=== PATIENT | female | born 1960 | race Caucasian/White ===

== ENCOUNTER 2019-10-06 09:30 | Emergency (ER) | payer MEDICARE, SELFPAY ==
--- NOTE | ~2019-10-06 | CT_ITS ---
EXAMINATION: CT brain wo con DATE: 10/06/2019 10:48 INDICATION: Sudden headache. Dizziness. TECHNIQUE: Computed tomography (CT) of the head was performed without intravenous contrast. The mA wa s adjusted according to patient size. Iterative reconstruction technique was employed. Exam dose: 60 5.33 mGy-cm total exam DLP. COMPARISON: None FINDINGS: No intracranial mass lesion or hemorrhage or cerebrovascular accident is detected. No midl ine shift or mass effect. Normal ventricular size. No subdural or epidural hematoma. No skull fracture or bone destruction. The paranasal sinuses and mastoid air cells are normally developed and aerated. IMPRESSION: No acute intracranial abnormality or significant change since 09/27/2018 Reviewed, dictated and finalized at Location [facility]. Reviewed, dictated and finalized at location B.
--- NOTE | 2019-10-06 09:35 | ECG_ITS ---
Measurements Intervals [place] Rate: 98 P: 57 [place]: 158 QRS: 109 QRSD: 106 T: 31 QT: 362 QTc: 464 Interpretive Statements SINUS RHYTHM RIGHT AXIS DEVIATION BORDERLINE R WAVE PROGRESSION, ANTERIOR LEADS BASELINE ARTIFACT- II, III BORDERLINE ECG Electronically Signed On 10-06-2019 10:34:04 CDT by Mohan Mendez D.O.
--- NOTE | 2019-10-06 09:38 | PC.NURSE ---
Pt. very restless in bed. RN attempted to start IV to obtain access and blood and Pt. jumped out and shouted NO . Attempted to reason with Pt. and Pt. stated 'I don't need a freaking IV just give me a pill or a shot or something . Attempted to reason with Pt. again and Pt. continued to refuse.
[2019-10-06 09:39] VITALS: BP 125/67; PULSE 104; RESP 18; TEMP 36.9; O2SAT 99
--- NOTE | 2019-10-06 09:39 | ED.GENADULT ---
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 She denies any visual changes and states that with her eyes closed she feels better. She is also kicking her legs quite a bit and is concerned about that movement. Her states that she frequently kicks her legs at night. She denies any recent medication changes, no recent illness, no recent eyeglass prescription change. Onset (ago): minute(s) Location: head and lower extremity Associated symptoms: headaches Treatments prior to arrival: none Related Data Home Medications Medication Instructions Recorded Confirmed bupropion HCl mg PO 06/20/19 escitalopram oxalate mg 06/20/19 indapamide mg 06/20/19 insulin aspart U-100 [Novolog unit SUBCUT 06/20/19 Flexpen U-100 Insulin] insulin glargine [Lantus U-100 SUBCUT 06/20/19 Insulin] losartan 06/20/19 losartan 06/20/19 metoprolol succinate PO 06/20/19 flash glucose scanning reader #1 each 06/24/19 flash glucose sensor #1 each 06/24/19 Allergies Allergy/AdvReac Type Severity Reaction Status Date / Time codeine Allergy Unknown Unknown Verified 08/10/19 19:12 Chocolate Allergy Unknown RASH Uncoded 07/06/19 08:35 Review of Systems Review of Systems: All systems reviewed & are unremarkable except as noted in HPI and below [facility] Past Medical History Medical History Anxiety Arthritis Bilateral carpal tunnel syndrome Bronchitis Depression Ganglion cyst History of bipolar disorder HLD (hyperlipidemia) HTN (hypertension) Knee fracture, right Meningitis Viral Skin cancer Suicidal ideation Suicide attempt x4 Type II diabetes mellitus Surgical History Surgical History H/O inguinal hernia repair History of cholecystectomy History of tonsillectomy Family History Family History Father Family history of diabetes mellitus in first degree relative Diabetes mellitus Hypertension Family history of kidney disease Other Family history of cardiovascular disease Social History Social History Smoking status: Current every day smoker Smoking end date: 07/21/14 Alcohol intake: never Gender identity (if verbalized by the patient): Female Exam Const: General: alert Orientation/consciousness: patient oriented x3 Other: pt is lying on her abdomen with eyes closed. HENMT: Head: normal to inspection Ears: TM's normal bilaterally Mouth: Yes moist mucous membranes Eyes: Conjunctivae: conjunctivae normal Pupils: Equal, round and reactive pupils present EOM: EOMs intact bilaterally Resp: Effort & Inspection: normal respiratory effort Auscultation: clear to auscultation bilaterally Cardio: Rate: regular rate Rhythm: regular rhythm Skin: General skin exam: normal color Rashes: no rashes Neuro: General: patient oriented x3 Extrem: General: normal to inspection, no pedal edema and no calf tenderness Right lower extremity: full ROM and normal capillary refill Left lower extremity: full ROM and normal capillary refill Other: constant kicking of legs, right greater than left. Psych: Mental Status: mental status grossly normal Affect: normal affect Course Course Emergency Course: Further review with patient, she has a long history of dizziness. She has been prescribed meclizine but did not take it today because she did not have it with her. She is more concerned about her restless leg symptoms. Patient's glucose here was 241 I inquired about her baseline glucose
[2019-10-06] MEDS: KETOROLAC 30 MG/ML VIAL (*BKC) IV PUSH (11:08)
[2019-10-06] MEDS: MECLIZINE HCL 12.5 MG TABLET (11:13)
[2019-10-06 11:22] LABS: Basophils Percent Auto 0.7 % (0.2-1.2); Eosinophils Absolute Auto 0.2 K/mm3 (0-0.3); Eosinophils Percent Auto 3.6 % (0-4.4); Hematocrit 38.7 % (37.0-47.0); Hemoglobin 12.4 g/dL (12.0-15.0); Immature Granulocyte Absolute 0.04 K/mm3 (0.00-0.031); Immature Granulocyte Percent A 0.7 % (0-0.5); Lymphocytes Percent Auto 23.1 % (18.3-44.2); Mean Corpuscular Hemoglobin 28.6 pg (26-34); Mean Corpuscular Volume 89.4 fl (80-100); Mean Platelet Volume 10.2 fl (7.4-10.4); Monocytes Absolute Auto 0.4 K/mm3 (0.1-0.6); Monocytes Percent Auto 6.4 % (2.6-8.5); Neutrophils Percent Auto 65.5 % (45.5-73.1); Platelet Count Result 186 k/mm3 (150-375); Red Blood Count 4.33 M/mm3 (4.2-5.4); Red Cell Distribution Width 15.2 % (11.5-14.5); White Blood Count 6.1 K/mm3 (4.5-10.0)
[2019-10-06 11:33] LABS: Alanine Aminotransferase 21 U/L (4-35); Albumin Level 4.1 g/dL (3.5-5.1); Alkaline Phosphatase 65 U/L (38-126); Aspartate Amino Transferase 22 U/L (14-36); Bilirubin,Total 0.5 mg/dL (0.2-1.3); Blood Urea Nitrogen 23 mg/dL (7-17); Calcium 9.3 mg/dL (8.4-10.2); Carbon Dioxide 24 mmol/L (22-30); Chloride 102 mmol/L (98-107); Estimated Glomerular Filt Rate 39; Glucose 241 mg/dL (65-105); Sodium 137 mmol/L (137-145)
[2019-10-06] MEDS: SODIUM CHLORIDE 0.9% IV 1,000 ML 999 ML IV CONT (12:05)
[2019-10-06 13:16] LABS: Glucose Point of Care 137 (65-105)
[2019-10-06 13:46] VITALS: BP 140/75; PULSE 70; RESP 16; O2SAT 98
== END 2019-10-06 13:35 | disposition home or self-care (01) ==
PROVIDERS: Physician Assistant; Emergency Provider Emergency Medicine; PCP Family Medicine
DX: E11.65 Type 2 diabetes mellitus with hyperglycemia (principal); F41.9 Anxiety disorder, unspecified; M19.90 Unspecified osteoarthritis, unspecified site; F32.9 Major depressive disorder, single episode, unspecified; E78.5 Hyperlipidemia, unspecified; Z79.4 Long term (current) use of insulin
CPT/HCPCS: 36415; 70450; 80053; 82948; 85025; 93005; 96374; 99284; A9270; J1885; J7030

== ENCOUNTER 2019-12-14 16:14 | Outpatient (CLI) | payer MEDICARE, SELFPAY ==
--- NOTE | ~2019-12-14 | XR_ITS ---
EXAMINATION: XR knee LT 2V EXAM DATE: 12/14/2019 16:49 INDICATION: No known recent injury provided at this time. Pain of the left knee knee. TECHNIQUE: Frontal and lateral projections of the left knee knee. Comparison is made to prior examin ation from 03/26/2010. FINDINGS: Significant interval progression in the left knee primary osteoarthritis compared to 2010, with bulky bony productive changes, moderate loss of the medial tibiofemoral joint space and probabl y development of 1 cm joint body within the suprapatellar recess. There are no acute fractures or dis locations identified. There is no subcutaneous gas. The soft tissue is unremarkable. There are no radiopaque foreign bodies. IMPRESSION: Moderate to severe left knee osteoarthritis. Reviewed, dictated and finalized at location A.
--- NOTE | ~2019-12-14 | XR_ITS ---
EXAMINATION: XR knee RT 2V EXAM DATE: 12/14/2019 16:49 INDICATION: Bilateral knee pain. No known recent injury. TECHNIQUE: Frontal and lateral projections of the right knee. Comparison is made to prior examinatio n from 11/11/2008. FINDINGS: Moderate loss of the right knee medial tibiofemoral joint space compartment. There are lar ge bulky bony productive changes. There is severe patellofemoral compartment primary osteoarthritis. Possible 1 cm joint body. There are no acute fractures or dislocations identified. There is no subcu taneous gas. The soft tissue is unremarkable. There are no radiopaque foreign bodies. IMPRESSION: Severe right knee osteoarthritis. Reviewed, dictated and finalized at location A.
[2019-12-14 17:05] LABS: Blood Urea Nitrogen 21 mg/dL (7-17); Carbon Dioxide 29 mmol/L (22-30); Chloride 101 mmol/L (98-107); Estimated Glomerular Filt Rate 42; Glucose 115 mg/dL (65-105); Potassium 4.2 mmol/L (3.4-5.0); Sodium 140 mmol/L (137-145)
[2019-12-14 18:16] LABS: Hemoglobin A1C 8.3 % (<5.7)
== END 2019-12-14 16:15 | disposition home or self-care (01) ==
PROVIDERS: PCP Family Medicine; Visit Provider Physician Assistant Medical
DX: N28.9 Disorder of kidney and ureter, unspecified (principal); E11.9 Type 2 diabetes mellitus without complications; M17.0 Bilateral primary osteoarthritis of knee
CPT/HCPCS: 36415; 73560; 80048; 83036

== ENCOUNTER 2019-12-24 13:56 | Emergency (ER) | payer MEDICARE, SELFPAY ==
--- NOTE | ~2019-12-24 | XR_ITS ---
EXAMINATION: XR knee RT 3V DATE: 12/24/2019 14:36 INDICATION: Right knee pain. TECHNIQUE: 3 views of right knee were obtained. COMPARISON: Right knee radiographs 12/14/2019 FINDINGS: Bone alignment is normal. No fracture. There is severe osteoarthritis of patellofemoral com partment and moderate osteoarthritis of medial and lateral compartments. No knee joint effusion. IMPRESSION: 1. Severe right knee osteoarthritis. Reviewed, dictated and finalized at location A.
[2019-12-24 14:02] VITALS: BP 119/87; PULSE 78; RESP 16; TEMP 36.9; O2SAT 98
[2019-12-24] MEDS: ACETAMINOPHEN 500 MG TABLET 1000 MG PO (14:40)
--- NOTE | 2019-12-24 15:35 | ED.LOWEXIN ---
HPI - Extremity Injury (Lower) General Chief Complaint: Extremity Injury, Lower Stated Complaint: R knee pain Time Seen by Provider: 12/24/19 14:03 Source: patient Mode of arrival: ambulatory Limitations: no limitations History of Present Illness HPI Narrative: Patient is a 59-year-old female who presents with right knee pain that began just prior to arrival was ambulating when she felt a pop in the knee is since had moderate aching pain with pain throughout the joint patient has an orthopedist with plan follow-up in the near future patient took her tramadol and other medications with some improvement patient on arrival in no distress notes that the pain radiates up and down the leg patient has history of orthopedic issues in the past Related Data Home Medications Medication Instructions Recorded Confirmed bupropion HCl mg PO 06/20/19 10/29/19 indapamide mg 06/20/19 10/29/19 insulin aspart U-100 [Novolog unit SUBCUT 06/20/19 10/29/19 Flexpen U-100 Insulin] insulin glargine 100 unit/mL See Rx Instructions SUBCUT .COMPLEX 12/15/19 12/15/19 subcutaneous solution Allergies Allergy/AdvReac Type Severity Reaction Status Date / Time codeine Allergy Unknown Unknown Verified 12/24/19 14:08 Chocolate Allergy Unknown RASH Uncoded 12/15/19 13:38 Review of Systems Review of Systems: Narrative: CONSTITUTIONAL: Denies fever, chills, or sweats. SKIN: Positive for swelling denies bruising. Denies back pain MUSCULOSKELETAL: Positive for right joint pain located to the knee NEUROLOGIC: Denies numbness, tingling . PMFSH Past Medical History Medical History Anxiety Arthritis Bilateral carpal tunnel syndrome Bronchitis Depression Ganglion cyst History of bipolar disorder HLD (hyperlipidemia) HTN (hypertension) Knee fracture, right Meningitis Viral Skin cancer Suicidal ideation Suicide attempt x4 Type II diabetes mellitus Surgical History Surgical History H/O inguinal hernia repair History of cholecystectomy History of tonsillectomy Social History Social History Smoking status: Current every day smoker Smoking end date: 07/21/14 Alcohol intake: never Gender identity (if verbalized by the patient): Female Exam Narrative: Exam Narrative: GENERAL: Well-appearing, well-nourished, and in no acute distress. HEAD: Normocephalic, atraumatic. EYES: PERRLA and EOMI. ENT: Nares clear, no rhinorrhea or epistaxis. Mucous membranes moist. EXTREMITIES: Swelling and tenderness of the right knee no deformity noted SKIN: Warm, dry, no rash. NEURO: No focal deficits. Alert and oriented x3. Neurovascularly intact. Capillary refill less than 2 seconds PSYCH: Normal mood and affect. Course Course Emergency Course: Patient in the room aware of case findings treatment plan and diagnosis agreeing to follow-up as directed Vital Signs Vital signs: Vital Signs Temperature 98.4 F 12/24/19 14:02 Pulse Rate 78 12/24/19 14:02 Respiratory Rate 16 12/24/19 14:02 Blood Pressure 119/87 12/24/19 14:02 Pulse Oximetry 98 12/24/19 14:02 Temperature 98.4 F 12/24/19 14:02 Pulse Rate 78 12/24/19 14:02 Respiratory Rate 16 12/24/19 14:02 Blood Pressure 119/87 12/24/19 14:02 Pulse Oximetry 98 12/24/19 14:02 MDM - Extremity Injury (Lower) MDM Narrative Medical decision making narrative: Patients injury or pain is consistent with musculoskeletal etiology. No signs of neurological or vascular compromise on exam. Compartments and tisues are soft without signs of compartment syndrome. Pain is felt appropriate for further evaluation on an outpatient basis. Imaging Data Radiologist's impression: ITS Impressions Knee X-Ray 12/24/19 14:39 IMPRESSION: 1. Severe right knee osteoarthritis. Discharge Plan Discharge Cli
[2019-12-24 15:49] VITALS: BP 114/76; PULSE 74; RESP 16; TEMP 36.6; O2SAT 96
== END 2019-12-24 15:50 | disposition home or self-care (01) ==
PROVIDERS: Emergency Provider Emergency Medicine; PCP Family Medicine
DX: M25.561 Pain in right knee (principal); M17.11 Unilateral primary osteoarthritis, right knee; Z87.891 Personal history of nicotine dependence; Z79.4 Long term (current) use of insulin; F41.9 Anxiety disorder, unspecified; F31.9 Bipolar disorder, unspecified; Z85.828 Personal history of other malignant neoplasm of skin; I10 Essential (primary) hypertension; E78.5 Hyperlipidemia, unspecified; E11.9 Type 2 diabetes mellitus without complications
CPT/HCPCS: 73562; 99283; A9270

== ENCOUNTER 2020-04-10 07:34 | Outpatient (CLI) | payer MEDICARE, SELFPAY ==
--- NOTE | ~2020-04-10 | US_ITS ---
EXAMINATION: US renal BI EXAM DATE: 04/10/2020 08:23 INDICATION: Chronic kidney disease stage III TECHNIQUE: Multiple grayscale and Doppler images of the kidneys were obtained (by a technologist who performed the scan) and subsequently reviewed. There is no prior study for comparison. FINDINGS: There is mild renal cortical thinning bilaterally. Right kidney: There is normal contour and echogenicity. It measures 9.9 x 5.3 x 5.6 centimeters. Th ere are no focal renal lesions identified. There is no hydronephrosis. Left kidney: There is normal contour and echogenicity. It measures 11.3 x 5.2 x 5.9 centimeters. Th ere are no focal renal lesions identified. There is no hydronephrosis. Bladder unremarkable. IMPRESSION: 1. Mild bilateral renal cortical thinning. 2. No hydronephrosis. Reviewed, dictated and finalized at location B.
== END 2020-04-10 07:35 | disposition home or self-care (01) ==
LOC: ANHIMG 07:45
PROVIDERS: PCP Family Medicine; Visit Provider Internal Medicine Nephrology
DX: N18.3 Chronic kidney disease, stage 3 (moderate) (principal)
CPT/HCPCS: 76775

== ENCOUNTER 2020-05-04 15:40 | Emergency (ER) | payer MEDICARE, SELFPAY ==
--- NOTE | ~2020-05-04 | XR_ITS ---
EXAMINATION: XR chest 1V portable EXAM DATE: 05/04/2020 17:43 INDICATION: Initial encounter following injury, with pain of the weakness, hypertension. TECHNIQUE: Portable AP frontal chest x-ray was obtained. Comparison is made to prior examination from 11/17/2011. FINDINGS: The lungs are clear. There are no pleural effusions. Cardiac silhouette is prominent but magnified on this AP technique. There is no pneumothorax suspected. There are bony degenerative ch anges. IMPRESSION: No acute cardiopulmonary findings. Reviewed, dictated and finalized at location A.
[2020-05-04 15:43] VITALS: BP 143/72; PULSE 80; RESP 18; TEMP 36.2; O2SAT 99
--- NOTE | 2020-05-04 15:46 | ECG_ITS ---
Measurements Intervals [place] Rate: 75 P: 54 [place]: 185 QRS: 68 QRSD: 109 T: 61 QT: 394 QTc: 441 Interpretive Statements SINUS RHYTHM LOW QRS VOLTAGE- DIFFUSE LEADS BASELINE ARTIFACT- V6 BORDERLINE ECG Electronically Signed On 05-04-2020 19:29:34 CDT by Mohan Mendez D.O.
[2020-05-04 17:04] VITALS: BP 133/76; PULSE 73; RESP 20; O2SAT 100
[2020-05-04 17:52] VITALS: BP 109/72; PULSE 72; RESP 18; O2SAT 99
[2020-05-04] MEDS: MECLIZINE HCL 25 MG TABLET PO (17:52)
[2020-05-04] MEDS: diazePAM INJ (*CRX) 10 MG/2 ML SYRINGE 5 MG IV PUSH (17:52)
[2020-05-04] MEDS: ONDANSETRON INJ 4 MG/2 ML VIAL IV PUSH (17:52)
[2020-05-04 18:01] LABS: Basophils Percent Auto 0.6 % (0.2-1.2); Eosinophils Absolute Auto 0.3 K/mm3 (0-0.3); Eosinophils Percent Auto 4.3 % (0-4.4); Hematocrit 35.2 % (37.0-47.0); Hemoglobin 11.7 g/dL (12.0-15.0); Immature Granulocyte Absolute 0.03 K/mm3 (0.00-0.031); Immature Granulocyte Percent A 0.5 % (0-0.5); Lymphocytes Absolute Auto 1.77 K/mm3 (0.9-3.2); Lymphocytes Percent Auto 26.9 % (18.3-44.2); Mean Corpuscular HGB Conc 33.2 g/dl (32-36); Mean Corpuscular Hemoglobin 28.8 pg (26-34); Mean Corpuscular Volume 86.7 fl (80-100); Mean Platelet Volume 9.8 fl (7.4-10.4); Monocytes Absolute Auto 0.5 K/mm3 (0.1-0.6); Monocytes Percent Auto 7.1 % (2.6-8.5); Neutrophils Percent Auto 60.6 % (45.5-73.1); Platelet Count Result 239 k/mm3 (150-375); Red Blood Count 4.06 M/mm3 (4.2-5.4); White Blood Count 6.6 K/mm3 (4.5-10.0)
[2020-05-04 18:13] LABS: Alanine Aminotransferase 28 U/L (4-35); Albumin Level 3.9 g/dL (3.5-5.1); Alkaline Phosphatase 65 U/L (38-126); Anion Gap 11 mmol/L (8-16); Aspartate Amino Transferase 32 U/L (14-36); Bilirubin,Total 0.6 mg/dL (0.2-1.3); Blood Urea Nitrogen 17 mg/dL (7-17); Carbon Dioxide 28 mmol/L (22-30); Chloride 100 mmol/L (98-107); Estimated CRCL calculation 79 ml/min; Estimated Glomerular Filt Rate 51; Glucose 243 mg/dL (65-105); Potassium 3.6 mmol/L (3.4-5.0); Sodium 139 mmol/L (137-145)
[2020-05-04 18:25] LABS: Troponin I < 0.012 ng/mL (0.000-0.034)
--- NOTE | 2020-05-04 18:41 | ED.DIZZY ---
HPI - Dizziness General Chief Complaint: Dizziness Stated Complaint: vertigo x 2 days Time Seen by Provider: 05/04/20 17:10 Source: patient and family Mode of arrival: ambulatory Limitations: no limitations History of Present Illness HPI Narrative: Patient is 59 years old white female presents with dizziness. History of vertigo over 1 year ago. Patient been complaining of spells of dizziness, everything is pains associated with nausea over the last 3 days. Get better on meclizine then back again. Patient denies any fever, chills, nausea, vomiting, chest pain, shortness of breath, back pain or headache. Patient also denies any focal neuro deficits. Related Data Home Medications Medication Instructions Recorded Confirmed insulin aspart U-100 [Novolog unit SUBCUT 06/20/19 01/11/20 Flexpen U-100 Insulin] Allergies Allergy/AdvReac Type Severity Reaction Status Date / Time codeine Allergy Unknown Unknown Verified 04/24/20 16:36 Chocolate Allergy Unknown RASH Uncoded 04/24/20 16:36 Review of Systems Review of Systems: Narrative: CONSTITUTIONAL: Denies fever, chills, or sweats. EYES: Denies visual changes, redness, or discharge. ENT: Denies rhinorrhea, congestion, sore throat, or otalgia. CARDIOVASCULAR: Denies chest pain, palpitations, or edema. RESPIRATORY: Denies cough or dyspnea. GASTROINTESTINAL: Denies abdominal pain, nausea, vomiting, or diarrhea. GENITOURINARY: Denies dysuria or hematuria. SKIN: Denies rash or itching. MUSCULOSKELETAL: Denies back pain, joint pain, or myalgia. NEUROLOGIC: Denies headache, numbness, or weakness. PSYCHIATRIC: Denies anxiety or depression. [facility] Past Medical History Medical History (Updated 05/04/20 @ 18:51 by Jaziel Mohan MD) Anxiety Arthritis Bilateral carpal tunnel syndrome Bronchitis Depression Ganglion cyst History of bipolar disorder HLD (hyperlipidemia) HTN (hypertension) Knee fracture, right Meningitis Viral Skin cancer Suicidal ideation Suicide attempt x4 Type II diabetes mellitus Surgical History Surgical History H/O inguinal hernia repair History of cholecystectomy History of tonsillectomy Family History Family History Father Family history of diabetes mellitus in first degree relative Diabetes mellitus Hypertension Family history of kidney disease Other Family history of cardiovascular disease Social History Social History Smoking status: Current every day smoker Smoking end date: 07/21/14 Alcohol intake: never Gender identity (if verbalized by the patient): Female Exam Narrative: Exam Narrative: General appearance: Well-developed, well-nourished Skin: Normal color Head: Normocephalic, nontraumatic Eyes: Clear conjunctiva ENT: Oropharynx normal, ears normal, nose normal Neck: Supple, nontender Chest and respiratory: Airway patent, no respiratory distress, no accessory muscle use Heart: Regular rate/rhythm Abdomen: Soft, nontender, no organomegaly, quiet bowel sounds Vascular: Normal peripheral pulses, normal capillary refill. Musculoskeletal: Normal range of motion, nontender back Neurologic: Alert and oriented ?3, LEVERMAN is normal as tested, no gross motor deficit Course Course Emergency Course: Improving Vital Signs Vital signs: Vital Signs Temperature 36.2 C L 05/04/20 15:43 Pulse Rate 80 05/04/20 15:43 Respiratory Rate 18 05/04/20 15:43 Blood Pressure 143/72 H 05/04/20 15:43 Pulse Oximetry 99 05/04/20 15:43 Temperature 36.2 C L 05/04/20 15:43 Pulse Rate 72 04/20
[2020-05-04 19:30] VITALS: BP 124/86; PULSE 67; RESP 18; O2SAT 100
== END 2020-05-04 19:32 | disposition home or self-care (01) ==
PROVIDERS: Emergency Provider Emergency Medicine; PCP Family Medicine
DX: H81.10 Benign paroxysmal vertigo, unspecified ear (principal); E11.9 Type 2 diabetes mellitus without complications; Z85.828 Personal history of other malignant neoplasm of skin; I10 Essential (primary) hypertension; E78.5 Hyperlipidemia, unspecified; M19.90 Unspecified osteoarthritis, unspecified site; Z79.4 Long term (current) use of insulin; R94.31 Abnormal electrocardiogram [ECG] [EKG]
CPT/HCPCS: 36415; 71045; 80053; 84484; 85025; 93005; 96374; 96375; 99284; A9270; J2405; J3360

== ENCOUNTER 2020-06-16 10:30 | Emergency (ER) | payer MEDICARE, SELFPAY ==
--- NOTE | ~2020-06-16 | XR_ITS ---
EXAMINATION: XR ribs RT 2V DATE: 06/16/2020 12:04 INDICATION: Anterior right lower rib pain post fall TECHNIQUE: 3 views of the right ribs were obtained. COMPARISON: Chest radiograph dated 05/04/2020 FINDINGS: No rib fractures identified. No focal airspace opacities, pulmonary edema, pleural effusion or pneumo thorax in the right lung or visualized portions of the left lung. Visualized portions of the cardiac mediastinal silhouette appear normal. Cholecystectomy clips in right upper quadrant. Likely rotator c uff tear with severe narrowing of the subacromial space which appears near [id number] with subacrom ial spurs and remodeling of the undersurface of the acromion. There is some mild corresponding hypert rophic change along the superolateral margin of the articular surface of the humeral head. IMPRESSION: 1. No right rib fracture or acute cardiopulmonary disease. 2. Likely chronic right rotator cuff tear. Reviewed, dictated and finalized at location A. 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
[2020-06-16 10:46] VITALS: BP 108/67; PULSE 83; RESP 18; TEMP 35.9; O2SAT 99
--- NOTE | 2020-06-16 13:23 | ED.FALL ---
HPI - Fall General Chief Complaint: Fall Stated Complaint: Fall last night, ribs hurt bad Time Seen by Provider: 06/16/20 11:38 Source: patient Mode of arrival: ambulatory Limitations: no limitations History of Present Illness HPI Narrative: Patient is a 59-year-old female who presents to emergency department for evaluation of injuries related to a fall that occurred last night patient tripped over a dog and fell forward injuring the right anterior ribs where she has aching pain is taken her prescribed pain medication Related Data Home Medications Medication Instructions Recorded Confirmed insulin aspart U-100 [Novolog unit SUBCUT 06/20/19 06/12/20 Flexpen U-100 Insulin] Allergies Allergy/AdvReac Type Severity Reaction Status Date / Time codeine Allergy Unknown Unknown Verified 06/16/20 10:51 Chocolate Allergy Unknown RASH Uncoded 06/16/20 10:51 Review of Systems Review of Systems: All systems reviewed & are unremarkable except as noted in HPI and below PMFSH Past Medical History Medical History Anxiety Arthritis Bereavement Bilateral carpal tunnel syndrome BMI 45.0-49.9, adult Bronchitis Depression Ganglion cyst History of bipolar disorder HLD (hyperlipidemia) HTN (hypertension) Knee fracture, right Meningitis Viral Morbidly obese Skin cancer Suicidal ideation Suicide attempt x4 Tobacco abuse Type II diabetes mellitus Surgical History Surgical History H/O inguinal hernia repair History of cholecystectomy History of tonsillectomy Family History Family History Father Family history of diabetes mellitus in first degree relative Diabetes mellitus Hypertension Family history of kidney disease Other Family history of cardiovascular disease Social History Social History Smoking status: Never smoker Smoking end date: 07/21/14 Alcohol intake: never Gender identity (if verbalized by the patient): Female Exam Narrative: Exam Narrative: GENERAL: Well-appearing, well-nourished, and in no acute distress. HEAD: Normocephalic, atraumatic. EYES: PERRLA and EOMI. ENT: Nares clear, no rhinorrhea or epistaxis. Mucous membranes moist. NECK: Supple. No adenopathy or masses. CHEST: Clear to auscultation. No respiratory distress. No wheezes rales or rhonchi. Tenderness of the right anterior lateral ribs no deformity or bruising noted HEART: Regular rate and rhythm. No murmur heard. Normal peripheral pulses. ABDOMEN: Soft, nontender, nondistended EXTREMITIES: Normal range of motion. No edema. No midline cervical thoracic or lumbar tenderness SKIN: Warm, dry, no rash. NEURO: No focal deficits. Alert and oriented x3. Cranial nerves II through XII grossly intact PSYCH: Normal mood and affect. Course Course Emergency Course: Patient in the room no distress no high risk changes in the imaging. Patient was sent home with incentive spirometer will take her pain medicine will be given additional medications provided with reasons to return and will follow with primary care Vital Signs Vital signs: Vital Signs Temperature 96.6 F L 06/16/20 10:46 Pulse Rate 83 06/16/20 10:46 Respiratory Rate 18 06/16/20 10:46 Blood Pressure 108/67 06/16/20 10:46 Pulse Oximetry 99 06/16/20 10:46 Temperature 96.6 F L 06/16/20 10:46 Pulse Rate 83 06/16/20 10:46 Respiratory Rate 18 06/16/20 10:46 Blood Pressure 108/67 06/16/20 10:46 Pulse Oximetry 99 06/16/20 10:46 MDM - Fall MDM Narrative Medical decision making narrative: Patient in the room in no distress no pneumothorax no pneumonia no rib fracture seen will be treated symptomatically given reasons to return ABCs stable no hypoxemia sent home with incentive spirometer and reasons to return
== END 2020-06-16 14:15 | disposition home or self-care (01) ==
PROVIDERS: Emergency Provider Emergency Medicine; PCP Family Medicine
DX: S20.211A Contusion of right front wall of thorax, initial encounter (principal); E11.9 Type 2 diabetes mellitus without complications; M19.90 Unspecified osteoarthritis, unspecified site; E78.5 Hyperlipidemia, unspecified; I10 Essential (primary) hypertension; E66.01 Morbid (severe) obesity due to excess calories; Z68.42 Body mass index [BMI] 45.0-49.9, adult; Z85.828 Personal history of other malignant neoplasm of skin; Z79.4 Long term (current) use of insulin; Z87.891 Personal history of nicotine dependence; W01.0XXA Fall on same level from slipping, tripping and stumbling without subsequent striking against object, initial encounter
CPT/HCPCS: 71100; 99283

== ENCOUNTER 2020-09-20 17:36 | Outpatient (CLI) | payer MEDICARE, SELFPAY | END 2020-09-20 17:37 | disposition home or self-care (01) | PROVIDERS: PCP Family Medicine | DX: Z23 Encounter for immunization (principal) | CPT/HCPCS: 0001A; 91300 ==

== ENCOUNTER 2020-10-11 17:23 | Outpatient (CLI) | payer MEDICARE, SELFPAY | END 2020-10-11 17:24 | disposition home or self-care (01) | LOC: ANHCOVIDVC 17:23 | PROVIDERS: PCP Family Medicine | DX: Z23 Encounter for immunization (principal) | CPT/HCPCS: 0002A; 91300 ==

== ENCOUNTER 2020-10-25 08:44 | Emergency (ER) | payer MEDICARE, SELFPAY ==
--- NOTE | ~2020-10-25 | XR_ITS ---
EXAMINATION: XR tibia fibula LT 2V DATE: 10/25/2020 09:39 INDICATION: Left lower leg pain. TECHNIQUE: 2 views of left tibia and fibula on 4 radiographs were obtained. COMPARISON: Left knee radiographs 12/14/2019 FINDINGS: Bone alignment is normal. No fracture. There is severe osteoarthritis of patellofemoral com partment of the knee and moderate osteoarthritis of the medial and lateral compartments. There is mil d midfoot osteoarthritis. There is mild ankle joint osteoarthritis. There are enthesophytes at the po sterior and plantar aspects of calcaneal tuberosity. There is a small knee joint effusion with loose bodies. IMPRESSION: 1. Polyarticular osteoarthritis. 2. Small knee joint effusion with loose bodies. Reviewed, dictated and finalized at location A.
--- NOTE | ~2020-10-25 | US_ITS ---
EXAMINATION: US venous doppler [facility] DATE: 10/25/2020 10:55 INDICATION: Left lower limb pain. TECHNIQUE: Grayscale ultrasound images without and with compression and Doppler ultrasound images of the left lower extremity veins were obtained. COMPARISON: Ultrasound 02/08/2008 FINDINGS: The visualized portions of left common femoral vein, profunda (deep) femoral vein, femoral vein, popl iteal vein, posterior tibial veins, and greater saphenous vein outflow are patent. There is a moderat e-sized Ho's cyst. IMPRESSION: 1. No deep venous thrombosis. 2. Moderate-sized Ho's cyst. Reviewed, dictated and finalized at location A.
--- NOTE | ~2020-10-25 | XR_ITS ---
EXAMINATION: XR foot LT min 3V DATE: 10/25/2020 09:39 INDICATION: Left foot pain. TECHNIQUE: 4 views of left foot were obtained. COMPARISON: Left foot radiographs 05/29/2015 FINDINGS: Bone alignment is normal. No fracture. There is mild osteoarthritis of first-third metatars ophalangeal joints and some of the interphalangeal joints and midfoot joints. There is chronic deform ity of head of fifth proximal phalanx, which may be from prior surgery or trauma. There is chronic wi dening of the fifth proximal interphalangeal joint. There are enthesophytes at the posterior and plan tar aspects of calcaneal tuberosity. IMPRESSION: 1. Polyarticular osteoarthritis. Reviewed, dictated and finalized at location A.
[2020-10-25 08:50] VITALS: PULSE 100; RESP 20; TEMP 35.9; O2SAT 95
--- NOTE | 2020-10-25 08:58 | PC.NURSE ---
Pt refusing all forms of monitoring, pt refusing exam on extremity, pt refusing both side rails up stating I don't want to be trapped.
--- NOTE | 2020-10-25 09:06 | ED.GENADULT ---
HPI - General Adult General Chief complaint: Extremity Injury, Lower Stated complaint: left leg pain, yin feet swelling Time Seen by Provider: 10/25/20 09:03 History of Present Illness HPI narrative: Patient is a 60-year-old female who comes into the ED today complaining of pain and swelling in her left lower leg. Patient reports that she has chronic left knee pain. She says that yesterday she mowed the grass with a push mower and around that time she developed new pain in left calf and left foot that has become worse today. Denies any other possible injury. Admits to previous history of similar symptoms that were musculoskeletal in nature. No previous DVT. She is not on blood thinners. Denies any new numbness or tingling, says that she has some chronic peripheral neuropathy. Denies any back pain. Denies any fevers or any other systemic symptoms. Notes that her would have normally mowed the grass but unfortunately he about 5 months ago. Related Data Home Medications Medication Instructions Recorded Confirmed insulin aspart U-100 [Novolog unit SUBCUT 06/20/19 06/12/20 Flexpen U-100 Insulin] Allergies Allergy/AdvReac Type Severity Reaction Status Date / Time codeine Allergy Unknown Unknown Verified 10/25/20 08:55 Chocolate Allergy Unknown RASH Uncoded 10/25/20 08:55 Review of Systems Constitutional: Constitutional: Reports as per HPI, Denies fever(s), Denies night sweats and Denies weakness Cardiovascular: Cardiovascular: Denies chest pain, Denies edema, Denies leg edema, Denies dyspnea and Denies orthopnea Respiratory: Respiratory: Denies cough and Denies dyspnea Gastrointestinal: Gastrointestinal: Denies abdominal pain, Denies constipation, Denies diarrhea, Denies nausea and Denies vomiting Musculoskeletal: Musculoskeletal: Denies back pain Comments: See HPI Neurologic: Denies Abnormal speech present, Denies abnormal gait, Denies numbness, Denies tingling and Denies weakness Psychiatric: Psychiatric: Denies homicidal ideation and Denies suicidal ideation [facility] Past Medical History Medical History Anxiety Arthritis Bereavement Bilateral carpal tunnel syndrome BMI 45.0-49.9, adult Bronchitis Depression Ganglion cyst History of bipolar disorder HLD (hyperlipidemia) HTN (hypertension) Knee fracture, right Meningitis Viral Morbidly obese Skin cancer Suicidal ideation Suicide attempt x4 Tobacco abuse Type II diabetes mellitus Surgical History Surgical History H/O inguinal hernia repair History of cholecystectomy History of tonsillectomy Family History Family History Father Family history of diabetes mellitus in first degree relative Diabetes mellitus Hypertension Family history of kidney disease Other Family history of cardiovascular disease Social History Social History Smoking status: Never smoker Smoking end date: 07/21/14 Alcohol intake: never Gender identity (if verbalized by the patient): Female Exam Const: General: cooperative, no acute distress, well developed, alert, awake and Physically active Nutritional Appearance: overweight Orientation/consciousness: patient oriented x3 Other: Uncomfortable appearing HENMT: Head: normal to inspection, normocephalic and atraumatic Ears: external ears normal General nose exam: Normal external nose present Eyes: Pupils: Equal, round and reactive pupils present EOM: EOMs intact bilaterally Neck: Neck: normal visual inspection Chest: Chest palpation & inspection: normal inspection of the chest and no tenderness Resp: Effort & Inspection: normal respiratory effort and able to speak in complete sentences Auscultation: clear to auscultation bilaterally Cardio: Rate: regular rate Rhythm: regular rhythm G
[2020-10-25] MEDS: ACETAMINOPHEN 500 MG TABLET 1000 MG PO (09:54)
[2020-10-25] MEDS: KETOROLAC 30 MG/ML VIAL (*BKC) IV PUSH (10:04)
[2020-10-25 10:14] LABS: Basophils Percent Auto 0.7 % (0.2-1.2); Eosinophils Absolute Auto 0.3 K/mm3 (0-0.3); Eosinophils Percent Auto 4.1 % (0-4.4); Hematocrit 36.2 % (37.0-47.0); Hemoglobin 11.8 g/dL (12.0-15.0); Immature Granulocyte Absolute 0.03 K/mm3 (0.00-0.031); Immature Granulocyte Percent A 0.5 % (0-0.5); Lymphocytes Absolute Auto 1.63 K/mm3 (0.9-3.2); Lymphocytes Percent Auto 26.5 % (18.3-44.2); Mean Corpuscular HGB Conc 32.6 g/dl (32-36); Mean Corpuscular Volume 82.8 fl (80-100); Mean Platelet Volume 9.4 fl (7.4-10.4); Monocytes Absolute Auto 0.4 K/mm3 (0.1-0.6); Monocytes Percent Auto 6.7 % (2.6-8.5); Neutrophils Absolute Auto 3.8 K/mm3 (1.3-6.7); Neutrophils Percent Auto 61.5 % (45.5-73.1); Platelet Count Result 220 k/mm3 (150-375); Red Blood Count 4.37 M/mm3 (4.2-5.4); Red Cell Distribution Width 15.5 % (11.5-14.5); White Blood Count 6.1 K/mm3 (4.5-10.0)
[2020-10-25 10:25] LABS: D Dimer 0.69 ug/mL (<0.48)
[2020-10-25 10:26] LABS: Alanine Aminotransferase 29 U/L (4-35); Albumin Level 4.1 g/dL (3.5-5.1); Alkaline Phosphatase 76 U/L (38-126); Anion Gap 11 mmol/L (8-16); Aspartate Amino Transferase 34 U/L (14-36); Bilirubin,Total 0.5 mg/dL (0.2-1.3); Blood Urea Nitrogen 25 mg/dL (7-17); Calcium 8.9 mg/dL (8.4-10.2); Carbon Dioxide 26 mmol/L (22-30); Chloride 98 mmol/L (98-107); Estimated CRCL calculation 66 ml/min; Estimated Glomerular Filt Rate 42; Glucose 417 mg/dL (65-105); Potassium 4.4 mmol/L (3.4-5.0); Sodium 135 mmol/L (137-145)
[2020-10-25 11:16] LABS: Glucose Point of Care 362 (65-105)
[2020-10-25 12:08] VITALS: BP 138/78; PULSE 80; RESP 20; O2SAT 99
== END 2020-10-25 12:09 | disposition home or self-care (01) ==
PROVIDERS: Physician Assistant Medical; Emergency Provider Emergency Medicine; PCP Family Medicine
DX: S86.912A Strain of unspecified muscle(s) and tendon(s) at lower leg level, left leg, initial encounter (principal); M19.90 Unspecified osteoarthritis, unspecified site; E78.5 Hyperlipidemia, unspecified; I10 Essential (primary) hypertension; E66.01 Morbid (severe) obesity due to excess calories; Z68.43 Body mass index [BMI] 50.0-59.9, adult; E11.42 Type 2 diabetes mellitus with diabetic polyneuropathy; Z79.4 Long term (current) use of insulin; X50.9XXA Other and unspecified overexertion or strenuous movements or postures, initial encounter; Y93.H2 Activity, gardening and landscaping
CPT/HCPCS: 36415; 73590; 73630; 80053; 85025; 85380; 93971; 96374; 99284; A9270; J1885

== ENCOUNTER 2020-10-29 07:14 | Emergency (ER) | payer MEDICARE, SELFPAY ==
--- NOTE | ~2020-10-29 | US_ITS ---
EXAMINATION: US venous doppler [facility] EXAM DATE: 10/29/2020 10:10 INDICATION: Left leg pain and swelling. TECHNIQUE: Multiple grayscale, color flow and Doppler images of the left lower extremity deep venous system were obtained and reviewed. Comparison is made to prior examination from 10/25/2020. FINDINGS: Left peroneal vein was noncompressible, sign of intraluminal thrombus. The left common femo ral, femoral and profunda veins demonstrate normal color flow, respiratory variation, augmentation an d compressibility. Compressibility, color flow confirmed within the left popliteal, posterior tibial , and greater saphenous veins. There is a Ho's cyst measuring 4 cm. IMPRESSION: 1. Positive for left peroneal DVT. 2. Moderate-sized Ho's cyst. Reviewed, dictated and finalized at location A.
[2020-10-29 07:16] VITALS: BP 165/69; PULSE 79; RESP 20; TEMP 36.2; O2SAT 99
--- NOTE | 2020-10-29 08:00 | ED.LOWEXIN ---
HPI - Extremity Injury (Lower) General Chief Complaint: Extremity Injury, Lower Stated Complaint: L LEG PAIN Time Seen by Provider: 10/29/20 07:39 Source: patient Mode of arrival: ambulatory Limitations: no limitations History of Present Illness HPI Narrative: 60-year-old female History of hypertension, diabetes Complains of several days of worsening symptoms in her left leg, says her foot is numb, her ankle is swollen, her calf hurts, it feels like needles are in her knee, and her hip hurts She does not recall doing anything that to have caused the symptoms No history of a back injury and little or no back pain No bowel or bladder symptoms, no fever Related Data Home Medications Medication Instructions Recorded Confirmed insulin aspart U-100 [Novolog unit SUBCUT QID 06/20/19 06/12/20 Flexpen U-100 Insulin] insulin detemir U-100 [Levemir 75 unit SUBCUT DAILY 10/29/20 10/29/20 U-100 Insulin] rosuvastatin 20 mg PO DAILY 10/29/20 10/29/20 tramadol 100 mg PO Q8H PRN 10/29/20 10/29/20 Allergies Allergy/AdvReac Type Severity Reaction Status Date / Time codeine Allergy Unknown Unknown Verified 10/29/20 07:19 Chocolate Allergy Unknown RASH Uncoded 10/29/20 07:19 Review of Systems Review of Systems: All systems reviewed & are unremarkable except as noted in HPI and below Constitutional: Constitutional: Reports no additional constitutional complaints, Denies chills, Denies fever(s) and Denies headache(s) Eyes: Eyes: Reports no additional eye complaints and Denies change in vision ENT: Denies headache(s) Cardiovascular: Cardiovascular: Denies chest pain and Denies dyspnea Respiratory: Respiratory: Denies cough and Denies dyspnea Gastrointestinal: Gastrointestinal: Denies vomiting Genitourinary: Genitourinary: Denies urinary frequency Musculoskeletal: Musculoskeletal: Denies deformity, Reports arthralgias, Reports joint swelling, Reports muscle cramps and Denies numbness Integumentary/Breasts: Skin/Breast: Denies rash and Denies wounds Neurologic: Denies headache(s), Denies focal weakness and Reports numbness PMFSH Past Medical History Medical History Anxiety Arthritis Bereavement Bilateral carpal tunnel syndrome BMI 45.0-49.9, adult Bronchitis Depression Ganglion cyst History of bipolar disorder HLD (hyperlipidemia) HTN (hypertension) Knee fracture, right Meningitis Viral Morbidly obese Skin cancer Suicidal ideation Suicide attempt x4 Tobacco abuse Type II diabetes mellitus Surgical History Surgical History H/O inguinal hernia repair History of cholecystectomy History of tonsillectomy Family History Family History Father Family history of diabetes mellitus in first degree relative Diabetes mellitus Hypertension Family history of kidney disease Other Family history of cardiovascular disease Social History Social History Smoking status: Never smoker Smoking end date: 07/21/14 Alcohol intake: never Gender identity (if verbalized by the patient): Female Exam Const: General: cooperative, no acute distress and alert Nutritional Appearance: obese Orientation/consciousness: patient oriented x3 (alert) HENMT: Head: normal to inspection, normocephalic and atraumatic Ears: external ears normal General nose exam: no epistaxis Eyes: Conjunctivae: conjunctivae normal EOM: EOMs intact bilaterally Neck: Neck: normal visual inspection, supple and no JVD Resp: Effort & Inspection: normal respiratory effort and not labored Auscultation: other (BS =) Cardio: Rate: not tachycardic Back/Spine/Pelvis: Other: Mild poorly localized lumbar tenderness Skin: General skin exam: no rashes or lesions noted Neuro: General: patient oriented x3 (alert) and moves all extremiti
--- NOTE | 2020-10-29 08:07 | ECG_ITS ---
Measurements Intervals [place] Rate: 80 P: 52 PA: 187 QRS: 75 QRSD: 97 T: 51 QT: 369 QTc: 428 Interpretive Statements SINUS RHYTHM DELAYED PRECORDIAL R/S TRANSITION LOW QRS VOLTAGE IN LIMB LEADS BASELINE ARTIFACT- I, III, AVL, AVF BORDERLINE ECG Electronically Signed On 10-29-2020 14:24:28 CDT by Mohan Mendez D.O.
[2020-10-29 09:09] LABS: Basophils Percent Auto 0.2 % (0.2-1.2); Eosinophils Absolute Auto 0.2 K/mm3 (0-0.3); Eosinophils Percent Auto 2.3 % (0-4.4); Hematocrit 32.7 % (37.0-47.0); Hemoglobin 10.8 g/dL (12.0-15.0); Immature Granulocyte Absolute 0.05 K/mm3 (0.00-0.031); Immature Granulocyte Percent A 0.6 % (0-0.5); Lymphocytes Absolute Auto 1.22 K/mm3 (0.9-3.2); Lymphocytes Percent Auto 14.7 % (18.3-44.2); Mean Corpuscular Hemoglobin 27.1 pg (26-34); Mean Corpuscular Volume 82.2 fl (80-100); Mean Platelet Volume 9.7 fl (7.4-10.4); Monocytes Absolute Auto 0.5 K/mm3 (0.1-0.6); Monocytes Percent Auto 5.7 % (2.6-8.5); Neutrophils Absolute Auto 6.4 K/mm3 (1.3-6.7); Neutrophils Percent Auto 76.5 % (45.5-73.1); Platelet Count Result 187 k/mm3 (150-375); Red Blood Count 3.98 M/mm3 (4.2-5.4); Red Cell Distribution Width 15.5 % (11.5-14.5); White Blood Count 8.3 K/mm3 (4.5-10.0)
[2020-10-29 09:22] LABS: Anion Gap 7 mmol/L (8-16); Blood Urea Nitrogen 17 mg/dL (7-17); Calcium 8.7 mg/dL (8.4-10.2); Carbon Dioxide 30 mmol/L (22-30); Chloride 98 mmol/L (98-107); D Dimer 0.66 ug/mL (<0.48); Estimated CRCL calculation 78 ml/min; Estimated Glomerular Filt Rate 51; Glucose 364 mg/dL (65-105); Sodium 135 mmol/L (137-145)
--- NOTE | 2020-10-29 10:03 | PC.NURSE ---
To US via stretcher.
== END 2020-10-29 11:00 | disposition home or self-care (01) ==
PROVIDERS: Emergency Provider Emergency Medicine; PCP Family Medicine
DX: I82.452 Acute embolism and thrombosis of left peroneal vein (principal); M71.22 Synovial cyst of popliteal space [Baker], left knee; I10 Essential (primary) hypertension; E11.9 Type 2 diabetes mellitus without complications; M19.90 Unspecified osteoarthritis, unspecified site; E78.5 Hyperlipidemia, unspecified; Z85.828 Personal history of other malignant neoplasm of skin; E66.01 Morbid (severe) obesity due to excess calories; Z68.43 Body mass index [BMI] 50.0-59.9, adult; Z87.891 Personal history of nicotine dependence; Z79.4 Long term (current) use of insulin; R94.31 Abnormal electrocardiogram [ECG] [EKG]
CPT/HCPCS: 36415; 80048; 85025; 85380; 93005; 93971; 99284

== ENCOUNTER 2020-10-29 21:18 | Emergency (ER) | payer MEDICARE, SELFPAY ==
[2020-10-29 21:25] VITALS: BP 101/74; PULSE 94; RESP 20; TEMP 35.8; O2SAT 99
--- NOTE | 2020-10-29 21:37 | PC.NURSE ---
Patient was triaged, then when being asked triage questions, became aggressive stating this is stupid, this is fucking stupid. Just look at the chart. I was here earlier today and diagnosed with a dvt. I'm leaving, there is no need for me to be here, you guys don't know what your doing. This nurse informed patient that she was being seen again and it is protocol to ask the necessary questions. Patient was informed she was going to have more blood drawn for testing. Patient states well I'm leaving, I'm done. I'm suing this place, you guys don't know what your doing. Patient then puts her shoes on, rips off her face mask and then states its stupid, they just put me in a w/c and set me out there, they didn't put me in a room. Patient then informed that the waiting room is full and the ER is full and she was going to be triaged. Patient then yelling saying im leaving! Patient's IV was removed and patient ambulated out of the ED with a steady gait.
--- NOTE | 2020-10-29 21:41 | PC.NURSE ---
Patient left ED at 2141.
== END 2020-10-29 21:41 | disposition left against medical advice (07) ==
LOC: ANHED 22:09
PROVIDERS: PCP Family Medicine
DX: M79.605 Pain in left leg (principal); M79.604 Pain in right leg
CPT/HCPCS: 99199

== ENCOUNTER 2021-02-24 12:23 | Emergency (ER) | payer MEDICARE, SELFPAY ==
--- NOTE | ~2021-02-24 | XR_ITS ---
XR shoulder LT min 2V 02/24/2021 12:53 Indication: Left shoulder pain after fall Procedure: 5 views left shoulder Comparison: 03/01/2018 Findings: There is osteoarthritis of the glenohumeral joint. There are small loose bodies superior an d inferior to the joint space. There is a subacromial spur. No acute fracture. Impression: 1: No acute fracture. Reviewed, dictated and finalized at location A. Impression: 1: No acute fracture.
--- NOTE | ~2021-02-24 | XR_ITS ---
XR ankle LT min 3V 02/24/2021 12:53 Indication: Left ankle pain after fall Procedure: 4 views left ankle Comparison: 10/25/2020 Findings: There is advanced polyarticular osteoarthritis of the left ankle and midfoot with subchondr al cyst formation in the distal tibia and fibula. Prominent degenerative calcaneal spurs. No acute fr acture is identified. There is medial soft tissue swelling. Impression: 1: No acute fracture. 2: Advanced polyarticular osteoarthritis. Reviewed, dictated and finalized at location A. Impression: 1: No acute fracture. 2: Advanced polyarticular osteoarthritis.
--- NOTE | ~2021-02-24 | XR_ITS ---
XR hip LT 2V w AP pelvis 02/24/2021 12:53 INDICATION: Left hip pain after fall PROCEDURE: AP pelvis and 2 views left hip COMPARISON: 03/26/2010 FINDINGS: Fracture, dislocation or subluxation is not identified. Pelvic rings are intact. Sacral for amen are symmetric. The soft tissues appear within normal limits. No foreign bodies are identified. IMPRESSION: 1: NO ACUTE BONE OR JOINT ABNORMALITY IDENTIFIED. Reviewed, dictated and finalized at location A.
--- NOTE | ~2021-02-24 | XR_ITS ---
XR knee LT min 4V 02/24/2021 12:53 Indication: Left knee pain after fall Procedure: 4 views left knee Comparison: Comparison to multiple prior studies sequentially, with oldest reviewed study dated 11/11. Findings: There is severe osteoarthritis of the left knee with multiple loose bodies adjacent to the joint space. No acute fracture, subluxation or dislocation. Small joint effusion. No acute fracture. Impression: 1: No acute fracture. 2: Severe osteoarthritis of the left knee. Reviewed, dictated and finalized at location A. Impression: 1: No acute fracture. 2: Severe osteoarthritis of the left knee.
[2021-02-24 12:25] VITALS: BP 147/76; PULSE 86; RESP 20; TEMP 36.4; O2SAT 99
--- NOTE | 2021-02-24 13:43 | ED.GENADULT ---
HPI - General Adult General Chief complaint: Fall Stated complaint: FELL LAST NIGHT Time Seen by Provider: 02/24/21 12:55 History of Present Illness HPI narrative: Patient is a 60-year-old female who presents ER status post fall. Patient fell last night. She is able to ambulate. After waking up today she has had increased along her left side and has increased pain mostly in her left knee. No fevers or chills or sweats. She is on a blood thinner but did not strike her head or lose consciousness. Related Data Allergies Allergy/AdvReac Type Severity Reaction Status Date / Time codeine Allergy Unknown Unknown Verified 02/24/21 13:09 Chocolate Allergy Unknown RASH Uncoded 02/24/21 13:09 Review of Systems Review of Systems: All systems reviewed & are unremarkable except as noted in HPI and below Constitutional: Constitutional: Denies chills and Denies fever(s) Musculoskeletal: Musculoskeletal: Reports arthralgias, Reports joint swelling and Denies muscle cramps Integumentary/Breasts: Skin/Breast: Denies erythema and Denies skin ulcer Comments: Skin abrasions Neurologic: Denies syncope, Denies headache(s), Denies focal weakness and Denies numbness PMFSH Past Medical History Medical History Anxiety Arthritis Bereavement Bilateral carpal tunnel syndrome BMI 45.0-49.9, adult BMI 50.0-59.9, adult Bronchitis Depression Ganglion cyst History of bipolar disorder HLD (hyperlipidemia) HTN (hypertension) Knee fracture, right Meningitis Viral Morbidly obese Numbness of left foot Screen for colon cancer Skin cancer Suicidal ideation Suicide attempt x4 Tobacco abuse Type II diabetes mellitus Surgical History Surgical History H/O inguinal hernia repair History of cholecystectomy History of tonsillectomy Family History Family History Father Family history of diabetes mellitus in first degree relative Diabetes mellitus Hypertension Family history of kidney disease Other Family history of cardiovascular disease Social History Social History Smoking packs per day: 0.25 Smoking cigarettes per day: 5.0 Years smoked: 30 Smoking pack-years: 7.50 Tobacco type: cigarettes Second hand tobacco smoke exposure: No Alcohol intake: never Substance use: never Substance use type: does not use Gender identity (if verbalized by the patient): Female Exam Narrative: GENERAL: Well-appearing, well-nourished, and in no acute distress. HEAD: Normocephalic, atraumatic. EYES: PERRL and EOMI. ENT: Mucous membranes moist. CHEST: Clear to auscultation. No respiratory distress. HEART: Regular rate and rhythm. Normal peripheral pulses. EXTREMITIES: Normal range of motion. Tender palpation around the left knee without evidence of bruising. Limited range of motion of the knee due to pain. SKIN: Warm, dry, abrasions left forearm. NEURO: Alert and oriented x3. Course Course Emergency Course: Patient informed results. Discussed conservative therapy. Discharge home. Vital Signs Vital signs: Vital Signs Temperature 97.5 F L 02/24/21 12:25 Pulse Rate 86 02/24/21 12:25 Respiratory Rate 20 02/24/21 12:25 Blood Pressure 147/76 H 02/24/21 12:25 Pulse Oximetry 99 02/24/21 12:25 Temperature 97.5 F L 02/24/21 12:25 Pulse Rate 86 02/24/21 12:25 Respiratory Rate 20 02/24/21 12:25 Blood Pressure 147/76 H 02/24/21 12:25 Pulse Oximetry 99 02/24/21 12:25 Medical Decision Making Vital Signs Vital Signs: Vital Signs Temperature 97.5 F L 02/24/21 12:25 Pulse Rate 86 02/24/21 12:25 Respiratory Rate 20 02/24/21 12:25 Blood Pressure 147/76 H 02/24/21 12:25 Pulse Oximetry 99 02/24/21 12:25 Temperature 97.5 F L 02/24/21 12:25 Pulse Rate 86 02/24/21 12:
== END 2021-02-24 13:59 | disposition home or self-care (01) ==
PROVIDERS: Emergency Provider Emergency Medicine; PCP Family Medicine
DX: S83.92XA Sprain of unspecified site of left knee, initial encounter (principal); E11.9 Type 2 diabetes mellitus without complications; E78.5 Hyperlipidemia, unspecified; I10 Essential (primary) hypertension; E66.01 Morbid (severe) obesity due to excess calories; Z68.42 Body mass index [BMI] 45.0-49.9, adult; M17.12 Unilateral primary osteoarthritis, left knee; M19.072 Primary osteoarthritis, left ankle and foot; Z79.4 Long term (current) use of insulin; Z79.01 Long term (current) use of anticoagulants; F31.9 Bipolar disorder, unspecified; F41.9 Anxiety disorder, unspecified; F17.210 Nicotine dependence, cigarettes, uncomplicated; Z85.828 Personal history of other malignant neoplasm of skin; W19.XXXA Unspecified fall, initial encounter
CPT/HCPCS: 73030; 73502; 73564; 73610; 99284

== ENCOUNTER 2021-03-01 09:30 | Outpatient (CLI) | payer MEDICARE, SELFPAY ==
--- NOTE | 2021-03-01 11:00 | NEURO_ITS ---
Impression: # Insulin dependent diabetic complains of numbness of legs, left more than right. # Left posterior tibial nerve has no responses. # Right posterior tibial neuropathy. # No sural or superficial peroneal sensory nerve responses. # Needle/EMG exam abnormal. # Bilateral edema noted. Nerve Conduction Studies Anti Sensory Summary Table Stim Site NR Peak (ms) P-T Amp (?V) Site1 Site2 Delta-P (ms) Dist (cm) Jc (m/s) Left Sup Fibular Anti Sensory (Ant Lat Mall) NO RESPONSE 14 cm NR 14 cm Ant Lat Mall 16.0 Right Sup Fibular Anti Sensory (Ant Lat Mall) NO RESPONSE 14 cm NR 14 cm Ant Lat Mall 16.0 Left Sural Anti Sensory (Lat Mall) NO RESPONSE Calf NR Calf Lat Mall 16.0 Right Sural Anti Sensory (Lat Mall) NO RESPONSE Calf NR Calf Lat Mall 16.0 Motor Summary Table Stim Site NR Onset (ms) O-P Amp (mV) Site1 Site2 Delta-0 (ms) Dist (cm) Jc (m/s) Left Peroneal Motor (Vastus Med) Ankle 4.7 0.5 Popit Ankle 9.5 39.0 41 Popit 14.2 0.3 Right Peroneal Motor (Vastus Med) Ankle 4.6 1.3 Popit Ankle 9.2 38.0 41 Popit 13.8 1.3 Left Tibial Motor (Abd Dewitt Brev) NO RESPONSE Ankle NR Knee NR Right Tibial Motor (Abd Dewitt Brev) Ankle 4.3 0.7 Knee Ankle 11.3 41.0 36 Knee 15.6 0.2 F Wave Studies NR F-Lat (ms) L-R F-Lat (ms) Left Peroneal (Mrkrs) (EDB) 61.72 1.29 Right Peroneal (Mrkrs) (EDB) 60.43 1.29 Left Tibial (Mrkrs) (Abd Hallucis) 59.53 0.12 Right Tibial (Mrkrs) (Abd Hallucis) 59.42 0.12 EMG Side Muscle Nerve Root Ins Act Fibs Amp Dur Recrt Comment Right AntTibialis Dp Br Fibular L4-5 Nml Nml Nml Nml Nml Right Gastroc Tibial S1-2 Nml Nml Nml Nml Nml Right Fibularis Long Sup Br Fibular L5-S1 Nml Nml Nml Nml Reduced Right Flex Dig Long Tibial L5-S2 Nml Nml Nml >12ms Reduced Right Ext Dig Brev Dp Br Fibular L5, S1 Nml Nml Nml >12ms Reduced Left AntTibialis Dp Br Fibular L4-5 Nml Nml Nml Nml Nml Left Gastroc Tibial S1-2 Nml Nml Nml >12ms Reduced Left Fibularis Long Sup Br Fibular L5-S1 Nml Nml Nml >12ms Reduced Left Flex Dig Long Tibial L5-S2 Nml Nml Nml >12ms Reduced Left Ext Dig Brev Dp Br Fibular L5, S1 Nml Nml Nml >12ms Reduced MTDD
== END 2021-03-01 09:31 | disposition home or self-care (01) ==
LOC: ANHNEURO 09:32
PROVIDERS: PCP Family Medicine; Visit Provider Physician Assistant Medical
DX: G57.82 Other specified mononeuropathies of left lower limb (principal); R20.0 Anesthesia of skin
CPT/HCPCS: 95886; 95910

== ENCOUNTER 2021-03-21 18:33 | Emergency (ER) | payer MEDICARE, SELFPAY ==
--- NOTE | ~2021-03-21 | XR_ITS ---
EXAMINATION: XR knee LT 3V DATE: 03/21/2021 19:13 INDICATION: Medial left knee pain. Fall. TECHNIQUE: 3 views of left knee were obtained. COMPARISON: Left knee radiographs 02/24/2021 FINDINGS: Bone alignment is normal. No fracture. There is moderate osteoarthritis of medial and boyd lofemoral compartments and mild osteoarthritis of lateral compartment. There is a moderate-sized knee joint effusion with loose bodies. IMPRESSION: 1. Moderate left knee osteoarthritis. 2. Moderate-sized knee joint effusion with loose bodies. Reviewed, dictated and finalized at location A.
[2021-03-21 18:48] VITALS: BP 127/61; PULSE 80; RESP 16; TEMP 35.3; O2SAT 98
--- NOTE | 2021-03-21 18:57 | ED.LOWEXIN ---
HPI - Extremity Injury (Lower) General Chief Complaint: Extremity Injury, Lower Stated Complaint: left knee pain Time Seen by Provider: 03/21/21 18:45 Source: patient and RN notes reviewed Mode of arrival: ambulatory Limitations: no limitations History of Present Illness HPI Narrative: 60-year-old female presents to [facility] with complaints of left knee pain for 3 weeks. States that she was evaluated and released. And falling on the left knee again after evaluation. Has a history of a DVT in the same leg. Swelling is noted. Patient currently on Eliquis and states that she is compliant. Related Data Allergies Allergy/AdvReac Type Severity Reaction Status Date / Time codeine Allergy Unknown Unknown Verified 03/21/21 18:58 Chocolate Allergy Unknown RASH Uncoded 03/21/21 18:58 Review of Systems Review of Systems: All systems reviewed & are unremarkable except as noted in HPI and below Constitutional: Constitutional: Reports no additional constitutional complaints Eyes: Eyes: Reports no additional eye complaints ENT: Reports system reviewed and no additional complaints, except as documented Cardiovascular: Cardiovascular: Reports no additional cardiovascular complaints Respiratory: Respiratory: Reports no additional respiratory complaints Musculoskeletal: Musculoskeletal: Reports as per HPI Comments: left knee pain Integumentary/Breasts: Skin/Breast: Reports system reviewed and no additional complaints, except as docu Neurologic: Reports system reviewed and no additional complaints, except as documented Psychiatric: Psychiatric: Reports no additional psychiatric complaints Allergic/Immunologic: Allergic/Immunologic: Reports no additional allergic/immunologic complaints PMFSH Past Medical History Medical History Abnormal nerve conduction studies Anxiety Arthritis Bereavement Bilateral carpal tunnel syndrome BMI 45.0-49.9, adult BMI 50.0-59.9, adult Bronchitis Depression Ganglion cyst History of bipolar disorder HLD (hyperlipidemia) HTN (hypertension) Knee fracture, right Meningitis Viral Morbidly obese Numbness of left foot Screen for colon cancer Skin cancer Suicidal ideation Suicide attempt x4 Tobacco abuse Type II diabetes mellitus Surgical History Surgical History H/O inguinal hernia repair History of cholecystectomy History of tonsillectomy Family History Family History Father Family history of diabetes mellitus in first degree relative Diabetes mellitus Hypertension Family history of kidney disease Other Family history of cardiovascular disease Social History Social History Smoking packs per day: 0.25 Smoking cigarettes per day: 5.0 Years smoked: 30 Smoking pack-years: 7.50 Tobacco type: cigarettes Second hand tobacco smoke exposure: No Alcohol intake: never Substance use: never Substance use type: does not use Gender identity (if verbalized by the patient): Female Comments At the time of my signature, I reviewed and agree with the nursing past medical, surgical, social, and family history. There is no relevant family history pertinent to the patient complaint. Exam Const: General: healthy appearing, no acute distress and alert Nutritional Appearance: well nourished and obese Orientation/consciousness: patient oriented x3 Limitations: no limitations HENMT: Head: normal to inspection Eyes: Pupils: Equal, round and reactive pupils present Neck: Neck: normal visual inspection, no lymphadenopathy and no meningeal signs Chest: Chest palpation & inspection: normal inspection of the chest Resp: Effort & Inspection: normal respiratory effort Auscultation: clear to auscultation bilaterally Cardio: Rate: regular rate Rhythm: regular rhythm Skin: Genera
== END 2021-03-21 19:41 | disposition home or self-care (01) ==
PROVIDERS: Emergency Provider Nurse Practitioner; PCP Family Medicine
DX: M25.462 Effusion, left knee (principal); M17.12 Unilateral primary osteoarthritis, left knee; F17.210 Nicotine dependence, cigarettes, uncomplicated; M19.90 Unspecified osteoarthritis, unspecified site; E78.5 Hyperlipidemia, unspecified; I10 Essential (primary) hypertension; Z86.61 Personal history of infections of the central nervous system; Z85.828 Personal history of other malignant neoplasm of skin; E11.9 Type 2 diabetes mellitus without complications; E66.01 Morbid (severe) obesity due to excess calories; Z68.42 Body mass index [BMI] 45.0-49.9, adult; F41.9 Anxiety disorder, unspecified; F32.9 Major depressive disorder, single episode, unspecified
CPT/HCPCS: 73562; 99213; G0463

== ENCOUNTER 2021-05-24 20:37 | Emergency (ER) | payer MEDICARE, SELFPAY ==
[2021-05-24 20:47] VITALS: BP 115/55; PULSE 100; RESP 20; TEMP 36.9; O2SAT 100
--- NOTE | 2021-05-24 21:00 | ED.BACK ---
HPI - Back Pain/Injury General Chief Complaint: Back Pain/Injury Stated Complaint: back spasms Time Seen by Provider: 05/24/21 20:58 Source: patient Mode of arrival: ambulatory Limitations: no limitations History of Present Illness HPI Narrative: 60 year old female with history of lower back pain complaining of worsening of lower back pain over the past 2 weeks. Worse with bending and lifting, worse in the morning. Pain located R paralumbar radiating to R side. No injury, no fever, no history of malignancy, no bowel or urinary incontinence or retention, no saddle anesthesia,no focal weakness. Patient has been taking flexeril, tizanidine, ultram without relief. Last had tizanidine increased this week. No flank pain, no dysuria, no hematuria. No abdominal pain, no syncope. Related Data Allergies Allergy/AdvReac Type Severity Reaction Status Date / Time codeine Allergy Unknown Unknown Verified 05/22/21 14:24 Chocolate Allergy Unknown RASH Uncoded 05/22/21 14:24 Review of Systems Review of Systems: CONSTITUTIONAL: no fever, no weight loss, no confusion EYES: no vision changes, no eye pain ENT: no rhinorrhea, no sore throat, no difficulty swallowing CARDIOVASCULAR: no chest pain, no leg edema, no palpitations RESPIRATORY: no cough, no shortness of breath, no hemoptysis GASTROINTESTINAL: no abdominal pain, no nausea, no vomiting, no diarrhea GENITOURINARY: no flank pain, no dysuria, no hematuria SKIN: no rash, no jaundice MUSCULOSKELETAL: positive for lower back pain, spasm, no trauma. NEUROLOGIC: No headache, no dizziness, no focal weakness PSYCHIATRIC: No hallucinations, no suicidal ideation PMFSH Past Medical History Medical History Abnormal nerve conduction studies Anxiety Arthritis Bereavement Bilateral carpal tunnel syndrome BMI 45.0-49.9, adult BMI 50.0-59.9, adult BMI greater than 40 Bronchitis Depression Ganglion cyst History of bipolar disorder HLD (hyperlipidemia) HTN (hypertension) Knee fracture, right Meningitis Viral Morbidly obese Numbness of left foot Screen for colon cancer Skin cancer Suicidal ideation Suicide attempt x4 Tobacco abuse Type II diabetes mellitus Ulcer of left foot due to type 2 diabetes mellitus Surgical History Surgical History H/O inguinal hernia repair History of cholecystectomy History of tonsillectomy Family History Family History Father Family history of diabetes mellitus in first degree relative Diabetes mellitus Hypertension Family history of kidney disease Other Family history of cardiovascular disease Social History Social History (Updated 05/22/21 @ 15:07 by Nidia Méndez) Smoking packs per day: 0.25 Smoking cigarettes per day: 5.0 Years smoked: 30 Smoking pack-years: 7.50 Tobacco type: cigarettes Second hand tobacco smoke exposure: No Alcohol intake: never Substance use: never Substance use type: does not use Gender identity (if verbalized by the patient): Female Exam Narrative: General: alert, afebrile, answering all questions appropriately Head: normocephalic, atraumatic Eyes: EOMI bilaterally, anicteric, no injection ENT: moist mucous membranes, oropharynx patent, no rhinorrhea : no CVA tenderness B, bladder non-distended Back: no lumbar bony tenderness. paraspinal muscles on right with spasm EXT: no deformity noted, moving all extremities equally, -SLR bilaterally +5/5 flex/ext Skin: warm, dry, no pallor Neuro: alert, oriented x 3; CN 2-12 grossly intact, no dysarthria Psych: affect appropriate, thought content normal Course Reevaluation(s) Reevaluation #1: Ambulatory with steady gait, no focal weakness on exam. Date: 05/24/21 Time: 21:33 Vital Signs Vital signs: Vital Signs Temperature 36.9 C 05/24/21 20:47 Pulse Rate 100 05/24/21 20:47 Res
== END 2021-05-24 21:44 | disposition home or self-care (01) ==
PROVIDERS: Emergency Provider Emergency Medicine; PCP Family Medicine
DX: S39.012A Strain of muscle, fascia and tendon of lower back, initial encounter (principal); E11.9 Type 2 diabetes mellitus without complications; E78.5 Hyperlipidemia, unspecified; I10 Essential (primary) hypertension; E66.01 Morbid (severe) obesity due to excess calories; Z68.42 Body mass index [BMI] 45.0-49.9, adult; Z85.828 Personal history of other malignant neoplasm of skin; M19.90 Unspecified osteoarthritis, unspecified site; F41.9 Anxiety disorder, unspecified; F31.9 Bipolar disorder, unspecified; F17.210 Nicotine dependence, cigarettes, uncomplicated; Z79.84 Long term (current) use of oral hypoglycemic drugs; Z79.4 Long term (current) use of insulin; X58.XXXA Exposure to other specified factors, initial encounter
CPT/HCPCS: 99283

== ENCOUNTER 2021-08-02 12:12 | Outpatient (CLI) | payer MEDICARE, SELFPAY ==
--- NOTE | ~2021-08-02 | US_ITS ---
EXAMINATION: US venous doppler [facility] DATE: 08/02/2021 12:44 INDICATION: Acute embolism and thrombosis of the left peroneal veins TECHNIQUE: Grayscale ultrasound images without and with compression and Doppler ultrasound images of the bilateral lower extremity veins were obtained. COMPARISON: 10/29/2020 FINDINGS: The visualized portions of right common femoral vein, profunda (deep) femoral vein, femoral vein, pop liteal vein, posterior tibial veins, peroneal veins, gastrocnemius vein and greater saphenous vein ou tflow are patent. The visualized portions of left common femoral vein, profunda femoral vein, femoral vein, popliteal v ein, posterior tibial veins, peroneal veins, gastrocnemius vein and greater saphenous vein outflow ar e patent. Small Ho's cyst at the left popliteal fossa. IMPRESSION: 1. No deep venous thrombosis in either lower limb. 2. Small left Ho's cyst. Reviewed, dictated and finalized at location A. 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
== END 2021-08-02 12:13 | disposition home or self-care (01) ==
LOC: ANHIMG 12:16
PROVIDERS: PCP Family Medicine; Visit Provider Nurse Practitioner Family
DX: M71.22 Synovial cyst of popliteal space [Baker], left knee (principal); I82.452 Acute embolism and thrombosis of left peroneal vein
CPT/HCPCS: 93970

== ENCOUNTER 2021-08-13 13:49 | Outpatient (CLI) | payer MEDICARE, SELFPAY ==
--- NOTE | ~2021-08-13 | XR_ITS ---
EXAMINATION: XR shoulder LT min 2V DATE: 08/13/2021 14:12 INDICATION: Left shoulder pain. TECHNIQUE: 4 views of left shoulder were obtained. COMPARISON: Left shoulder radiograph 02/24/21 FINDINGS: Bone alignment is normal. No fracture. There is moderate osteoarthritis of glenohumeral michael nt and acromioclavicular joint. IMPRESSION: 1. Polyarticular osteoarthritis. Reviewed, dictated and finalized at location A. 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
== END 2021-08-13 13:50 | disposition home or self-care (01) ==
PROVIDERS: PCP Family Medicine; Visit Provider Physician Assistant Medical
DX: G89.29 Other chronic pain (principal); M25.512 Pain in left shoulder; M19.012 Primary osteoarthritis, left shoulder
CPT/HCPCS: 73030

== ENCOUNTER 2021-11-19 12:40 | Outpatient (CLI) | payer MEDICARE, SELFPAY ==
--- NOTE | 2021-11-19 13:39 | ECG_ITS ---
Measurements Intervals [place] Rate: 71 P: 57 [place]: 192 QRS: 71 QRSD: 104 T: 53 QT: 395 QTc: 432 Interpretive Statements SINUS RHYTHM DELAYED PRECORDIAL R/S TRANSITION BASELINE WANDER- I, II, AVR, AVL, AVF, V4-V6 BORDERLINE ECG Electronically Signed On 11-19-2021 14:24:54 CDT by Mohan Mendez D.O.
[2021-11-19 14:19] LABS: Anion Gap 10 mmol/L (8-16); Blood Urea Nitrogen 18 mg/dL (7-17); Calcium 9.1 mg/dL (8.4-10.2); Carbon Dioxide 29 mmol/L (22-30); Chloride 97 mmol/L (98-107); Estimated Glomerular Filt Rate 46; Glucose 373 mg/dL (65-110); Potassium 4.1 mmol/L (3.4-5.0); Sodium 136 mmol/L (137-145)
== END 2021-11-19 12:41 | disposition home or self-care (01) ==
PROVIDERS: PCP Family Medicine; Visit Provider Plastic Surgery
DX: Z01.818 Encounter for other preprocedural examination (principal); I10 Essential (primary) hypertension; E11.9 Type 2 diabetes mellitus without complications
CPT/HCPCS: 36415; 80048; 93005

== ENCOUNTER 2022-01-02 04:42 | Emergency (ER) | payer MEDICARE, SELFPAY ==
--- NOTE | ~2022-01-02 | XR_ITS ---
XR wrist RT min 3V DATE: 01/02/2022 05:33 INDICATION: Right wrist pain TECHNIQUE: Portable 4 view examination COMPARISON: None FINDINGS: Likely degenerative cyst of the lunate and navicular bone. Mild osteoarthritis at first carpometacarpal joint. No fracture, dislocation, periosteal reaction or bone destruction. No erosive change or chondrocalcin osis. IMPRESSION: Benign cyst of lunate and navicular bone Mild osteoarthritis at first carpometacarpal joint Reviewed, dictated and finalized at location A.
[2022-01-02 04:43] VITALS: BP 146/66; PULSE 77; RESP 18; TEMP 36.4; O2SAT 100
[2022-01-02 04:53] VITALS: BP 148/78; PULSE 79; RESP 22; O2SAT 100
[2022-01-02] MEDS: IBUPROFEN 600 MG TABLET PO (05:18)
--- NOTE | 2022-01-02 05:52 | ED.GENADULT ---
HPI - General Adult General Chief complaint: Extremity Injury, Upper Stated complaint: right wrist pain Time Seen by Provider: 01/02/22 04:53 History of Present Illness HPI narrative: Patient is a 61-year-old female who presents ER with right wrist pain. Located at the anatomical snuffbox. No new swelling. Ongoing for couple of days but increased tonight. No numbness or tingling. No known trauma. Reports she has not been having any increased repetitive movements of the hand. Has not tried any pain medication but occasionally takes tramadol for discomfort. No fevers or chills or sweats. No redness of the skin. Related Data Allergies Allergy/AdvReac Type Severity Reaction Status Date / Time codeine Allergy Unknown Unknown Verified 12/25/21 09:14 Chocolate Allergy Unknown RASH Uncoded 12/25/21 09:14 Review of Systems Review of Systems: All systems reviewed & are unremarkable except as noted in HPI and below Constitutional: Constitutional: Denies chills and Denies fever(s) Musculoskeletal: Musculoskeletal: Reports arthralgias and Denies joint swelling Integumentary/Breasts: Skin/Breast: Denies erythema and Denies rash Neurologic: Denies focal weakness and Denies numbness PMFSH Past Medical History Medical History Abnormal nerve conduction studies Acute pain of left lower extremity Anxiety Arthritis Bereavement Bilateral carpal tunnel syndrome BMI 45.0-49.9, adult BMI 50.0-59.9, adult BMI greater than 40 Bronchitis Depression Ganglion cyst Ganglion cyst of dorsum of left wrist History of bipolar disorder HLD (hyperlipidemia) HTN (hypertension) Knee fracture, right Meningitis Viral Morbidly obese Numbness of left foot Personal history of other venous thrombosis and embolism Screen for colon cancer Skin cancer Suicidal ideation Suicide attempt x4 Tobacco abuse Type II diabetes mellitus Ulcer of left foot due to type 2 diabetes mellitus Surgical History Surgical History H/O inguinal hernia repair History of cholecystectomy History of tonsillectomy Family History Family History Father Family history of diabetes mellitus in first degree relative Diabetes mellitus Hypertension Family history of kidney disease Mother Acute myocardial infarction Sibling No problems noted. Other Family history of cardiovascular disease Social History Social History Smoking packs per day: 0.25 Smoking cigarettes per day: 5.0 Years smoked: 30 Smoking pack-years: 7.50 Smoking status: Never smoker Tobacco type: cigarettes Second hand tobacco smoke exposure: No Alcohol intake: never Substance use: never Substance use type: does not use Additional occupation/education comments: disabled. Gender identity (if verbalized by the patient): Female Exam Narrative: GENERAL: Well-appearing, obese, and in no acute distress. HEAD: Normocephalic, atraumatic. HEART: Regular rate and rhythm. Normal peripheral pulses. EXTREMITIES: Tender palpation over the anatomic snuffbox of the right wrist. Examination right wrist reveals no swelling or redness. Range of motion intact. Sensation intact in the hand. Normal flexion extension of the fingers. Radial pulses intact. Brisk capillary refill. SKIN: Warm, dry, no rash. NEURO: No focal deficits. Alert and oriented x3. PSYCH: Normal mood and affect. Course Vital Signs Vital signs: Vital Signs Temperature 97.5 F L 01/02/22 04:43 Pulse Rate 77 01/02/22 04:43 Respiratory Rate 18 01/02/22 04:43 Blood Pressure 146/66 H 01/02/22 04:43 Pulse Oximetry 100 01/02/22 04:43 Oxygen Delivery Room Air 01/02/22 04:43 Temperature 97.5 F L 01/02/22 04:43 Pulse Rate 79 01/02/22 04:53 Respiratory
[2022-01-02 06:30] VITALS: BP 132/87; PULSE 80; RESP 19; O2SAT 97
== END 2022-01-02 06:30 | disposition home or self-care (01) ==
PROVIDERS: Emergency Provider Emergency Medicine; PCP Family Medicine
DX: M25.531 Pain in right wrist (principal); F41.9 Anxiety disorder, unspecified; M19.90 Unspecified osteoarthritis, unspecified site; F32.9 Major depressive disorder, single episode, unspecified; I10 Essential (primary) hypertension; E78.5 Hyperlipidemia, unspecified; E11.9 Type 2 diabetes mellitus without complications
CPT/HCPCS: 73110; 99283; A9270

== ENCOUNTER 2022-01-05 12:00 | Outpatient (CLI) | payer MEDICARE, SELFPAY ==
[2022-01-05 12:46] LABS: Basophils Percent Auto 0.5 % (0.2-1.2); Eosinophils Absolute Auto 0.4 K/mm3 (0-0.3); Eosinophils Percent Auto 6.1 % (0-4.4); Hematocrit 35.2 % (37.0-47.0); Immature Granulocyte Absolute 0.04 K/mm3 (0.00-0.031); Immature Granulocyte Percent A 0.7 % (0-0.5); Lymphocytes Absolute Auto 1.68 K/mm3 (0.9-3.2); Lymphocytes Percent Auto 27.6 % (18.3-44.2); Mean Corpuscular HGB Conc 31.3 g/dl (32-36); Mean Corpuscular Hemoglobin 26.1 pg (26-34); Mean Corpuscular Volume 83.4 fl (80-100); Mean Platelet Volume 9.5 fl (7.4-10.4); Monocytes Absolute Auto 0.5 K/mm3 (0.1-0.6); Monocytes Percent Auto 7.6 % (2.6-8.5); Neutrophils Absolute Auto 3.5 K/mm3 (1.3-6.7); Neutrophils Percent Auto 57.5 % (45.5-73.1); Platelet Count Result 233 k/mm3 (150-375); Red Blood Count 4.22 M/mm3 (4.2-5.4); Red Cell Distribution Width 16.8 % (11.5-14.5); White Blood Count 6.1 K/mm3 (4.5-10.0)
[2022-01-05 13:04] LABS: Alanine Aminotransferase 16 U/L (6-35); Albumin Level 4.2 g/dL (3.5-5.1); Alkaline Phosphatase 65 U/L (38-126); Anion Gap 7 mmol/L (8-16); Aspartate Amino Transferase 20 U/L (14-36); Bilirubin,Total 0.6 mg/dL (0.2-1.3); Blood Urea Nitrogen 19 mg/dL (7-17); Calcium 8.7 mg/dL (8.4-10.2); Carbon Dioxide 28 mmol/L (22-30); Chloride 105 mmol/L (98-107); Cholesterol 96 mg/dL (0-200); Estimated Glomerular Filt Rate 42; Glucose 160 mg/dL (65-110); HDL Direct 27 mg/dL; Potassium 4.5 mmol/L (3.4-5.0); Sodium 140 mmol/L (137-145); Triglycerides 168 mg/dL (<150)
[2022-01-05 13:15] LABS: LDL Cholesterol Direct 30 mg/dL
[2022-01-05 13:49] LABS: Creatinine Urine 96.5 mg/dL
[2022-01-05 13:54] LABS: MALB Creatinine Ratio 53.4 mg/g (0-30); Microalbumin Urine Random 51.5 mg/L (0-16.7)
== END 2022-01-05 12:01 | disposition home or self-care (01) ==
LOC: ANHLAB 12:02
PROVIDERS: PCP Family Medicine; Visit Provider Physician Assistant Medical
DX: N18.30 Chronic kidney disease, stage 3 unspecified (principal); E11.65 Type 2 diabetes mellitus with hyperglycemia; E78.5 Hyperlipidemia, unspecified
CPT/HCPCS: 36415; 80053; 80061; 82043; 85025

== ENCOUNTER 2022-01-22 18:43 | Emergency (ER) | payer MEDICARE, SELFPAY ==
--- NOTE | ~2022-01-22 | XR_ITS ---
EXAM: XR humerus LT DATE: 01/22/2022 19:17 HISTORY: left humerus bruising and swelling, no known injury . COMPARISON: X-ray shoulder 08/13/2021. FINDINGS: Decreased mineralization. No fracture or dislocation. No lytic or blastic lesion. Degenera tive changes at the shoulder. No erosion or periosteal change. Subcutaneous contusion/edema in the up per arm. IMPRESSION: No acute osseous finding in the left humerus. Reviewed, dictated and finalized at location K.
[2022-01-22 18:52] VITALS: BP 124/71; PULSE 93; RESP 18; TEMP 37.1; O2SAT 98
--- NOTE | 2022-01-22 19:14 | ED.GENADULT ---
HPI - General Adult General Chief complaint: Extremity Injury, Upper Stated complaint: Lt Arm Bruising Source: patient Mode of arrival: ambulatory Limitations: no limitations History of Present Illness HPI narrative: Patient presents for evaluation of pain, swelling, bruising to the left upper arm. She indicates 6 days ago she felt a sharp shooting pain in the left upper extremity without identified precipitating cause or injury. The following day she woke from sleep and noted bruising to the left upper extremity which has continued to progress since that time. She states pain is 9/10 in severity and worse with movement. She is right hand dominant. She is diabetic but states she only injects her insulin into her abdominal subcutaneous tissue. She tried taking tramadol for pain that is prescribed for degenerative disc disease. She states that the medication did help. She denies any recent aspirin or NSAID use. She has a history of a DVT in the left lower extremity. She states she was anticoagulated for approximately 1 year but this was discontinued. She does not believe she had a workup for coagulopathies and is unsure of any provoking event to LLE DVT. It sounds like several other family members on her father's side have had clots including her father. In terms of other risk factors, she had a ganglion cyst removed from her left wrist a few months ago and is also a daily smoker. Denies any shortness of breath. Related Data Home Medications Medication Instructions Recorded Confirmed cariprazine 1.5 mg capsule 1 cap DAILY 01/22/22 01/22/22 (Vraylar) cyclobenzaprine 10 mg tablet 1 tablet HS 01/22/22 01/22/22 escitalopram oxalate 20 mg tablet 10 mg PO DAILY 01/22/22 meclizine 25 mg tablet 25 mg PO TID 01/22/22 01/22/22 rosuvastatin 20 mg tablet 20 mg DAILY 01/22/22 01/22/22 tizanidine 2 mg tablet 2 mg PO TID 01/22/22 01/22/22 tramadol 50 mg tablet 100 mg PO Q8H 01/22/22 01/22/22 Allergies Allergy/AdvReac Type Severity Reaction Status Date / Time codeine Allergy Unknown Hallucinati Verified 01/22/22 19:01 ng Chocolate Allergy Unknown RASH Uncoded 01/08/22 08:19 jardiance AdvReac Mild Back Pain Uncoded 01/08/22 14:20 Review of Systems Review of Systems: CONSTITUTIONAL: Denies fever, chills, or sweats. EYES: Denies visual changes, redness, or discharge. ENT: Denies rhinorrhea, congestion, sore throat, or otalgia. CARDIOVASCULAR: Denies chest pain, palpitations, or edema. RESPIRATORY: Denies cough or dyspnea. GASTROINTESTINAL: Denies abdominal pain, nausea, vomiting, or diarrhea. GENITOURINARY: Denies dysuria or hematuria. SKIN: Reports bruising to the left upper arm. Denies rash or itching. MUSCULOSKELETAL: Reports pain and swelling to the left upper arm. Denies back pain NEUROLOGIC: Denies headache, numbness, dizziness, or weakness. PSYCHIATRIC: Denies anxiety or depression. [facility] Past Medical History Medical History (Updated 01/22/22 @ 19:52 by Fred Coronado, JOSE CARLOS, BC) Abnormal nerve conduction studies Acute pain of left lower extremity Anxiety Arthritis Bereavement Bilateral carpal tunnel syndrome BMI 45.0-49.9, adult BMI 50.0-59.9, adult BMI greater than 40 Bronchitis Depression DVT (deep venous thrombosis) Ganglion cyst Ganglion cyst of dorsum of left wrist History of bipolar disorder HLD (hyperlipidemia) HTN (hypertension) Knee fracture, right Meningitis Viral Morbidly obese Numbness of left foot Personal history of other venous thrombosis and embolism Screen for colon cancer Skin cancer Suicidal ideation Suicide attempt x4 Tobacco abuse Type II diabetes mellitus Ulcer of left foot due to type 2 diabetes mellitus Surgical History Surgical History H/O inguinal hernia repair History of cholecystectomy History of surgical removal of ganglion cyst History of tonsillectomy Family History Family History (Reviewed 01/22/22 @ 1
== END 2022-01-22 19:56 | disposition home or self-care (01) ==
PROVIDERS: Emergency Provider Nurse Practitioner; PCP Family Medicine
DX: R58 Hemorrhage, not elsewhere classified (principal); R22.32 Localized swelling, mass and lump, left upper limb; F17.210 Nicotine dependence, cigarettes, uncomplicated; M19.90 Unspecified osteoarthritis, unspecified site; Z86.718 Personal history of other venous thrombosis and embolism; E78.5 Hyperlipidemia, unspecified; I10 Essential (primary) hypertension; E11.9 Type 2 diabetes mellitus without complications; E66.01 Morbid (severe) obesity due to excess calories; Z68.42 Body mass index [BMI] 45.0-49.9, adult; Z85.828 Personal history of other malignant neoplasm of skin; F41.9 Anxiety disorder, unspecified; F32.A Depression, unspecified; Z79.4 Long term (current) use of insulin
CPT/HCPCS: 73060; 99213; G0463

== ENCOUNTER 2022-01-23 16:32 | Outpatient (CLI) | payer MEDICARE, SELFPAY ==
--- NOTE | ~2022-01-23 | US_ITS ---
EXAMINATION: US venous doppler [facility] DATE: 01/23/2022 17:28 INDICATION: Upper extremity bruising TECHNIQUE: Grayscale ultrasound images without and with compression and Doppler ultrasound images of the bilateral upper extremity veins were obtained. COMPARISON: None. FINDINGS: The right internal jugular vein, subclavian vein, axillary vein, brachial veins, basilic vein, cephal ic vein, radial vein, and ulnar vein are patent. The left internal jugular vein, subclavian vein, axillary vein, brachial veins, basilic vein, cephali c vein, radial vein, and ulnar vein are patent. IMPRESSION: 1. No evidence of deep venous thrombosis. Reviewed, dictated and finalized at location B.
== END 2022-01-23 16:33 | disposition home or self-care (01) ==
PROVIDERS: PCP Family Medicine; Visit Provider Physician Assistant Medical
DX: Z86.718 Personal history of other venous thrombosis and embolism (principal)
CPT/HCPCS: 93970

== ENCOUNTER 2022-02-27 09:15 | Emergency (ER) | payer MEDICARE, SELFPAY ==
--- NOTE | ~2022-02-27 | CT_ITS ---
EXAMINATION: CTA chest PE protocol DATE: 02/27/2022 11:43 INDICATION: Shortness of breath. Elevated d-dimer. TECHNIQUE: Computed tomography angiography (CTA) of the chest was performed with 200 mL Omnipaque-350 intravenous contrast timed to evaluate the pulmonary arteries. (The second injection and repeat imag es were performed for better contrast enhancement of the pulmonary arteries.) Coronal maximum intensi ty projection 3D-reconstructions were created by the technologist. Automated exposure control and ite rative reconstruction technique were employed. Exam dose: 2069.45 mGy-cm total exam DLP. COMPARISON: 02/27/2022 PA and lateral chest FINDINGS: There is diagnostic contrast enhancement of the pulmonary arteries and no evidence of pulmo nary embolism. No thoracic aortic aneurysm or dissection. Heart size is within normal range. There is trace pericardial fluid. No hilar or mediastinal mass lesion or lymphadenopathy. Patchy groundglass density throughout the lungs, which may be due to small airways disease or atelect asis. Small sliding hiatal hernia. Status post cholecystectomy. Normal morphology of the adrenal glands. Probable renal cysts. Diffuse idiopathic skeletal hyperostosis of the thoracic spine. No suspicious osteolytic or osteoscle rotic lesions. IMPRESSION: No evidence of pulmonary embolism Patchy groundglass density scattered throughout the lungs which may be due to small airways disease o r atelectasis Small sliding hiatal hernia Status post cholecystectomy Reviewed, dictated and finalized at Location A. Reviewed, dictated and finalized at location B. IMPRESSION: No evidence of pulmonary embolism Patchy groundglass density scattered throughout the lungs which may be due to s mall airways disease or atelectasis Small sliding hiatal hernia Status post cholecystectomy
--- NOTE | ~2022-02-27 | XR_ITS ---
EXAMINATION: XR chest 2V 02/27/2022 09:49 INDICATION: Shortness of breath PROCEDURE: 2 view chest COMPARISON: 05/04/2020 FINDINGS: The lungs are clear. The cardiomediastinal silhouette is within normal limits. There are no pleural effusions. There is no pneumothorax suspected. IMPRESSION: 1: NO ACUTE CARDIOPULMONARY DISEASE. Reviewed, dictated and finalized at location A.
[2022-02-27 09:22] VITALS: BP 141/74; PULSE 94; RESP 25; TEMP 37; O2SAT 99
--- NOTE | 2022-02-27 09:26 | ECG_ITS ---
Measurements Intervals [place] Rate: 92 P: 47 [place]: 182 QRS: 70 QRSD: 101 T: 32 QT: 365 QTc: 453 Interpretive Statements SINUS RHYTHM LOW QRS VOLTAGE IN EXTREMITY LEADS [QRS DEFLECTION < 0.5 mV IN LIMB LEADS] COMPARED TO ECG 11/19/2021 13:59:36 NO SIGNIFICANT CHANGES Electronically Signed On 02-27-2022 18:18:23 CDT by Deb Garcia M.D.
[2022-02-27 09:28] LABS: Glucose Point of Care > 500 mg/dl (65-105)
--- NOTE | 2022-02-27 09:28 | ED.RECABL ---
HPI - Recheck/Abnormal Lab/Rx General Chief Complaint: Recheck/Abnormal Lab/Rx Stated Complaint: dyspnea, elevated BS Time Seen by Provider: 02/27/22 09:20 History of Present Illness HPI narrative: 61-year-old female presents to the emergency room for multiple complaints. Patient states she has noticed her blood sugars have been elevated, over 500 on multiple readings this morning. States that she received 2 cortisone injections in both knees yesterday, and has since seen blood sugars over 500. Patient states that she has taken her 75 units of regular insulin this morning, and 3 doses of 20 units of her sliding scale lispro. Blood sugar on arrival was 562. Patient has also been complaining of increased shortness of breath and difficulty breathing that began this morning. Denies any chest pain, fever or near syncopal episode. Related Data Home Medications Medication Instructions Recorded Confirmed cariprazine 1.5 mg capsule 1 cap DAILY 01/22/22 01/25/22 (Vraylar) cyclobenzaprine 10 mg tablet 1 tablet HS 01/22/22 01/25/22 escitalopram oxalate 20 mg tablet 10 mg PO DAILY 01/22/22 01/25/22 meclizine 25 mg tablet 25 mg PO TID 01/22/22 01/25/22 rosuvastatin 20 mg tablet 20 mg DAILY 01/22/22 01/25/22 tramadol 50 mg tablet 100 mg PO Q8H 01/22/22 01/25/22 quetiapine 100 mg tablet 100 mg PO DAILY 01/25/22 01/25/22 Allergies Allergy/AdvReac Type Severity Reaction Status Date / Time chocolate flavor Allergy Unknown Unknown Verified 02/27/22 09:39 codeine Allergy Unknown Hallucinati Verified 02/27/22 09:39 ng empagliflozin Allergy Unknown Unknown Verified 02/27/22 09:39 [From Jardiance] Review of Systems Review of Systems: CONSTITUTIONAL: Denies fever, chills, or sweats. EYES: Denies visual changes, redness, or discharge. ENT: Denies rhinorrhea, congestion, sore throat, or otalgia. CARDIOVASCULAR: Denies chest pain, palpitations, or edema. RESPIRATORY: Reports shortness of breath GASTROINTESTINAL: Denies abdominal pain, nausea, vomiting, or diarrhea. GENITOURINARY: Denies dysuria or hematuria. SKIN: Denies rash or itching. MUSCULOSKELETAL: Denies back pain, joint pain, or myalgia. NEUROLOGIC: Denies headache, numbness, dizziness, or weakness. PSYCHIATRIC: Denies anxiety or depression. [facility] Past Medical History Medical History Abnormal nerve conduction studies Acute pain of left lower extremity Anxiety Arthritis Bereavement Bilateral carpal tunnel syndrome BMI 45.0-49.9, adult BMI 50.0-59.9, adult BMI greater than 40 Bronchitis Depression DVT (deep venous thrombosis) Ganglion cyst Ganglion cyst of dorsum of left wrist History of bipolar disorder HLD (hyperlipidemia) HTN (hypertension) Knee fracture, right Meningitis Viral Morbidly obese Numbness of left foot Personal history of other venous thrombosis and embolism Screen for colon cancer Skin cancer Suicidal ideation Suicide attempt x4 Tobacco abuse Type II diabetes mellitus Ulcer of left foot due to type 2 diabetes mellitus Surgical History Surgical History H/O inguinal hernia repair History of cholecystectomy History of surgical removal of ganglion cyst History of tonsillectomy Family History Family History Father Family history of diabetes mellitus in first degree relative Diabetes mellitus Hypertension Family history of kidney disease Mother Acute myocardial infarction Sibling No problems noted. Other Family history of cardiovascular disease Social History Social History Smoking packs per day: 0.25 Smoking cigarettes per day: 5.0 Years smoked: 40 Smoking pack-years: 10.00 Smoking status: Current every day smoker Tobacco type: cigarettes Second hand tobacco smoke exposur
[2022-02-27 09:34] VITALS: PULSE 91; RESP 18; O2SAT 99
[2022-02-27] MEDS: SODIUM CHLORIDE 0.9% IV 1,000 ML 999 ML IV CONT (09:39)
[2022-02-27 09:40] LABS: Basophils Percent Auto 0.2 % (0.2-1.2); Hematocrit 38.9 % (37.0-47.0); Hemoglobin 12.1 g/dL (12.0-15.0); Immature Granulocyte Absolute 0.16 K/mm3 (0.00-0.031); Immature Granulocyte Percent A 1.9 % (0-0.5); Lymphocytes Percent Auto 7.1 % (18.3-44.2); Mean Corpuscular HGB Conc 31.1 g/dl (32-36); Mean Corpuscular Hemoglobin 26.5 pg (26-34); Mean Corpuscular Volume 85.3 fl (80-100); Mean Platelet Volume 9.7 fl (7.4-10.4); Monocytes Absolute Auto 0.2 K/mm3 (0.1-0.6); Monocytes Percent Auto 2.9 % (2.6-8.5); Neutrophils Absolute Auto 7.4 K/mm3 (1.3-6.7); Neutrophils Percent Auto 87.9 % (45.5-73.1); Platelet Count Result 245 k/mm3 (150-375); Red Blood Count 4.56 M/mm3 (4.2-5.4); Red Cell Distribution Width 16.9 % (11.5-14.5); White Blood Count 8.4 K/mm3 (4.5-10.0)
[2022-02-27 09:52] VITALS: PULSE 91; RESP 22; O2SAT 99
[2022-02-27 09:55] LABS: Albumin Level 4.3 g/dL (3.5-5.1); Alkaline Phosphatase 85 U/L (38-126); Anion Gap 21 mmol/L (8-16); Aspartate Amino Transferase 37 U/L (14-36); Bilirubin,Total 0.5 mg/dL (0.2-1.3); Blood Urea Nitrogen 27 mg/dL (7-17); Calcium 9.2 mg/dL (8.4-10.2); Carbon Dioxide 16 mmol/L (22-30); Chloride 97 mmol/L (98-107); Estimated CRCL calculation 64 ml/min; Estimated Glomerular Filt Rate 42; Glucose 562 mg/dL (65-110); Lipase 54 U/L (23-300); Potassium 4.1 mmol/L (3.4-5.0); Sodium 134 mmol/L (137-145)
[2022-02-27 09:55] LABS: Lactic Acid Reflex 6.9 mmol/L (0.7-2.0)
[2022-02-27 10:00] VITALS: PULSE 94; RESP 24; O2SAT 97
[2022-02-27 10:02] LABS: Alanine Aminotransferase 39 U/L (6-35); Troponin I < 0.012 ng/mL (0.000-0.034)
[2022-02-27 10:13] LABS: D Dimer 0.79 ug/mL (<0.48)
--- NOTE | 2022-02-27 10:37 | PC.NURSE ---
Pt refused abg blood stick.
--- NOTE | 2022-02-27 10:38 | PC.NURSE ---
Pt gave this rn her sister Ely's name and # [phone] and gave permission for us to speak to her about her being here in the ed, and pt is requesting that she comes up here. Sister Ely is about 10 minutes away and will head this direction.
[2022-02-27 11:15] VITALS: BP 132/78; PULSE 92; RESP 20; O2SAT 98
[2022-02-27 11:25] LABS: SARS-CoV-2 RNA PCR Negative
[2022-02-27 11:41] LABS: Fractional Inspired Oxygen 21 %; HCO3 VBG 19.2 mEq/l (24.0-30.0); PCO2 VBG 37.9 mmHg (42.0-48.0); PO2 VBG 88.3 mmHg (35.0-45.0); pH VBG 7.323 (7.300-7.400)
[2022-02-27 11:43] LABS: Device ROOM AIR
[2022-02-27 12:12] VITALS: BP 130/63; PULSE 89; TEMP 36.3; O2SAT 97
[2022-02-27 12:37] LABS: Reflex Lactic Acid Yes or No Add Lactic
--- NOTE | 2022-02-27 12:44 | PC.NURSE ---
BLOOD GLUCOSE WAS 399 AT [phone]
[2022-02-27 12:45] LABS: Glucose Point of Care 399 mg/dl (65-105)
== END 2022-02-27 13:00 | disposition left against medical advice (07) ==
PROVIDERS: Emergency Provider Nurse Practitioner Family; PCP Family Medicine
DX: E11.65 Type 2 diabetes mellitus with hyperglycemia (principal); Z20.822 Contact with and (suspected) exposure to COVID-19; E78.5 Hyperlipidemia, unspecified; I10 Essential (primary) hypertension; F41.9 Anxiety disorder, unspecified; F32.A Depression, unspecified; E66.01 Morbid (severe) obesity due to excess calories; Z68.42 Body mass index [BMI] 45.0-49.9, adult; Z86.718 Personal history of other venous thrombosis and embolism; Z85.038 Personal history of other malignant neoplasm of large intestine; F17.210 Nicotine dependence, cigarettes, uncomplicated; Z79.4 Long term (current) use of insulin; Z79.84 Long term (current) use of oral hypoglycemic drugs
CPT/HCPCS: 36415; 71046; 71275; 80053; 82803; 82948; 83605; 83690; 84484; 85025; 85380; 93005; 96360; 99284; C9803; J7030; Q9967; U0003; U0005

== ENCOUNTER 2022-03-29 15:25 | Emergency (ER) | payer MEDICARE, SELFPAY ==
[2022-03-29 15:34] VITALS: BP 154/98; PULSE 93; RESP 18; TEMP 38.4; O2SAT 98
--- NOTE | 2022-03-29 15:51 | ED.FEMALEGU ---
HPI - Female Genitourinary General Chief complaint: Urogenital-Female Stated complaint: UTI Time Seen by Provider: 03/29/22 15:45 History of Present Illness HPI Narrative: Claire Lagos is a 61 yo female with PMH of HTN, anxiety, DM, GERD, high cholesterol, who comes to [facility] with complaints of malodorous frequency and urgency that started on Friday. She had seen her primary care doctor on Friday but the symptoms started after that visit she is currently bent over the exam table and looks like she is very uncomfortable Related Data Home Medications Medication Instructions Recorded Confirmed cyclobenzaprine 10 mg tablet 1 tablet HS 01/22/22 03/29/22 escitalopram oxalate 20 mg tablet 10 mg PO DAILY 01/22/22 03/29/22 meclizine 25 mg tablet 25 mg PO TID 01/22/22 03/29/22 rosuvastatin 20 mg tablet 20 mg DAILY 01/22/22 03/29/22 quetiapine 100 mg tablet 100 mg PO DAILY 01/25/22 03/29/22 semaglutide 1 mg/dose (4 mg/3 mL) 1 mg subcut WEEKLY 03/29/22 03/29/22 subcutaneous pen injector (Ozempic) Allergies Allergy/AdvReac Type Severity Reaction Status Date / Time chocolate flavor Allergy Unknown Unknown Verified 03/26/22 09:42 codeine Allergy Unknown Hallucinati Verified 03/26/22 09:42 ng empagliflozin Allergy Unknown Unknown Verified 03/26/22 09:42 [From Jardiance] Review of Systems Review of Systems: CONSTITUTIONAL: Denies fever, chills, sweats. EYES: Denies visual changes, redness, discharge. ENT: Denies rhinorrhea, congestion, sore throat, otalgia. CARDIOVASCULAR: Denies chest pain, palpitations, edema. RESPIRATORY: Denies dyspnea, wheezing, cough GASTROINTESTINAL: Denies abdominal pain, nausea, vomiting, diarrhea. GENITOURINARY: Has dysuria, hematuria, abnormal discharge; abdominal pain SKIN: Denies rash or itching. NEUROLOGIC: Denies numbness, or focal weakness. PSYCHIATRIC: Denies anxiety or depression. [facility] Past Medical History Medical History Abnormal nerve conduction studies Acute pain of left lower extremity Anxiety Arthritis Bereavement Bilateral carpal tunnel syndrome BMI 45.0-49.9, adult BMI 50.0-59.9, adult BMI greater than 40 Bronchitis Depression DVT (deep venous thrombosis) Ganglion cyst Ganglion cyst of dorsum of left wrist History of bipolar disorder HLD (hyperlipidemia) HTN (hypertension) Knee fracture, right Meningitis Viral Morbidly obese Numbness of left foot Personal history of other venous thrombosis and embolism Screen for colon cancer Skin cancer Suicidal ideation Suicide attempt x4 Tobacco abuse Type II diabetes mellitus Ulcer of left foot due to type 2 diabetes mellitus Surgical History Surgical History H/O inguinal hernia repair History of cholecystectomy History of surgical removal of ganglion cyst History of tonsillectomy Family History Family History Father Family history of diabetes mellitus in first degree relative Diabetes mellitus Hypertension Family history of kidney disease Mother Acute myocardial infarction Sibling No problems noted. Other Family history of cardiovascular disease Social History Social History Smoking packs per day: 0.25 Smoking cigarettes per day: 5.0 Years smoked: 40 Smoking pack-years: 10.00 Smoking status: Current every day smoker Tobacco type: cigarettes Second hand tobacco smoke exposure: No Alcohol intake: never Substance use: never Substance use type: does not use Additional occupation/education comments: disabled. Gender identity (if verbalized by the patient): Female Comments At time of signature, I agree with nursing past medical, surgical, social and family history. There is no relevant family history pertinent to the presenti
== END 2022-03-29 16:04 | disposition short-term general hospital (02) ==
PROVIDERS: Emergency Provider Nurse Practitioner; PCP Family Medicine
DX: N39.0 Urinary tract infection, site not specified (principal); F17.210 Nicotine dependence, cigarettes, uncomplicated; F41.9 Anxiety disorder, unspecified; M19.90 Unspecified osteoarthritis, unspecified site; F32.A Depression, unspecified; Z86.718 Personal history of other venous thrombosis and embolism; E78.5 Hyperlipidemia, unspecified; I10 Essential (primary) hypertension; E66.01 Morbid (severe) obesity due to excess calories; Z68.42 Body mass index [BMI] 45.0-49.9, adult; Z85.828 Personal history of other malignant neoplasm of skin; E11.9 Type 2 diabetes mellitus without complications
CPT/HCPCS: 81003; 87077; 87086; 87186; 99213; G0463

== ENCOUNTER 2022-03-29 16:21 | Emergency (ER) | payer MEDICARE, SELFPAY ==
[2022-03-29] VITALS (7 sets, daily range): BP systolic 142–184; BP diastolic 67–88; PULSE 84–100; RESP 16–36; TEMP 37.1–38.6; O2SAT 96–99
--- NOTE | ~2022-03-29 | CT_ITS ---
EXAMINATION: CT abdomen pelvis wo con DATE: 03/29/2022 18:09 INDICATION: Left-sided flank pain and fever. Nausea and vomiting. TECHNIQUE: Computed tomography (CT) of the abdomen and pelvis was performed without intravenous contr ast. Automated exposure control and iterative reconstruction technique were employed. The dose-length product was 1516.44 mGy-cm. COMPARISON: None FINDINGS: Lung bases are clear. Heart size is normal. Small pericardial effusion. Small sliding-type hiatal her raimundo. Cholecystectomy clips at the gallbladder fossa. Liver, pancreas and left adrenal gland are jd l. 1 cm low-attenuation right adrenal adenoma. Mild splenomegaly measuring 15.8 cm craniocaudally. 2. 3 cm right renal cyst. There is mild left perinephric and periureteral stranding without evident urol ithiasis or hydronephrosis which raises the possibility of ascending urinary tract infection. Subtle stranding to the fat surrounding the bladder also raising concern for cystitis. There is mild scatter ed colonic diverticulosis without adjacent inflammatory change to suggest diverticulitis. Small bowel and appendix are normal. Uterus and bilateral adnexa are unremarkable. No free intraperitoneal gas o r fluid. No pathologically enlarged abdominal or pelvic lymphadenopathy. Severe lumbar spondylosis. IMPRESSION: 1. No urolithiasis or hydronephrosis but mild stranding about the bladder, left ureter and left kidne y which raises concern for cystitis and ascending urinary tract infection and potentially pyelonephri tis. Correlate with urinalysis. 2. Small pericardial effusion. 3. Small sliding-type hiatal hernia. Reviewed, dictated and finalized at location A. IMPRESSION: 1. No urolithiasis or hydronephrosis but mild stranding about the bladder, left ureter and left kidney which raises concern for cystitis and ascending urinary tract infection and potentially pyelonephritis. Correlate with urinalysis. 2. Small pericardial effusion. 3. Small sliding-type hiatal hernia.
[2022-03-29 16:51] LABS: Basophils Percent Auto 0.4 % (0.2-1.2); Eosinophils Absolute Auto 0.1 K/mm3 (0-0.3); Eosinophils Percent Auto 0.8 % (0-4.4); Hematocrit 35.7 % (37.0-47.0); Hemoglobin 11.7 g/dL (12.0-15.0); Immature Granulocyte Absolute 0.06 K/mm3 (0.00-0.031); Immature Granulocyte Percent A 0.7 % (0-0.5); Lymphocytes Absolute Auto 0.43 K/mm3 (0.9-3.2); Lymphocytes Percent Auto 5.1 % (18.3-44.2); Mean Corpuscular HGB Conc 32.8 g/dl (32-36); Mean Corpuscular Hemoglobin 27.1 pg (26-34); Mean Corpuscular Volume 82.8 fl (80-100); Mean Platelet Volume 9.4 fl (7.4-10.4); Monocytes Absolute Auto 0.5 K/mm3 (0.1-0.6); Neutrophils Absolute Auto 7.3 K/mm3 (1.3-6.7); Platelet Count Result 183 k/mm3 (150-375); Red Blood Count 4.31 M/mm3 (4.2-5.4); Red Cell Distribution Width 16.3 % (11.5-14.5); White Blood Count 8.4 K/mm3 (4.5-10.0)
[2022-03-29 16:54] LABS: Alanine Aminotransferase 16 U/L (6-35); Alkaline Phosphatase 88 U/L (38-126); Anion Gap 12 mmol/L (8-16); Aspartate Amino Transferase 18 U/L (14-36); Bilirubin,Total 1.1 mg/dL (0.2-1.3); Blood Urea Nitrogen 21 mg/dL (7-17); Calcium 8.5 mg/dL (8.4-10.2); Carbon Dioxide 27 mmol/L (22-30); Chloride 93 mmol/L (98-107); Estimated CRCL calculation 57 ml/min; Estimated Glomerular Filt Rate 36; Glucose 371 mg/dL (65-110); Sodium 132 mmol/L (137-145)
--- NOTE | 2022-03-29 17:12 | PC.NURSE ---
Patient presents to the desk stating she felt like she was going to pass out . this RN took patient vital signs and all were WNL. patient states I need to lay down and I need fluids . I apologized and told patient that we would get her into a room as quickly as possible, but unfortunately we do not have any open rooms. patient taken back out to waiting room and can be seen and observed on monitor.
[2022-03-29 17:41] LABS: Appearance Urine Cloudy (Clear); Bilirubin Urine Negative (Negative); Blood Urine 2+ (Negative); Color Urine Yellow (Yellow); Glucose Urine UA Trace mg/dL (Negative); Ketones Urine Negative (Negative); Leukocyte Esterase Ur 2+ LEU/UL (Negative); Nitrate Urine Positive (Negative); Protein Urine 3+ mg/dL (Negative); Urobilinogen Urine 0.2 mg/dL (<2.0); pH Urine 5.5 (5.0-9.0)
[2022-03-29 17:46] LABS: Bacteria Urine Trace /hpf; Mucus Urine Rare /lpf; RBC Urine 21-50 /hpf (0-2); Squamous Epithelial Cell Urine Occasional /hpf (Few); WBC Clumps Urine Present /HPF; WBC Urine >75 /hpf
[2022-03-29 17:55] LABS: Add Urine Microscopic? YES
--- NOTE | 2022-03-29 18:57 | ED.FEMALEGU ---
HPI - Female Genitourinary General Chief complaint: Urogenital-Female Stated complaint: painful urination, back pain Time Seen by Provider: 03/29/22 18:43 Source: patient and old records reviewed Mode of arrival: ambulatory Limitations: no limitations History of Present Illness HPI Narrative: Patient is a 61 y/o female who presents to the ED with c/o urinary symptoms. Patient reports having dysuria, urinary frequency and urgency since Friday. She developed pain in her left-sided flank on Friday. She has not tried any Tylenol or ibuprofen at home for her pain. She reports intermittent subjective fevers at home and nausea, but denies any significant abdominal pain, vomiting, diarrhea, constipation, hematuria. Patient was sent from urgent care for further evaluation. She does have history of diabetes mellitus. Related Data Home Medications Medication Instructions Recorded Confirmed cyclobenzaprine 10 mg tablet 1 tablet HS 01/22/22 03/29/22 escitalopram oxalate 20 mg tablet 10 mg PO DAILY 01/22/22 03/29/22 meclizine 25 mg tablet 25 mg PO TID 01/22/22 03/29/22 rosuvastatin 20 mg tablet 20 mg DAILY 01/22/22 03/29/22 quetiapine 100 mg tablet 100 mg PO DAILY 01/25/22 03/29/22 cariprazine 1.5 mg capsule 1.5 mg PO DAILY 03/29/22 (Vraylar) dulaglutide 1.5 mg/0.5 mL mg subcut 03/29/22 subcutaneous pen injector (Trulicity) insulin glargine 100 unit/mL unit subcut 03/29/22 subcutaneous solution (Lantus U-100 Insulin) insulin lispro 100 unit/mL 1 sliding scale dose subcut 03/29/22 subcutaneous pen (Humalog KwikPen USEASDIRECTD (U-100) Insulin) Allergies Allergy/AdvReac Type Severity Reaction Status Date / Time chocolate flavor Allergy Unknown Unknown Verified 03/26/22 09:42 codeine Allergy Unknown Hallucinati Verified 03/26/22 09:42 ng empagliflozin Allergy Unknown Unknown Verified 03/26/22 09:42 [From Jardiance] Review of Systems Review of Systems: CONSTITUTIONAL: Reports subjective fevers. CARDIOVASCULAR: Denies chest pain. RESPIRATORY: Denies dyspnea. GASTROINTESTINAL: Reports nausea. Denies abdominal pain, vomiting, constipation, or diarrhea. GENITOURINARY: Reports urinary urgency, urinary frequency, dysuria. Denies hematuria. MUSCULOSKELETAL: Reports left flank pain. All systems reviewed & are unremarkable except as noted in HPI and below [facility] Past Medical History Medical History Abnormal nerve conduction studies Acute pain of left lower extremity Anxiety Arthritis Bereavement Bilateral carpal tunnel syndrome BMI 45.0-49.9, adult BMI 50.0-59.9, adult BMI greater than 40 Bronchitis Depression DVT (deep venous thrombosis) Ganglion cyst Ganglion cyst of dorsum of left wrist History of bipolar disorder HLD (hyperlipidemia) HTN (hypertension) Knee fracture, right Meningitis Viral Morbidly obese Numbness of left foot Personal history of other venous thrombosis and embolism Screen for colon cancer Skin cancer Suicidal ideation Suicide attempt x4 Tobacco abuse Type II diabetes mellitus Ulcer of left foot due to type 2 diabetes mellitus Surgical History Surgical History H/O inguinal hernia repair History of cholecystectomy History of surgical removal of ganglion cyst History of tonsillectomy Family History Family History Father Family history of diabetes mellitus in first degree relative Diabetes mellitus Hypertension Family history of kidney disease Mother Acute myocardial infarction Sibling No problems noted. Other Family history of cardiovascular disease Social History Social History Smoking packs per day: 0.25 Smoking cigarettes per day: 5.0 Years smoked: 40 Smoking pack-years: 10.00 Smo
[2022-03-29 19:37] LABS: Lactic Acid Reflex 1.2 mmol/L (0.7-2.0)
[2022-03-29] MEDS: SODIUM CHLORIDE 0.9% IV 1,000 ML 999 ML IV CONT (19:40)
[2022-03-29] MEDS: ONDANSETRON INJ 4 MG/2 ML VIAL IV PUSH (19:40)
== END 2022-03-29 21:10 | disposition home or self-care (01) ==
PROVIDERS: Emergency Medicine; Physician Assistant; Emergency Provider Emergency Medicine; PCP Family Medicine
DX: N12 Tubulo-interstitial nephritis, not specified as acute or chronic (principal); I10 Essential (primary) hypertension; E78.5 Hyperlipidemia, unspecified; E11.9 Type 2 diabetes mellitus without complications; F41.9 Anxiety disorder, unspecified; F32.A Depression, unspecified; E66.01 Morbid (severe) obesity due to excess calories; Z68.43 Body mass index [BMI] 50.0-59.9, adult; Z91.51 Personal history of suicidal behavior; F17.210 Nicotine dependence, cigarettes, uncomplicated; Z79.899 Other long term (current) drug therapy; Z79.4 Long term (current) use of insulin; Z86.718 Personal history of other venous thrombosis and embolism; Z79.84 Long term (current) use of oral hypoglycemic drugs
CPT/HCPCS: 36415; 74176; 80053; 81001; 81003; 81025; 83605; 85025; 87040; 87077; 87086; 87186; 96365; 96367; 96375; 99284; J0131; J0696; J2405; J7030

== ENCOUNTER 2022-05-03 00:11 | Emergency (ER) | payer MEDICARE, SELFPAY ==
--- NOTE | ~2022-05-03 | XR_ITS ---
EXAMINATION: XR wrist LT min 3V DATE: 05/03/2022 05:58 INDICATION: Left wrist injury and pain. TECHNIQUE: 4 views of left wrist were obtained. COMPARISON: None. FINDINGS: Bone alignment is normal. No fracture. There is mild osteoarthritis of radiocarpal joint, t riscaphe joint, and first carpometacarpal joint. IMPRESSION: 1. Mild polyarticular osteoarthritis. Reviewed, dictated and finalized at location A.
[2022-05-03 00:18] VITALS: BP 182/86; PULSE 70; RESP 18; TEMP 36.7; O2SAT 96
--- NOTE | 2022-05-03 01:25 | ED.GENADULT ---
HPI - General Adult General Chief complaint: Extremity Injury, Upper Stated complaint: fall, L wrist pain Time Seen by Provider: 05/03/22 00:35 History of Present Illness HPI narrative: Patient is a 61-year-old female who presents ER with left wrist pain. Patient had a fall at 2 PM yesterday when she is walking on floor that been mopped. She fell on an outstretched hand. She had some pain that slowly increased. Certain movements with her have sudden increase in her discomfort. No numbness or tingling. She did not strike her head or lose consciousness. Related Data Home Medications Medication Instructions Recorded Confirmed cyclobenzaprine 10 mg tablet 1 tablet HS 01/22/22 04/04/22 meclizine 25 mg tablet 25 mg PO TID 01/22/22 04/04/22 rosuvastatin 20 mg tablet 20 mg DAILY 01/22/22 04/04/22 quetiapine 100 mg tablet 100 mg PO DAILY 01/25/22 04/04/22 cariprazine 1.5 mg capsule 1.5 mg PO DAILY 03/29/22 04/04/22 (Vraylar) dulaglutide 1.5 mg/0.5 mL mg subcut 03/29/22 04/04/22 subcutaneous pen injector (Trulicity) insulin glargine 100 unit/mL unit subcut 03/29/22 04/04/22 subcutaneous solution (Lantus U-100 Insulin) insulin lispro 100 unit/mL 1 sliding scale dose subcut 03/29/22 04/04/22 subcutaneous pen (Humalog KwikPen USEASDIRECTD (U-100) Insulin) Allergies Allergy/AdvReac Type Severity Reaction Status Date / Time chocolate flavor Allergy Unknown Unknown Verified 05/03/22 01:02 codeine Allergy Unknown Hallucinati Verified 05/03/22 01:02 ng empagliflozin Allergy Unknown Unknown Verified 05/03/22 01:02 [From Jardiance] Review of Systems Musculoskeletal: Musculoskeletal: Reports arthralgias, Denies joint swelling and Denies muscle cramps Integumentary/Breasts: Skin/Breast: Denies erythema and Denies rash Neurologic: Denies focal weakness and Denies numbness PMFSH Past Medical History Medical History Abnormal nerve conduction studies Acute pain of left lower extremity Anxiety Arthritis Bereavement Bilateral carpal tunnel syndrome BMI 45.0-49.9, adult BMI 50.0-59.9, adult BMI greater than 40 Bronchitis Depression DVT (deep venous thrombosis) Ganglion cyst Ganglion cyst of dorsum of left wrist History of bipolar disorder HLD (hyperlipidemia) HTN (hypertension) Knee fracture, right Meningitis Viral Morbidly obese Numbness of left foot Personal history of other venous thrombosis and embolism Screen for colon cancer Skin cancer Suicidal ideation Suicide attempt x4 Tobacco abuse Type II diabetes mellitus Ulcer of left foot due to type 2 diabetes mellitus Surgical History Surgical History H/O inguinal hernia repair History of cholecystectomy History of surgical removal of ganglion cyst History of tonsillectomy Family History Family History Father Family history of diabetes mellitus in first degree relative Diabetes mellitus Hypertension Family history of kidney disease Mother Acute myocardial infarction Sibling No problems noted. Other Family history of cardiovascular disease Social History Social History (Updated 04/04/22 @ 14:08 by Karyn Carvalho CMA) Smoking packs per day: 0.25 Smoking cigarettes per day: 5.0 Years smoked: 40 Smoking pack-years: 10.00 Smoking status: Current every day smoker Tobacco type: cigarettes Second hand tobacco smoke exposure: No Alcohol intake: never Substance use: never Substance use type: does not use Additional occupation/education comments: [employer] Gender identity (if verbalized by the patient): Female Exam Narrative: GENERAL: Well-appearing, well-nourished, and in no acute distress. HEAD: Normocephalic, atraumatic. CHEST: Clear to auscultation. No respiratory distress. EXTREMITIES: Normal
[2022-05-03 02:23] VITALS: BP 127/79; PULSE 66; RESP 18; O2SAT 99
== END 2022-05-03 02:28 | disposition home or self-care (01) ==
PROVIDERS: Emergency Provider Emergency Medicine; PCP Family Medicine
DX: S63.502A Unspecified sprain of left wrist, initial encounter (principal); W01.0XXA Fall on same level from slipping, tripping and stumbling without subsequent striking against object, initial encounter; I10 Essential (primary) hypertension; E78.5 Hyperlipidemia, unspecified; E11.9 Type 2 diabetes mellitus without complications; E66.01 Morbid (severe) obesity due to excess calories; Z68.42 Body mass index [BMI] 45.0-49.9, adult; Z79.4 Long term (current) use of insulin; Z79.899 Other long term (current) drug therapy; F17.210 Nicotine dependence, cigarettes, uncomplicated
CPT/HCPCS: 73110; 99283

== ENCOUNTER 2022-05-10 14:22 | Emergency (ER) | payer MEDICARE, SELFPAY ==
--- NOTE | ~2022-05-10 | XR_ITS ---
EXAMINATION: XR wrist LT min 3V DATE: 05/10/2022 14:44 INDICATION: Left wrist pain TECHNIQUE: Posteroanterior, ulnar deviation, oblique, and lateral views of the left wrist were obtain ed. COMPARISON: 05/03/2022 FINDINGS: There is no fracture, dislocation, or subluxation. No productive changes of bony healing ar e identified. There is mild osteoarthritis of the wrist. Wrist soft tissue swelling is present. IMPRESSION: 1. Soft tissue swelling without acute osseous abnormality. Reviewed, dictated and finalized at location B.
[2022-05-10 14:25] VITALS: BP 153/79; PULSE 83; RESP 20; TEMP 36.4; O2SAT 99
--- NOTE | 2022-05-10 15:36 | ED.UPPEXIN ---
HPI - Extremity Injury (Upper) General Chief Complaint: Extremity Injury, Upper Stated Complaint: left wrist injury, after fall Time Seen by Provider: 05/10/22 14:29 History of Present Illness HPI narrative: 61-year-old female presents to the emergency room for continued pain in her left wrist. Patient states that she fell last week onto an outstretched hand and was evaluated here. Patient was told at that time that there was no fracture and that she had a wrist sprain. Patient was sent home and told to take anti-inflammatories. Patient presents today with continued pain stating that the pain is worse. Patient has not been taking any medications or immobilizing her wrist Related Data Home Medications Medication Instructions Recorded Confirmed cyclobenzaprine 10 mg tablet 1 tablet HS 01/22/22 04/04/22 meclizine 25 mg tablet 25 mg PO TID 01/22/22 04/04/22 rosuvastatin 20 mg tablet 20 mg DAILY 01/22/22 04/04/22 quetiapine 100 mg tablet 100 mg PO DAILY 01/25/22 04/04/22 cariprazine 1.5 mg capsule 1.5 mg PO DAILY 03/29/22 04/04/22 (Vraylar) dulaglutide 1.5 mg/0.5 mL mg subcut 03/29/22 04/04/22 subcutaneous pen injector (Trulicity) insulin glargine 100 unit/mL unit subcut 03/29/22 04/04/22 subcutaneous solution (Lantus U-100 Insulin) insulin lispro 100 unit/mL 1 sliding scale dose subcut 03/29/22 04/04/22 subcutaneous pen (Humalog KwikPen USEASDIRECTD (U-100) Insulin) Allergies Allergy/AdvReac Type Severity Reaction Status Date / Time chocolate flavor Allergy Unknown Unknown Verified 05/03/22 01:02 codeine Allergy Unknown Hallucinati Verified 05/03/22 01:02 ng empagliflozin Allergy Unknown Unknown Verified 05/03/22 01:02 [From Jardiance] Review of Systems Review of Systems: CONSTITUTIONAL: Denies fever, chills, or sweats. EYES: Denies visual changes, redness, or discharge. ENT: Denies rhinorrhea, congestion, sore throat, or otalgia. CARDIOVASCULAR: Denies chest pain, palpitations, or edema. RESPIRATORY: Denies cough or dyspnea. GASTROINTESTINAL: Denies abdominal pain, nausea, vomiting, or diarrhea. GENITOURINARY: Denies dysuria or hematuria. SKIN: Denies rash or itching. MUSCULOSKELETAL: Reports left wrist pain NEUROLOGIC: Denies headache, numbness, dizziness, or weakness. PSYCHIATRIC: Denies anxiety or depression. [facility] Past Medical History Medical History Abnormal nerve conduction studies Acute pain of left lower extremity Anxiety Arthritis Bereavement Bilateral carpal tunnel syndrome BMI 45.0-49.9, adult BMI 50.0-59.9, adult BMI greater than 40 Bronchitis Depression DVT (deep venous thrombosis) Ganglion cyst Ganglion cyst of dorsum of left wrist History of bipolar disorder HLD (hyperlipidemia) HTN (hypertension) Knee fracture, right Meningitis Viral Morbidly obese Numbness of left foot Personal history of other venous thrombosis and embolism Screen for colon cancer Skin cancer Suicidal ideation Suicide attempt x4 Tobacco abuse Type II diabetes mellitus Ulcer of left foot due to type 2 diabetes mellitus Surgical History Surgical History H/O inguinal hernia repair History of cholecystectomy History of surgical removal of ganglion cyst History of tonsillectomy Family History Family History Father Family history of diabetes mellitus in first degree relative Diabetes mellitus Hypertension Family history of kidney disease Mother Acute myocardial infarction Sibling No problems noted. Other Family history of cardiovascular disease Social History Social History Smoking packs per day: 0.25 Smoking cigarettes per day: 5.0 Years smoked: 40 Smoking pack-years: 10.00 Smoking status: Current every day smoker To
[2022-05-10 16:12] VITALS: BP 122/76; PULSE 70; RESP 16; O2SAT 97
== END 2022-05-10 16:15 | disposition home or self-care (01) ==
LOC: ANHED 15:48
PROVIDERS: Emergency Provider Nurse Practitioner Family; PCP Family Medicine
DX: S69.92XA Unspecified injury of left wrist, hand and finger(s), initial encounter (principal); W19.XXXA Unspecified fall, initial encounter; Z86.718 Personal history of other venous thrombosis and embolism; E78.5 Hyperlipidemia, unspecified; I10 Essential (primary) hypertension; E66.01 Morbid (severe) obesity due to excess calories; Z68.42 Body mass index [BMI] 45.0-49.9, adult; E11.9 Type 2 diabetes mellitus without complications; F17.210 Nicotine dependence, cigarettes, uncomplicated
CPT/HCPCS: 73110; 99283

== ENCOUNTER 2022-05-15 16:28 | Outpatient (CLI) | payer MEDICARE, SELFPAY ==
[2022-05-15 17:28] LABS: Hemoglobin 12.3 g/dL (12.0-15.0); Mean Corpuscular HGB Conc 31.5 g/dl (32-36); Mean Corpuscular Hemoglobin 26.8 pg (26-34); Mean Platelet Volume 9.7 fl (7.4-10.4); Platelet Count Result 259 k/mm3 (150-375); Red Blood Count 4.59 M/mm3 (4.2-5.4); Red Cell Distribution Width 15.9 % (11.5-14.5); White Blood Count 6.9 K/mm3 (4.5-10.0)
[2022-05-15 17:35] LABS: Albumin Level 4.4 g/dL (3.5-5.1); Anion Gap 17 mmol/L (8-16); Blood Urea Nitrogen 20 mg/dL (7-17); Carbon Dioxide 26 mmol/L (22-30); Chloride 98 mmol/L (98-107); Estimated Glomerular Filt Rate 36; Glucose 153 mg/dL (65-110); Phosphorus 4.7 mg/dL (2.5-4.5); Potassium 4.1 mmol/L (3.4-5.0); Sodium 141 mmol/L (137-145)
[2022-05-15 17:47] LABS: Creatinine Urine 144.5 mg/dL
[2022-05-15 20:11] LABS: Total Protein Urine Random < 5 mg/dL; Ur Ttl Prot Creatinine Ratio 0.03 mg/mg (0-0.20)
== END 2022-05-15 16:29 | disposition home or self-care (01) ==
LOC: ANHLAB 16:30
PROVIDERS: PCP Family Medicine; Visit Provider Internal Medicine Nephrology
DX: N18.32 Chronic kidney disease, stage 3b (principal)
CPT/HCPCS: 36415; 80069; 82570; 83970; 84156; 85027

== ENCOUNTER 2022-05-17 09:51 | Outpatient (CLI) | payer MEDICARE, SELFPAY ==
[2022-05-17 11:28] LABS: Total Volume 24 Hour Urine 1900 ml
[2022-05-17 11:35] LABS: Urea Nitrogen 24 Hour Urine 12.1 G/DAY (12-20)
[2022-05-24 14:04] LABS: Albumin 38 %; Measured Kappa Chains <1.00 mg/dL (<2.00); Measured Lambda Chains <1.00 mg/dL (<2.00); Pro/Creat Ratio 53 mg/g creat (<150)
[2022-05-24 14:46] LABS: Protein,total, 24 Hr Ur 95 mg/24h
== END 2022-05-17 09:52 | disposition home or self-care (01) ==
PROVIDERS: PCP Family Medicine; Visit Provider Internal Medicine Nephrology
DX: N18.32 Chronic kidney disease, stage 3b (principal)
CPT/HCPCS: 81050; 84540; 86335

== ENCOUNTER 2022-06-27 15:06 | Outpatient (CLI) | payer MEDICARE, SELFPAY ==
--- NOTE | ~2022-06-27 | XR_ITS ---
EXAMINATION: XR shoulder RT min 2V INDICATION: Right shoulder pain TECHNIQUE: Four views of the right shoulder are submitted. COMPARISON: 06/20/2019 FINDINGS: Normal alignment. No fracture. There is unchanged moderate acromioclavicular joint osteoart hritis. Also noted is chronic narrowing of the subacromial space with close apposition of the undersu rface of the acromion and greater tuberosity of the humerus. Soft tissues are unremarkable. IMPRESSION: 1. Osteoarthritis without significant change. Reviewed, dictated and finalized at location A. R
== END 2022-06-27 15:07 | disposition home or self-care (01) ==
PROVIDERS: PCP Family Medicine; Visit Provider Nurse Practitioner Family
DX: S49.90XA Unspecified injury of shoulder and upper arm, unspecified arm, initial encounter (principal); X58.XXXA Exposure to other specified factors, initial encounter; M19.011 Primary osteoarthritis, right shoulder
CPT/HCPCS: 73030

== ENCOUNTER 2022-06-29 13:29 | Outpatient (CLI) | payer MEDICARE, SELFPAY ==
--- NOTE | ~2022-06-29 | MR_ITS ---
MRI of the left wrist Technique: Coronal T1 weighted and proton density fat sat images, and axial and sagittal proton-densi ty and proton-density fat-sat images were acquired. Clinical History: Injury Findings: No fracture or dislocation seen. There are multiple scattered small subchondral cysts in th e carpal bones and distal radius. Cortical bone appears to be intact throughout. No significant joint effusion. Scapholunate ligament is intact. Lunotriquetral joint is intact. TFCC is intact. Extensor flexor tendons are unremarkable. Minimal tenosynovitis of the second extensor tendon compart ment. No soft tissue mass or fluid collection seen otherwise. IMPRESSION: No acute posttraumatic abnormality seen. Multiple scattered subcentimeter subchondral cysts in the carpal bones and distal radius. This could reflect sequelae of mild degenerative joint disease, however early erosive arthropathy/inflammatory a rthropathy is a consideration. Correlate clinically, and consider additional workup for inflammatory arthropathy as indicated. Old minimal tenosynovitis of the second extensor tendon compartment. Reviewed, dictated and finalized at location . ATOR PILOT IMPRESSION: No acute posttraumatic abnormality seen. Multiple scattered subcentimeter subchondral cysts in the carpal bones and dist al radius. This could reflect sequelae of mild degenerative joint disease, hu jennifer early erosive arthropathy/inflammatory arthropathy is a consideration. Claudia elate clinically, and consider additional workup for inflammatory arthropathy a s indicated. Old minimal tenosynovitis of the second extensor tendon compartment.
== END 2022-06-29 13:30 | disposition home or self-care (01) ==
PROVIDERS: PCP Family Medicine; Visit Provider Nurse Practitioner Family
DX: S69.92XA Unspecified injury of left wrist, hand and finger(s), initial encounter (principal); M89.9 Disorder of bone, unspecified; M65.88 Other synovitis and tenosynovitis, other site
CPT/HCPCS: 73221

== ENCOUNTER 2022-07-30 08:30 | Outpatient (RCR) | payer MEDICARE, SELFPAY | END 2022-10-14 08:43 | disposition home or self-care (01) | LOC: ANHPT 08:30 | PROVIDERS: PCP Family Medicine; Visit Provider Family Medicine | DX: T14.90XA Injury, unspecified, initial encounter (principal); W19.XXXA Unspecified fall, initial encounter | CPT/HCPCS: 99199 ==

== ENCOUNTER 2023-08-29 14:15 | Outpatient (RCR) | payer MEDICARE, SELFPAY ==
--- NOTE | 2023-08-08 09:07 | OPREHPOC ---
Outpatient Therapy Plan of Care This is a Multidisciplinary Plan of Care that may contain components documented by all disciplines (PT, OT, and ST.) PT Problem 1 PT Problem #1 Knowledge Deficit PT Goal 1 Goal 1* indep with HEP PT Problem 2 PT Problem #2 Pain PT Goal 1 Goal 1* pt report pain rating at worst of 1/10 with increase activity level 2* pt report standing/walking activity tolerance with home activity 45 minutes PT Problem 3 PT Problem #3 Impaired Flexibility PT Goal 1 Goal increase R knee flexion, to improve sit/stand transfer and stair ability 1* sitting active R knee flexion 110' PT Problem 4 PT Problem #4 Impaired Strength PT Goal 1 Goal increase strength of R LE, to improve mobility, transfer and gait skills: 1* prone hip extension x 20 reps 2* single leg standing x 10 seconds with good stability 3* sit/stand with use of 1 UE 4* bridge x 20 reps with clearing hips off mat PT Problem 5 PT Problem #5 Impaired Functional Mobil PT Goal 1 Goal 1* 5 reps sit/stand time of 20 seconds 2* 2 minute walking test distance with cane, 300' 3* up/down 4 steps with cane and NO hand railing 4* pt report walking out in community short distances
--- NOTE | 2023-08-08 09:07 | PTOPEVAL1 ---
Assessment and note entered by Mayelin Mitchell PT Evaluation Information Assessment Status Evaluation Diagnosis s/p R TKR Onset 07-08-23 Subjective Information no restrictions from , per pt; use cane PRN, in home do not use- furniture walk; had [facility] PT services, completed 2 weeks ago; at home, have 6 steps to enter home with 2 rails, far apart and can only reach 1 at time. reports she feels comfortable with her mobility; limited outings since surgery and not working; Exercises from 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 Reported Pain Level Pain Score Self Report Additional Pain Score Comments pain range in the past week 0-2/10; pain medial knee; increase pain with standing/walking too much ~ 20 min decrease pain: sit/rest, ice; taking narco, 1 pill, 2x/day slight swelling in knee and stays warm; not using ice much; reinforced use PRN for pain/ soreness with more activity; sleeping is OK Assessment PT Clinical Summary Claire is 4 weeks s/p R TKR. 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 She has completed [facility] and doing the exercises at home, up to 20 reps. She has pain in her L knee and is going to have L TKR, not yet scheduled. She is not working at this time, but plans to return to work. With the evaluation: she is using a cane for ambulation, with limp on her L LE; 5 reps sit/ stand time of 29 sec with use of both UE's; 2 minute walking test distance of 190' with cane; active ROM of knee in sitt
--- NOTE | 2023-08-22 11:30 | PCPTNOTE ---
Pt called and cancelled appt. today stating she could not make.
--- NOTE | 2023-08-25 13:45 | PCPTNOTE ---
Pt cancelled due to illness.
--- NOTE | 2023-08-29 14:57 | PTOPDC ---
Assessment and note entered by Mayelin Mitchell, PT Discharge Information Assessment Status Discharge Diagnosis s/p R TKR Onset 07-08-23 Subjective Information R knee is much better, not hurting; the L knee is giving me pain and trouble; see the next week and going to set a date for L knee surgery; have been doing the exercises at home. have been going out and going places; Ready to be finished with therapy. Reported Pain Level Pain Score 0: Self Report no pain R knee Additional Pain Score Comments L knee pain 6/10; home standing, walking, activity level 10-15 min due to L knee hurting/ R knee does not stop her from walking; Assessment PT Clinical Summary Claire has received 5 PT sessions. Compared to the initial evaluation: pain has decreased to no pain in R knee; walking and standing activities are limited due to L knee pain / R knee does not hurt with standing and walking; increased knee flexion to 105'; 5 reps sit/stand time improved by 3 seconds; 2 minute walking test distance improved 10'; stairs still require cane and one hand railing; increased strength of R hip and knee, but single leg standing few seconds only uses the cane for ambulation for short community distances. Education complete for HEP. The goals were partially met. Discharge PT. She is to continue with her HEP. Plan of Care PT Services Indicated No
== END 2023-10-27 10:37 | disposition home or self-care (01) ==
LOC: ANHPT 14:15
PROVIDERS: PCP Family Medicine; Visit Provider Orthopaedic Surgery
DX: Z47.1 Aftercare following joint replacement surgery (principal); Z96.651 Presence of right artificial knee joint
CPT/HCPCS: 97110; 97161; 97530

== ENCOUNTER 2023-11-13 14:30 | Outpatient (RCR) | payer MEDICARE, SELFPAY ==
--- NOTE | 2023-11-05 15:03 | OPREHPOC ---
Outpatient Therapy Plan of Care This is a Multidisciplinary Plan of Care that may contain components documented by all disciplines (PT, OT, and ST.) PT Problem 1 PT Problem #1 Knowledge Deficit PT Goal 1 Goal 1. Patient will perform independent HEP Target Visit 4 PT Problem 2 PT Problem #2 Pain PT Goal 1 Goal 1. Pain with all ADL's and work activities no higher than 2/10 Target Visit 10 PT Problem 3 PT Problem #3 Impaired Strength PT Goal 1 Goal 1. Improve knee extension to 5/5 on left for ADL's Target Visit 10 PT Problem 4 PT Problem #4 Impaired Range of Motion PT Goal 1 Goal 1. Improve knee extension to 0 for gait 2. Improve knee flexion to 110 for stairs and getting out of her bathtub independently Target Visit 10 PT Problem 5 PT Problem #5 Impaired Functional ADLs PT Goal 1 Goal 1. 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
--- NOTE | 2023-11-05 15:03 | PTOPEVAL1 ---
Assessment and note entered by Tanisha Carey DPT Evaluation Information Assessment Status Evaluation Subjective Information Pt is s/p L TKA on 10/14/23. Pt stayed at the hospital for 4 days due low INR and an infection, then home with home health therapy. She was discharged this past Friday. Highest pain 7/10 and lowest 0/10 recently. Is sometimes using a walker or cane, sometimes is able to go without it. Five stairs to get into her house but no basement. Placing two feet on each step. 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 Pt is dressing independently but having difficulty getting out of the tub so has assistance with that. Pt is doing light cooking and cleaning, not doing all activities and not doing yard work. Previously was working and independent with activities at home. Patient goal: get rid of cane Returns to MD in 3 weeks. Reported Pain Level Pain Score 6: Self Report Assessment PT Clinical Summary The patient is presenting to skilled therapy s/p L TKA on 10/14/23. She presents with decreased range of motion, decreased strength, gait and stair impairments which are contributing to her pain and current walker or cane use and difficulty with normal cooking, cleaning, and working activities. She will highly benefit from therapy to address these impairments in order to reduce pain and return to full function. Plan of Care Interventions Electrical Stimulation,Gait Training,Hot Pack/Cold Pack,Manual Therapy,Neuro Re-education,Patient/ Caregiver Education,Therapeutic Activities, Therapeutic Exercise PT Services Indicated Yes Treatment Frequency and 2 times a week for 10 visits Duration These treatments will address the objective and functional deficits as defined above. The patient will be advanced safely and appropriately in order for the patient to progress towards his/her prior level of function. Additional exercises will be introduced and as well as a comprehensive home exercise program upon discharge, if needed, ?to ensure carryover of functional gains achieved in the clinic. This treatment plan has been reviewed and agreement upon by the patient.
--- NOTE | 2023-11-17 10:46 | PCPTNOTE ---
Patient called & cancelled scheduled appointment this date due to not having transportation. Will continue per POC.
--- NOTE | 2023-11-20 13:42 | PCPTNOTE ---
Pt cancelled all of her appts.
--- NOTE | 2023-12-09 11:08 | PTOPDC ---
Assessment and note entered by Tanisha Carey DPT Evaluation Information Assessment Status Discharge - Pt Not Present Subjective Information - Assessment PT Clinical Summary Patient has self discharged from therapy after 3 visits. She did not return therapist's phone call to follow up and reschedule. Plan of Care PT Services Indicated No
== END 2023-12-09 13:08 | disposition home or self-care (01) ==
LOC: ANHPT 14:30
PROVIDERS: PCP Family Medicine; Visit Provider Orthopaedic Surgery
DX: Z47.1 Aftercare following joint replacement surgery (principal); Z96.652 Presence of left artificial knee joint
CPT/HCPCS: 97016; 97110; 97140; 97161; 97530

== ENCOUNTER 2023-12-05 09:50 | Outpatient (CLI) | payer MEDICARE, SELFPAY ==
[2023-12-05 10:48] LABS: Basophils Absolute Auto 0.1 K/mm3 (0.0-0.1); Basophils Percent Auto 0.8 % (0.2-1.2); Eosinophils Absolute Auto 0.3 K/mm3 (0-0.3); Eosinophils Percent Auto 4.2 % (0-4.4); Hematocrit 36.9 % (37.0-47.0); Hemoglobin 10.7 g/dL (12.0-15.0); Immature Granulocyte Absolute 0.07 K/mm3 (0.00-0.031); Immature Granulocyte Percent A 1.1 % (0-0.5); Immature Platelet Fraction Pct 5.6 % (0.9-11.2); Lymphocytes Absolute Auto 1.21 K/mm3 (0.9-3.2); Lymphocytes Percent Auto 18.7 % (18.3-44.2); Mean Corpuscular Hemoglobin 23.4 pg (26-34); Mean Corpuscular Volume 80.6 fl (80-100); Mean Platelet Volume 10.6 fl (7.4-10.4); Monocytes Absolute Auto 0.4 K/mm3 (0.1-0.6); Monocytes Percent Auto 6.8 % (2.6-8.5); Neutrophils Absolute Auto 4.4 K/mm3 (1.3-6.7); Neutrophils Percent Auto 68.4 % (45.5-73.1); Platelet Count Result 285 k/mm3 (150-375); Red Blood Count 4.58 M/mm3 (4.2-5.4); Red Cell Distribution Width 19.5 % (11.5-14.5); White Blood Count 6.5 K/mm3 (4.5-10.0)
[2023-12-05 10:59] LABS: Alanine Aminotransferase 13 U/L (6-35); Albumin Level 4.1 g/dL (3.5-5.1); Alkaline Phosphatase 104 U/L (38-126); Anion Gap 10 mmol/L (4-12); Anion Gap 8 mmol/L (4-12); Aspartate Amino Transferase 17 U/L (14-36); Bilirubin,Total 0.8 mg/dL (0.2-1.3); Blood Urea Nitrogen 22 mg/dL (7-17); Blood Urea Nitrogen 23 mg/dL (7-17); Calcium 8.7 mg/dL (8.4-10.2); Calcium 8.8 mg/dL (8.4-10.2); Carbon Dioxide 27 mmol/L (22-30); Carbon Dioxide 29 mmol/L (22-30); Chloride 96 mmol/L (98-107); Estimated Glomerular Filt Rate > 60; Glucose 479 mg/dL (65-110); Glucose 487 mg/dL (65-110); Phosphorus 5.7 mg/dL (2.5-4.5); Potassium 4.5 mmol/L (3.4-5.0); Sodium 133 mmol/L (137-145)
[2023-12-05 11:00] LABS: Creatinine Urine 137.1 mg/dL; Total Protein Urine Random 23 mg/dL; Ur Ttl Prot Creatinine Ratio 0.17 mg/mg (0-0.20)
[2023-12-05 11:38] LABS: Anisocytosis 1+; Hypochromasia 1+; Platelet Estimate Adequate (Adequate); Schistocytes None Seen
== END 2023-12-05 09:51 | disposition home or self-care (01) ==
LOC: ANHLAB 09:53
PROVIDERS: PCP Family Medicine; Referring Provider Physician Assistant; Visit Provider Internal Medicine Nephrology
DX: E78.5 Hyperlipidemia, unspecified (principal); E11.69 Type 2 diabetes mellitus with other specified complication; N18.32 Chronic kidney disease, stage 3b
CPT/HCPCS: 36415; 80053; 80069; 82570; 84156; 85025; 85055

== ENCOUNTER 2023-12-18 11:37 | Outpatient (CLI) | payer MEDICARE, SELFPAY ==
[2023-12-18 12:22] LABS: Iron 40 ug/dL (37-170)
[2023-12-18 12:32] LABS: Percent Iron Saturation 11 % (20-50)
== END 2023-12-18 11:38 | disposition home or self-care (01) ==
PROVIDERS: PCP Family Medicine; Visit Provider Physician Assistant
DX: E11.65 Type 2 diabetes mellitus with hyperglycemia (principal); D64.9 Anemia, unspecified; Z79.4 Long term (current) use of insulin
CPT/HCPCS: 36415; 82607; 82728; 83540; 83550

== ENCOUNTER 2024-01-13 00:47 | Day surgery (SDC) | payer MEDICARE, SELFPAY ==
[2023-12-25 14:18] VITALS: BMI 45.6
[2024-01-13 09:14] VITALS: BP 141/77; PULSE 82; RESP 20; TEMP 36; O2SAT 98
[2024-01-13] MEDS: LACTATED RINGERS 1,000 ML 150 ML IV CONT (09:26)
[2024-01-13] MEDS: AMPICILLIN 2 GM/NS 100 ML 2 GM/100 ML BAG IVPB (09:33)
--- NOTE | 2024-01-13 09:39 | SUR.PREOP ---
DR MCKEON NOTIFIED OF BLOOD SUGAR 350, PT HAS NOT HAD ANY OF HER DIABETIC MEDS, PT ASSYMPTOMATIC, NO NEW ORDERS.
[2024-01-13 09:40] LABS: Glucose Point of Care 350 mg/dl (65-105)
--- NOTE | 2024-01-13 09:40 | WPDANESEPPF ---
Anes - Initial Pre Proc Eval Procedure: Operation Date: 01/13/24 10:30 Proposed Procedures p Screening Colonoscopy - Darrian Fuentes DO Date/Time: 01/13/24 09:40 Surgeon: Darrian Fuentes DO Pre Op Diagnosis: Screening for malignant neoplasm of colon Patient Data Age: 63 Gender: F Height: 1.73 m Weight: 131.1 kg Last Vital Signs Temp 36.0 C L 01/13/24 09:14 Pulse 82 01/13/24 09:14 Resp 20 01/13/24 09:14 BP 141/77 H 01/13/24 09:14 Pulse Ox 98 01/13/24 09:14 O2 Del Method Room Air 01/13/24 09:14 Allergies Allergy/AdvReac Type Severity Reaction Status Date / Time codeine Allergy Unknown Hallucinati Verified 01/13/24 09:10 ng chocolate flavor AdvReac Intermediate Rash Verified 01/13/24 09:10 empagliflozin AdvReac Intermediate kidney Verified 01/13/24 09:10 [facility] infection Home Medications Medication Instructions Recorded Confirmed Type cyclobenzaprine 10 mg tablet 1 tablet PO HS 01/22/22 12/25/23 History quetiapine 100 mg tablet 100 mg PO DAILY 01/25/22 12/25/23 History cariprazine 1.5 mg capsule 1.5 mg PO DAILY 03/29/22 12/25/23 History (Vraylar) ondansetron 4 mg disintegrating 4 mg PO Q8H PRN nausea and 03/29/22 12/25/23 Rx tablet vomiting #12 tabs insulin lispro 100 unit/mL See Rx Instructions .Route 05/26/22 12/25/23 Rx subcutaneous pen .COMPLEX #15 mL metformin 500 mg tablet 1,000 mg PO BID #360 tabs 12/04/22 12/25/23 Rx gabapentin 300 mg capsule 300 mg PO TID #270 caps 03/25/23 12/25/23 Rx escitalopram oxalate 20 mg tablet 10 mg PO DAILY #45 tabs 04/14/23 12/25/23 Rx amlodipine 5 mg tablet 5 mg PO DAILY #90 tabs 06/22/23 12/25/23 Rx semaglutide 1 mg/dose (4 mg/3 mL) 1 mg (0.75 mL) subcut WEEKLY #3 mL 08/15/23 12/25/23 Rx subcutaneous pen injector (Ozempic) tizanidine 2 mg tablet 2 mg PO TID PRN muscle spasticity 09/03/23 12/25/23 Rx #90 tabs losartan 100 mg tablet 100 mg PO DAILY #90 tabs 09/25/23 12/25/23 Rx insulin glargine 100 unit/mL 75 unit (0.75 mL) subcut DAILY #70 09/30/23 12/25/23 Rx subcutaneous solution (Lantus mL U-100 Insulin) bupropion HCl 300 mg 24 hr tablet, 300 mg PO QAM #90 tabs 10/08/23 12/25/23 Rx extended release ascorbic acid (vitamin C) 1,000 mg 1 g PO DAILY 10/22/23 12/25/23 History capsule aspirin 325 mg tablet 325 mg PO BID 10/22/23 12/25/23 History cholecalciferol (vitamin D3) 50 50 mcg PO DAILY 10/22/23 12/25/23 History mcg (2,000 unit) capsule ferrous sulfate 325 mg (65 mg 325 mg PO DAILY 10/22/23 12/25/23 History iron) tablet (FeroSul) naloxone 4 mg/actuation nasal 4 mg intranasal Q2M PRN OVERDOSE 10/22/23 12/25/23 History spray (Narcan) omeprazole 20 mg capsule,delayed 40 mg PO DAILY 10/22/23 12/25/23 History release polyethylene glycol 3350 17 17 g PO DAILY 10/22/23 12/25/23 History gram/dose oral powder hydrocodone 10 mg-acetaminophen 1 tablet PO Q6H PRN pain #120 tabs 10/30/23 12/25/23 Rx 325 mg tablet meclizine 25 mg tablet 25 mg PO TID PRN Dizziness 12/25/23 12/25/23 History rosuvastatin 20 mg tablet 20 mg PO .Qevening #90 tabs 01/06/24 01/13/24 Rx Laboratory Tests 01/13/24 09:37 POC Capillary Glucose 350 H mg/dl (65-105) Patient hx anesthesia problems: none Family hx anesthesia problems: none Results Review: All pre-operative results and documents have been reviewed as part of the pre-operative evaluation. [facility] Past Medical History Medical History Abnormal nerve conduction studies Acute pain of left lower extremity Anxiety Arthritis Bereavement Bilateral carpal tunnel syndrome BMI 40.0-44.9, adult BMI greater than 40 Bronchitis Depression DVT (deep venous thrombosis) Ganglion cyst Ganglion cyst of dorsum of left wrist History of bipolar disorder HLD (hyperlipidemia) HTN (hypertension) Knee fracture, right Meningitis Viral Numbness of left foot Osteoarthritis of right knee Pe
--- NOTE | 2024-01-13 10:06 | PM.IMHP ---
H&P: HPI History of Present Illness Date/Time: 01/13/24 10:06 Chief Complaint: screening for colorectal cancer Narrative: this is a 63-year-old woman who presents for colonoscopy. She has never had a colonoscopy before. She denies any hematochezia or melena, but she does state that she has had anemia and low iron levels. She denies any family history of colon cancer. Review of Systems Review of Systems: All systems reviewed & are unremarkable except as noted in HPI and below Constitutional: Constitutional: Denies chills, Denies fever(s), Denies headache(s) and Denies weight loss Eyes: Eyes: Denies change in vision ENT: Denies dizziness, Denies headache(s), Denies neck mass and Denies throat swelling Cardiovascular: Cardiovascular: Denies chest pain, Denies lightheadedness and Denies dyspnea Respiratory: Respiratory: Denies cough, Denies dyspnea and Denies wheezing Gastrointestinal: Gastrointestinal: Denies abdominal pain, Denies change in bowel habits, Denies nausea and Denies vomiting Genitourinary: Genitourinary: Denies hematuria and Denies dysuria Musculoskeletal: Musculoskeletal: Reports as per HPI Integumentary/Breasts: Skin/Breast: Reports as per HPI Neurologic: Denies dizziness and Denies headache(s) Allergic/Immunologic: Allergic/Immunologic: Denies throat swelling and Denies wheezing [facility] Past Medical History Medical History Abnormal nerve conduction studies Acute pain of left lower extremity Anxiety Arthritis Bereavement Bilateral carpal tunnel syndrome BMI 40.0-44.9, adult BMI greater than 40 Bronchitis Depression DVT (deep venous thrombosis) Ganglion cyst Ganglion cyst of dorsum of left wrist History of bipolar disorder HLD (hyperlipidemia) HTN (hypertension) Knee fracture, right Meningitis Viral Numbness of left foot Osteoarthritis of right knee Personal history of other venous thrombosis and embolism Screen for colon cancer Skin cancer Suicidal ideation Suicide attempt x4 Tobacco abuse Type II diabetes mellitus Ulcer of left foot due to type 2 diabetes mellitus Surgical History Surgical History H/O inguinal hernia repair History of cholecystectomy History of surgical removal of ganglion cyst History of tonsillectomy Hx of knee surgery Family History Family History Father Family history of diabetes mellitus in first degree relative Diabetes mellitus Hypertension Family history of kidney disease Mother Acute myocardial infarction Sibling No problems noted. Other Family history of cardiovascular disease Social History Social History Smoking packs per day: 1 Smoking cigarettes per day: 20.0 Years smoked: 15 Smoking pack-years: 15.00 Smoking status: Former smoker Tobacco type: cigarettes Second hand tobacco smoke exposure: Yes Smoking end date: 03/19/23 Alcohol intake: never Substance use: never Substance use type: does not use Do You Feel Safe in your Home?: Yes Lack of Transportation: No Lack of Food: Never True Current Housing: I Have Housing Concerned About Future Housing: No Difficulty Paying Gas/Electric Bills: No Difficulty Paying for Meds: No Currently Unemployed: No Education: Trade/Vocational Certificate Difficulty w/ Childcare or Family Care: YES Living arrangements: with family Additional living arrangements comments: lives with niece to help after surgery. 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 Gender identity (if verbalized by the patient): Female Spiritual care concerns: No Meds Home Medications and Allergies Home Medications Medication Instructions Recorded Confirmed Type
[2024-01-13 10:41] VITALS: BP 121/89; PULSE 71; RESP 17; O2SAT 98
[2024-01-13 10:50] LABS: Glucose Point of Care 327 mg/dl (65-105)
[2024-01-13 10:51] VITALS: BP 134/67; PULSE 73; RESP 21; O2SAT 100
[2024-01-13 11:01] VITALS: BP 145/82; PULSE 72; RESP 18; O2SAT 97
== END 2024-01-13 11:13 | disposition home or self-care (01) ==
PROVIDERS: PCP Family Medicine; Visit Provider Surgery
PROC: 0DJD8ZZ Inspection of Lower Intestinal Tract, Via Natural or Artificial Opening Endoscopic (ICD-10-PCS; CPT 45378; principal; 2024-01-13 10:30)
DX: Z12.11 Encounter for screening for malignant neoplasm of colon (principal); D12.3 Benign neoplasm of transverse colon; K57.30 Diverticulosis of large intestine without perforation or abscess without bleeding; Z86.718 Personal history of other venous thrombosis and embolism; E78.5 Hyperlipidemia, unspecified; I10 Essential (primary) hypertension; E11.9 Type 2 diabetes mellitus without complications; Z87.891 Personal history of nicotine dependence
CPT/HCPCS: 45385; 82948; 88305; J0290; J2001; J2704; J7120

== ENCOUNTER 2024-03-01 13:46 | Outpatient (CLI) | payer MEDICARE, SELFPAY ==
[2024-03-01 14:23] LABS: Basophils Absolute Auto 0.1 K/mm3 (0.0-0.1); Basophils Percent Auto 0.8 % (0.2-1.2); Eosinophils Absolute Auto 0.2 K/mm3 (0-0.3); Eosinophils Percent Auto 2.8 % (0-4.4); Hematocrit 39.3 % (37.0-47.0); Hemoglobin 12.3 g/dL (12.0-15.0); Immature Granulocyte Absolute 0.08 K/mm3 (0.00-0.031); Immature Granulocyte Percent A 1.1 % (0-0.5); Lymphocytes Absolute Auto 1.37 K/mm3 (0.9-3.2); Lymphocytes Percent Auto 19.3 % (18.3-44.2); Mean Corpuscular HGB Conc 31.3 g/dl (32-36); Mean Corpuscular Hemoglobin 25.4 pg (26-34); Mean Corpuscular Volume 81.2 fl (80-100); Mean Platelet Volume 9.9 fl (7.4-10.4); Monocytes Absolute Auto 0.5 K/mm3 (0.1-0.6); Monocytes Percent Auto 6.3 % (2.6-8.5); Neutrophils Absolute Auto 4.9 K/mm3 (1.3-6.7); Neutrophils Percent Auto 69.7 % (45.5-73.1); Platelet Count Result 258 k/mm3 (150-375); Red Blood Count 4.84 M/mm3 (4.2-5.4); Red Cell Distribution Width 17.6 % (11.5-14.5); White Blood Count 7.1 K/mm3 (4.5-10.0)
[2024-03-01 14:55] LABS: Hemoglobin A1C 13.6 % (<5.7)
[2024-03-01 19:45] LABS: Iron 52 ug/dL (37-170)
[2024-03-01 19:56] LABS: Percent Iron Saturation 14 % (20-50)
== END 2024-03-01 13:47 | disposition home or self-care (01) ==
PROVIDERS: PCP Family Medicine; Visit Provider Physician Assistant Medical
DX: D64.9 Anemia, unspecified (principal); E11.40 Type 2 diabetes mellitus with diabetic neuropathy, unspecified
CPT/HCPCS: 36415; 83036; 83540; 83550; 85025

== ENCOUNTER 2024-03-10 00:39 | Day surgery (SDC) | payer MEDICARE, SELFPAY ==
[2024-03-05 14:29] VITALS: BMI 43.5
[2024-03-10 11:44] VITALS: BP 125/72; PULSE 87; RESP 18; TEMP 36.4; O2SAT 99
[2024-03-10 12:06] LABS: Glucose Point of Care 237 mg/dl (65-105)
[2024-03-10] MEDS: LACTATED RINGERS 1,000 ML 150 ML IV CONT (12:06)
--- NOTE | 2024-03-10 12:09 | WPDANESEPPF ---
Anes - Initial Pre Proc Eval Procedure: Operation Date: 03/10/24 13:00 Proposed Procedures p Esophagogastroduodenoscopy - Kannan Garcia MD Date/Time: 03/10/24 12:09 Surgeon: Kannan Garcia MD Pre Op Diagnosis: anemia, dysphagia, GERD Patient Data Age: 63 Gender: F Height: 1.73 m Weight: 137.1 kg Last Vital Signs Temp 97.5 F L 03/10/24 11:44 Pulse 87 03/10/24 11:44 Resp 18 03/10/24 11:44 BP 125/72 03/10/24 11:44 Pulse Ox 99 03/10/24 11:44 O2 Del Method Room Air 03/10/24 11:44 Allergies Allergy/AdvReac Type Severity Reaction Status Date / Time codeine Allergy Unknown Hallucinati Verified 03/10/24 11:38 ng chocolate flavor AdvReac Intermediate Rash Verified 03/10/24 11:38 empagliflozin AdvReac Intermediate kidney Verified 03/10/24 11:38 [From [facility]] infection Home Medications Medication Instructions Recorded Confirmed Type quetiapine 100 mg tablet 100 mg PO DAILY 01/25/22 03/10/24 History cariprazine 1.5 mg capsule 1.5 mg PO DAILY 03/29/22 03/10/24 History (Gee) ondansetron 4 mg disintegrating 4 mg PO Q8H PRN nausea and 03/29/22 03/10/24 Rx tablet vomiting #12 tabs metformin 500 mg tablet 1,000 mg PO BID #360 tabs 12/04/22 03/10/24 Rx escitalopram oxalate 20 mg tablet 10 mg PO DAILY #45 tabs 04/14/23 03/10/24 Rx amlodipine 5 mg tablet 5 mg PO DAILY #90 tabs 06/22/23 03/10/24 Rx semaglutide 1 mg/dose (4 mg/3 mL) 1 mg (0.75 mL) subcut WEEKLY #3 mL 08/15/23 03/10/24 Rx subcutaneous pen injector (Ozempic) losartan 100 mg tablet 100 mg PO DAILY #90 tabs 09/25/23 03/10/24 Rx insulin glargine 100 unit/mL 75 unit (0.75 mL) subcut DAILY #70 09/30/23 03/10/24 Rx subcutaneous solution (Lantus mL U-100 Insulin) bupropion HCl 300 mg 24 hr tablet, 300 mg PO QAM #90 tabs 10/08/23 03/10/24 Rx extended release ascorbic acid (vitamin C) 1,000 mg 1 g PO DAILY 10/22/23 03/10/24 History capsule aspirin 325 mg tablet 325 mg PO BID 10/22/23 03/10/24 History cholecalciferol (vitamin D3) 50 50 mcg PO DAILY 10/22/23 03/10/24 History mcg (2,000 unit) capsule ferrous sulfate 325 mg (65 mg 325 mg PO DAILY 10/22/23 03/10/24 History iron) tablet (FeroSul) naloxone 4 mg/actuation nasal 4 mg intranasal Q2M PRN OVERDOSE 10/22/23 03/10/24 History spray (Narcan) meclizine 25 mg tablet 25 mg PO TID PRN Dizziness 12/25/23 03/10/24 History rosuvastatin 20 mg tablet 20 mg PO .Qevening #90 tabs 01/06/24 03/10/24 Rx insulin lispro 100 unit/mL See Rx Instructions .Route 01/15/24 03/10/24 Rx subcutaneous pen .COMPLEX #15 mL hydrocodone 10 mg-acetaminophen 1 tablet PO Q6H PRN pain #120 tabs 01/20/24 03/10/24 Rx 325 mg tablet tizanidine 2 mg tablet 2 mg PO TID PRN muscle spasticity 02/07/24 03/10/24 Rx #90 tabs gabapentin 300 mg capsule 600 mg PO BID #360 caps 02/16/24 03/10/24 Rx omeprazole 40 mg capsule,delayed 40 mg PO DAILY #90 caps 03/01/24 03/10/24 Rx release Laboratory Tests 03/10/24 11:48 POC Capillary Glucose 237 H mg/dl (65-105) Patient hx anesthesia problems: none Family hx anesthesia problems: none Results Review: All pre-operative results and documents have been reviewed as part of the pre-operative evaluation. [facility] Past Medical History Medical History (Updated 03/01/24 @ 21:41 by Jose Jordan MD) Abnormal nerve conduction studies Acute pain of left lower extremity Anxiety Arthritis Bereavement Bilateral carpal tunnel syndrome Bronchitis Depression Diabetes type 2, uncontrolled DVT (deep venous thrombosis) Ganglion cyst Ganglion cyst of dorsum of left wrist History of bipolar disorder HLD (hyperlipidemia) HTN (hypertension) Knee fracture, right Meningitis Viral Numbness of left foot Osteoarthritis of right knee Personal history of other venous thrombosis and embolism Screen for colon cancer Skin cancer Suicidal ideation Suicide attempt x4 Tobacco abuse Type II diabetes mellit
--- NOTE | 2024-03-10 13:31 | SUR.PREOP ---
0170 Patient states she wants to leave. Information given about estimated procedure start time, but patient insistent and requesting to go home now. Dr De informed and orders to discharge patient.
--- NOTE | 2024-03-10 13:33 | SUR.PHASEII ---
1320 Pt's family member came out of pt's room asking how much longer it would be until patient was seen. I explained to the family member that there was an emergency case that Dr. Gaviria was currently a part of and that the patient would be seen as soon as the procedure was done. The patient's family member voiced understanding and stated the patient was hungry. I apologized for the delay and assured both the patient and family we would see the patient as soon as we could.
== END 2024-03-10 13:35 | disposition home or self-care (01) ==
PROVIDERS: PCP Family Medicine; Referring Provider Physician Assistant Medical; Visit Provider Internal Medicine Gastroenterology
PROC: 0DJ08ZZ Inspection of Upper Intestinal Tract, Via Natural or Artificial Opening Endoscopic (ICD-10-PCS; CPT 43235; principal; 2024-03-10 13:00)
DX: R13.10 Dysphagia, unspecified (principal); D64.9 Anemia, unspecified; K21.9 Gastro-esophageal reflux disease without esophagitis; Z53.8 Procedure and treatment not carried out for other reasons; I10 Essential (primary) hypertension; E78.5 Hyperlipidemia, unspecified; E11.9 Type 2 diabetes mellitus without complications; Z79.85 Long-term (current) use of injectable non-insulin antidiabetic drugs; F41.9 Anxiety disorder, unspecified; G56.03 Carpal tunnel syndrome, bilateral upper limbs; F32.A Depression, unspecified; M17.11 Unilateral primary osteoarthritis, right knee; E66.01 Morbid (severe) obesity due to excess calories; Z68.42 Body mass index [BMI] 45.0-49.9, adult; Z79.84 Long term (current) use of oral hypoglycemic drugs; Z79.4 Long term (current) use of insulin; Z79.891 Long term (current) use of opiate analgesic; Z98.890 Other specified postprocedural states; Z90.49 Acquired absence of other specified parts of digestive tract; Z87.891 Personal history of nicotine dependence; Z86.718 Personal history of other venous thrombosis and embolism; Z85.828 Personal history of other malignant neoplasm of skin; Z82.49 Family history of ischemic heart disease and other diseases of the circulatory system
CPT/HCPCS: 82948; 99211; G0463; J7120

== ENCOUNTER 2024-07-06 12:55 | Inpatient (IN) | payer MEDICARE, SELFPAY ==
--- NOTE | ~2024-07-06 | XR_ITS ---
EXAMINATION: XR foot RT min 3V DATE: 07/06/2024 14:19 INDICATION: Right foot infection. Swelling and wound at the plantar right great toe TECHNIQUE: Dorsoplantar, two oblique and lateral views of the right foot were obtained. COMPARISON: 02/25/2017 FINDINGS: Ostial lysis at the tuft of the right first distal phalanx which is best appreciated on the pronated oblique view consistent with osteomyelitis. Unchanged widening of the fifth proximal interphalangeal joint with chronic osteotomy at the head of the fifth proximal phalanx. Alignment is normal. No fract ure. Mild polyarticular osteoarthritis abdomen involving multiple joints throughout the right foot an d ankle. Moderate-sized Achilles and plantar calcaneal spurs with additional heterotopic ossicles fina ng the proximal plantar aponeurosis. There is soft tissue swelling about the great toe and over the d orsum of the foot. IMPRESSION: 1. Osteomyelitis at the tuft of the right first distal phalanx. Reviewed, dictated and finalized at location [facility]. [facility]
--- NOTE | ~2024-07-06 | US_ITS ---
BILATERAL LOWER EXTREMITY VENOUS ULTRASOUND Ordering provider: JOSE CARLOS García History: . calf pain and tenderness . Comparison: None. FINDINGS: RIGHT LOWER EXTREMITY VEINS: --COMMON FEMORAL: Patent and free of thrombus. Normal compressibility, phasic flow and augmentation. --PROXIMAL SUPERFICIAL FEMORAL: Patent and free of thrombus. Normal compressibility, phasic flow and augmentation. --DISTAL SUPERFICIAL FEMORAL: Patent and free of thrombus. Normal compressibility, phasic flow and au gmentation. --POPLITEAL: Patent and free of thrombus. Normal compressibility, phasic flow and augmentation. --POSTERIOR TIBIAL: Patent and free of thrombus. Normal compressibility, phasic flow and augmentation . LEFT LOWER EXTREMITY VEINS: --COMMON FEMORAL: Patent and free of thrombus. Normal compressibility, phasic flow and augmentation. --PROXIMAL SUPERFICIAL FEMORAL: Patent and free of thrombus. Normal compressibility, phasic flow and augmentation. --DISTAL SUPERFICIAL FEMORAL: Patent and free of thrombus. Normal compressibility, phasic flow and au gmentation. --POPLITEAL: Patent and free of thrombus. Normal compressibility, phasic flow and augmentation. --POSTERIOR TIBIAL: Patent and free of thrombus. Normal compressibility, phasic flow and augmentation . IMPRESSION: Negative bilateral lower extremity venous US. No deep vein thrombosis. Reviewed, dictated and finalized at location A. [facility] ASSISTANT
[2024-07-06 13:13] VITALS: BP 159/74; PULSE 81; RESP 18; TEMP 37.1; O2SAT 99
--- NOTE | 2024-07-06 14:04 | ED.EXTPRO ---
HPI - Extremity Problem General Chief complaint: Extremity Problem,Nontraumatic <Roxanna Matthews APRN - Last Filed: 07/06/24 14:07> Stated complaint: R big toe infection <Roxanna Matthews APRN - Last Filed: 07/06/24 14:07> Time Seen by Provider: 07/06/24 14:00 <Roxanna Matthews APRN - Last Filed: 07/06/24 14:07> Focused HPI: Patient is a 63-year-old female who presents ER with R great toe pain and wound. she reports she 1st noticed the wound 2 weeks ago. Approximately 1 week ago she noticed it was getting infected. Today patient went to her primary care provider who sent her here due to her toe infection. Patient denies any recent fevers. She reports she does not check her blood sugars at home. Patient denies any shortness of breath, chest pain, abdominal pain, urinary symptoms. GENERAL: Well-appearing, well-nourished, and in no acute distress. HEAD: Normocephalic, atraumatic. CHEST: Clear to auscultation. ?No respiratory distress. HEART: Regular rate and rhythm.? NEURO: ?Alert and oriented x3. Patient screened in triage and initial orders placed.? ?Additional care and disposition to be based upon?diagnostic testing and treatment. <Roxanna Matthews APRN - Last Filed: 07/06/24 14:07> History of Present Illness HPI Narrative: I agree with the above HPI Patient states that she has had the foot wound for a few weeks but noticed over the weekend that it acutely swelled up and started having discharge. Patient did have follow-up with primary care physician and referred to the emergency department for further evaluation and IV antibiotics. Patient is a poorly-controlled diabetic but has no prior history of amputations. <Tavo Dalton MD - Last Filed: 07/06/24 17:53> Related Data Home medications: Home Medications ?Medication ?Instructions ?Recorded ?Confirmed ?Last Taken ?Type quetiapine 100 mg tablet 100 mg PO DAILY 01/25/22 07/06/24 03/09/24 History cariprazine 1.5 mg capsule 1.5 mg PO DAILY 03/29/22 07/06/24 03/09/24 History (Vraylar) ascorbic acid (vitamin C) 1,000 mg 1 g PO DAILY 10/22/23 07/06/24 03/09/24 History capsule cholecalciferol (vitamin D3) 50 50 mcg PO DAILY 10/22/23 07/06/24 03/09/24 History mcg (2,000 unit) capsule ferrous sulfate 325 mg (65 mg 325 mg PO DAILY 10/22/23 07/06/24 03/09/24 History iron) tablet (FeroSul) naloxone 4 mg/actuation nasal 4 mg intranasal Q2M PRN OVERDOSE 10/22/23 07/06/24 03/09/24 History spray (Narcan) meclizine 25 mg tablet 25 mg PO TID PRN Dizziness 12/25/23 07/06/24 03/09/24 History trazodone 50 mg tablet 50 mg PO HS PRN sleep 07/06/24 07/06/24 Unknown History <Roxanna Matthews, DUE DILIGENCE COORDINATOR - Last Filed: 07/06/24 14:07> Allergies/Adverse reactions: Allergies Allergy/AdvReac Type Severity Reaction Status Date / Time codeine Allergy Unknown Hallucinati Verified 07/06/24 12:42 ng chocolate flavor AdvReac Intermediate Rash Verified 07/06/24 12:42 empagliflozin (From AdvReac Intermediate kidney Verified 07/06/24 12:42 Jardiance) infection <Roxanna Matthews, DUE DILIGENCE COORDINATOR - Last Filed: 07/06/24 14:07> Review of Systems Review of Systems: All systems reviewed & are unremarkable except as noted in HPI and below <Tavo Dalton MD - Last Filed: 07/06/24 17:53> [facility] Past Medical History Medical History: Medical History (Updated 07/06/24 @ 14:30 by Tavo Dalton MD) Diabetic foot ulcer associated with type 2 diabetes mellitus Diabetes type 2, uncontrolled Osteoarthritis of right knee DVT (deep venous thrombosis) Ganglion cyst of dorsum of left wrist Personal history of other venous thrombosis and embolism Acute pain of left lower extremity Ulcer of left foot due to type 2 diabetes mellitus Abnormal nerve conduction studies Screen for colon cancer Numbness of left foot Bereavement Tobacco abuse Skin cancer Suicide attempt x4 History of bipolar disorder Suicidal ideation Depression Anxiety Type II diabetes mellitus Knee fracture, right Bilateral carpal tunnel syndrome Arthritis Ganglion cyst Bronchitis HTN (hypertension) HLD (hyperlipidemia) Meningitis Viral <Roxanna Matthews APRN - Last Filed: 07/06/24 14:07> Surgical History Surgical History: Surgical History Hx of knee surgery History of surgical removal of ganglion cyst H/O inguinal hernia repair History of cholecystectomy History of tonsillectomy <Roxanna Matthews APRN - Last Filed: 07/06/24 14:07> Family History Family History: Family History Father Family history of diabetes mellitus in first degree relative Diabetes mellitus Hypertension Family history of kidney disease Mother Acute myocardial infarction Sibling No problems noted. Other Family history of cardiovascular disease <Rxoanna Matthews APRN - Last Filed: 07/06/24 14:07> Social History Social History: Social History Smoking packs per day: 1 Smoking cigarettes per day: 20.0 Years smoked: 15 Smoking pack-years: 15.00 Smoking status: Former smoker Second hand tobacco smoke exposure: Yes Alcohol intake: never Substance use: never Substance use type: does not use Do You Feel Safe in your Home?: Yes Lack of Transportation: No Lack of Food: Never True Current Housing: I Have Housing Concerned About Future Housing: No Difficulty Paying Gas/Electric Bills: No Difficulty Paying for Meds: No Currently Unemployed: No Education: Trade/Vocational Certificate Difficulty w/ Childcare or Family Care: YES Living arrangements: with family Additional living arrangements comments: lives with niece to help after surgery. 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 Gender identity (if verbalized by the patient): Female Spiritual care concerns: No <Roxanna Matthews APRN - Last Filed: 07/06/24 14:07> Exam Narrative: APPEARANCE: Well appearing, no pain, no distress, well-nourished. HEAD: normocephalic, atraumatic. EYES: PERRLA/EOMI, conjunctivae clear. NOSE: Normal no drainage EARS:TMS clear with good light reflex. THROAT: Pharynx clear, no exudate. NECK: Supple. No adenopathy, no masses. RESPIRATORY: Airway patent, respirations nonlabored. Clear to auscultation bilaterally, no rales, rhonchi, wheezing. CARDIOVASCULAR: Regular rate and rhythm without murmurs rubs or gallops. ABDOMINAL: Soft, nontender, nondistended, normal bowel sounds MUSCULOSKELETAL: Swelling of right toe NEURO: Alert. Cranial nerves II through XII intact. Good gait. Good coordination SKIN: Warm, dry. Normal Color PSYCHIATRIC: Normal affect/mood. <Tavo Dalton MD - Last Filed: 07/06/24 17:53> Course Vital Signs Vital signs: Vital Signs Temperature 98.8 F 07/06/24 13:13 Pulse Rate 81 07/06/24 13:13 Respiratory Rate 18 07/06/24 13:13 Blood Pressure 159/74 H 07/06/24 13:13 Pulse Oximetry 99 07/06/24 13:13 Oxygen Delivery Room Air 07/06/24 13:13 Temperature 97.7 F 07/06/24 16:27 Pulse Rate 72 07/06/24 16:27 Respiratory Rate 16 07/06/24 16:27 Blood Pressure 134/75 07/06/24 16:27 Pulse Oximetry 99 07/06/24 16:27 Oxygen Delivery Room Air 07/06/24 13:13 <Roxanna Matthews APRN - Last Filed: 07/06/24 14:07> Vital Signs Temperature 98.8 F 07/06/24 13:13 Pulse Rate 81 07/06/24 13:13 Respiratory Rate 18 07/06/24 13:13 Blood Pressure 159/74 H 07/06/24 13:13 Pulse Oximetry 99 07/06/24 13:13 Oxygen Delivery Room Air 07/06/24 13:13 Temperature 97.7 F 07/06/24 16:27 Pulse Rate 72 07/06/24 16:27 Respiratory Rate 16 07/06/24 16:27 Blood Pressure 134/75 07/06/24 16:27 Pulse Oximetry 99 07/06/24 16:27 Oxygen Delivery Room Air 07/06/24 13:13 <Tavo Dalton MD - Last Filed: 07/06/24 17:53> MDM - Extremity (Nontraumatic) MDM Narrative Medical decision making narrative: 63-year-old female presents emergency department for evaluation for worsening toe infection. Patient was started on IV antibiotics emergency department, blood cultures were ordered. Case was discussed with hospitalist patient was accepted for admission. Surgery was also consulted they will evaluate her. Patient was updated the results of her workup and plan for surgical evaluation. <Tavo Dalton MD - Last Filed: 07/06/24 17:53> Differential Diagnosis Differential diagnosis: Likely other (Cellulitis, diabetic ulcer, osteomyelitis) <Tavo Dalton MD - Last Filed: 07/06/24 17:53> Lab Data Result diagrams: 07/06/24 14:41 07/06/24 14:41 <Roxanna Matthews APRN - Last Filed: 07/06/24 14:07> Labs: Lab Results 07/06/24 Range/Units 14:41 WBC 7.9 (4.5-10.0) K/mm3 RBC 4.34 (4.2-5.4) M/mm3 Hgb 11.9 L (12.0-15.0) g/dL Hct 36.7 L (37.0-47.0) % MCV 84.6 (80-100) fl MCH 27.4 (26-34) pg MCHC 32.4 (32-36) g/dl RDW 15.4 H (11.5-14.5) % Plt Count 299 (150-375) k/mm3 MPV 9.2 (7.4-10.4) fl Immature Gran % (Auto) 1.1 H (0-0.5) % Neut % (Auto) 72.9 (45.5-73.1) % Lymph % (Auto) 15.4 L (18.3-44.2) % Forrest % (Auto) 6.8 (2.6-8.5) % Eos % (Auto) 3.4 (0-4.4) % Baso % (Auto) 0.4 (0.2-1.2) % Lymph # (Auto) 1.22 (0.9-3.2) K/mm3 Forrest # (Auto) 0.5 (0.1-0.6) K/mm3 Eos # (Auto) 0.3 (0-0.3) K/mm3 Baso # (Auto) 0.0 (0.0-0.1) K/mm3 Abs Immat Gran (auto) 0.09 H (0.00-0.031) K/mm3 Absolute Neuts (auto) 5.8 (1.3-6.7) K/mm3 Absolute Nucleated RBC 0.000 (0.0-0.012) K/mm3 Nucleated RBC % 0.0 (0.0-0.2) % ESR 55 H (0-20) mm/hr PT 14.5 (11.1-14.7) Seconds INR 1.1 APTT 26.9 (22.3-36.8) Seconds Sodium 133 L (137-145) mmol/L Potassium 4.3 (3.4-5.0) mmol/L Chloride 96 L (98-107) mmol/L Carbon Dioxide 31 H (22-30) mmol/L Anion Gap 6 (4-12) mmol/L BUN 19 H (7-17) mg/dL Creatinine 1.10 H (0.7-1.0) mg/dL Estim Creat Clear Calc 73 ml/min Estimated GFR 50 L (59 - ) Glucose 410 H (65-110) mg/dL Lactic Acid 1.9 (0.7-2.0) mmol/L Calcium 9.2 (8.4-10.2) mg/dL Total Bilirubin 0.5 (0.2-1.3) mg/dL AST 15 (14-36) U/L ALT 13 (6-35) U/L Alkaline Phosphatase 95 (38-126) U/L C-Reactive Protein 6.6 H (<1.0) mg/dL Total Protein 8.0 (6.3-8.2) g/dL Albumin 4.0 (3.5-5.1) g/dL <Roxanna Matthews, DUE DILIGENCE COORDINATOR - Last Filed: 07/06/24 14:07> Lab Results 07/06/24 Range/Units 14:41 WBC 7.9 (4.5-10.0) K/mm3 RBC 4.34 (4.2-5.4) M/mm3 Hgb 11.9 L (12.0-15.0) g/dL Hct 36.7 L (37.0-47.0) % MCV 84.6 (80-100) fl MCH 27.4 (26-34) pg MCHC 32.4 (32-36) g/dl RDW 15.4 H (11.5-14.5) % Plt Count 299 (150-375) k/mm3 MPV 9.2 (7.4-10.4) fl Immature Gran % (Auto) 1.1 H (0-0.5) % Neut % (Auto) 72.9 (45.5-73.1) % Lymph % (Auto) 15.4 L (18.3-44.2) % Forrest % (Auto) 6.8 (2.6-8.5) % Eos % (Auto) 3.4 (0-4.4) % Baso % (Auto) 0.4 (0.2-1.2) % Lymph # (Auto) 1.22 (0.9-3.2) K/mm3 Forrest # (Auto) 0.5 (0.1-0.6) K/mm3 Eos # (Auto) 0.3 (0-0.3) K/mm3 Baso # (Auto) 0.0 (0.0-0.1) K/mm3 Abs Immat Gran (auto) 0.09 H (0.00-0.031) K/mm3 Absolute Neuts (auto) 5.8 (1.3-6.7) K/mm3 Absolute Nucleated RBC 0.000 (0.0-0.012) K/mm3 Nucleated RBC % 0.0 (0.0-0.2) % ESR 55 H (0-20) mm/hr PT 14.5 (11.1-14.7) Seconds INR 1.1 APTT 26.9 (22.3-36.8) Seconds Sodium 133 L (137-145) mmol/L Potassium 4.3 (3.4-5.0) mmol/L Chloride 96 L (98-107) mmol/L Carbon Dioxide 31 H (22-30) mmol/L Anion Gap 6 (4-12) mmol/L BUN 19 H (7-17) mg/dL Creatinine 1.10 H (0.7-1.0) mg/dL Estim Creat Clear Calc 73 ml/min Estimated GFR 50 L (59 - ) Glucose 410 H (65-110) mg/dL Lactic Acid 1.9 (0.7-2.0) mmol/L Calcium 9.2 (8.4-10.2) mg/dL Total Bilirubin 0.5 (0.2-1.3) mg/dL AST 15 (14-36) U/L ALT 13 (6-35) U/L Alkaline Phosphatase 95 (38-126) U/L C-Reactive Protein 6.6 H (<1.0) mg/dL Total Protein 8.0 (6.3-8.2) g/dL Albumin 4.0 (3.5-5.1) g/dL <Tavo Dalton MD - Last Filed: 07/06/24 17:53> Imaging Data Radiologist's impression: Impressions Foot X-Ray 07/06/24 14:20 IMPRESSION: 1. Osteomyelitis at the tuft of the right first distal phalanx. <Tavo Dalton MD - Last Filed: 07/06/24 17:53> Discharge Plan Discharge Clinical Impression: Osteomyelitis, Diabetic toe ulcer <Roxanna Matthews APRN - Last Filed: 07/06/24 14:07> Patient Disposition: Still a Patient <Roxanna Matthews APRN - Last Filed: 07/06/24 14:07> Condition: Serious <Roxanna Matthews APRN - Last Filed: 07/06/24 14:07>
[2024-07-06 14:53] LABS: Basophils Percent Auto 0.4 % (0.2-1.2); Eosinophils Absolute Auto 0.3 K/mm3 (0-0.3); Eosinophils Percent Auto 3.4 % (0-4.4); Hematocrit 36.7 % (37.0-47.0); Hemoglobin 11.9 g/dL (12.0-15.0); Immature Granulocyte Absolute 0.09 K/mm3 (0.00-0.031); Immature Granulocyte Percent A 1.1 % (0-0.5); Lymphocytes Absolute Auto 1.22 K/mm3 (0.9-3.2); Lymphocytes Percent Auto 15.4 % (18.3-44.2); Mean Corpuscular HGB Conc 32.4 g/dl (32-36); Mean Corpuscular Hemoglobin 27.4 pg (26-34); Mean Corpuscular Volume 84.6 fl (80-100); Mean Platelet Volume 9.2 fl (7.4-10.4); Monocytes Absolute Auto 0.5 K/mm3 (0.1-0.6); Monocytes Percent Auto 6.8 % (2.6-8.5); Neutrophils Absolute Auto 5.8 K/mm3 (1.3-6.7); Neutrophils Percent Auto 72.9 % (45.5-73.1); Platelet Count Result 299 k/mm3 (150-375); Red Blood Count 4.34 M/mm3 (4.2-5.4); Red Cell Distribution Width 15.4 % (11.5-14.5); White Blood Count 7.9 K/mm3 (4.5-10.0)
[2024-07-06 14:59] LABS: Lactic Acid Reflex 1.9 mmol/L (0.7-2.0)
[2024-07-06 15:00] LABS: INR 1.1; Partial Thromboplastin Time 26.9 Seconds (22.3-36.8); Prothrombin Time 14.5 Seconds (11.1-14.7)
[2024-07-06 15:02] LABS: Alanine Aminotransferase 13 U/L (6-35); Alkaline Phosphatase 95 U/L (38-126); Anion Gap 6 mmol/L (4-12); Aspartate Amino Transferase 15 U/L (14-36); Bilirubin,Total 0.5 mg/dL (0.2-1.3); Blood Urea Nitrogen 19 mg/dL (7-17); CRP 6.6 mg/dL (<1.0); Calcium 9.2 mg/dL (8.4-10.2); Carbon Dioxide 31 mmol/L (22-30); Chloride 96 mmol/L (98-107); Estimated CRCL calculation 73 ml/min; Estimated Glomerular Filt Rate 50; Glucose 410 mg/dL (65-110); Potassium 4.3 mmol/L (3.4-5.0); Sodium 133 mmol/L (137-145)
[2024-07-06] MEDS: CEFEPIME 2 GM/NS 50 ML 2 GM/50 ML BAG IVPB (15:12)
--- NOTE | 2024-07-06 15:20 | P.HP_ITS ---
H&P: HPI History of Present Illness Date/Time: 07/06/24 16:00 Chief Complaint: Toe wound. Narrative: This is a pleasant 63-year-old female with poorly controlled type 2 diabetes mellitus, hypertension, chronic kidney disease, obstructive sleep apnea, and other comorbidities who presented to the emergency department via private vehicle for evaluation of a toe wound. The patient provides the following history. She noticed a wound on the right 1st toe about 2 weeks ago and over the course of the past week it has become red and swollen with minor drainage. She went to her doctor today who referred her to the emergency department. She admits that she does not check her glucose at home. She denies fever, chills, sweats, nausea, and vomiting. No known history of multidrug resistant organisms. In the ED: She was afebrile on arrival with stable vital signs. Labs were significant for WBC count of 7.9, hemoglobin 11.9, sodium 133, chloride 96, BUN 19, creatinine 1.10, glucose 410. Radiograph showed osteomyelitis at the tuft of the right 1st distal phalanx. She has been started on antibiotics and is being admitted in this setting for further treatment. Review of Systems Review of Systems: 12 systems were reviewed and are negativ e except for as per HPI. [facility] Past Medical History Medical History Chronic kidney disease Obstructive sleep apnea on CPAP Cerebrovascular accident Hypertension Viral meningitis Bipolar disorder Osteoarthritis Restless legs Type 2 diabetes mellitus Tobacco abuse Skin cancer Suicide attempt x4 Depression Anxiety Bilateral carpal tunnel syndrome Arthritis Surgical History Surgical History History of bilateral carpal tunnel release History of bilateral knee arthroplasty History of hernia repair History of surgical removal of ganglion cyst History of cholecystectomy History of tonsillectomy Family History Family History Father Family history of diabetes mellitus in first degree relative Diabetes mellitus Hypertension Family history of kidney disease Mother Acute myocardial infarction Sibling No problems noted. Other Family history of cardiovascular disease Social History Social History (Updated 07/06/24 @ 22:09 by Dimple Dillon PA-C) Social History: Surrogate medical decision maker: Ely Sosa, sibling. Code status: Full code. Smoking packs per day: 1 Smoking cigarettes per day: 20.0 Years smoked: 15 Smoking pack-years: 15.00 Smoking status: Former smoker Second hand tobacco smoke exposure: Yes Alcohol intake: never Substance use: never Substance use type: does not use Do You Feel Safe in your Home?: Yes Lack of Transportation: No Lack of Food: Never True Current Housing: I Have Housing Concerned About Future Housing: No Difficulty Paying Gas/Electric Bills: No Difficulty Paying for Meds: No Currently Unemployed: No Education: Trade/Vocational Certificate Difficulty w/ Childcare or Family Care: YES Living arrangements: with family Additional living arrangements comments: Lives with niece to help after surgery. 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 Spiritual care concerns: No Meds Home Medications and Allergies Home Medications ?Medication ?Instructions ?Recorded ?Confirmed ?Type quetiapine 100 mg tablet 100 mg PO DAILY 01/25/22 07/06/24 History cariprazine 1.5 mg capsule 1.5 mg PO DAILY 03/29/22 07/06/24 History (Gee) ondansetron 4 mg disintegrating 4 mg PO Q8H PRN nausea and 03/29/22 07/06/24 Rx tablet vomiting #12 tabs escitalopram oxalate 20 mg tablet 10 mg (1/2 x 20 mg) PO DAILY #45 04/14/23 07/06/24 Rx tabs insulin glargine 100 unit/mL 75 unit (0.75 mL) subcut DAILY #70 09/30/23 07/06/24 Rx subcutaneous solution (Lantus mL U-100 Insulin) ascorbic acid (vitamin C) 1,000 mg 1 g PO DAILY 10/22/23 07/06/24 History capsule cholecalciferol (vitamin D3) 50 50 mcg PO DAILY 10/22/23 07/06/24 History mcg (2,000 unit) capsule ferrous sulfate 325 mg (65 mg 325 mg PO DAILY 10/22/23 07/06/24 History iron) tablet (FeroSul) naloxone 4 mg/actuation nasal 4 mg intranasal Q2M PRN OVERDOSE 10/22/23 07/06/24 History spray (Narcan) meclizine 25 mg tablet 25 mg PO TID PRN Dizziness 12/25/23 07/06/24 History rosuvastatin 20 mg tablet 20 mg PO .Qevening #90 tabs 01/06/24 07/06/24 Rx insulin lispro 100 unit/mL See Rx Instructions .Route 01/15/24 07/06/24 Rx subcutaneous pen .COMPLEX #15 mL tizanidine 2 mg tablet 2 mg PO TID PRN muscle spasticity 02/07/24 07/06/24 Rx #90 tabs gabapentin 300 mg capsule 600 mg (2 x 300 mg) PO BID #360 02/16/24 07/06/24 Rx caps omeprazole 40 mg capsule,delayed 40 mg PO DAILY #90 caps 03/01/24 07/06/24 Rx release losartan 100 mg tablet 100 mg PO DAILY #90 tabs 04/10/24 07/06/24 Rx metformin 500 mg tablet 1,000 mg (2 x 500 mg) PO BID #360 04/10/24 07/06/24 Rx tabs semaglutide 1 mg/dose (4 mg/3 mL) 1 mg (0.75 mL) subcut WEEKLY #3 mL 05/04/24 07/06/24 Rx subcutaneous pen injector (Ozempic) hydrocodone 10 mg-acetaminophen 1 tablet PO Q6H PRN pain #120 tabs 05/17/24 07/06/24 Rx 325 mg tablet bupropion HCl 300 mg 24 hr tablet, 300 mg PO QAM #90 tabs 05/31/24 07/06/24 Rx extended release amlodipine 5 mg tablet 5 mg PO DAILY #90 tabs 06/06/24 07/06/24 Rx famotidine 40 mg tablet 40 mg PO QHS #90 tabs 07/06/24 07/06/24 Rx trazodone 50 mg tablet 50 mg PO HS PRN sleep 07/06/24 07/06/24 History Allergies Allergy/AdvReac Type Severity Reaction Status Date / Time codeine Allergy Unknown Hallucinati Verified 07/06/24 12:42 ng chocolate flavor AdvReac Intermediate Rash Verified 07/06/24 12:42 empagliflozin (From AdvReac Intermediate kidney Verified 07/06/24 12:42 Jardiance) infection Vital Signs Vital Signs - 24 hr 07/06/24 13:13 Temperature 98.8 F Pulse Rate 81 Respiratory Rate 18 Blood Pressure 159/74 H Pulse Oximetry 99 Oxygen Delivery Room Air Exam Narrative: General: Nontoxic-appearing female in the semi-Hicks position in bed. Weight: 146.6 kg. BMI: 49.1. HEENT: Wearing corrective lenses. Pupils reactive. Sclera anicteric. Tacky mucous membranes. Crowded oropharynx. Neck: Supple. Exam limited due to neck circumference. Respiratory: Lungs are clear to auscultation bilaterally. Cardiovascular: Regular rate and rhythm with S1-S2. Gastrointestinal: Abdomen is soft, obese, nontender, and nondistended with positive bowel sounds. Skin: Warm and dry. There is a wound on the pad of the right 1st toe with a small open area tracking down to the bone. There is a scant amount of malodorous drainage. Surrounding tissue is erythematous, edematous, and warm. Extremities: No cyanosis, clubbing, or edema. Radial and pedal pulses intact. Neurological: Alert. Cranial nerves 2-12 are grossly intact. Decreased sensation in the feet. No gross focal deficits. Psychiatric: Pleasant and cooperative with appropriate mood and affect. H&P: Results Labs Labs: Short CBC 07/06/24 Range/Units 14:41 WBC 7.9 (4.5-10.0) K/mm3 Hgb 11.9 L (12.0-15.0) g/dL Hct 36.7 L (37.0-47.0) % Plt Count 299 (150-375) k/mm3 BMP 07/06/24 14:41 Sodium 133 L Potassium 4.3 Chloride 96 L Carbon Dioxide 31 H BUN 19 H Creatinine 1.10 H Glucose 410 H Calcium 9.2 Liver Function 07/06/24 Range/Units 14:41 Total Bilirubin 0.5 (0.2-1.3) mg/dL AST 15 (14-36) U/L ALT 13 (6-35) U/L Alkaline Phosphatase 95 (38-126) U/L Albumin 4.0 (3.5-5.1) g/dL Impressions Foot X-Ray 07/06/24 14:20 IMPRESSION: 1. Osteomyelitis at the tuft of the right first distal phalanx. Assessment and Plan Assessment and plan (1) Osteomyelitis of great toe of right foot: Code(s): M86.9 - Osteomyelitis, unspecified Status: Acute (2) Diabetic toe ulcer: Code(s): E11.621 - Type 2 diabetes mellitus with foot ulcer; L97.509 - Non-pressure chronic ulcer of other part of unspecified foot with unspecified severity Status: Acute (3) Type 2 diabetes mellitus with hyperglycemia: Code(s): E11.65 - Type 2 diabetes mellitus with hyperglycemia Status: Acute (4) Chronic kidney disease: Code(s): N18.9 - Chronic kidney disease, unspecified Status: Acute (5) Hypertension: Code(s): I10 - Essential (primary) hypertension Status: Acute (6) Obstructive sleep apnea on CPAP: Code(s): G47.33 - Obstructive sleep apnea (adult) (pediatric) Status: Acute Plan The patient presented to the emergency department for evaluation of a right 1st toe wound as detailed in HPI. Labs, imaging, EKG, and all reports were personpamela roblero reviewed. There are cellulitic changes over the foot in evidence of osteomyelitis on imaging. She has been started on cefepime, metronidazole, and vancomycin per antibiotic stewardship recommendations. Surgery has been consulted as she may need amputation but at the very least she will need long- term antibiotics. Her diabetes remains poorly controlled and we discussed the importance of achieving the euglycemia for wound healing and to prevent further complications which can be expected should her diabetes continue to go on controlled. Continue basal insulin. Initiate sliding scale insulin, Accu-Cheks, and hypoglycemic protocol. Hemoglobin A1c is pending. Renal function is stable on review of previous labs. Blood pressures have been reasonable and will be monitored. CPAP will be provided for the patient to use while hospitalized. Her home medications will be reviewed and resumed as appropriate. Findings and treatment plan were discussed with the patient. Questions were solicited and answered to satisfaction. The patient's medical management will be taken over by the hospitalist team in a.m. Quality VTE Prophylaxis VTE prophylaxis: mechanical ordered If No VTE Prophylaxis Answer both mechanical and pharmacologic: Reason no pharmacologic proph: medical contraindication (may need amputation/debridement) The patient has been admitted under observation status. Hospitalist [facility] Advance Care Plan I have confirmed that the patient's Advanced Care Plan is present, code status is documented, or surrogate decision maker is listed in patient medical record.: Yes Medication Reconciliation I have utilized all available resources to obtain, update and review the patients current medications (includes all prescriptions, OTC, herbals, cannabis, and nutritional supplements).: Yes
[2024-07-06 16:08] LABS: Erythrocyte Sedimentation Rate 55 mm/hr (0-20)
[2024-07-06 16:27] VITALS: BP 134/75; PULSE 72; RESP 16; TEMP 36.5; O2SAT 99; BMI 49.1
[2024-07-06 17:03] LABS: Glucose Point of Care 379 mg/dl (65-105)
[2024-07-06] MEDS: metroNIDAZOLE 500 MG/ISO 100ML 500 MG/100 ML BAG 100 MG IVPB ×2 (17:08→23:59)
[2024-07-06] MEDS: INSULIN ASPART (*BKC) 100 UNITS/ML SUB-Q ×2 (17:45→20:21)
[2024-07-06] MEDS: VANCOMYCIN 1,250 MG/NS 250 ML 1,250 MG/250 ML BAG 166.67 MG IVPB (18:11)
[2024-07-06] MEDS: SODIUM CHLORIDE 0.9% IV 1,000 ML 999 ML IV CONT (18:12)
[2024-07-06 20:00] VITALS: PULSE 72; RESP 16; O2SAT 99
[2024-07-06] MEDS: VANCOMYCIN 1,250 MG/NS 250 ML 1,250 MG/250 ML BAG 250 MG IVPB (20:25)
[2024-07-06] MEDS: FAMOTIDINE 20 MG TABLET 40 MG PO (20:26)
[2024-07-06] MEDS: GABAPENTIN 300 MG CAPSULE 600 MG PO (20:26)
[2024-07-06] MEDS: ROSUVASTATIN 20 MG TABLET PO (20:26)
[2024-07-06 20:32] LABS: Glucose Point of Care 309 mg/dl (65-105)
[2024-07-06] MEDS: TIZANIDINE HCL 2 MG TABLET PO (20:35)
[2024-07-06] MEDS: traZODone HCL 50 MG TABLET PO (20:38)
[2024-07-06 20:54] LABS: Hemoglobin A1C 10.1 % (<5.7)
[2024-07-06 21:30] VITALS: BP 139/87; PULSE 89; RESP 16; TEMP 36.5; O2SAT 99
[2024-07-07] MEDS: CEFEPIME 2 GM/NS 50 ML 2 GM/50 ML BAG IVPB ×2 (03:55→15:02)
[2024-07-07 05:11] VITALS: BP 132/73; PULSE 73; RESP 16; TEMP 36.4; O2SAT 95
[2024-07-07 05:46] LABS: Hematocrit 33.7 % (37.0-47.0); Hemoglobin 10.7 g/dL (12.0-15.0); Mean Corpuscular HGB Conc 31.8 g/dl (32-36); Mean Corpuscular Volume 84.9 fl (80-100); Mean Platelet Volume 9.2 fl (7.4-10.4); Platelet Count Result 250 k/mm3 (150-375); Red Blood Count 3.97 M/mm3 (4.2-5.4); Red Cell Distribution Width 15.5 % (11.5-14.5); White Blood Count 7.1 K/mm3 (4.5-10.0)
[2024-07-07 05:58] LABS: Anion Gap 4 mmol/L (4-12); Blood Urea Nitrogen 19 mg/dL (7-17); Calcium 8.8 mg/dL (8.4-10.2); Carbon Dioxide 29 mmol/L (22-30); Chloride 104 mmol/L (98-107); Estimated CRCL calculation 67 ml/min; Estimated Glomerular Filt Rate 46; Glucose 252 mg/dL (65-110); Magnesium 1.5 mg/dL (1.6-2.3); Potassium 4.2 mmol/L (3.4-5.0); Sodium 137 mmol/L (137-145)
[2024-07-07 08:03] LABS: Glucose Point of Care 304 mg/dl (65-105)
--- NOTE | 2024-07-07 09:00 | P.CONGS_ITS ---
Assessment and Plan Assessment and plan (1) Osteomyelitis of great toe of right foot: Code(s): M86.9 - Osteomyelitis, unspecified Status: Acute Assessment and Plan: * Patient has a diabetic foot infection of the right great toe with an ulcer to the distal plantar aspect of the great toe. X-rays showed osteomyelitis of the tuft of the right 1st distal phalanx. We discussed at length, treatment options including nonoperative and surgical treatment options. We discussed risks versus benefits of long-term IV antibiotics/wound care vs surgical management. She wishes to proceed with surgery. Continue the broad-spectrum IV antibiotics. Will start local wound care with gauze dressing changes. I have discussed the case with Dr. Fuentes and we will try adding her onto the surgery schedule for partial toe amputation in the next few days. I will make her NPO after midnight in case it can be added on tomorrow. I have also ordered LE venous dopplers due to her calf pain/tenderness and swelling, which could be related to her foot infection but will r/o DVT. (2) Diabetic foot ulcer associated with type 2 diabetes mellitus: Code(s): E11.621 - Type 2 diabetes mellitus with foot ulcer; L97.509 - Non-pressure chronic ulcer of other part of unspecified foot with unspecified severity Status: Acute Assessment and Plan: * Continue IV antibiotics. (3) Diabetic neuropathy: Qualifiers: Diabetes mellitus type: type 2 Diabetes mellitus complication detail: d iabetic polyneuropathy Qualified Code(s): E11.42 - Type 2 diabetes mellitus with diabetic polyneuropathy Code(s): E11.40 - Type 2 diabetes mellitus with diabetic neuropathy, unspecified Status: Acute (4) Type 2 diabetes mellitus with hyperglycemia: Code(s): E11.65 - Type 2 diabetes mellitus with hyperglycemia Status: Acute Assessment and Plan: * Hgb A1C 10 on admission. Discussed the importance of being compliant with her home medication and monitoring her glucose at home in regards to healing from her surgery and a diabetic foot infection. * Management per Hospitalist. (5) Morbid (severe) obesity due to excess calories: Code(s): E66.01 - Morbid (severe) obesity due to excess calories Status: Acute (6) Hypertension: Code(s): I10 - Essential (primary) hypertension Status: Acute (7) History of bipolar disorder: Code(s): Z86.59 - Personal history of other mental and behavioral disorders Status: Chronic (8) Obstructive sleep apnea on CPAP: Code(s): G47.33 - Obstructive sleep apnea (adult) (pediatric) Status: Acute Plan I have discussed the patient's case and plan of care with Dr. Fuentes. Thank you for allowing us to see the patient in consultation and we will continue to follow along with you. History of Present Illness Consult details Consult date: 07/07/24 Reason for consult: other (Diabetic toe ulcer with osteomyelitis) Requesting physician: Tavo Dalton MD Narrative: This is a 63-year-old with poorly controlled type 2 diabetes mellitus, hypertension, chronic kidney disease, obstructive sleep apnea, and other comorbidities who presented to the ED yesterday by direction of her PCP. She reports about 2 weeks ago noticing some dry callused skin on her right great toe that she pulled off. She reports knowing she should have clipped it, but when she pulled off the dry skin, she reports a layer of the skin beneath came off as well and created an open wound. She was cleaning the wound daily and did not notice any other skin changes up until this past weekend. Her toe became swollen and red. She did notice scant drainage at home. She went to her PCP yesterday, who referred her to the ED. she denies any additional associated symptoms. In the ED, she was afebrile with stable vital signs. Labs showed a normal white blood cell count, glucose 410. Her hemoglobin A1c has been checked since admission and was 10.1. X-rays of the right foot showed osteomyelitis at the tuft of the right first distal phalanx. She was admitted to the hospitalist service and we were consulted for surgical evaluation. She denies ever having surgery on her right foot or having previous diabetic foot infections. She admits to not checking her glucose regularly at home. She reports seeing Dr. Rutherford for Podiatry in the past, but does not follow him routinely. She has a history of DVT in 2019 and is not on any current anticoagulation. Review of Systems 2 Review of Systems: All systems reviewed & are unremarkable except as noted in HPI and below PMFSH Past Medical History Medical History Hx of deep venous thrombosis 2019 Chronic kidney disease Obstructive sleep apnea on CPAP Cerebrovascular accident Hypertension Viral meningitis Bipolar disorder Osteoarthritis Restless legs Type 2 diabetes mellitus Tobacco abuse Skin cancer Suicide attempt x4 Depression Anxiety Bilateral carpal tunnel syndrome Arthritis Surgical History Surgical History History of bilateral carpal tunnel release History of bilateral knee arthroplasty History of hernia repair umbilical hernia repair History of surgical removal of ganglion cyst History of cholecystectomy History of tonsillectomy Family History Family History Father Family history of diabetes mellitus in first degree relative Diabetes mellitus Hypertension Family history of kidney disease Mother Acute myocardial infarction Sibling No problems noted. Other Family history of cardiovascular disease Social History Social History Social History: Surrogate medical decision maker: Ely Sosa, sibling. Code status: Full code. Smoking packs per day: 1 Smoking cigarettes per day: 20.0 Years smoked: 15 Smoking pack-years: 15.00 Smoking status: Former smoker Second hand tobacco smoke exposure: Yes Alcohol intake: never Substance use: never Substance use type: does not use Do You Feel Safe in your Home?: Yes Lack of Transportation: No Lack of Food: Never True Current Housing: I Have Housing Concerned About Future Housing: No Difficulty Paying Gas/Electric Bills: No Difficulty Paying for Meds: No Currently Unemployed: No Education: Trade/Vocational Certificate Difficulty w/ Childcare or Family Care: YES Living arrangements: with family Additional living arrangements comments: Lives with niece to help after surgery. 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 Spiritual care concerns: No Meds Home Medications and Allergies Home Medications ?Medication ?Instructions ?Recorded ?Confirmed ?Type quetiapine 100 mg tablet 100 mg PO DAILY 01/25/22 07/06/24 History cariprazine 1.5 mg capsule 1.5 mg PO DAILY 03/29/22 07/06/24 History (Andrewaylar) ondansetron 4 mg disintegrating 4 mg PO Q8H PRN nausea and 03/29/22 07/06/24 Rx tablet vomiting #12 tabs escitalopram oxalate 20 mg tablet 10 mg (1/2 x 20 mg) PO DAILY #45 04/14/23 07/06/24 Rx tabs insulin glargine 100 unit/mL 75 unit (0.75 mL) subcut DAILY #70 09/30/23 07/06/24 Rx subcutaneous solution (Lantus mL U-100 Insulin) ascorbic acid (vitamin C) 1,000 mg 1 g PO DAILY 10/22/23 07/06/24 History capsule cholecalciferol (vitamin D3) 50 50 mcg PO DAILY 10/22/23 07/06/24 History mcg (2,000 unit) capsule ferrous sulfate 325 mg (65 mg 325 mg PO DAILY 10/22/23 07/06/24 History iron) tablet (FeroSul) naloxone 4 mg/actuation nasal 4 mg intranasal Q2M PRN OVERDOSE 10/22/23 07/06/24 History spray (Narcan) meclizine 25 mg tablet 25 mg PO TID PRN Dizziness 12/25/23 07/06/24 History rosuvastatin 20 mg tablet 20 mg PO .Qevening #90 tabs 01/06/24 07/06/24 Rx insulin lispro 100 unit/mL See Rx Instructions .Route 01/15/24 07/06/24 Rx subcutaneous pen .COMPLEX #15 mL tizanidine 2 mg tablet 2 mg PO TID PRN muscle spasticity 02/07/24 07/06/24 Rx #90 tabs gabapentin 300 mg capsule 600 mg (2 x 300 mg) PO BID #360 02/16/24 07/06/24 Rx caps omeprazole 40 mg capsule,delayed 40 mg PO DAILY #90 caps 03/01/24 07/06/24 Rx release losartan 100 mg tablet 100 mg PO DAILY #90 tabs 04/10/24 07/06/24 Rx metformin 500 mg tablet 1,000 mg (2 x 500 mg) PO BID #360 04/10/24 07/06/24 Rx tabs semaglutide 1 mg/dose (4 mg/3 mL) 1 mg (0.75 mL) subcut WEEKLY #3 mL 05/04/24 07/06/24 Rx subcutaneous pen injector (Ozempic) hydrocodone 10 mg-acetaminophen 1 tablet PO Q6H PRN pain #120 tabs 05/17/24 07/06/24 Rx 325 mg tablet bupropion HCl 300 mg 24 hr tablet, 300 mg PO QAM #90 tabs 05/31/24 07/06/24 Rx extended release amlodipine 5 mg tablet 5 mg PO DAILY #90 tabs 06/06/24 07/06/24 Rx famotidine 40 mg tablet 40 mg PO QHS #90 tabs 07/06/24 07/06/24 Rx trazodone 50 mg tablet 50 mg PO HS PRN sleep 07/06/24 07/06/24 History Allergies Allergy/AdvReac Type Severity Reaction Status Date / Time codeine Allergy Unknown Hallucinati Verified 07/06/24 12:42 ng chocolate flavor AdvReac Intermediate Rash Verified 07/06/24 12:42 empagliflozin (From AdvReac Intermediate kidney Verified 07/06/24 12:42 Jardiance) infection Vital Signs Vital Signs - 24 hr 07/06/24 13:13 07/06/24 16:27 07/06/24 16:27 Temperature 98.8 F 97.7 F Pulse Rate 81 72 Respiratory Rate 18 16 Blood Pressure 159/74 H 134/75 Pulse Oximetry 99 99 Oxygen Delivery Room Air Room Air 07/06/24 20:00 07/06/24 21:30 07/07/24 05:11 Temperature 97.7 F 97.6 F Pulse Rate 72 89 73 Respiratory Rate 16 16 16 Blood Pressure 139/87 132/73 Pulse Oximetry 99 99 95 Oxygen Delivery Room Air Exam 2 Const: General: comfortable and no acute distress Nutritional Appearance: o bese Orientation/consciousness: patient oriented x3 HENMT: Head: normocephalic and atraumatic Ears: hearing grossly normal bilaterally Mouth: Yes moist mucous membranes Eyes: General: appearance normal, both eyes and all related structures P upils: Equal, round and reactive pupils present Neck: Neck: normal visual inspection and full ROM Resp: Effort & Inspection: no respiratory distress Auscultation: clear to auscultation bilaterally Cardio: Rate: regular rate Rhythm: regular rhythm Heart sounds: S1 normal heart sound present and S2 normal heart sound present Peripheral pulses: Peripheral pulses 2+ throughout GI: Inspection: non-distended, Pannus present and obesity GI Palp: Yes Soft to palpation, No Tenderness to palpation present (GI), No Guarding due to palpation present (GI) and No Rebound tenderness present Auscultation: normal bowel sounds Skin: General skin exam: normal color Neuro: General: moves all extremities and no focal motor deficits Speech: n ormal speech Motor exam (neuro): 5/5 motor strength present throughout Extrem: General: full ROM and capillary refill normal Right lower extremity: normal to inspection Left lower extremity: full ROM, normal capillary refill and foot Details: vascular exam Details: dorsalis pedis pulse present, posterior tibial pulse present and normal capillary refill Other: Right great toe with edema and erythema, and a 1 x 1 cm open wound on the plantar aspect of the distal toe with loose necrotic tissue in the base of the wound and purulent drainage, this wound probes to bone in the area of the distal phalanx. The skin around the open wound appears ischemic, which is an area of 1.5 x 1.5 cm. The erythema is localized to the great toe, but there is diffuse mild edema extending proximally involving the foot and slightly up the lower leg. She has a positive Homans sign on the right and tenderness of the right calf. She has decreased sensation diffusely of her feet c/w peripheral neuropathy. Pedal and PT pulses are strong and palpable. Psych: Mental Status: mental status grossly normal Attitude: cooperative Insight: Good insight present (Psych) Judgement: Good judgement present (Psych) Results Labs 07/07/24 05:18 07/07/24 05:18 Labs: Abnormal lab results 07/06/24 07/06/24 07/06/24 Range/Units 14:41 16:35 20:19 RBC (4.2-5.4) M/mm3 Hgb 11.9 L (12.0-15.0) g/dL Hct 36.7 L (37.0-47.0) % MCHC (32-36) g/dl RDW 15.4 H (11.5-14.5) % Immature Gran % (Auto) 1.1 H (0-0.5) % Lymph % (Auto) 15.4 L (18.3-44.2) % Abs Immat Gran (auto) 0.09 H (0.00-0.031) K/mm3 ESR 55 H (0-20) mm/hr Sodium 133 L (137-145) mmol/L Chloride 96 L (98-107) mmol/L Carbon Dioxide 31 H (22-30) mmol/L BUN 19 H (7-17) mg/dL Creatinine 1.10 H (0.7-1.0) mg/dL Estimated GFR 50 L (59 - ) Glucose 410 H (65-110) mg/dL POC Capillary Glucose 379 H 309 H (65-105) mg/dl Hemoglobin A1c 10.1 H (<5.7) % Magnesium (1.6-2.3) mg/dL C-Reactive Protein 6.6 H (<1.0) mg/dL 07/07/24 07/07/24 Range/Units 05:18 08:00 RBC 3.97 L (4.2-5.4) M/mm3 Hgb 10.7 L (12.0-15.0) g/dL Hct 33.7 L (37.0-47.0) % MCHC 31.8 L (32-36) g/dl RDW 15.5 H (11.5-14.5) % Immature Gran % (Auto) (0-0.5) % Lymph % (Auto) (18.3-44.2) % Abs Immat Gran (auto) (0.00-0.031) K/mm3 ESR (0-20) mm/hr Sodium (137-145) mmol/L Chloride (98-107) mmol/L Carbon Dioxide (22-30) mmol/L BUN 19 H (7-17) mg/dL Creatinine 1.20 H (0.7-1.0) mg/dL Estimated GFR 46 L (59 - ) Glucose 252 H (65-110) mg/dL POC Capillary Glucose 304 H (65-105) mg/dl Hemoglobin A1c (<5.7) % Magnesium 1.5 L (1.6-2.3) mg/dL C-Reactive Protein (<1.0) mg/dL Diabetes panel 07/06/24 07/07/24 Range/Units 14:41 05:18 Sodium 133 L 137 (137-145) mmol/L Potassium 4.3 4.2 (3.4-5.0) mmol/L Chloride 96 L 104 (98-107) mmol/L Carbon Dioxide 31 H 29 (22-30) mmol/L BUN 19 H 19 H (7-17) mg/dL Creatinine 1.10 H 1.20 H (0.7-1.0) mg/dL Glucose 410 H 252 H (65-110) mg/dL Hemoglobin A1c 10.1 H (<5.7) % Calcium 9.2 8.8 (8.4-10.2) mg/dL AST 15 (14-36) U/L ALT 13 (6-35) U/L Alkaline Phosphatase 95 (38-126) U/L Total Protein 8.0 (6.3-8.2) g/dL Albumin 4.0 (3.5-5.1) g/dL Calcium panel 07/06/24 07/07/24 Range/Units 14:41 05:18 Calcium 9.2 8.8 (8.4-10.2) mg/dL Albumin 4.0 (3.5-5.1) g/dL Pituitary panel 07/06/24 07/07/24 Range/Units 14:41 05:18 Sodium 133 L 137 (137-145) mmol/L Potassium 4.3 4.2 (3.4-5.0) mmol/L Chloride 96 L 104 (98-107) mmol/L Carbon Dioxide 31 H 29 (22-30) mmol/L BUN 19 H 19 H (7-17) mg/dL Creatinine 1.10 H 1.20 H (0.7-1.0) mg/dL Glucose 410 H 252 H (65-110) mg/dL Calcium 9.2 8.8 (8.4-10.2) mg/dL Adrenal panel 07/06/24 07/07/24 Range/Units 14:41 05:18 Sodium 133 L 137 (137-145) mmol/L Potassium 4.3 4.2 (3.4-5.0) mmol/L Chloride 96 L 104 (98-107) mmol/L Carbon Dioxide 31 H 29 (22-30) mmol/L BUN 19 H 19 H (7-17) mg/dL Creatinine 1.10 H 1.20 H (0.7-1.0) mg/dL Glucose 410 H 252 H (65-110) mg/dL Calcium 9.2 8.8 (8.4-10.2) mg/dL Total Bilirubin 0.5 (0.2-1.3) mg/dL AST 15 (14-36) U/L ALT 13 (6-35) U/L Alkaline Phosphatase 95 (38-126) U/L Total Protein 8.0 (6.3-8.2) g/dL Albumin 4.0 (3.5-5.1) g/dL All other labs normal. Imaging Additional studies: ITS Impressions Foot X-Ray 07/06/24 14:20 IMPRESSION: 1. Osteomyelitis at the tuft of the right first distal phalanx.
[2024-07-07] MEDS: metroNIDAZOLE 500 MG/ISO 100ML 500 MG/100 ML BAG 100 MG IVPB ×2 (09:11→15:35)
[2024-07-07] MEDS: GABAPENTIN 300 MG CAPSULE 600 MG PO ×2 (09:11→17:23)
[2024-07-07] MEDS: amLODIPine BESYLATE 5 MG TABLET PO (09:12)
[2024-07-07] MEDS: FERROUS SULFATE 325 MG TABLET DR PO (09:12)
[2024-07-07] MEDS: CHOLECALCIFEROL 1,000 UNITS TABLET 2000 UNITS PO (09:12)
[2024-07-07] MEDS: ASCORBIC ACID 500 MG TABLET 1000 MG PO (09:13)
[2024-07-07] MEDS: PANTOPRAZOLE 40 MG TABLET PO ×2 (09:13→17:23)
[2024-07-07] MEDS: buPROPion HCL XL (24 HR) 150 MG TABCR 300 MG PO (09:15)
[2024-07-07] MEDS: ESCITALOPRAM OXALATE 10 MG TABLET PO (09:15)
[2024-07-07] MEDS: LOSARTAN POTASSIUM 100 MG TABLET PO (09:15)
[2024-07-07] MEDS: QUEtiapine FUMARATE 100 MG TABLET PO (09:15)
[2024-07-07] MEDS: metFORMIN HCL 500 MG TABLET 1000 MG PO ×2 (09:15→17:23)
--- NOTE | 2024-07-07 11:22 | P.PNIM_ITS ---
Progress Note: A&P Assessment and Plan (1) Osteomyelitis of great toe of right foot: Code(s): M86.9 - Osteomyelitis, unspecified Status: Acute (2) Diabetic toe ulcer: Code(s): E11.621 - Type 2 diabetes mellitus with foot ulcer; L97.509 - Non-pressure chronic ulcer of other part of unspecified foot with unspecified severity Status: Acute (3) Type 2 diabetes mellitus with hyperglycemia: Code(s): E11.65 - Type 2 diabetes mellitus with hyperglycemia Status: Acute Assessment and Plan: Her diabetes remains poorly controlled Continue basal insulin. Initiate sliding scale insulin, Accu-Cheks, and hypoglycemic protocol. Hemoglobin A1c is pending. Renal function is stable on review of previous labs. she will need more education but she is not interested in discussion now (4) Chronic kidney disease: Code(s): N18.9 - Chronic kidney disease, unspecified Status: Acute (5) Hypertension: Code(s): I10 - Essential (primary) hypertension Status: Acute (6) Obstructive sleep apnea on CPAP: Code(s): G47.33 - Obstructive sleep apnea (adult) (pediatric) Status: Acute Plan Pt is non engaging- flat affect, provides very little history. NOt interested in conversation or any discussion. The patient presented to the emergency department for evaluation of a right 1st toe wound as detailed in HPI. Labs, imaging, EKG, and all reports were per sonally reviewed. There are cellulitic changes over the foot in evidence of osteomyelitis on imaging. She has been started on cefepime, metronidazole, and vancomycin per antibiotic stewardship recommendations. Surgery has been consulted as she may need amputation but at the very least she will need long-term antibiotics. Blood pressures have been reasonable and will be monitored. CPAP will be provided for the patient to use while hospitalized. Subjective Date/time seen: 07/07/24 11:22 Interval history: Toe wound. Narrative retrieved from H/O: This is a pleasant 63-year-old female with poorly controlled type 2 diabetes mellitus, hypertension, chronic kidney disease, obstructive sleep apnea, and other comorbidities who presented to the emergency department via private vehicle for evaluation of a toe wound. The patient provides the following history. She noticed a wound on the right 1st toe about 2 weeks ago and over the course of the past week it has become red and swollen with minor drainage. She went to her doctor today who referred her to the emergency department. She admits that she does not check her glucose at home. She denies fever, chills, sweats, nausea, and vomiting. No known history of multidrug resistant organisms. In the ED: She was afebrile on arrival with stable vital signs. Labs were significant for WBC count of 7.9, hemoglobin 11.9, sodium 133, chloride 96, BUN 19, creatinine 1.10, glucose 410. Radiograph showed osteomyelitis at the tuft of the right 1st distal phalanx. She has been started on antibiotics and is being admitted in this setting for further treatment. 07/07- assuming care. General surgery consulted. Proceeding with amputation. Ok to eat today and plan for right 1st toe partial amputation tomorrow. Review of Systems Review of Systems: 12 systems were reviewed and are negativ e except for as per HPI. Exam Narrative: General: Nontoxic-appearing female in the semi-Hicks position in bed. Weight: 146.6 kg. BMI: 49.1. HEENT: Wearing corrective lenses. Pupils reactive. Sclera anicteric. Tacky mucous membranes. Crowded oropharynx. Neck: Supple. Exam limited due to neck circumference. Respiratory: Lungs are clear to auscultation bilaterally. Cardiovascular: Regular rate and rhythm with S1-S2. Gastrointestinal: Abdomen is soft, obese, nontender, and nondistended with p ositive bowel sounds. Skin: Warm and dry. There is a wound on the pad of the right 1st toe with a small open area tracking down to the bone. There is a scant amount of malodorous drainage. Surrounding tissue is erythematous, edematous, and warm. Extremities: No cyanosis, clubbing, or edema. Radial and pedal pulses intact. Neurological: Alert. Cranial nerves 2-12 are grossly intact. Decreased sensation in the feet. No gross focal deficits. Psychiatric: Pleasant and cooperative with appropriate mood and affect. Objective Data Vital Signs Vital Signs: Vital Signs - 24 hr 07/06/24 13:13 07/06/24 16:27 07/06/24 16:27 Temperature 98.8 F 97.7 F Pulse Rate 81 72 Respiratory Rate 18 16 Blood Pressure 159/74 H 134/75 Pulse Oximetry 99 99 Oxygen Delivery Room Air Room Air 07/06/24 20:00 07/06/24 21:30 07/07/24 05:11 Temperature 97.7 F 97.6 F Pulse Rate 72 89 73 Respiratory Rate 16 16 16 Blood Pressure 139/87 132/73 Pulse Oximetry 99 99 95 Oxygen Delivery Room Air 07/07/24 09:22 Temperature Pulse Rate Respiratory Rate Blood Pressure Pulse Oximetry Oxygen Delivery Room Air Intake/Output Intake/Output: Intake & Output 07/04/24 07/05/24 07/06/24 07/07/24 23:59 23:59 23:59 23:59 Intake Total 910 750 Balance 910 750 Meds/Results Medications: Active Medications Generic Name Dose Route Start Last Admin Trade Name Freq PRN Reason Stop Dose Admin Acetaminophen 650 mg 07/06/24 19:11 Acetaminophen 325 Mg Tablet PO Q6H PRN Mild Pain (1-3) or Fever Hydrocodone Bitart/Acetaminophen 1 tab 07/06/24 19:12 Hydrocodone/Acetaminophen (*Crx) 10-325 Mg Tablet PO Q6H PRN pain 4-10 Amlodipine Besylate 5 mg 07/07/24 09:00 07/07/24 09:12 Amlodipine Besylate 5 Mg Tablet PO 5 mg DAILY PRINCESS Administration Ascorbic Acid 1,000 mg 07/07/24 09:00 07/07/24 09:13 Ascorbic Acid 500 Mg Tablet PO 1,000 mg DAILY PRINCESS Administration Bupropion HCl 300 mg 07/07/24 09:00 07/07/24 09:15 Bupropion Hcl Xl (24 Hr) 150 Mg Tabcr PO 300 mg QAM PRINCESS Administration Dextrose 12.5 gm 07/06/24 17:22 Dextrose 50% 25 Gm/50 Ml Syringe IV PUSH PRN PRN Hypoglycemia Protocol Escitalopram Oxalate 10 mg 07/07/24 09:00 07/07/24 09:15 Escitalopram Oxalate 10 Mg Tablet PO 10 mg DAILY PRINCESS Administration Famotidine 40 mg 07/06/24 21:00 07/06/24 20:26 Famotidine 20 Mg Tablet PO 40 mg QHS PRINCESS Administration Ferrous Sulfate 325 mg 07/07/24 09:00 07/07/24 09:12 Ferrous Sulfate [address] PO 325 mg DAILY PRINCESS Administration Gabapentin 600 mg 07/06/24 19:40 07/07/24 09:11 Gabapentin 300 Mg Capsule PO 600 mg BID PRINCESS Administration Glucagon 1 mg 07/06/24 17:22 Glucagon For Inj 1 Mg Vial IM PRN PRN Hypoglycemia Protocol Glucose 15 gm 07/06/24 17:22 Glucose Oral Gel 15 Gm Of Glucse In 37.5 Gm Tube PO PRN PRN Hypoglycemia Protocol Cefepime HCl 2 gm in 50 mls @ 100 mls/hr 07/07/24 03:00 07/07/24 04:25 Maxipime 2 Gm/Ns 50 Ml IVPB Infused Q12H [facility] Infusion Metronidazole 500 mg in 100 mls @ 100 mls/hr 07/07/24 00:00 07/07/24 10:20 Flagyl 500 Mg/Iso Soln 100 Ml IVPB Infused Q8H [facility] Infusion Dextrose 1,000 mls @ 100 mls/hr 07/06/24 17:22 Dextrose 5% 1,000 Ml IVPB PRN PRN Hypoglycemia Protocol Vancomycin HCl 1,500 mg in 500 mls @ 250 mls/hr 07/07/24 12:00 Vancomycin 1,500 Mg/Ns 500 Ml IVPB Q18H [facility] Insulin Aspart 2 - 4 units 07/06/24 21:00 07/06/24 20:21 Insulin Aspart (*Bkc) 100 Units/Ml SUB-Q 3 units HS PRINCESS Administration Protocol Insulin Aspart 4 - 8 units 07/06/24 17:00 07/07/24 09:09 Insulin Aspart (*Bkc) 100 Units/Ml SUB-Q Not Given TIDWM [facility] Protocol Insulin Glargine 75 units 07/07/24 09:00 07/07/24 09:09 Insulin Glargine (*Bkc) 100 Units/Ml SUB-Q Not Given DAILY PRINCESS Losartan Potassium 100 mg 07/07/24 09:00 07/07/24 09:15 Losartan Potassium 100 Mg Tablet PO 100 mg DAILY PRINCESS Administration Metformin HCl 1,000 mg 07/07/24 09:00 07/07/24 09:15 Metformin Hcl 500 Mg Tablet PO 1,000 mg BID PRINCESS Administration Miscellaneous Information 1 each 07/07/24 00:01 Vraylar Is Nonform; Can Pt Use From Home? XX 08/06/24 00:00 CLARIFY PRINCESS Non-Formulary Medication 1.5 mg 07/07/24 09:00 Cariprazine [Vraylar] PO 08/06/24 08:59 DAILY [facility]INCESS Pantoprazole Sodium 40 mg 07/07/24 09:00 07/07/24 09:13 Pantoprazole 40 Mg Tablet PO 40 mg BID PRINCESS Administration Quetiapine Fumarate 100 mg 07/07/24 09:00 07/07/24 09:15 Quetiapine Fumarate 100 Mg Tablet PO 100 mg DAILY PRINCESS Administration Rosuvastatin Calcium 20 mg 07/06/24 19:15 07/06/24 20:26 Rosuvastatin 20 Mg Tablet PO 20 mg QPM [facility]INCESS Administration Tizanidine HCl 2 mg 07/06/24 19:12 07/06/24 20:35 Tizanidine Hcl 2 Mg Tablet PO 2 mg TID PRN Administration muscle spasticity Trazodone HCl 50 mg 07/06/24 19:12 07/06/24 20:38 Trazodone Hcl 50 Mg Tablet PO 50 mg HS PRN Administration sleep Vitamin D 2,000 units 07/07/24 09:00 07/07/24 09:12 Cholecalciferol 1,000 Units Tablet PO 2,000 units DAILY PRINCESS Administration Radiology Results: ITS Impressions Foot X-Ray 07/06/24 14:20 IMPRESSION: 1. Osteomyelitis at the tuft of the right first distal phalanx. Labs Labs: Laboratory Results - last 24 hr 07/06/24 07/06/24 07/06/24 14:41 16:35 20:19 WBC 7.9 RBC 4.34 Hgb 11.9 L Hct 36.7 L MCV 84.6 MCH 27.4 MCHC 32.4 RDW 15.4 H Plt Count 299 MPV 9.2 Immature Gran % (Auto) 1.1 H Neut % (Auto) 72.9 Lymph % (Auto) 15.4 L [place] % (Auto) 6.8 Eos % (Auto) 3.4 Baso % (Auto) 0.4 Lymph # (Auto) 1.22 [place] # (Auto) 0.5 Eos # (Auto) 0.3 Baso # (Auto) 0.0 Abs Immat Gran (auto) 0.09 H Absolute Neuts (auto) 5.8 Absolute Nucleated RBC 0.000 Nucleated RBC % 0.0 ESR 55 H PT 14.5 INR 1.1 APTT 26.9 Sodium 133 L Potassium 4.3 Chloride 96 L Carbon Dioxide 31 H Anion Gap 6 BUN 19 H Creatinine 1.10 H Estim Creat Clear Calc 73 Estimated GFR 50 L Glucose 410 H POC Capillary Glucose 379 H 309 H Hemoglobin A1c 10.1 H Lactic Acid 1.9 Calcium 9.2 Magnesium Total Bilirubin 0.5 AST 15 ALT 13 Alkaline Phosphatase 95 C-Reactive Protein 6.6 H Total Protein 8.0 Albumin 4.0 07/07/24 07/07/24 05:18 08:00 WBC 7.1 RBC 3.97 L Hgb 10.7 L Hct 33.7 L MCV 84.9 MCH 27.0 MCHC 31.8 L RDW 15.5 H Plt Count 250 MPV 9.2 Immature Gran % (Auto) Neut % (Auto) Lymph % (Auto) [place] % (Auto) Eos % (Auto) Baso % (Auto) Lymph # (Auto) [place] # (Auto) Eos # (Auto) Baso # (Auto) Abs Immat Gran (auto) Absolute Neuts (auto) Absolute Nucleated RBC Nucleated RBC % ESR PT INR APTT Sodium 137 Potassium 4.2 Chloride 104 Carbon Dioxide 29 Anion Gap 4 BUN 19 H Creatinine 1.20 H Estim Creat Clear Calc 67 Estimated GFR 46 L Glucose 252 H POC Capillary Glucose 304 H Hemoglobin A1c Lactic Acid Calcium 8.8 Magnesium 1.5 L Total Bilirubin AST ALT Alkaline Phosphatase C-Reactive Protein Total Protein Albumin Quality VTE Prophylaxis VTE prophylaxis: mechanical ordered
[2024-07-07] MEDS: HYDROcodone/acetaminophen (*CRX) 10-325 MG TABLET 1 TAB PO ×2 (11:28→19:28)
[2024-07-07] MEDS: VANCOMYCIN 1,500 MG/NS 500 ML 1,500 MG/500 ML BAG 250 MG IVPB (12:16)
[2024-07-07 12:32] LABS: Glucose Point of Care 331 mg/dl (65-105)
[2024-07-07 13:51] VITALS: BP 138/74; PULSE 73; RESP 18; TEMP 36.6; O2SAT 98
[2024-07-07 16:36] LABS: Glucose Point of Care 199 mg/dl (65-105)
[2024-07-07] MEDS: ROSUVASTATIN 20 MG TABLET PO (17:23)
[2024-07-07 19:59] VITALS: BP 132/65; PULSE 81; RESP 18; TEMP 36.7; O2SAT 96
[2024-07-07 20:30] LABS: Glucose Point of Care 265 mg/dl (65-105)
[2024-07-07] MEDS: FAMOTIDINE 20 MG TABLET 40 MG PO (20:59)
[2024-07-07] MEDS: INSULIN ASPART (*BKC) 100 UNITS/ML SUB-Q (21:01)
[2024-07-07 22:00] VITALS: BP 139/68; PULSE 74; RESP 18; TEMP 37; O2SAT 97
[2024-07-07] MEDS: traZODone HCL 50 MG TABLET PO (22:01)
[2024-07-08] VITALS (16 sets, daily range): BP systolic 90–154; BP diastolic 60–82; PULSE 64–75; RESP 12–20; TEMP 36.2–36.9; O2SAT 93–99
[2024-07-08] MEDS: metroNIDAZOLE 500 MG/ISO 100ML 500 MG/100 ML BAG 100 MG IVPB ×4 (00:06→23:53)
[2024-07-08] MEDS: CEFEPIME 2 GM/NS 50 ML 2 GM/50 ML BAG IVPB ×2 (03:01→15:24)
[2024-07-08 06:16] LABS: Estimated CRCL calculation 67 ml/min; Estimated Glomerular Filt Rate 46
[2024-07-08] MEDS: VANCOMYCIN 1,500 MG/NS 500 ML 1,500 MG/500 ML BAG 250 MG IVPB ×2 (07:15→18:07)
[2024-07-08 07:52] LABS: Glucose Point of Care 275 mg/dl (65-105)
--- NOTE | 2024-07-08 08:29 | PM.IMPN ---
Progress Note: A&P Assessment and Plan (1) Osteomyelitis of great toe of right foot: Code(s): M86.9 - Osteomyelitis, unspecified Status: Acute Assessment and Plan: see below (2) Diabetic toe ulcer: Code(s): E11.621 - Type 2 diabetes mellitus with foot ulcer; L97.509 - Non-pressure chronic ulcer of other part of unspecified foot with unspecified severity Status: Acute Assessment and Plan: cellulitic changes over the foot in evidence of osteomyelitis on imaging. started on cefepime, metronidazole, and vancomycin per antibiotic stewardship recommendations. (3) Type 2 diabetes mellitus with hyperglycemia: Code(s): E11.65 - Type 2 diabetes mellitus with hyperglycemia Status: Acute Assessment and Plan: Her diabetes remains poorly controlled Continue basal insulin. Initiate sliding scale insulin, Accu-Cheks, and hypoglycemic protocol. Hemoglobin A1c is pending. Renal function is stable on review of previous labs. she will need more education but she is not interested in discussion now -fasting bs 252 today (4) Chronic kidney disease: Code(s): N18.9 - Chronic kidney disease, unspecified Status: Acute Assessment and Plan: monitor labs avoid nephrotoxic drugs (5) Hypertension: Code(s): I10 - Essential (primary) hypertension Status: Acute (6) Obstructive sleep apnea on CPAP: Code(s): G47.33 - Obstructive sleep apnea (adult) (pediatric) Status: Acute Assessment and Plan: continue home cpap Plan Pt is non engaging- flat affect, provides very little history. NOt interested in conversation or any discussion. The patient presented to the emergency department for evaluation of a right 1st toe wound as detailed in HPI. Labs, imaging, Blood pressures have been reasonable and will be monitored. CPAP will be provided for the patient to use while hospitalized. Time Spent With Patient Time with patient: Greater than 35 minutes Subjective Date/time seen: 07/08/24 08:29 Interval history: Toe wound. Narrative retrieved from H/O: This is a pleasant 63-year-old female with poorly controlled type 2 diabetes mellitus, hypertension, chronic kidney disease, obstructive sleep apnea, and other comorbidities who presented to the emergency department via private vehicle for evaluation of a toe wound. The patient provides the following history. She noticed a wound on the right 1st toe about 2 weeks ago and over the course of the past week it has become red and swollen with minor drainage. She went to her doctor today who referred her to the emergency department. She admits that she does not check her glucose at home. She denies fever, chills, sweats, nausea, and vomiting. No known history of multidrug resistant organisms. In the ED: She was afebrile on arrival with stable vital signs. Labs were significant for WBC count of 7.9, hemoglobin 11.9, sodium 133, chloride 96, BUN 19, creatinine 1.10, glucose 410. Radiograph showed osteomyelitis at the tuft of the right 1st distal phalanx. She has been started on antibiotics and is being admitted in this setting for further treatment. 07/07- assuming care. General surgery consulted. Proceeding with amputation. Ok to eat today and plan for right 1st toe partial amputation tomorrow. 07/08- rt toe amputation today with surgery around 3 pm. supportive care unil then, Review of Systems Review of Systems: 12 systems were reviewed and are negative except for as per HPI. Exam Narrative: General: Nontoxic-appearing female in the semi-Hicks position in bed. Weight: 146.6 kg. BMI: 49.1. HEENT: Wearing corrective lenses. Pupils reactive. Sclera anicteric. Tacky mucous membranes. Crowded oropharynx. Neck: Supple. Exam limited due to neck circumference. Respiratory: Lungs are clear to auscultation bilaterally. Cardiovascular: Regular rate and rhythm with S1-S2. Gastrointestinal: Abdomen is soft, obese, nontender, and nondistended with positive bowel sounds. Skin: Warm and dry. There is a wound on the pad of the right 1st toe with a small open area tracking down to the bone. There is a scant amount of malodorous drainage. Surrounding tissue is erythematous, edematous, and warm. Extremities: No cyanosis, clubbing, or edema. Radial and pedal pulses intact. Neurological: Alert. Cranial nerves 2-12 are grossly intact. Decreased sensation in the feet. No gross focal deficits. Psychiatric: Pleasant and cooperative with appropriate mood and affect. Objective Data Vital Signs Vital Signs: Vital Signs - 24 hr 07/07/24 09:22 07/07/24 13:51 07/07/24 19:59 Temperature 97.8 F 98.1 F Pulse Rate 73 81 Respiratory Rate 18 18 Blood Pressure 138/74 132/65 Pulse Oximetry 98 96 Oxygen Delivery Room Air 07/07/24 22:00 07/08/24 01:40 07/08/24 06:00 Temperature 98.6 F 98.0 F Pulse Rate 74 73 65 Respiratory Rate 18 20 18 Blood Pressure 139/68 136/82 Pulse Oximetry 97 95 98 Oxygen Delivery BiPAP Intake/Output Intake/Output: Intake & Output 07/05/24 07/06/24 07/07/24 07/08/24 23:59 23:59 23:59 23:59 Intake Total 910 2430 150 Balance 910 2430 150 Meds/Results Medications: Active Medications Generic Name Dose Route Start Last Admin Trade Name Freq PRN Reason Stop Dose Admin Acetaminophen 650 mg 07/06/24 19:11 Acetaminophen 325 Mg Tablet PO Q6H PRN Mild Pain (1-3) or Fever Hydrocodone Bitart/Acetaminophen 1 tab 07/06/24 19:12 07/07/24 19:28 Hydrocodone/Acetaminophen (*Crx) 10-325 Mg Tablet PO 1 tab Q6H PRN Administration pain 4-10 Amlodipine Besylate 5 mg 07/07/24 09:00 07/07/24 09:12 Amlodipine Besylate 5 Mg Tablet PO 5 mg DAILY PRINCESS Administration Ascorbic Acid 1,000 mg 07/07/24 09:00 07/07/24 09:13 Ascorbic Acid 500 Mg Tablet PO 1,000 mg DAILY PRINCESS Administration Bupropion HCl 300 mg 07/07/24 09:00 07/07/24 09:15 Bupropion Hcl Xl (24 Hr) 150 Mg Tabcr PO 300 mg QAM PRINCESS Administration Dextrose 12.5 gm 07/06/24 17:22 Dextrose 50% 25 Gm/50 Ml Syringe IV PUSH PRN PRN Hypoglycemia Protocol Escitalopram Oxalate 10 mg 07/07/24 09:00 07/07/24 09:15 Escitalopram Oxalate 10 Mg Tablet PO 10 mg DAILY PRINCESS Administration Famotidine 40 mg 07/06/24 21:00 07/07/24 20:59 Famotidine 20 Mg Tablet PO 40 mg QHS PRINCESS Administration Ferrous Sulfate 325 mg 07/07/24 09:00 07/07/24 09:12 Ferrous Sulfate [address] PO 325 mg DAILY PRINCESS Administration Gabapentin 600 mg 07/06/24 19:40 07/07/24 17:23 Gabapentin 300 Mg Capsule PO 600 mg BID PRINCESS Administration Glucagon 1 mg 07/06/24 17:22 Glucagon For Inj 1 Mg Vial IM PRN PRN Hypoglycemia Protocol Glucose 15 gm 07/06/24 17:22 Glucose Oral Gel 15 Gm Of Glucse In 37.5 Gm Tube PO PRN PRN Hypoglycemia Protocol Cefepime HCl 2 gm in 50 mls @ 100 mls/hr 07/07/24 03:00 07/08/24 03:30 Maxipime 2 Gm/Ns 50 Ml IVPB Infused Q12H [facility]ESS Infusion Metronidazole 500 mg in 100 mls @ 100 mls/hr 07/07/24 00:00 07/08/24 01:05 Flagyl 500 Mg/Iso Soln 100 Ml IVPB Infused Q8H PR[facility]ESS Infusion Dextrose 1,000 mls @ 100 mls/hr 07/06/24 17:22 Dextrose 5% 1,000 Ml IVPB PRN PRN Hypoglycemia Protocol Vancomycin HCl 1,500 mg in 500 mls @ 250 mls/hr 07/08/24 07:00 07/08/24 07:15 Vancomycin 1,500 Mg/Ns 500 Ml IVPB 250 mls/hr Q12H PRINCESS Administration Insulin Aspart 2 - 4 units 07/06/24 21:00 07/07/24 21:01 Insulin Aspart (*Bkc) 100 Units/Ml SUB-Q 2 units HS PRINCESS Administration Protocol Insulin Aspart 4 - 8 units 07/06/24 17:00 07/07/24 17:22 Insulin Aspart (*Bkc) 100 Units/Ml SUB-Q Not Given TIDWM [facility] Protocol Insulin Glargine 75 units 07/07/24 09:00 07/07/24 09:09 Insulin Glargine (*Bkc) 100 Units/Ml SUB-Q Not Given DAILY PRINCESS Losartan Potassium 100 mg 07/07/24 09:00 07/07/24 09:15 Losartan Potassium 100 Mg Tablet PO 100 mg DAILY PRINCESS Administration Metformin HCl 1,000 mg 07/07/24 09:00 07/07/24 17:23 Metformin Hcl 500 Mg Tablet PO 1,000 mg BID PRINCESS Administration Miscellaneous Information 1 each 07/07/24 00:01 Vraylar Is Nonform; Can Pt Use From Home? XX 08/06/24 00:00 CLARIFY PRINCESS Non-Formulary Medication 1.5 mg 07/07/24 09:00 Cariprazine [Vraylar] PO 08/06/24 08:59 DAILY PRINCESS Pantoprazole Sodium 40 mg 07/07/24 09:00 07/07/24 17:23 Pantoprazole 40 Mg Tablet PO 40 mg BID PRINCESS Administration Quetiapine Fumarate 100 mg 07/07/24 09:00 07/07/24 09:15 Quetiapine Fumarate 100 Mg Tablet PO 100 mg DAILY PRINCESS Administration Rosuvastatin Calcium 20 mg 07/06/24 19:15 07/07/24 17:23 Rosuvastatin 20 Mg Tablet PO 20 mg QPM PRINCESS Administration Tizanidine HCl 2 mg 07/06/24 19:12 07/06/24 20:35 Tizanidine Hcl 2 Mg Tablet PO 2 mg TID PRN Administration muscle spasticity Trazodone HCl 50 mg 07/06/24 19:12 07/07/24 22:01 Trazodone Hcl 50 Mg Tablet PO 50 mg HS PRN Administration sleep Vitamin D 2,000 units 07/07/24 09:00 07/07/24 09:12 Cholecalciferol 1,000 Units Tablet PO 2,000 units DAILY PRINCESS Administration Radiology Results: ITS Impressions Foot X-Ray 07/06/24 14:20 IMPRESSION: 1. Osteomyelitis at the tuft of the right first distal phalanx. Venous Doppler Study 07/07/24 14:24 IMPRESSION: Negative bilateral lower extremity venous US. No deep vein thrombosis. Labs Labs: Laboratory Results - last 24 hr 07/07/24 07/07/24 07/07/24 11:29 16:32 20:03 Creatinine Estim Creat Clear Calc Estimated GFR POC Capillary Glucose 331 H 199 H 265 H Vancomycin Trough 07/08/24 07/08/24 05:43 07:41 Creatinine 1.20 H Estim Creat Clear Calc 67 Estimated GFR 46 L POC Capillary Glucose 275 H Vancomycin Trough 12.0 Quality VTE Prophylaxis VTE prophylaxis: mechanical ordered
[2024-07-08] MEDS: buPROPion HCL XL (24 HR) 150 MG TABCR 300 MG PO (09:34)
[2024-07-08] MEDS: ASCORBIC ACID 500 MG TABLET 1000 MG PO (09:34)
[2024-07-08] MEDS: amLODIPine BESYLATE 5 MG TABLET PO (09:34)
[2024-07-08] MEDS: FERROUS SULFATE 325 MG TABLET DR PO (09:35)
[2024-07-08] MEDS: CHOLECALCIFEROL 1,000 UNITS TABLET 2000 UNITS PO (09:35)
[2024-07-08] MEDS: ESCITALOPRAM OXALATE 10 MG TABLET PO (09:35)
[2024-07-08] MEDS: metFORMIN HCL 500 MG TABLET 1000 MG PO ×2 (09:36→18:03)
[2024-07-08] MEDS: GABAPENTIN 300 MG CAPSULE 600 MG PO ×2 (09:36→18:04)
[2024-07-08] MEDS: QUEtiapine FUMARATE 100 MG TABLET PO (09:36)
[2024-07-08] MEDS: PANTOPRAZOLE 40 MG TABLET PO ×2 (09:36→18:04)
[2024-07-08] MEDS: LOSARTAN POTASSIUM 100 MG TABLET PO (09:36)
[2024-07-08 09:39] LABS: Hematocrit 40.5 % (37.0-47.0); Hemoglobin 12.5 g/dL (12.0-15.0); Mean Corpuscular HGB Conc 30.9 g/dl (32-36); Mean Corpuscular Hemoglobin 27.1 pg (26-34); Mean Corpuscular Volume 87.9 fl (80-100); Mean Platelet Volume 9.4 fl (7.4-10.4); Platelet Count Result 376 k/mm3 (150-375); Red Blood Count 4.61 M/mm3 (4.2-5.4); White Blood Count 7.7 K/mm3 (4.5-10.0)
[2024-07-08 10:19] LABS: Anion Gap 9 mmol/L (4-12); Blood Urea Nitrogen 23 mg/dL (7-17); Calcium 9.2 mg/dL (8.4-10.2); Carbon Dioxide 27 mmol/L (22-30); Chloride 100 mmol/L (98-107); Estimated CRCL calculation 66 ml/min; Estimated Glomerular Filt Rate 46; Glucose 244 mg/dL (65-110); Potassium 4.5 mmol/L (3.4-5.0); Sodium 136 mmol/L (137-145)
[2024-07-08 11:27] LABS: Glucose Point of Care 266 mg/dl (65-105)
[2024-07-08] MEDS: HYDROcodone/acetaminophen (*CRX) 10-325 MG TABLET 1 TAB PO (13:53)
[2024-07-08 14:51] LABS: Glucose Point of Care 232 mg/dl (65-105)
--- NOTE | 2024-07-08 15:26 | WPDHPUPDATE1 ---
History and Physical Update Update Date/Time: 07/08/24 15:26 History and Physical has been reviewed, including an updated exam of the patient. There are NO changes in the patient's condition. Risks, benefits, and alternatives have been discussed and questions answered. Patient agrees to proceed with procedure.
--- NOTE | 2024-07-08 16:04 | WPDANESEPPF ---
Anes - Initial Pre Proc Eval Procedure: Operation Date: 07/08/24 15:30 Proposed Procedures p Right First Toe Partial Amputation - Darrian Fuentes DO Date/Time: 07/08/24 16:04 Surgeon: Fidencio Barlow MD Pre Op Diagnosis: Osteomyelitis Great Toe Patient Data Age: 63 Gender: F Height: 1.73 m Weight: 142.6 kg Last Vital Signs Temp 36.9 C 07/08/24 14:00 Pulse 74 07/08/24 15:18 Resp 16 07/08/24 15:18 BP 154/79 H 07/08/24 15:18 Pulse Ox 98 07/08/24 15:18 O2 Del Method Room Air 07/08/24 09:35 Allergies Allergy/AdvReac Type Severity Reaction Status Date / Time codeine Allergy Unknown Hallucinati Verified 07/06/24 12:42 ng chocolate flavor AdvReac Intermediate Rash Verified 07/06/24 12:42 empagliflozin (From AdvReac Intermediate kidney Verified 07/06/24 12:42 Jardiance) infection Home Medications ?Medication ?Instructions ?Recorded ?Confirmed ?Type quetiapine 100 mg tablet 100 mg PO DAILY 01/25/22 07/06/24 History cariprazine 1.5 mg capsule 1.5 mg PO DAILY 03/29/22 07/06/24 History (Darylr) ondansetron 4 mg disintegrating 4 mg PO Q8H PRN nausea and 03/29/22 07/06/24 Rx tablet vomiting #12 tabs escitalopram oxalate 20 mg tablet 10 mg (1/2 x 20 mg) PO DAILY #45 04/14/23 07/06/24 Rx tabs insulin glargine 100 unit/mL 75 unit (0.75 mL) subcut DAILY #70 09/30/23 07/06/24 Rx subcutaneous solution (Lantus mL U-100 Insulin) ascorbic acid (vitamin C) 1,000 mg 1 g PO DAILY 10/22/23 07/06/24 History capsule cholecalciferol (vitamin D3) 50 50 mcg PO DAILY 10/22/23 07/06/24 History mcg (2,000 unit) capsule ferrous sulfate 325 mg (65 mg 325 mg PO DAILY 10/22/23 07/06/24 History iron) tablet (FeroSul) naloxone 4 mg/actuation nasal 4 mg intranasal Q2M PRN OVERDOSE 10/22/23 07/06/24 History spray (Narcan) meclizine 25 mg tablet 25 mg PO TID PRN Dizziness 12/25/23 07/06/24 History rosuvastatin 20 mg tablet 20 mg PO .Qevening #90 tabs 01/06/24 07/06/24 Rx insulin lispro 100 unit/mL See Rx Instructions .Route 01/15/24 07/06/24 Rx subcutaneous pen .COMPLEX #15 mL tizanidine 2 mg tablet 2 mg PO TID PRN muscle spasticity 02/07/24 07/06/24 Rx #90 tabs gabapentin 300 mg capsule 600 mg (2 x 300 mg) PO BID #360 02/16/24 07/06/24 Rx caps omeprazole 40 mg capsule,delayed 40 mg PO DAILY #90 caps 03/01/24 07/06/24 Rx release losartan 100 mg tablet 100 mg PO DAILY #90 tabs 04/10/24 07/06/24 Rx metformin 500 mg tablet 1,000 mg (2 x 500 mg) PO BID #360 04/10/24 07/06/24 Rx tabs semaglutide 1 mg/dose (4 mg/3 mL) 1 mg (0.75 mL) subcut WEEKLY #3 mL 05/04/24 07/06/24 Rx subcutaneous pen injector (Ozempic) hydrocodone 10 mg-acetaminophen 1 tablet PO Q6H PRN pain #120 tabs 05/17/24 07/06/24 Rx 325 mg tablet bupropion HCl 300 mg 24 hr tablet, 300 mg PO QAM #90 tabs 05/31/24 07/06/24 Rx extended release amlodipine 5 mg tablet 5 mg PO DAILY #90 tabs 06/06/24 07/06/24 Rx famotidine 40 mg tablet 40 mg PO QHS #90 tabs 07/06/24 07/06/24 Rx trazodone 50 mg tablet 50 mg PO HS PRN sleep 07/06/24 07/06/24 History Laboratory Tests 07/07/24 07/07/24 07/08/24 16:32 20:03 05:39 WBC RBC Hgb Hct MCV MCH MCHC RDW Plt Count MPV Sodium 136 L mmol/L (137-145) Potassium 4.5 mmol/L (3.4-5.0) Chloride 100 mmol/L (98-107) Carbon Dioxide 27 mmol/L (22-30) Anion Gap 9 mmol/L (4-12) BUN 23 H mg/dL (7-17) Creatinine 1.20 H mg/dL (0.7-1.0) Estim Creat Clear Calc 66 ml/min Estimated GFR 46 L (59 - ) Glucose 244 H mg/dL (65-110) POC Capillary Glucose 199 H mg/dl 265 H mg/dl (65-105) (65-105) Calcium 9.2 mg/dL (8.4-10.2) Vancomycin Trough 07/08/24 07/08/24 07/08/24 05:43 07:41 11:24 WBC 7.7 K/mm3 (4.5-10.0) RBC 4.61 M/mm3 (4.2-5.4) Hgb 12.5 g/dL (12.0-15.0) Hct 40.5 % (37.0-47.0) MCV 87.9 fl (80-100) MCH 27.1 pg (26-34) MCHC 30.9 L g/dl (32-36) RDW 16.0 H % (11.5-14.5) Plt Count 376 H D k/mm3 (150-375) MPV 9.4 fl (7.4-10.4) Sodium Potassium Chloride Carbon Dioxide Anion Gap BUN Creatinine 1.20 H mg/dL (0.7-1.0) Estim Creat Clear Calc 67 ml/min Estimated GFR 46 L (59 - ) Glucose POC Capillary Glucose 275 H mg/dl 266 H mg/dl (65-105) (65-105) Calcium Vancomycin Trough 12.0 ug/mL (10.0-20.0) 07/08/24 14:49 WBC RBC Hgb Hct MCV MCH MCHC RDW Plt Count MPV Sodium Potassium Chloride Carbon Dioxide Anion Gap BUN Creatinine Estim Creat Clear Calc Estimated GFR Glucose POC Capillary Glucose 232 H mg/dl (65-105) Calcium Vancomycin Trough Patient hx anesthesia problems: none Family hx anesthesia problems: none Results Review: All pre-operative results and documents have been reviewed as part of the pre-operative evaluation. [facility] Past Medical History Medical History Hx of deep venous thrombosis 2020 Chronic kidney disease Obstructive sleep apnea on CPAP Cerebrovascular accident Hypertension Viral meningitis Bipolar disorder Osteoarthritis Restless legs Type 2 diabetes mellitus Tobacco abuse Skin cancer Suicide attempt x4 Depression Anxiety Bilateral carpal tunnel syndrome Arthritis Surgical History Surgical History History of bilateral carpal tunnel release History of bilateral knee arthroplasty History of hernia repair umbilical hernia repair History of surgical removal of ganglion cyst History of cholecystectomy History of tonsillectomy Family History Family History Father Family history of diabetes mellitus in first degree relative Diabetes mellitus Hypertension Family history of kidney disease Mother Acute myocardial infarction Sibling No problems noted. Other Family history of cardiovascular disease Social History Social History Social History: Surrogate medical decision maker: Ely Sheila, sibling. Code status: Full code. Smoking packs per day: 1 Smoking cigarettes per day: 20.0 Years smoked: 15 Smoking pack-years: 15.00 Smoking status: Former smoker Second hand tobacco smoke exposure: Yes Alcohol intake: never Substance use: never Substance use type: does not use Do You Feel Safe in your Home?: Yes Lack of Transportation: No Lack of Food: Never True Current Housing: I Have Housing Concerned About Future Housing: No Difficulty Paying Gas/Electric Bills: No Difficulty Paying for Meds: No Currently Unemployed: No Education: Trade/Vocational Certificate Difficulty w/ Childcare or Family Care: YES Living arrangements: with family Additional living arrangements comments: Lives with niece to help after surgery. 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 Spiritual care concerns: No Anes - Eval Final PreProcedure Day of Procedure 07/08/24 16:04 Patient weight: morbidly obese Heart: regular rate and rhythm Lungs: clear to auscultation Airway: Mallampati scale class II Neurological: alert and oriented Last oral intake: >/= 8 hours ASA classification: IV Emergent: no Anesthetic plan: proceed Anesthesia type and monitoring: general LMA and standard monitoring Results Review: All pre-operative results and documents have been reviewed as part of the pre-operative evaluation. Informed Consent: The patient's anesthetic plan and its attendant risks and benefits were discussed with the patient/family/POA. Questions were solicited and answers provided to the satisfaction of the patient/family/POA.
[2024-07-08] MEDS: LACTATED RINGERS 1,000 ML 30 ML IV CONT (16:05)
[2024-07-08] MEDS: LIDO 1%/EPINEPHRINE 1:100,000 20 ML VIAL 5 ML INFILTRATE (16:42)
--- NOTE | 2024-07-08 16:52 | W.PM.PROC2 ---
Procedure Note - Detailed Date of Procedure 07/08/24 Pre-op Diagnosis Osteomyelitis right 1st toe Post-op Diagnosis Same Procedure Performed Right 1st toe amputation Surgeon Darrian Fuentes, DO Anesthesia General (LMA) and Local (0.5% bupivacaine) Indications This is a 63-year-old woman who presented to the emergency department with an infected wound the plantar surface of her right 1st toe. She had noticed this about 2 weeks ago and the wound continued to worsen. An x-ray was obtained in the emergency department which showed evidence of osteomyelitis of distal phalanx of the 1st toe. Discussions were made with the patient about incision and drainage, debridement, and long-term antibiotics verses proceeding with amputation. Discussed that even with long-term antibiotics and local wound care the wound still may persist. After discussions with the patient, decision was made to proceed with right 1st toe amputation. Findings Right 1st toe amputation was performed. The distal phalanx was removed along with a portion of the head of proximal phalanx. This allowed for adequate healthy appearing bone and enough soft tissue to cover for closure. The right 1st toe was sent to the lab for pathology. Description of Procedure Procedure as well as risks, benefits, and alternatives were discussed with the patient. Written consent was obtained and placed in chart prior to procedure. Patient was brought back to surgical suite. She was placed supine on operating table. Time-out was done to confirm patient and procedure. She was then intubated by the anesthesia department. Her right foot was then prepped and draped in sterile fashion using Betadine prep. 0.5% bupivacaine was infiltrated locally around the base of the right 1st toe. An elliptical incision was then made at about the level of the joint between the proximal and distal phalanx on the 1st toe. Electrocautery was used for hemostasis and dissection through the subcutaneous tissue and the pulp of the toe the plantar surface. The ligamentous attachments were then incised using electrocautery. I then entered into the joint space between the proximal and distal phalanx. Electrocautery was used to transect through the joint space and completely excised the distal phalanx and toe. I then used a bone cutter to cut down the head of the proximal phalanx to a slightly more curved contour. The wound bed was then irrigated with sterile saline. Hemostasis appeared adequate no other abnormalities were noted. The skin appeared to cover over the bone with adequate soft tissue. The skin edges were then reapproximated over the bone using 3-0 nylon vertical mattress interrupted sutures. Xeroform gauze was then applied followed by fluff gauze and Kerlix wrap. The patient was then awakened from anesthesia, extubated, and transferred to recovery. Estimated Blood Loss 10 Pathology Yes (Right 1st toe) Complications No immediate complications Condition Stable Disposition Floor [facility] Billing Surgery - Charge Forward: Surgery Billing
[2024-07-08 17:11] LABS: Glucose Point of Care 199 mg/dl (65-105)
[2024-07-08] MEDS: ROSUVASTATIN 20 MG TABLET PO (18:04)
[2024-07-08 18:15] LABS: Glucose Point of Care 184 mg/dl (65-105)
[2024-07-08] MEDS: FAMOTIDINE 20 MG TABLET 40 MG PO (20:24)
[2024-07-08] MEDS: INSULIN ASPART (*BKC) 100 UNITS/ML SUB-Q (20:25)
[2024-07-08 20:50] LABS: Glucose Point of Care 321 mg/dl (65-105)
[2024-07-09] MEDS: CEFEPIME 2 GM/NS 50 ML 2 GM/50 ML BAG IVPB ×2 (03:14→14:45)
[2024-07-09 03:23] VITALS: BP 147/74; PULSE 69; RESP 12; TEMP 36.2; O2SAT 95
[2024-07-09 05:11] VITALS: BP 135/70; PULSE 67; RESP 16; TEMP 36.9; O2SAT 96
[2024-07-09] MEDS: VANCOMYCIN 1,500 MG/NS 500 ML 1,500 MG/500 ML BAG 250 MG IVPB (06:03)
[2024-07-09] MEDS: HYDROcodone/acetaminophen (*CRX) 10-325 MG TABLET 1 TAB PO ×2 (06:04→12:55)
[2024-07-09 06:05] LABS: Hemoglobin 10.7 g/dL (12.0-15.0); Mean Corpuscular HGB Conc 31.5 g/dl (32-36); Mean Corpuscular Hemoglobin 27.2 pg (26-34); Mean Corpuscular Volume 86.3 fl (80-100); Mean Platelet Volume 9.2 fl (7.4-10.4); Platelet Count Result 247 k/mm3 (150-375); Red Blood Count 3.94 M/mm3 (4.2-5.4); Red Cell Distribution Width 15.6 % (11.5-14.5); White Blood Count 5.9 K/mm3 (4.5-10.0)
[2024-07-09 06:18] LABS: Estimated CRCL calculation 67 ml/min; Estimated Glomerular Filt Rate 46
[2024-07-09 06:22] LABS: Anion Gap 4 mmol/L (4-12); Blood Urea Nitrogen 18 mg/dL (7-17); Calcium 8.6 mg/dL (8.4-10.2); Carbon Dioxide 28 mmol/L (22-30); Chloride 104 mmol/L (98-107); Estimated CRCL calculation 67 ml/min; Estimated Glomerular Filt Rate 46; Glucose 252 mg/dL (65-110); Potassium 4.4 mmol/L (3.4-5.0); Sodium 136 mmol/L (137-145)
[2024-07-09 07:53] LABS: Glucose Point of Care 232 mg/dl (65-105)
[2024-07-09 08:15] VITALS: BP 142/73; PULSE 73; RESP 20; TEMP 36.2; O2SAT 98
[2024-07-09 08:34] VITALS: O2SAT 98
[2024-07-09] MEDS: metroNIDAZOLE 500 MG/ISO 100ML 500 MG/100 ML BAG 100 MG IVPB (08:42)
[2024-07-09] MEDS: QUEtiapine FUMARATE 100 MG TABLET PO (08:43)
[2024-07-09] MEDS: LOSARTAN POTASSIUM 100 MG TABLET PO (08:43)
[2024-07-09] MEDS: amLODIPine BESYLATE 5 MG TABLET PO (08:43)
[2024-07-09] MEDS: ESCITALOPRAM OXALATE 10 MG TABLET PO (08:43)
[2024-07-09] MEDS: FERROUS SULFATE 325 MG TABLET DR PO (08:43)
[2024-07-09] MEDS: CHOLECALCIFEROL 1,000 UNITS TABLET 2000 UNITS PO (08:43)
[2024-07-09] MEDS: metFORMIN HCL 500 MG TABLET 1000 MG PO (08:44)
[2024-07-09] MEDS: GABAPENTIN 300 MG CAPSULE 600 MG PO (08:44)
[2024-07-09] MEDS: PANTOPRAZOLE 40 MG TABLET PO (08:44)
[2024-07-09] MEDS: buPROPion HCL XL (24 HR) 150 MG TABCR 300 MG PO (08:44)
[2024-07-09] MEDS: ASCORBIC ACID 500 MG TABLET 1000 MG PO (08:44)
[2024-07-09] MEDS: INSULIN ASPART (*BKC) 100 UNITS/ML SUB-Q ×2 (08:46→12:13)
[2024-07-09] MEDS: INSULIN GLARGINE (*BKC) 100 UNITS/ML 75 UNITS SUB-Q (08:47)
[2024-07-09] MEDS: ENOXAPARIN 40 MG/0.4 ML SYRINGE SUB-Q (08:52)
--- NOTE | 2024-07-09 09:51 | P.PNIM_ITS ---
Progress Note: A&P Assessment and Plan (1) Osteomyelitis of great toe of right foot: Code(s): M86.9 - Osteomyelitis, unspecified Status: Acute Assessment and Plan: see below (2) Diabetic toe ulcer: Code(s): E11.621 - Type 2 diabetes mellitus with foot ulcer; L97.509 - Non-pressure chronic ulcer of other part of unspecified foot with unspecified severity Status: Acute Assessment and Plan: cellulitic changes over the foot in evidence of osteomyelitis on imaging. started on cefepime, metronidazole, and vancomycin per antibiotic stewardship recommendations. (3) Type 2 diabetes mellitus with hyperglycemia: Code(s): E11.65 - Type 2 diabetes mellitus with hyperglycemia Status: Acute Assessment and Plan: Her diabetes remains poorly controlled Continue basal insulin. Initiate sliding scale insulin, Accu-Cheks, and hypoglycemic protocol. Hemoglobin A1c is pending. Renal function is stable on review of previous labs. she will need more education but she is not interested in discussion now -fasting bs 252 today (4) Chronic kidney disease: Code(s): N18.9 - Chronic kidney disease, unspecified Status: Acute Assessment and Plan: monitor labs avoid nephrotoxic drugs (5) Hypertension: Code(s): I10 - Essential (primary) hypertension Status: Acute (6) Obstructive sleep apnea on CPAP: Code(s): G47.33 - Obstructive sleep apnea (adult) (pediatric) Status: Acute Assessment and Plan: continue home cpap Plan Pt is non engaging- flat affect, provides very little history. NOt interested in conversation or any discussion. The patient presented to the emergency department for evaluation of a right 1st toe wound as detailed in HPI. Labs, imaging, Blood pressures have been reasonable and will be monitored. CPAP will be provided for the patient to use while hospitalized. Subjective Date/time seen: 07/09/24 09:51 Interval history: Toe wound. Narrative retrieved from H/O: This is a pleasant 63-year-old female with poorly controlled type 2 diabetes mellitus, hypertension, chronic kidney disease, obstructive sleep apnea, and other comorbidities who presented to the emergency department via private vehicle for evaluation of a toe wound. The patient provides the following history. She noticed a wound on the right 1st toe about 2 weeks ago and over the course of the past week it has become red and swollen with minor drainage. She went to her doctor today who referred her to the emergency department. She admits that she does not check her glucose at home. She denies fever, chills, sweats, nausea, and vomiting. No known history of multidrug resistant organisms. In the ED: She was afebrile on arrival with stable vital signs. Labs were significant for WBC count of 7.9, hemoglobin 11.9, sodium 133, chloride 96, BUN 19, creatinine 1.10, glucose 410. Radiograph showed osteomyelitis at the tuft of the right 1st distal phalanx. She has been started on antibiotics and is being admitted in this setting for further treatment. 07/07- assuming care. General surgery consulted. Proceeding with amputation. Ok to eat today and plan for right 1st toe partial amputation tomorrow. 07/08- rt toe amputation today with surgery around 3 pm. supportive care unil then 07/09 pt is seen and examined Review of Systems Review of Systems: 12 systems were reviewed and are negativ e except for as per HPI. Exam Narrative: General: Nontoxic-appearing female in the semi-Hicks position in bed. Weight: 146.6 kg. BMI: 49.1. HEENT: Wearing corrective lenses. Pupils reactive. Sclera anicteric. Tacky mucous membranes. Crowded oropharynx. Neck: Supple. Exam limited due to neck circumference. Respiratory: Lungs are clear to auscultation bilaterally. Cardiovascular: Regular rate and rhythm with S1-S2. Gastrointestinal: Abdomen is soft, obese, nontender, and nondistended with positive bowel sounds. Skin: Warm and dry. There is a wound on the pad of the right 1st toe with a small open area tracking down to the bone. There is a scant amount of malodorous drainage. Surrounding tissue is erythematous, edematous, and warm. Extremities: No cyanosis, clubbing, or edema. Radial and pedal pulses intact. Neurological: Alert. Cranial nerves 2-12 are grossly intact. Decreased sensation in the feet. No gross focal deficits. Psychiatric: Pleasant and cooperative with appropriate mood and affect. Objective Data Vital Signs Vital Signs: Vital Signs - 24 hr 07/08/24 14:00 07/08/24 15:18 07/08/24 16:50 Temperature 98.5 F 97.8 F Pulse Rate 75 74 68 Respiratory Rate 16 16 13 Blood Pressure 154/79 H 154/79 H 98/61 L Pulse Oximetry 98 98 97 Oxygen Delivery Simple Face Mask Oxygen Flow Rate 8 Fraction of Inspired Oxygen 07/08/24 17:00 07/08/24 17:05 07/08/24 17:20 Temperature Pulse Rate 64 72 73 Respiratory Rate 16 14 14 Blood Pressure 90/60 L 119/65 121/70 Pulse Oximetry 98 97 93 Oxygen Delivery Simple Face Mask Room Air Room Air Oxygen Flow Rate 8 Fraction of Inspired Oxygen 07/08/24 17:35 07/08/24 17:44 07/08/24 17:45 Temperature 97.2 F L 97.4 F L Pulse Rate 70 66 65 Respiratory Rate 18 14 18 Blood Pressure 126/73 114/67 128/69 Pulse Oximetry 93 94 95 Oxygen Delivery Room Air Nasal Cannula Oxygen Flow Rate 2 Fraction of Inspired Oxygen 07/08/24 19:30 07/08/24 22:00 07/08/24 23:07 Temperature 98.1 F 98.4 F 98.4 F Pulse Rate 69 68 70 Respiratory Rate 12 16 16 Blood Pressure 129/61 131/68 132/68 Pulse Oximetry 99 97 98 Oxygen Delivery Oxygen Flow Rate Fraction of Inspired Oxygen 07/09/24 03:23 07/09/24 05:11 07/09/24 08:15 Temperature 97.2 F L 98.5 F 97.1 F L Pulse Rate 69 67 73 Respiratory Rate 12 16 20 Blood Pressure 147/74 H 135/70 142/73 H Pulse Oximetry 95 96 98 Oxygen Delivery Oxygen Flow Rate Fraction of Inspired Oxygen 07/09/24 08:34 07/09/24 09:05 Temperature Pulse Rate Respiratory Rate Blood Pressure Pulse Oximetry 98 Oxygen Delivery Room Air Room Air Oxygen Flow Rate Fraction of Inspired Oxygen 21 Intake/Output Intake/Output: Intake & Output 07/06/24 07/07/24 07/08/24 07/09/24 23:59 23:59 23:59 23:59 Intake Total 910 2430 2300 1180 Output Total 1750 Balance 910 2430 2300 -570 Meds/Results Medications: Active Medications Generic Name Dose Route Start Last Admin Trade Name Freq PRN Reason Stop Dose Admin Acetaminophen 650 mg 07/06/24 19:11 Acetaminophen 325 Mg Tablet PO Q6H PRN Mild Pain (1-3) or Fever Hydrocodone Bitart/Acetaminophen 1 tab 07/06/24 19:12 07/09/24 06:04 Hydrocodone/Acetaminophen (*Crx) 10-325 Mg Tablet PO 1 tab Q6H PRN Administration pain 4-10 Amlodipine Besylate 5 mg 07/07/24 09:00 07/09/24 08:43 Amlodipine Besylate 5 Mg Tablet PO 5 mg DAILY PRINCESS Administration Ascorbic Acid 1,000 mg 07/07/24 09:00 07/09/24 08:44 Ascorbic Acid 500 Mg Tablet PO 1,000 mg DAILY PRINCESS Administration Bupropion HCl 300 mg 07/07/24 09:00 07/09/24 08:44 Bupropion Hcl Xl (24 Hr) 150 Mg Tabcr PO 300 mg QAM PRINCESS Administration Dextrose 12.5 gm 07/06/24 17:22 Dextrose 50% 25 Gm/50 Ml Syringe IV PUSH PRN PRN Hypoglycemia Protocol Enoxaparin Sodium 40 mg 07/09/24 09:00 07/09/24 08:52 Enoxaparin 40 Mg/0.4 Ml Syringe SUB-Q 40 mg DAILY PRINCESS Administration Escitalopram Oxalate 10 mg 07/07/24 09:00 07/09/24 08:43 Escitalopram Oxalate 10 Mg Tablet PO 10 mg DAILY PRINCESS Administration Famotidine 40 mg 07/06/24 21:00 07/08/24 20:24 Famotidine 20 Mg Tablet PO 40 mg QHS PRINCESS Administration Ferrous Sulfate 325 mg 07/07/24 09:00 07/09/24 08:43 Ferrous Sulfate [address] PO 325 mg DAILY PRINCESS Administration Gabapentin 600 mg 07/06/24 19:40 07/09/24 08:44 Gabapentin 300 Mg Capsule PO 600 mg BID PRINCESS Administration Glucagon 1 mg 07/06/24 17:22 Glucagon For Inj 1 Mg Vial IM PRN PRN Hypoglycemia Protocol Glucose 15 gm 07/06/24 17:22 Glucose Oral Gel 15 Gm Of Glucse In 37.5 Gm Tube PO PRN PRN Hypoglycemia Protocol Hydromorphone HCl 1 mg 07/08/24 17:45 Hydromorphone Hcl Inj (*Crx) 1 Mg/Ml Syr IV PUSH Q2H PRN Breakthrough Pain Rated 7-10 or NPO Hydromorphone HCl 0.5 mg 07/08/24 17:45 Hydromorphone Hcl Inj (*Crx) 1 Mg/Ml Syr IV PUSH Q2H PRN Breakthrough Pain Rated 4-6 or NPO Cefepime HCl 2 gm in 50 mls @ 100 mls/hr 07/07/24 03:00 07/09/24 03:14 Maxipime 2 Gm/Ns 50 Ml IVPB 100 mls/hr Q12H PRINCESS Administration Metronidazole 500 mg in 100 mls @ 100 mls/hr 07/07/24 00:00 07/09/24 08:42 Flagyl 500 Mg/Iso Soln 100 Ml IVPB 100 mls/hr Q8H PRINCESS Administration Dextrose 1,000 mls @ 100 mls/hr 07/06/24 17:22 Dextrose 5% 1,000 Ml IVPB PRN PRN Hypoglycemia Protocol Vancomycin HCl 1,500 mg in 500 mls @ 250 mls/hr 07/08/24 07:00 07/09/24 06:03 Vancomycin 1,500 Mg/Ns 500 Ml IVPB 250 mls/hr Q12H PRINCESS Administration Insulin Aspart 2 - 4 units 07/06/24 21:00 07/08/24 20:25 Insulin Aspart (*Bkc) 100 Units/Ml SUB-Q 3 units HS PRINCESS Administration Protocol Insulin Aspart 4 - 8 units 07/06/24 17:00 07/09/24 08:46 Insulin Aspart (*Bkc) 100 Units/Ml SUB-Q 4 units TIDWM PRINCESS Administration Protocol Insulin Glargine 75 units 07/07/24 09:00 07/09/24 08:47 Insulin Glargine (*Bkc) 100 Units/Ml SUB-Q 75 units DAILY PRINCESS Administration Losartan Potassium 100 mg 07/07/24 09:00 07/09/24 08:43 Losartan Potassium 100 Mg Tablet PO 100 mg DAILY PRINCESS Administration Metformin HCl 1,000 mg 07/07/24 09:00 07/09/24 08:44 Metformin Hcl 500 Mg Tablet PO 1,000 mg BID PRINCESS Administration Miscellaneous Information 1 each 07/07/24 00:01 Vraylar Is Nonform; Can Pt Use From Home? XX 08/06/24 00:00 CLARIFY PRINCESS Naloxone HCl 0.1 mg 07/08/24 17:45 Naloxone Hcl 0.4 Mg/Ml Vial IV PUSH Q2M PRN Opiate Reversal Non-Formulary Medication 1.5 mg 07/07/24 09:00 Cariprazine [Vraylar] PO 08/06/24 08:59 DAILY PRINCESS Pantoprazole Sodium 40 mg 07/07/24 09:00 07/09/24 08:44 Pantoprazole 40 Mg Tablet PO 40 mg BID PRINCESS Administration Quetiapine Fumarate 100 mg 07/07/24 09:00 07/09/24 08:43 Quetiapine Fumarate 100 Mg Tablet PO 100 mg DAILY PRINCESS Administration Rosuvastatin Calcium 20 mg 07/06/24 19:15 07/08/24 18:04 Rosuvastatin 20 Mg Tablet PO 20 mg QPM PRINCESS Administration Tizanidine HCl 2 mg 07/06/24 19:12 07/06/24 20:35 Tizanidine Hcl 2 Mg Tablet PO 2 mg TID PRN Administration muscle spasticity Trazodone HCl 50 mg 07/06/24 19:12 07/07/24 22:01 Trazodone Hcl 50 Mg Tablet PO 50 mg HS PRN Administration sleep Vitamin D 2,000 units 07/07/24 09:00 07/09/24 08:43 Cholecalciferol 1,000 Units Tablet PO 2,000 units DAILY PRINCESS Administration Radiology Results: ITS Impressions Foot X-Ray 07/06/24 14:20 IMPRESSION: 1. Osteomyelitis at the tuft of the right first distal phalanx. Venous Doppler Study 07/07/24 14:24 IMPRESSION: Negative bilateral lower extremity venous US. No deep vein thrombosis. Labs Labs: Laboratory Results - last 24 hr 07/08/24 07/08/24 07/08/24 05:39 11:24 14:49 WBC RBC Hgb Hct MCV MCH MCHC RDW Plt Count MPV Sodium 136 L Potassium 4.5 Chloride 100 Carbon Dioxide 27 Anion Gap 9 BUN 23 H Creatinine 1.20 H Estim Creat Clear Calc 66 Estimated GFR 46 L Glucose 244 H POC Capillary Glucose 266 H 232 H Calcium 9.2 07/08/24 07/08/24 07/08/24 17:09 18:07 19:54 WBC RBC Hgb Hct MCV MCH MCHC RDW Plt Count MPV Sodium Potassium Chloride Carbon Dioxide Anion Gap BUN Creatinine Estim Creat Clear Calc Estimated GFR Glucose POC Capillary Glucose 199 H 184 H 321 H Calcium 07/09/24 07/09/24 07/09/24 05:39 05:39 05:39 WBC 5.9 RBC 3.94 L Hgb 10.7 L Hct 34.0 L MCV 86.3 MCH 27.2 MCHC 31.5 L RDW 15.6 H Plt Count 247 MPV 9.2 Sodium 136 L Potassium 4.4 Chloride 104 Carbon Dioxide 28 Anion Gap 4 BUN 18 H Creatinine 1.20 H 1.20 H Estim Creat Clear Calc 67 67 Estimated GFR 46 L Glucose POC Capillary Glucose Calcium 07/09/24 07/09/24 05:39 07:49 WBC RBC Hgb Hct MCV MCH MCHC RDW Plt Count MPV Sodium Potassium Chloride Carbon Dioxide Anion Gap BUN Creatinine Estim Creat Clear Calc Estimated GFR 46 L Glucose 252 H POC Capillary Glucose 232 H Calcium 8.6 Quality VTE Prophylaxis VTE prophylaxis: mechanical ordered
--- NOTE | 2024-07-09 10:13 | PM.PNGS ---
Progress Note: A&P Assessment and Plan (1) Osteomyelitis of great toe of right foot: Code(s): M86.9 - Osteomyelitis, unspecified Status: Acute Assessment and Plan: Surgically stable. Osteomyelitis treated with amputation, therefore will not need surgical training specialist IV antibiotics. Would recommend 7-10 days more of oral antibiotics to treat cellulitis of toe/foot. Surgically stable for discharge. Will have patient follow up in office in 2 weeks for suture removal. (2) Diabetic toe ulcer: Code(s): E11.621 - Type 2 diabetes mellitus with foot ulcer; L97.509 - Non-pressure chronic ulcer of other part of unspecified foot with unspecified severity Status: Acute (3) Type 2 diabetes mellitus with hyperglycemia: Code(s): E11.65 - Type 2 diabetes mellitus with hyperglycemia Status: Acute (4) Chronic kidney disease: Code(s): N18.9 - Chronic kidney disease, unspecified Status: Acute (5) Hypertension: Code(s): I10 - Essential (primary) hypertension Status: Acute (6) Obstructive sleep apnea on CPAP: Code(s): G47.33 - Obstructive sleep apnea (adult) (pediatric) Status: Acute Subjective Subjective Date/Time Seen: 07/09/24 10:13 Interval history: Doing well. Occasional throbbing pain in right great toe. Otherwise doing well. Exam Extrem: Other: Incision intact with sutures. Minimal erythema to proximal toe and metatarsal area. Objective Data Vital Signs Vital Signs: Vital Signs - 24 hr 07/08/24 14:00 07/08/24 15:18 07/08/24 16:50 Temperature 98.5 F 97.8 F Pulse Rate 75 74 68 Respiratory Rate 16 16 13 Blood Pressure 154/79 H 154/79 H 98/61 L Pulse Oximetry 98 98 97 Oxygen Delivery Simple Face Mask Oxygen Flow Rate 8 Fraction of Inspired Oxygen 07/08/24 17:00 07/08/24 17:05 07/08/24 17:20 Temperature Pulse Rate 64 72 73 Respiratory Rate 16 14 14 Blood Pressure 90/60 L 119/65 121/70 Pulse Oximetry 98 97 93 Oxygen Delivery Simple Face Mask Room Air Room Air Oxygen Flow Rate 8 Fraction of Inspired Oxygen 07/08/24 17:35 07/08/24 17:44 07/08/24 17:45 Temperature 97.2 F L 97.4 F L Pulse Rate 70 66 65 Respiratory Rate 18 14 18 Blood Pressure 126/73 114/67 128/69 Pulse Oximetry 93 94 95 Oxygen Delivery Room Air Nasal Cannula Oxygen Flow Rate 2 Fraction of Inspired Oxygen 07/08/24 19:30 07/08/24 22:00 07/08/24 23:07 Temperature 98.1 F 98.4 F 98.4 F Pulse Rate 69 68 70 Respiratory Rate 12 16 16 Blood Pressure 129/61 131/68 132/68 Pulse Oximetry 99 97 98 Oxygen Delivery Oxygen Flow Rate Fraction of Inspired Oxygen 07/09/24 03:23 07/09/24 05:11 07/09/24 08:15 Temperature 97.2 F L 98.5 F 97.1 F L Pulse Rate 69 67 73 Respiratory Rate 12 16 20 Blood Pressure 147/74 H 135/70 142/73 H Pulse Oximetry 95 96 98 Oxygen Delivery Oxygen Flow Rate Fraction of Inspired Oxygen 07/09/24 08:34 07/09/24 09:05 Temperature Pulse Rate Respiratory Rate Blood Pressure Pulse Oximetry 98 Oxygen Delivery Room Air Room Air Oxygen Flow Rate Fraction of Inspired Oxygen 21 Intake/Output Intake/Output: Intake & Output 07/06/24 07/07/24 07/08/24 07/09/24 23:59 23:59 23:59 23:59 Intake Total 910 2430 2300 1180 Output Total 1750 Balance 910 2430 2300 -570 Meds/Results Medications: Active Medications Generic Name Dose Route Start Last Admin Trade Name Freq PRN Reason Stop Dose Admin Acetaminophen 650 mg 07/06/24 19:11 Acetaminophen 325 Mg Tablet PO Q6H PRN Mild Pain (1-3) or Fever Hydrocodone Bitart/Acetaminophen 1 tab 07/06/24 19:12 07/09/24 06:04 Hydrocodone/Acetaminophen (*Crx) 10-325 Mg Tablet PO 1 tab Q6H PRN Administration pain 4-10 Amlodipine Besylate 5 mg 07/07/24 09:00 07/09/24 08:43 Amlodipine Besylate 5 Mg Tablet PO 5 mg DAILY PRINCESS Administration Ascorbic Acid 1,000 mg 07/07/24 09:00 07/09/24 08:44 Ascorbic Acid 500 Mg Tablet PO 1,000 mg DAILY PRINCESS Administration Bupropion HCl 300 mg 07/07/24 09:00 07/09/24 08:44 Bupropion Hcl Xl (24 Hr) 150 Mg Tabcr PO 300 mg QAM PRINCESS Administration Dextrose 12.5 gm 07/06/24 17:22 Dextrose 50% 25 Gm/50 Ml Syringe IV PUSH PRN PRN Hypoglycemia Protocol Enoxaparin Sodium 40 mg 07/09/24 09:00 07/09/24 08:52 Enoxaparin 40 Mg/0.4 Ml Syringe SUB-Q 40 mg DAILY PRINCESS Administration Escitalopram Oxalate 10 mg 07/07/24 09:00 07/09/24 08:43 Escitalopram Oxalate 10 Mg Tablet PO 10 mg DAILY PRINCESS Administration Famotidine 40 mg 07/06/24 21:00 07/08/24 20:24 Famotidine 20 Mg Tablet PO 40 mg QHS PRINCESS Administration Ferrous Sulfate 325 mg 07/07/24 09:00 07/09/24 08:43 Ferrous Sulfate [address] PO 325 mg DAILY PRINCESS Administration Gabapentin 600 mg 07/06/24 19:40 07/09/24 08:44 Gabapentin 300 Mg Capsule PO 600 mg BID PRINCESS Administration Glucagon 1 mg 07/06/24 17:22 Glucagon For Inj 1 Mg Vial IM PRN PRN Hypoglycemia Protocol Glucose 15 gm 07/06/24 17:22 Glucose Oral Gel 15 Gm Of Glucse In 37.5 Gm Tube PO PRN PRN Hypoglycemia Protocol Hydromorphone HCl 1 mg 07/08/24 17:45 Hydromorphone Hcl Inj (*Crx) 1 Mg/Ml Syr IV PUSH Q2H PRN Breakthrough Pain Rated 7-10 or NPO Hydromorphone HCl 0.5 mg 07/08/24 17:45 Hydromorphone Hcl Inj (*Crx) 1 Mg/Ml Syr IV PUSH Q2H PRN Breakthrough Pain Rated 4-6 or NPO Cefepime HCl 2 gm in 50 mls @ 100 mls/hr 07/07/24 03:00 07/09/24 03:14 Maxipime 2 Gm/Ns 50 Ml IVPB 100 mls/hr Q12H PRINCESS Administration Metronidazole 500 mg in 100 mls @ 100 mls/hr 07/07/24 00:00 07/09/24 08:42 Flagyl 500 Mg/Iso Soln 100 Ml IVPB 100 mls/hr Q8H PRINCESS Administration Dextrose 1,000 mls @ 100 mls/hr 07/06/24 17:22 Dextrose 5% 1,000 Ml IVPB PRN PRN Hypoglycemia Protocol Vancomycin HCl 1,500 mg in 500 mls @ 250 mls/hr 07/08/24 07:00 07/09/24 06:03 Vancomycin 1,500 Mg/Ns 500 Ml IVPB 250 mls/hr Q12H PRINCESS Administration Insulin Aspart 2 - 4 units 07/06/24 21:00 07/08/24 20:25 Insulin Aspart (*Bkc) 100 Units/Ml SUB-Q 3 units HS PRINCESS Administration Protocol Insulin Aspart 4 - 8 units 07/06/24 17:00 07/09/24 08:46 Insulin Aspart (*Bkc) 100 Units/Ml SUB-Q 4 units TIDWM PRINCESS Administration Protocol Insulin Glargine 75 units 07/07/24 09:00 07/09/24 08:47 Insulin Glargine (*Bkc) 100 Units/Ml SUB-Q 75 units DAILY PRINCESS Administration Losartan Potassium 100 mg 07/07/24 09:00 07/09/24 08:43 Losartan Potassium 100 Mg Tablet PO 100 mg DAILY PRINCESS Administration Metformin HCl 1,000 mg 07/07/24 09:00 07/09/24 08:44 Metformin Hcl 500 Mg Tablet PO 1,000 mg BID PRINCESS Administration Miscellaneous Information 1 each 07/07/24 00:01 Vraylar Is Nonform; Can Pt Use From Home? XX 08/06/24 00:00 CLARIFY PRINCESS Naloxone HCl 0.1 mg 07/08/24 17:45 Naloxone Hcl 0.4 Mg/Ml Vial IV PUSH Q2M PRN Opiate Reversal Non-Formulary Medication 1.5 mg 07/07/24 09:00 Cariprazine [Vraylar] PO 08/06/24 08:59 DAILY PRINCESS Pantoprazole Sodium 40 mg 07/07/24 09:00 07/09/24 08:44 Pantoprazole 40 Mg Tablet PO 40 mg BID PRINCESS Administration Quetiapine Fumarate 100 mg 07/07/24 09:00 07/09/24 08:43 Quetiapine Fumarate 100 Mg Tablet PO 100 mg DAILY PRINCESS Administration Rosuvastatin Calcium 20 mg 07/06/24 19:15 07/08/24 18:04 Rosuvastatin 20 Mg Tablet PO 20 mg QPM PRINCESS Administration Tizanidine HCl 2 mg 07/06/24 19:12 07/06/24 20:35 Tizanidine Hcl 2 Mg Tablet PO 2 mg TID PRN Administration muscle spasticity Trazodone HCl 50 mg 07/06/24 19:12 07/07/24 22:01 Trazodone Hcl 50 Mg Tablet PO 50 mg HS PRN Administration sleep Vitamin D 2,000 units 07/07/24 09:00 07/09/24 08:43 Cholecalciferol 1,000 Units Tablet PO 2,000 units DAILY PRINCESS Administration Radiology Results: ITS Impressions Foot X-Ray 07/06/24 14:20 IMPRESSION: 1. Osteomyelitis at the tuft of the right first distal phalanx. Venous Doppler Study 07/07/24 14:24 IMPRESSION: Negative bilateral lower extremity venous US. No deep vein thrombosis. Labs Labs: Laboratory Results - last 24 hr 07/08/24 07/08/24 07/08/24 05:39 11:24 14:49 WBC RBC Hgb Hct MCV MCH MCHC RDW Plt Count MPV Sodium 136 L Potassium 4.5 Chloride 100 Carbon Dioxide 27 Anion Gap 9 BUN 23 H Creatinine 1.20 H Estim Creat Clear Calc 66 Estimated GFR 46 L Glucose 244 H POC Capillary Glucose 266 H 232 H Calcium 9.2 07/08/24 07/08/24 07/08/24 17:09 18:07 19:54 WBC RBC Hgb Hct MCV MCH MCHC RDW Plt Count MPV Sodium Potassium Chloride Carbon Dioxide Anion Gap BUN Creatinine Estim Creat Clear Calc Estimated GFR Glucose POC Capillary Glucose 199 H 184 H 321 H Calcium 07/09/24 07/09/24 07/09/24 05:39 05:39 05:39 WBC 5.9 RBC 3.94 L Hgb 10.7 L Hct 34.0 L MCV 86.3 MCH 27.2 MCHC 31.5 L RDW 15.6 H Plt Count 247 MPV 9.2 Sodium 136 L Potassium 4.4 Chloride 104 Carbon Dioxide 28 Anion Gap 4 BUN 18 H Creatinine 1.20 H 1.20 H Estim Creat Clear Calc 67 67 Estimated GFR 46 L Glucose POC Capillary Glucose Calcium 07/09/24 07/09/24 05:39 07:49 WBC RBC Hgb Hct MCV MCH MCHC RDW Plt Count MPV Sodium Potassium Chloride Carbon Dioxide Anion Gap BUN Creatinine Estim Creat Clear Calc Estimated GFR 46 L Glucose 252 H POC Capillary Glucose 232 H Calcium 8.6
[2024-07-09 12:07] LABS: Glucose Point of Care 238 mg/dl (65-105)
[2024-07-09 13:25] VITALS: BP 107/64; PULSE 81; RESP 16; TEMP 37.2; O2SAT 99
--- NOTE | 2024-07-09 13:33 | P.DS_ITS ---
DS: Admitting Diagnosis Discharge Date 07/09 Admitting Diagnosis toe wound DS: Discharge Diagnosis Discharge Diagnosis (1) Osteomyelitis of great toe of right foot: Code(s): M86.9 - Osteomyelitis, unspecified Status: Acute (2) Diabetic toe ulcer: Code(s): E11.621 - Type 2 diabetes mellitus with foot ulcer; L97.509 - Non-pressure chronic ulcer of other part of unspecified foot with unspecified severity Status: Acute Assessment and Plan: (3) Type 2 diabetes mellitus with hyperglycemia: Code(s): E11.65 - Type 2 diabetes mellitus with hyperglycemia Status: Acute (4) Chronic kidney disease: Code(s): N18.9 - Chronic kidney disease, unspecified Status: Acute (5) Hypertension: Code(s): I10 - Essential (primary) hypertension Status: Acute (6) Obstructive sleep apnea on CPAP: Code(s): G47.33 - Obstructive sleep apnea (adult) (pediatric) Status: Acute Assessment and Plan: continue home cpap DS: Summary Hospital Course Hospital Course: Toe wound. Narrative retrieved from H/O: This is a pleasant 63-year-old female with poorly controlled type 2 diabetes mellitus, hypertension, chronic kidney disease, obstructive sleep apnea, and other comorbidities who presented to the emergency department via private vehicle for evaluation of a toe wound. The patient provides the following history. She noticed a wound on the right 1st toe about 2 weeks ago and over the course of the past week it has become red and swollen with minor drainage. She went to her doctor today who referred her to the emergency department. She admits that she does not check her glucose at home. She denies fever, chills, sweats, nausea, and vomiting. No known history of multidrug resistant organisms. In the ED: She was afebrile on arrival with stable vital signs. Labs were significant for WBC count of 7.9, hemoglobin 11.9, sodium 133, chloride 96, BUN 19, creatinine 1.10, glucose 410. Radiograph showed osteomyelitis at the tuft of the right 1st distal phalanx. She has been started on antibiotics and is being admitted in this setting for further treatment. 07/07- assuming care. General surgery consulted. Proceeding with amputation. Ok to eat today and plan for right 1st toe partial amputation tomorrow. 07/08- rt toe amputation today with surgery around 3 pm. 12/20- ok with surgery to be discharged- pt know f/u instructions. Surgically stable. Osteomyelitis treated with amputation, therefore will not need detention IV antibiotics. Would recommend 7-10 days more of oral anti biotics to treat cellulitis of toe/foot. Surgically stable for discharge. Will have patient follow up in office in 2 weeks for suture removal. resume home meds for diabetes. Pt has semiglutide on home med list- ok to resume. Need better sugar control to ensure proper wound healing. Work closely with PCP for frequent BS checks and regimen adjustment if needed. Need to clean up diet as well. Status at Discharge Functional status at discharge: independent ambulation Overall status at discharge: patient is progressing back to baseline Time Spent with Patient Time attestation: Total time spent providing and/or coordinating discharge services: Exam Narrative: General: Nontoxic-appearing female in the semi-Hicks position in bed. Weight: 146.6 kg. BMI: 49.1. HEENT: Wearing corrective lenses. Pupils reactive. Sclera anicteric. Tacky mucous membranes. Crowded oropharynx. Neck: Supple. Exam limited due to neck circumference. Respiratory: Lungs are clear to auscultation bilaterally. Cardiovascular: Regular rate and rhythm with S1-S2. Gastrointestinal: Abdomen is soft, obese, nontender, and nondistended with positive bowel sounds. Skin: Warm and dry. dressing to rt foot- c/d/i Extremities: No cyanosis, clubbing, or edema. Radial and pedal pulses intact. Neurological: Alert. Cranial nerves 2-12 are grossly intact. Decreased sensation in the feet. No gross focal deficits. Psychiatric: Pleasant and cooperative with appropriate mood and affect. DS: Data Data Completed and Pending Pending studies at discharge: Pending at discharge 07/08/24 16:28 Surgical [PTH] Routine Labs on day of discharge: Labs from last 24 hours 07/09/24 07/09/24 07/09/24 11:58 07:49 05:39 WBC RBC Hgb Hct MCV MCH MCHC RDW Plt Count MPV Sodium Potassium Chloride Carbon Dioxide Anion Gap BUN Creatinine Estim Creat Clear Calc Estimated GFR 46 L Glucose 252 H POC Capillary Glucose 238 H 232 H Calcium 8.6 07/09/24 07/09/24 07/09/24 05:39 05:39 05:39 WBC 5.9 RBC 3.94 L Hgb 10.7 L Hct 34.0 L MCV 86.3 MCH 27.2 MCHC 31.5 L RDW 15.6 H Plt Count 247 MPV 9.2 Sodium 136 L Potassium 4.4 Chloride 104 Carbon Dioxide 28 Anion Gap 4 BUN 18 H Creatinine 1.20 H 1.20 H Estim Creat Clear Calc 67 67 Estimated GFR 46 L Glucose POC Capillary Glucose Calcium 07/08/24 07/08/24 07/08/24 19:54 18:07 17:09 WBC RBC Hgb Hct MCV MCH MCHC RDW Plt Count MPV Sodium Potassium Chloride Carbon Dioxide Anion Gap BUN Creatinine Estim Creat Clear Calc Estimated GFR Glucose POC Capillary Glucose 321 H 184 H 199 H Calcium 07/08/24 14:49 WBC RBC Hgb Hct MCV MCH MCHC RDW Plt Count MPV Sodium Potassium Chloride Carbon Dioxide Anion Gap BUN Creatinine Estim Creat Clear Calc Estimated GFR Glucose POC Capillary Glucose 232 H Calcium Preliminary micro results at discharge 07/07/24 10:27 Anaerobic Culture - Preliminary Toe Right Great Aerobic Culture - Preliminary Group B Streptococcus isolated 07/06/24 14:49 Blood Culture - Preliminary Blood 07/06/24 14:41 Blood Culture - Preliminary Blood Discharge Plan Discharge Attending physician on discharge: Jama Smith Consulting providers: Darrian Fuentes Discharging Clinician: Jackie Kessler Patient Disposition: Home, Self-Care Activity: may shower Diet: as tolerated and diabetic Discharge Instructions: Your antibiotics were sent to your pharmacy. PLease take them as instructed. Antibiotics can give you diarrhea- so take OTC probiotics as needed to prevent it- any kind or brand would work. Postop Instructions: * Wear surgical shoe until seen in follow up. * OK to drive. * Change bandage daily with 4x4 gauze and Kerlix wrap * Call office for increasing redness, swelling, foul smelling drainage or other problems with incision Patient Instructions: Antibiotic Form Patient Language: Taiwanese Stand Alone Forms: General Discharge Information Follow-up/Referrals: Jose Jordan MD [Primary Care Provider] - 1 Week Darrian Fuentes DO [Physician] - 2 Weeks Discharge Medications: New amoxicillin-pot clavulanate 875-125 mg tablet 1 tablet PO Q12H Qty: 26 0RF Continued quetiapine 100 mg tablet 100 mg PO DAILY omeprazole 40 mg capsule,delayed release(DR/EC) 40 mg PO DAILY Qty: 90 1RF ferrous sulfate [FeroSul] 325 mg (65 mg iron) tablet 325 mg PO DAILY cholecalciferol (vitamin D3) 50 mcg (2,000 unit) capsule 50 mcg PO DAILY naloxone [Narcan] 4 mg/actuation spray,non-aerosol 4 mg intranasal Q2M PRN (Reason: OVERDOSE) Rx Instructions: spray 1 dose into ONE nostril; alternate nostrils w each dose until help arrives ascorbic acid (vitamin C) 1,000 mg capsule 1 g PO DAILY gabapentin 300 mg capsule 600 mg PO BID Qty: 360 2RF Vraylar 1.5 mg Capsule 1.5 mg PO DAILY ondansetron 4 mg tablet,disintegrating 4 mg PO Q8H PRN (Reason: nausea and vomiting) Qty: 12 0RF trazodone 50 mg tablet 50 mg PO HS PRN (Reason: sleep) Patient Comments: Takes 1-2 takes daily for sleep meclizine 25 mg tablet 25 mg PO TID PRN (Reason: Dizziness) escitalopram oxalate 20 mg tablet 10 mg PO DAILY Qty: 45 4RF insulin glargine [Lantus U-100 Insulin] 100 unit/mL solution 75 unit SUBCUT DAILY Qty: 70 4RF rosuvastatin 20 mg tablet 20 mg PO .Qevening Qty: 90 1RF Rx Instructions: Take 1 tablet by mouth once daily insulin lispro 100 unit/mL insulin pen See Rx Instructions .ROUTE .COMPLEX Qty: 15 1RF Dose Instruction: INJECT PER SLIDING SCALE DOSE BEFORE MEALS AND AT BEDTIME. MAX DAILY DOSE OF 80 UNITS Rx Instructions: INJECT PER SLIDING SCALE DOSE BEFORE MEALS AND AT BEDTIME. MAX DAILY DOSE OF 80 UNITS tizanidine 2 mg tablet 2 mg PO TID PRN (Reason: muscle spasticity) Qty: 90 2RF metformin 500 mg tablet 1,000 mg PO BID Qty: 360 5RF losartan 100 mg tablet 100 mg PO DAILY Qty: 90 1RF Ozempic 1 mg/dose (4 mg/3 mL) pen injector 1 mg subcut WEEKLY Qty: 3 5RF Rx Instructions: FRIDAY hydrocodone-acetaminophen 10-325 mg tablet 1 tablet PO Q6H PRN (Reason: pain) Qty: 120 0RF bupropion HCl 300 mg tablet extended release 24 hr 300 mg PO QAM Qty: 90 1RF amlodipine 5 mg tablet 5 mg PO DAILY Qty: 90 3RF famotidine 40 mg tablet 40 mg PO QHS Qty: 90 0RF Date of admission: 07/07/24 10:58 Primary Care Provider: Jose Jordan Admitting Provider: Fidencio Barlow Attending physician on admission: Fidencio Barlow Condition: Improved Quality VTE Prophylaxis VTE prophylaxis: mechanical ordered Hospitalist MIPS Heart Failure (Exclusion) Patient has history of Heart Transplant or Left Ventricular Assistive Device?: No IF YES, STOP HERE Heart Failure (Qualifier) Patient has current or prior documentation of LVEF less than or equal to 40%, or mod/servere depressed LVSF?: No IF NO, STOP HERE
== END 2024-07-09 15:50 | disposition home or self-care (01) | DRG 617 ==
LOC: ANHED 15:12 → ANH2MED 15:59
PROVIDERS: Physician Assistant; Surgery; Admitting Provider Internal Medicine; Emergency Provider Emergency Medicine; PCP Family Medicine; Visit Provider Nurse Practitioner
DX: E11.69 Type 2 diabetes mellitus with other specified complication (principal); M86.171 Other acute osteomyelitis, right ankle and foot; Z68.42 Body mass index [BMI] 45.0-49.9, adult; L03.031 Cellulitis of right toe; E11.65 Type 2 diabetes mellitus with hyperglycemia; E11.621 Type 2 diabetes mellitus with foot ulcer; L97.519 Non-pressure chronic ulcer of other part of right foot with unspecified severity; I12.9 Hypertensive chronic kidney disease with stage 1 through stage 4 chronic kidney disease, or unspecified chronic kidney disease; E11.22 Type 2 diabetes mellitus with diabetic chronic kidney disease; N18.9 Chronic kidney disease, unspecified; G47.33 Obstructive sleep apnea (adult) (pediatric); M19.90 Unspecified osteoarthritis, unspecified site; Z96.653 Presence of artificial knee joint, bilateral; E66.01 Morbid (severe) obesity due to excess calories; Z86.73 Personal history of transient ischemic attack (TIA), and cerebral infarction without residual deficits; Z85.828 Personal history of other malignant neoplasm of skin; Z90.49 Acquired absence of other specified parts of digestive tract; Z87.891 Personal history of nicotine dependence; Z86.718 Personal history of other venous thrombosis and embolism; Z79.84 Long term (current) use of oral hypoglycemic drugs; Z79.4 Long term (current) use of insulin
CPT/HCPCS: 36415; 73630; 80048; 80053; 80202; 82565; 82948; 83036; 83605; 83735; 85025; 85027; 85610; 85652; 85730; 86140; 87040; 87070; 87075; 87205; 88305; 88311; 93970; 96365; 96366; 96367; 96375; 99285; A9270; G0378; J0692; J1650; J1815; J1836; J2003; J2004; J2405; J2704; J3370; J7030; J7120

== ENCOUNTER 2024-07-20 07:14 | Outpatient (CLI) | payer MEDICARE, SELFPAY ==
[2024-07-20 08:06] LABS: Basophils Absolute Auto 0.1 K/mm3 (0.0-0.1); Eosinophils Absolute Auto 0.4 K/mm3 (0-0.3); Hematocrit 38.8 % (37.0-47.0); Hemoglobin 12.3 g/dL (12.0-15.0); Immature Granulocyte Absolute 0.08 K/mm3 (0.00-0.031); Immature Granulocyte Percent A 1.1 % (0-0.5); Lymphocytes Absolute Auto 1.89 K/mm3 (0.9-3.2); Mean Corpuscular HGB Conc 31.7 g/dl (32-36); Mean Corpuscular Volume 85.3 fl (80-100); Mean Platelet Volume 9.1 fl (7.4-10.4); Monocytes Absolute Auto 0.6 K/mm3 (0.1-0.6); Monocytes Percent Auto 7.7 % (2.6-8.5); Neutrophils Absolute Auto 4.3 K/mm3 (1.3-6.7); Neutrophils Percent Auto 59.2 % (45.5-73.1); Platelet Count Result 247 k/mm3 (150-375); Red Blood Count 4.55 M/mm3 (4.2-5.4); Red Cell Distribution Width 15.7 % (11.5-14.5); White Blood Count 7.3 K/mm3 (4.5-10.0)
[2024-07-20 08:20] LABS: Anion Gap 2 mmol/L (4-12); Blood Urea Nitrogen 21 mg/dL (7-17); Calcium 9.4 mg/dL (8.4-10.2); Carbon Dioxide 32 mmol/L (22-30); Chloride 103 mmol/L (98-107); Estimated Glomerular Filt Rate 50; Glucose 169 mg/dL (65-110); Potassium 4.8 mmol/L (3.4-5.0); Sodium 137 mmol/L (137-145)
[2024-07-20 08:24] LABS: Alanine Aminotransferase 17 U/L (6-35); Alkaline Phosphatase 64 U/L (38-126); Aspartate Amino Transferase 18 U/L (14-36); Bilirubin,Total 0.5 mg/dL (0.2-1.3)
[2024-07-20 08:32] LABS: Iron 54 ug/dL (37-170)
[2024-07-20 08:43] LABS: Percent Iron Saturation 15 % (20-50)
[2024-07-20 08:44] LABS: Hemoglobin A1C 9.9 % (<5.7); Parathyroid Intact 20.5 pg/mL (14.5-75.2)
[2024-07-20 09:21] LABS: Vitamin D 25 Hydroxy 47.9 ng/mL
--- OUTSIDE RECORDS SUMMARY | 2024-07-27 03:48 | XMS_ITS ---
Author Organization [facility] As [email or web address] Address [address] [place] [address] Care Team Providers Care Title Specialist Name Role Phone Tanya Vizcarra Unavailable [phone] Allergies Allergen (clinical drug ingredient) Drug/Non Drug Allergy documented on EMR Reaction Allergy Type Onset Date Status codeine Codeine Unknown Drug Allergy 04/24/2023 Active REASON FOR VISIT follow up Medications Medication SIG (Take, Route, Frequency, Duration) Notes Start Date End Date Status buPROPion HCl ER (XL) 300 MG Oral 04/24/2023 Active Insulin Lispro (1 Unit Dial) 100 UNIT/ML Subcutaneous 04/24/2023 Active Omeprazole 20 MG Oral 04/24/2023 Ac tive Cholecalciferol 1.25 MG (96340 UT) Oral 04/24/2023 Active Insulin Syringe 1 mL 31 gauge x 12/03 MISCELLANEOUS 04/24/2023 Active Ozempic (1 MG/DOSE) 4 MG/3ML Subcutaneous *Pick strength-form from [employer] for eRX* 04/24/2023 Active MECOBALAMIN (VITAMIN B12) 5,000 MCG LOZENGE *Reorder from [employer] for eRx and Interaction Alerts* 04/24/2023 Active Rosuvastatin Calcium 20 MG Oral 04/24/2023 Active Losartan Potassium 100 MG Oral 04/24/2023 Active Lantus 100 UNIT/ML Subcutaneous 04/24/2023 Active Meclizine HCl 25 MG Oral 04/24/2023 Active amLODIPine Besylate 5 MG Oral 04/24/2023 Active Diclofenac Sodium 1% Transdermal 04/24/2023 Active Vitamin B-1 100 MG Oral 04/24/2023 Active HYDROcodone-Acetaminop hen 5-325 MG Oral 04/24/2023 Active tiZANidine HCl 2 MG Oral 04/24/2023 Active metFORMIN HCl 500 MG Oral 04/24/2023 Active Furosemide 20 MG Oral 04/24/2023 Ac tive traZODone HCl 50 MG 1 to 2 tabs at bedtime Oral Once a day for 30 days As needed 04/24/2023 Active Gabapentin 300 MG Oral 04/24/2023 A ctive Escitalopram Oxalate 20 MG Oral 04/24/2023 Active Benadryl Allergy 25 MG Oral 04/24/2023 Active Ozempic (0.25 or 0.5 MG/DOSE) 2 MG/3ML Subcutaneous *Pick strength-form from [employer] for eRX* 04/24/2023 Active Vraylar 3 mg 1 tablet Oral daily for 30 days Active Social History Tobacco Use: Social History Observation Description Date Details (start date - stop date) Never Smoker NA - NA Sex Assigned At : Social History Observation Description Sex Assigned At Female Tobacco Control (Standard) Question Answer Notes Tobacco use: Nonsmoker Problems Problem Type SNOMED Code ICD Code Onset Dates Problem Status W/U Status Risk Notes Problem Bipolar affective disorder, currently depressed, mild (621158988) Bipolar disorder, current episode depressed, mild (F31.31) 3 Active confirmed Problem Generalized anxiety disorder (75305432) Generalized anxiety disorder (F41.1) 3 Active confirmed Problem Primary insomnia (7270347) Primary insomnia (F51.01) 3 Active confirmed Vital Signs Blood pressure systolic 170 mm Hg 04/06/20 24 Blood pressure diastolic 97 mm Hg 024 Heart Rate 67 /min 04/06/2024 Height 68.00 in 04/06/2024 Weight 314 lbs 04/06/2024 BMI 47.74 kg/m2 04/06/2024 Height-cm 172.72 cm 04/06/2024 Weight-kg 142.43 kg 04/06/2024 Encounters Encounter Location Date Provider Diagnosis [facility] [address] [address] 04/06/2024 Tanya Vizcarra Bipolar disorder, current episode depressed, mild F31.31 ; Generalized anxiety disorder F41.1 and Primary insomnia F51.01 Assessments Encounter Date Diagnosis (ICD Code) Assessment Notes Treatment Notes Treatment Clinical Notes Section Notes 04/06/2024 Bipolar disorder, current episode depressed, mild (ICD-10 - F31.31) stable cont vraylar 3mg daily BP 170/97-denies sx, reports didn't take BP meds til right before appt, recommend monitor at home, f/u with prescriber if high, or ER if sx stable, satisfied with current medications. recommend CPAP use, f/u with PCP/sleep medicine no new orders. review r/b/se. discuss importance of keeping follow up have recommended therapy f/u in 5-6 months, earlier if concerns note: also has gabapentin for neuropathy and opiates for pain 04/06/2024 Generalized anxiety disorder (ICD-10 - F41.1) stable per PCP bupropion XL 300mg daily escitalopram 10mg daily 04/06/2024 Primary insomnia (ICD-10 - F51.01) cont trazodone 50mg, take 1-2 tabs qhs prn, infrequent use practice good sleep hygiene recommend consistent CPAP use Plan Of Treatment Medication Medication Name Sig Start Date Stop Date Notes traZODone HCl 50 MG 1 to 2 tabs at bedti me Oral Once a day for 30 days 04/24/2023 Vraylar 3 mg 1 tablet Oral daily for 30 days Treatment Notes Assessment Notes Bipolar disorder, current ep isode depressed, mild stable cont vraylar 3mg daily Generalized anxiety disorder stable per PCP bupropion XL 300mg daily escitalopram 10mg daily Primary insomnia cont trazodone 50mg, take 1-2 tabs qhs prn, infrequent use practice good sleep hygiene recommend consistent CPAP use Next Appt Details Follow Up: 5-6 months, Reaso n: Provider Name:Tanya gatica, 09/06/2024 11:45:00 AM, [address] [facility] [address], [facility] [address], [place], [address], Progress Notes * DANICA RITTERB:1960 (63 yo F)Acc No.[id number]:04/06/2024 Patient:?CARY RITTER Provider:?HE PIMENTEL :1960???Age:63 Y???Sex:Female D ate:04/06/2024 [id number] Subjective: * Chief Complaints: * ???1. Follow up. * HPI: ???Depression Screening:?DAVID-7 (2018 Edition)?Feeling nervous, anxious, or on edge?Several days,?Not being able to stop or control worrying?Several days,?Worrying too much about different things?Several days,?Trouble relaxing?Several days,?Being so restless that it is hard to sit still?Several days,?Becoming easily annoyed or irritable?Several days,?Feeling afraid as if something awful might happen?Not at all,?Total DAVID-7 Score?6,?If you checked any problems, how difficult have they made it for you to do your work, take care of things at home, or get along with other people??Somewhat difficult,?Interpretation of Total?(5 to 9) Mild.?Depression screening:?PHQ-9?Little interest or pleasure in doing things?Several days,?Feeling down, depressed, or hopeless?Several days,?Trouble falling or staying asleep, or sleeping too much?Nearly every day,?Feeling tired or having little energy Nearly every day,?Poor appetite or overeating?Not at all,?Feeling bad about yourself or that you are a failure, or have let yourself or your family down?Not at all,?Trouble concentrating on things, such as reading the newspaper or watching television?Not at all,?Moving or speaking so slowly that other people could have noticed; or the opposite, being so fidgety or restless that you have been moving around a lot more than usual?Not at all,?Thoughts that you would be better off or of hurting yourself in some way?Not at all,?Total Score?8,?Interpretation?Mild Depression.?Intervention?Depression Screening Findings?Positve,?Follow-Up for Depression?Management of mental health treatment,?Suicide Risk Assessment Performed?04/06/2024,?Additional Evaluation for Depression?Psychiatric interview and evaluation,?Name of the standardized tool used for adult depression screening:?Patient Health Questionnaire (PHQ-9).?History of Presenting Problem:? 63 year old female, , here for follow up related to?bipolar disorder, anxiety, insomnia. 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 Uses cane. Have not seen since last April. Reports still taking same psych meds.?Got both knees replaced, doing better. Mood is fine, depression is mild, denies SI. Denies abril, psychosis. Anxiety has been ok, is manageable. No panic attacks. Sleeping good, maybe too much, as I'm always tired. Has CRISTOBAL-I don't really use my CPAP.? denies side effects or involuntary movements. not in therapy Medical: denies changes/concerns, other than surgery as above. * ROS:?Psychiatric:?Comments?See HPI for details.? * Medical History:?Problems: A nemia, Bipolar affective disorder, currently depressed, mild, Bipolar affective disorder, currently depressed, moderate, Bipolar I disorder, Generalized anxiety disorder, Obesity, Primary insomnia, Severe depressed bipolar I disorder, Smoker, ,. * Surgical History:?Excision o f ganglion cyst (67219226) , Procedure on gallbladder (770418172) , Hernia repair w/mesh (65750) , Removal of gallbladder (73143) , Tonsillectomy (227520879) , knee replacement rt knee 07/08/2023, left knee replacement [id number]. * Hospitalization/Major Diagno stic Procedure:?knee surgery 07/08/2023, knee surgery 10/14/2023. * Family History:?Paternal Aun t: Diabetes mellitus .?Father: Diabetes mellitus , Coronary arteriosclerosis .?Paternal Grandfather: Coronary arteriosclerosis .?Paternal Grandmother: Coronary arteriosclerosis .?Sister: Depressive disorder .? * Social History:?Tobacco Use:?Tobacco Control (Standard)?Tobacco use:?Nonsmoker.? * Medications:?Taking Ozempic (0.25 or 0.5 MG/DOSE) 2 MG/3ML Solution Pen-injector Subcutaneous , Notes to Pharmacist: *Pick strength-form from [facility] for eRX*, Taking Benadryl Allergy 25 MG Capsule Oral , Taking Escitalopram Oxalate 20 MG Tablet Oral , Taking Gabapentin 300 MG Capsule Oral , Taking HYDROcodone-Acetaminophen 5-325 MG Tablet Oral , Taking Vitamin B-1 100 MG Tablet Oral , Taking Furosemide 20 MG Tablet Oral , Taking metFORMIN HCl 500 MG Tablet Oral , Taking tiZANidine HCl 2 MG Tablet Oral , Taking Diclofenac Sodium 1% Gel Transdermal , Taking amLODIPine Besylate 5 MG Tablet Oral , Taking traZODone HCl 50 MG Tablet Oral , Taking Meclizine HCl 25 MG Tablet Oral , Taking MECOBALAMIN (VITAMIN B12) 5,000 MCG LOZENGE , Notes to Pharmacist: *Reorder from [facility] for eRx and Interaction Alerts*, Taking Ozempic (1 MG/DOSE) 4 MG/3ML Solution Pen-injector Subcutaneous , Notes to Pharmacist: *Pick strength-form from [facility] for eRX*, Taking Lantus 100 UNIT/ML Solution Subcutaneous , Taking Losartan Potassium 100 MG Tablet Oral , Taking Rosuvastatin Calcium 20 MG Tablet Oral , Taking Insulin Syringe 1 mL 31 gauge x 5/16 SYRINGE, EMPTY DISPOSABLE MISCELLANEOUS , Taking Cholecalciferol 1.25 MG (31445 UT) Capsule Oral , Taking Omeprazole 20 MG Capsule Delayed Release Oral , Taking Insulin Lispro (1 Unit Dial) 100 UNIT/ML Solution Pen-injector Subcutaneous , Taking buPROPion HCl ER (XL) 300 MG Tablet Extended Release 24 Hour Oral , Taking Vraylar 3 mg Capsule 1 tablet Oral daily make appt for further refills, Discontinued traMADol HCl 50 MG Tablet Oral , Discontinued TRULICITY 3 MG/0.5 ML SUBCUTANEOUS PEN INJECTOR , Notes to Pharmacist: *Reorder from [facility] for eRx and Interaction Alerts*, Medication List reviewed and reconciled with the patient * Allergies:?Codeine: Allergy - Onset Date 04/24/2023. Objective: * Vitals:?BP:170/97mm Hg, HR:6 7/min, Wt:314lbs, Wt-k.43 kg, Ht: 68.00 in, Ht-cm: 172.72 cm, BMI:47.74Index, Body Surface Area: 2.61. * Examination: ???Psychiatry: ?Appearance:?Appearance: alert,well-groomed, clean, appears well rested, obese. No acute physical distress.?Behavior: eye contact good,cooperative, pleasant.?Abnormal body movements:?none.?Affect / mood:?depressed-mild, congruent.?Attention:?normal in conversation.?Attitude:?cooperative.?Suicidal ideation:?none.?Memory status:?no impairment noted.?Degree of awareness of surroundings:?within normal limits.?Delusions:?no.?Hallucinations:?no.?Insight:?aware of psychiatric problems.?Intellectual functioning:?no impairment noted.?Judgement:?intact.?Orientation:?awake, alert and oriented x 3.?Perceptual disorders:?no perceptual disorder noted.?Psychomotor activity:?within normal range.?Speech / language:?appropriate pitch/modulation, clear and coherent, normal rate, volume, and articulation (RVR), proper grammar used.?Thought content:?appropriate.?Thought process:?intact.? Assessment: * Assessment: 1.?Bipolar disorder, current episode depressed, mild - F31.31 (Primary)???2.?Generalized anxiety disorder - F41.1???3.?Primary insomnia - F51.01??? Plan: * Treatment: 2.?Generalized anxiety disor arlin? Notes: stable per PCP bupropion XL 300mg daily [id number] daily ?? 3.?Primary insomnia? Refill traZODone HCl Tablet, 50 MG, 1 to 2 tabs at bedtime, Oral, Once a day As needed, 30 days, 60, Refills 2.?? Notes: cont trazodone 50mg, take 1-2 tabs qhs prn, infrequent use practice good sleep hygiene recommend consistent CPAP use?? * Procedure Codes:?38293 BEHAV ASSMT W/SCORE & DOCD/STAND INSTRUMENT, 50353 BEHAV ASSMT W/SCORE & DOCD/STAND INSTRUMENT, G8431 CLIN DEPRESSION SCREEN DOC * Follow Up:?5-6 months * Billing Information: * Visit Code:? 95418 OFFICE OUTPATIENT VISIT 25 MINUTES DETAILED HISTORY AND EXAM/MODERATE MEDICAL DECISION MAKING. * Procedure Codes:? 66715 BEHAV ASSMT W/SCORE & DOCD/STAND INSTRUMENT. 84541 BEHAV ASSMT W/SCORE & DOCD/STAND INSTRUMENT. G8431 CLIN DEPRESSION SCREEN DOC. * Sign off status: Completed true * Provider:?HE PIMENTEL Date:? 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 History and Physical Notes * HPI (History of Present Illness) Category Sub-Category Detail Notes Category Not es Depression screening PHQ-9 Little inte rest or pleasure in doing things: Several days Feeling down, depressed, or hopeless: Se veral days Trouble falling or staying asleep, or sl eeping too much: Nearly every day Feeling tired or having little energy: N early every day Poor appetite or overeating: Not at all Feeling bad about yourself o r that you are a failure, or have let yourself or your family down: Not at all Trouble concentrating on thi ngs, such as reading the newspaper or watching television: Not at all Moving or speaking so slowly that other people could have noticed; or the opposite, being so fidgety or restless that you have been moving around a lot more than usual: Not at all Thoughts that you would be b tasia off or of hurting yourself in some way: Not at all Total Score: 8 Interpretation: Mild Depression Intervention Depression Screening Findings: P ositcasper Follow-Up for Depression: Management of mental health treatment Suicide Risk Assessment Performed: 04/06 Additional Evaluation for Depression: Ps ychiatric interview and evaluation Name of the standardized too l used for adult depression screening:: Patient Health Questionnaire (PHQ-9) Depression Screening DAVID-7 (2018 Edition) Feelin g nervous, anxious, or on edge: Several days Not being able to stop or control worryi ng: Several days Worrying too much about different things : Several days Trouble relaxing: Several days Being so restless that it is hard to sit still: Several days Becoming easily annoyed or irritable: Se veral days Feeling afraid as if something awful everardo ht happen: Not at all Total DAVID-7 Score: 6 If you checked any problems, how difficult have they made it for you to do your work, take care of things at home, or get along with other people?: Somewhat difficult Interpretation of Total: (5 to 9) Mild Examination Category Sub-Category Detail Notes Category Not es Psychiatry Appearance: Appearance: alert, well-groomed, clean, appears well rested, obese. No acute physical distress. Behavior: eye contact good, cooperative, pleasant Attitude: cooperative Psychomotor activity: within normal rang e Abnormal body movements: none Attention: normal in conversati on Degree of awareness of surroundings: wit hin normal limits Orientation: awake, alert and juanito ented x 3 Affect / mood: depressed-mild, lewis ruent Speech / language: appropriate pitch/mo dulation, clear and coherent, normal rate, volume, and articulation (RVR), proper grammar used Insight: aware of psychiatric problems Judgement: intact Thought process: intact Thought content: appropriate Perceptual disorders: no perceptual diso rder noted Suicidal ideation: none Intellectual functioning: no impairment noted Memory status: no impairment noted Delusions: no Hallucinations: no
--- OUTSIDE RECORDS SUMMARY | 2024-07-27 03:49 | XMS_ITS | Patient Health Record ---
Author Organization [facility] As [employer] [facility] Address [address] [facility] [address] [place] [address] Care Team Providers Care Finishing Lab Technician Name Role Phone Tanya Vizcarra Unavailable [phone] Migration, Provider Unavailable Unavailable Allergies Allergen (clinical drug ingredient) Drug/Non Drug Allergy documented on EMR Reaction Allergy Type Onset Date Status codeine Codeine Unknown Drug Allergy 04/24/2023 Active Reason For Referral No Information Medications Medication SIG (Take, Route, Frequency, Duration) Notes Start Date End Date Status tiZANidine HCl 2 MG Oral 04/24/2023 Active Rosuvastatin Calcium 20 MG Oral 04/24/2023 Active metFORMIN HCl 500 MG Oral 04/24/2023 Active Losartan Potassium 100 MG Oral 04/24/2023 Active Furosemide 20 MG Oral 04/24/2023 Ac tive Lantus 100 UNIT/ML Subcutaneous 04/24/2023 Active Vitamin B-1 100 MG Oral 04/24/2023 Active Ozempic (1 MG/DOSE) 4 MG/3ML Subcutaneous *Pick strength-form from [employer] for eRX* 04/24/2023 Active traZODone HCl 50 MG 1 to 2 tabs at bedtime Oral Once a day for 30 days As needed 04/24/2023 Active HYDROcodone-Acetaminop hen 5-325 MG Oral 04/24/2023 Active MECOBALAMIN (VITAMIN B12) 5,000 MCG LOZENGE *Reorder from [employer] for eRx and Interaction Alerts* 04/24/2023 Active Vraylar 3 mg 1 tablet Oral daily for 30 days Active Gabapentin 300 MG Oral 04/24/2023 A ctive Meclizine HCl 25 MG Oral 04/24/2023 Active Escitalopram Oxalate 20 MG Oral 04/24/2023 Active buPROPion HCl ER (XL) 300 MG Oral 04/24/2023 Active Benadryl Allergy 25 MG Oral 04/24/2023 Active Insulin Lispro (1 Unit Dial) 100 UNIT/ML Subcutaneous 04/24/2023 Active Ozempic (0.25 or 0.5 MG/DOSE) 2 MG/3ML Subcutaneous *Pick strength-form from [employer] for eRX* 04/24/2023 Active amLODIPine Besylate 5 MG Oral 04/24/2023 Active Omeprazole 20 MG Oral 04/24/2023 Ac tive Diclofenac Sodium 1% Transdermal 04/24/2023 Active Cholecalciferol 1.25 MG (38438 UT) Oral 04/24/2023 Active Insulin Syringe 1 mL 31 gauge x 12/03 MISCELLANEOUS 04/24/2023 Active Immunizations Vaccine Route Administration Date Status Comme nts Pfizer [employer] Covid-19 Vac cine 2nd dose Unknown 09/20/2020 Administered Pfizer [employer] Covid-19 Vac cine 2nd dose Unknown 10/11/2020 Administered Social History Tobacco Use: Social History Observation Description Date Details (start date - stop date) Never Smoker NA - NA Sex Assigned At : Social History Observation Description Sex Assigned At Female Tobacco Control (Standard) Question Answer Notes Tobacco use: Nonsmoker Problems Problem Type SNOMED Code ICD Code Onset Dates Problem Status W/U Status Risk Notes Problem Bipolar affective disorder, currently depressed, mild (350021192) Bipolar disorder, current episode depressed, mild (F31.31) 3 Active confirmed Problem Generalized anxiety disorder (78970206) Generalized anxiety disorder (F41.1) 3 Active confirmed Problem Primary insomnia (7554809) Primary insomnia (F51.01) 3 Active confirmed Vital Signs Heart Rate 67 /min 04/06/2024 Height-cm 172.72 cm 04/06/2024 Blood pressure diastolic 97 mm Hg 04/06/2024 Weight-kg 142.43 kg 04/06/2024 Height 68.00 in 04/06/2024 Blood pressure systolic 170 mm Hg 04/06/2024 Weight 314 lbs 04/06/2024 BMI 47.74 kg/m2 04/06/2024 Encounters Encounter Location Date Provider Diagnosis [address] [address] 04/06/2024 Tanya Vizcarra Bipolar disorder, current episode depressed, mild F31.31 ; Generalized anxiety disorder F41.1 and Primary insomnia F51.[address] [address] 07/29/2023 Provider Migration [address] [address] 12/06/2023 Provider Migration [address] [address] 12/07/2023 Provider Migration Assessments Encounter Date Diagnosis (ICD Code) Assessment [...] recommend consistent CPAP use Plan Of Treatment Next Appt Details Provider Name:Tanya gatica, 09/06/2024 11:45:00 AM, [address] [place] [address], [place] [address], [place], [address], Insurance Providers Payer Name Payer Address Payer Phone Subscriber Number Group Number Insured Name Patient Relationship to Insured Coverage Start Date Coverage End Date [employer] Medicare Replacement/ Advantage - [employer] [address] [address] [place] [address] [id number] CARY RITTER Self - patient is the insured Medical (General) History Medical History History ICD Code Problems: Anemia Bipolar affective disorder, currently de pressed, mild Bipolar affective disorder, currently de pressed, moderate Bipolar I disorder Generalized anxiety disorder Obesity Primary insomnia Severe depressed bipolar I disorder Smoker , Surgical History Surgery Date(Month/Year) Excision of ganglion cyst (91759671) Procedure on gallbladder (026577946) Hernia repair w/mesh (99799) Removal of gallbladder (30171) Tonsillectomy (831348791) knee replacement rt knee 07/08/2023 left knee replacement [id number] Hospitalization History Reason Date(Month/Year) knee surgery 10/14/2023 knee surgery 07/08/2023
--- OUTSIDE RECORDS SUMMARY | 2024-07-27 03:49 | XMS_ITS ---
Author Organization [facility] As [employer] Address [address] [place] [address] Care Team Providers Care Switchboard Operator Assistant Name Role Phone Migration, Provider Unavailable Unavailable Allergies Allergen (clinical drug ingredient) Drug/Non Drug Allergy documented on EMR Reaction Allergy Type Onset Date Status codeine Codeine Unknown Drug Allergy 04/24/2023 Active REASON FOR VISIT EMR-Asad Medications Medication SIG (Take, Route, Frequency, Duration) Notes Start Date End Date Status Ozempic (0.25 or 0.5 MG/DOSE) 2 MG/3ML Subcutaneous *Pick strength-form from [employer] for eRX* 04/24/2023 Active Lantus 100 UNIT/ML Subcutaneous 04/24/2023 Active buPROPion HCl ER (XL) 300 MG Oral 04/24/2023 Active Ozempic (1 MG/DOSE) 4 MG/3ML Subcutaneous *Pick strength-form from [employer] for eRX* 04/24/2023 Active Vitamin B-1 100 MG Oral 04/24/2023 Active traMADol HCl 50 MG Oral 04/24/2023 Active tiZANidine HCl 2 MG Oral 04/24/2023 Active TRULICITY 3 MG/0.5 ML SUBCUTANEOUS PEN INJECTOR *Reorder from [employer] for eRx and Interaction Alerts* 04/24/2023 Active HYDROcodone-Acetaminop hen 5-325 MG Oral 04/24/2023 Active Gabapentin 300 MG Oral 04/24/2023 A ctive Vraylar 3 mg Oral 04/24/2023 Active Diclofenac Sodium 1% Transdermal 04/24/2023 Active traZODone HCl 50 MG Oral 04/24/2023 Active Escitalopram Oxalate 20 MG Oral 04/24/2023 Active amLODIPine Besylate 5 MG Oral 04/24/2023 Active metFORMIN HCl 500 MG Oral 04/24/2023 Active Rosuvastatin Calcium 20 MG Oral 04/24/2023 Active Furosemide 20 MG Oral 04/24/2023 Ac tive Losartan Potassium 100 MG Oral 04/24/2023 Active Insulin Syringe 1 mL 31 gauge x 12/03 MISCELLANEOUS 04/24/2023 Active MECOBALAMIN (VITAMIN B12) 5,000 MCG LOZENGE *Reorder from [facility] for eRx and Interaction Alerts* 04/24/2023 Active Meclizine HCl 25 MG Oral 04/24/2023 Active Benadryl Allergy 25 MG Oral 04/24/2023 Active Insulin Lispro (1 Unit Dial) 100 UNIT/ML Subcutaneous 04/24/2023 Active Omeprazole 20 MG Oral 04/24/2023 Ac tive Cholecalciferol 1.25 MG (21531 UT) Oral 04/24/2023 Active Social History Sex Assigned At : Social History Observation Description Sex Assigned At Female Encounters Encounter Location Date Provider Diagnosis [place] [id number] [address] [address] 12/07/2023 Provider Migration Plan Of Treatment Next Appt Details Provider Name:Tanya gatica, 09/06/2024 11:45:00 AM, [facility], [place], [address], Progress Notes * DANICA RITTERB:1960 (63 yo F)Acc No.[id number]:12/07/2023 Patient:?CARY RITTER :1960???Age:63 Y???Sex:Female Address:[address] [place] [address], [address] Subjective: * Chief Complaints: * ???[facility] * Medical History:? 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 * Surgical History:?Excision o f ganglion cyst (58180055) Procedure on gallbladder (626774564) Hernia repair w/mesh (32438) Removal of gallbladder (06726) Tonsillectomy (113425451) * Hospitalization/Major Diagno stic Procedure:? * Family History:?Paternal Aun t: Diabetes mellitus .?Father: Diabetes mellitus , Coronary arteriosclerosis .?Paternal Grandfather: Coronary arteriosclerosis .?Paternal Grandmother: Coronary arteriosclerosis .?Sister: Depressive disorder .? * Social History:?Migrated Social History:?Migrated Social History: Alcohol Intake: None 01/10/2022,Tobacco Years: Current every day smoker 01/10/2022,Smoking Status: 40 04/24/2023. * Medications:?TakingOzempic ( 0.25 or 0.5 MG/DOSE) 2 MG/3ML Solution Pen-injector Subcutaneous , Notes to Pharmacist: *Pick strength-form from [employer] for eRX*Benadryl Allergy 25 MG Capsule Oral Escitalopram Oxalate 20 MG Tablet Oral Gabapentin 300 MG Capsule Oral HYDROcodone-Acetaminophen 5-325 MG Tablet Oral Vitamin B-1 100 MG Tablet Oral Furosemide 20 MG Tablet Oral metFORMIN HCl 500 MG Tablet Oral tiZANidine HCl 2 MG Tablet Oral traMADol HCl 50 MG Tablet Oral Diclofenac Sodium 1% Gel Transdermal amLODIPine Besylate 5 MG Tablet Oral traZODone HCl 50 MG Tablet Oral Vraylar 3 mg Capsule Oral TRULICITY 3 MG/0.5 ML SUBCUTANEOUS PEN INJECTOR , Notes to Pharmacist: *Reorder from [employer] for eRx and Interaction Alerts*Meclizine HCl 25 MG Tablet Oral MECOBALAMIN (VITAMIN B12) 5,000 MCG LOZENGE , Notes to Pharmacist: *Reorder from [employer] for eRx and Interaction Alerts*Ozempic (1 MG/DOSE) 4 MG/3ML Solution Pen-injector Subcutaneous , Notes to Pharmacist: *Pick strength-form from [employer] for eRX*Lantus 100 UNIT/ML Solution Subcutaneous Losartan Potassium 100 MG Tablet Oral Rosuvastatin Calcium 20 MG Tablet Oral Insulin Syringe 1 mL 31 gauge x 5/16 SYRINGE, EMPTY DISPOSABLE MISCELLANEOUS Cholecalciferol 1.25 MG (37307 UT) Capsule Oral Omeprazole 20 MG Capsule Delayed Release Oral Insulin Lispro (1 Unit Dial) 100 UNIT/ML Solution Pen-injector Subcutaneous buPROPion HCl ER (XL) 300 MG Tablet Extended Release 24 Hour Oral Taking Ozempic (0.25 or 0.5 MG/DOSE) 2 MG/3ML Solution Pen-injector Subcutaneous , Notes to Pharmacist: *Pick strength-form from [facility] for eRX*Taking Benadryl Allergy 25 MG Capsule Oral Taking Escitalopram Oxalate 20 MG Tablet Oral Taking Gabapentin 300 MG Capsule Oral Taking HYDROcodone-Acetaminophen 5-325 MG Tablet Oral Taking Vitamin B-1 100 MG Tablet Oral Taking Furosemide 20 MG Tablet Oral Taking metFORMIN HCl 500 MG Tablet Oral Taking tiZANidine HCl 2 MG Tablet Oral Taking traMADol HCl 50 MG Tablet Oral Taking Diclofenac Sodium 1% Gel Transdermal Taking amLODIPine Besylate 5 MG Tablet Oral Taking traZODone HCl 50 MG Tablet Oral Taking Vraylar 3 mg Capsule Oral Taking TRULICITY 3 MG/0.5 ML SUBCUTANEOUS PEN INJECTOR , Notes to Pharmacist: *Reorder from [facility] for eRx and Interaction Alerts*Taking Meclizine HCl 25 MG Tablet Oral Taking MECOBALAMIN (VITAMIN B12) 5,000 MCG LOZENGE , Notes to Pharmacist: *Reorder from [facility] for eRx and Interaction Alerts*Taking Ozempic (1 MG/DOSE) 4 MG/3ML Solution Pen-injector Subcutaneous , Notes to Pharmacist: *Pick strength-form from [facility] for eRX*Taking Lantus 100 UNIT/ML Solution Subcutaneous Taking Losartan Potassium 100 MG Tablet Oral Taking Rosuvastatin Calcium 20 MG Tablet Oral Taking Insulin Syringe 1 mL 31 gauge x 5/16 SYRINGE, EMPTY DISPOSABLE MISCELLANEOUS Taking Cholecalciferol 1.25 MG (68445 UT) Capsule Oral Taking Omeprazole 20 MG Capsule Delayed Release Oral Taking Insulin Lispro (1 Unit Dial) 100 UNIT/ML Solution Pen-injector Subcutaneous Taking buPROPion HCl ER (XL) 300 MG Tablet Extended Release 24 Hour Oral * Allergies:?Codeine: Allergy - Onset Date 04/24/2023 Objective: * Vitals:? * Physical Examination:? Assessment: Plan: * Treatment: * Procedure Codes:? * true * Date:? Generated for You frazier/Jared/eTransmitting on:?07/27/2024 03:48 AM PLATFORM ARCHITECT
--- OUTSIDE RECORDS SUMMARY | 2024-07-27 03:49 | XMS_ITS ---
Author Organization [facility] As [employer] [facility] Address [address] [place] [address] Care Team Providers Care Railcar Mechanic Name Role Phone Migration, Provider Unavailable Unavailable REASON FOR VISIT EMR-Asad Social History Sex Assigned At : Social History Observation Description Sex Assigned At Female Encounters Encounter Location Date Provider Diagnosis [facility] [employer] [facility] [address] [facility] [address] [place] [address] 12/06/2023 Provider Migration Plan Of Treatment Next Appt Details Provider Name:Tanya Rich gatica, 09/06/2024 11:45:00 AM, [address], [facility] [address], [place], [address], Progress Notes * MATHEWIDOB:1960 (63 yo F)Acc No.[id number]:12/06/2023 Patient:?CARY RITTER :1960???Age:63 Y???Sex:Female Address:[address] [place] [address], [address] Subjective: * Chief Complaints: * ???EMR-Asad * Medical History:? * Surgical History:? * Hospitalization/Major Diagno stic Procedure:? * Medications:? Objective: * Vitals:? * Physical Examination:? Assessment: Plan: * Treatment: * Procedure Codes:? * true * Date:? Generated for Nahomii karin/Faxing/eTransmitting on:?07/27/2024 03:48 AM PROCESS CONTROL ENGINEER
== END 2024-07-20 07:15 | disposition home or self-care (01) ==
PROVIDERS: PCP Family Medicine; Referring Provider Internal Medicine Nephrology
DX: D50.9 Iron deficiency anemia, unspecified (principal); E11.65 Type 2 diabetes mellitus with hyperglycemia; E55.9 Vitamin D deficiency, unspecified; R79.89 Other specified abnormal findings of blood chemistry; I12.9 Hypertensive chronic kidney disease with stage 1 through stage 4 chronic kidney disease, or unspecified chronic kidney disease; N18.30 Chronic kidney disease, stage 3 unspecified; E11.22 Type 2 diabetes mellitus with diabetic chronic kidney disease
CPT/HCPCS: 36415; 80069; 80076; 82306; 82607; 82728; 83036; 83540; 83550; 83970; 84443; 85025

== ENCOUNTER 2024-11-28 00:50 | Emergency (ER) | payer MEDICARE, SELFPAY ==
[2024-11-28] VITALS (13 sets, daily range): BP systolic 104–161; BP diastolic 66–90; PULSE 63–69; RESP 15–18; TEMP 36.6; O2SAT 95–100
--- NOTE | ~2024-11-28 | XR_ITS ---
XR hip RT 2V w AP pelvis 11/28/2024 02:06 Indication: Right hip pain Procedure: 3 views right hip Comparison: 02/24/2021 Findings: No fracture, subluxation or dislocation. There is symmetric osteoarthritis. There is lower lumbar spondylosis. Pelvic rings intact. Sacral foramen are symmetric Impression: 1: No acute fracture. Reviewed, dictated and finalized at location A. Impression: 1: No acute fracture.
--- OUTSIDE RECORDS SUMMARY | 2024-11-28 00:53 | XMS_ITS | Encounter Summary ---
Author Organization [facility] Address [address] [place] [address] Care Team Providers Care Stock Parts Inspector Name Role Phone Jose Jordan MD Primary Care Provider [phone] Encounter Details Date Type Department Care Team (Late st Contact Info) Description 10/02/2023 Prep for Procedure [facility] [address] [place] [address] [place] [address] [place] [address] Social History Tobacco Use Types Packs/Day Years Used Date Smoking Tobacco: Never Smokeless Tobacco: Never Comments:na Alcohol Use Standard Drinks/Week Comments Never 0 (1 standard drink = 0.6 oz pur e alcohol) OASIS D0700: Social Isolation Answer Da te Recorded Frequency of experiencing loneliness or isolatio n Never 07/25/2023 OASIS A1250: Transportation Answer Date Recorded Lack of Transportation (Medical) No 07/25/2023 Lack of Transportation (Non-Medical) No 07/25/2023 Patient Unable or Declines to Respond No 07/25/2023 OASIS B1300: Health Literacy Answer Avery e Recorded Frequency of needing help to read materials from doctor or pharmacy Never 07/25/2023 PHQ-2 Answer Date Recorded Patient Health Questionnaire-2 Score 1 09/01/2023 Comments No Sex and Gender Information Value Date Recorded Sex Assigned at Not on file Legal Sex Female 7:42 PM CDT Gender Identity Not on file Sexual Orientation Not on file documented as of this encounter Functional Status * Are you deaf or do you have serious difficulty hearing Answer Date of Assessment Author Status No 07/08/2023 11:30 PM Kamla Cain RN Active * Are you blind or do you have serious difficulty seeing, even when wearing glasses? Answer Date of Assessment Author Status No 07/08/2023 11:30 PM Kamla Cain RN Active * Do you have serious difficulty walking or climbing stairs? Answer Date of Assessment Author Status No 07/08/2023 11:30 PM Kamla Cain RN Active * Do you have difficulty dressing or bathing? Answer Date of Assessment Author Status No 07/08/2023 11:30 PM Kamla Cain RN Active * Because of a physical, mental, or emotional condition, do you have difficulty doing errands alone such as visiting a doctor's office or shopping? Answer Date of Assessment Author Status No 07/08/2023 11:30 PM Kamla Cain RN Active documented as of this encounter Mental Status * Because of a physical, mental, or emotional condition, do you have serious difficulty concentrating, remembering, or making decisions? Answer Entry Date Author Status No 07/08/2023 11:30 PM Kamla Cain RN Active documented in this encounter Plan of Treatment Not on file documented as of this encounter Results * (ABNORMAL) COMPREHENSIVE METABOLIC PANEL (10/07/2023 12:17 PM CDT) [facility] GLUCOSE 167(H) 70 - 99 MG/DL 10/07/2023 12:54 PM CDT [facility] BUN 28(H) 7 - 18 MG/DL 10/07/2023 12:54 PM CDT [facility] CREATININE S/P/B 1.77(H) 0.55 - 1.02 MG/DL 10/07/2023 12:54 PM CDT [facility] SODIUM S/P/B 135(L) 136 - 145 MMOL/L 10/07/2023 12:54 PM CDT [facility] POTASSIUM S/P/B 3.9 3.5 - 5.1 MMOL/L 10/07/2023 12:54 PM [facility] CHLORIDE S/P/B 96(L) 100 - 108 MMOL/L 10/07/2023 12:54 PM [facility] CO2 24.6 21 - 32 MMOL/L 10/07/2023 12:54 PM [facility] CALCIUM S/P/B 9.1 8.5 - 10.1 MG/DL 10/07/2023 12:54 PM [facility] BILIRUBIN TOTAL S/P/B 0.6 0.2 - 1.2 MG/DL 10/07/2023 12:54 PM [facility] TOTAL PROTEIN S/P/B 7.8 6.4 - 8.2 G/DL 10/07/2023 12:54 PM [facility] ALBUMIN S/P/B 2.9(L) 3.4 - 5.0 G/DL 10/07/2023 12:54 PM [facility] AST 13(L) 15 - 37 U/L 10/07/2023 12:54 PM [facility] ALT 20 14 - 55 U/L 10/07/2023 12:54 PM [facility] ALKALINE PHOSPHATASE S/P/B 82 50 - 136 U/L 10/07/2023 12:54 PM [facility] ANION GAP 14.4 5 - 15 MMOL/L 10/07/2023 12:54 PM [facility] BUN CREATININE RATIO 15.8 6 - 26 10/07/2023 12:54 PM [facility] A/G RATIO 0.6(L) 1.0 - 2.0 RATIO 10/07/2023 12:54 PM [facility] GFR ESTIMATE 32(L) >90 ML/MIN/1.7 3 M2 10/07/2023 12:54 PM CDT [facility] Comment: NOTE: eGFR is not calculated for patients <18 years of age. This is an estimated GFR calculation using the new CKD EPI creatinine equation without race and so does not require a correction factor for race. This estimated GFR should not be used for calculating drug doses. 10/07/2023 12:1 7 PM CDT Ronald Payan DO LABORATORY Final Result [facility] [address] [place] [address], * (ABNORMAL) CBC W/DIFF AUTOMATED (10/07/2023 12:17 PM CDT) WBC 9.48 4.4 - 11.0 x10'3/uL 10/07/2023 12:40 PM CDT [facility] RBC 4.75 4.50 - 5.10 x10'6/uL 10/07/2023 12:40 PM CDT [facility] HGB 10.9(L) 12.3 - 15.3 G/DL 10/07/2023 12:40 PM CDT [facility] HCT 36.8 35.9 - 44.6 % 10/07/2023 12:40 PM CDT [facility] MCV 77.5(L) 80.0 - 96.0 FL 10/07/2023 12:40 PM CDT [facility] MCH 22.9(L) 25.3 - 30.9 PG 10/07/2023 12:40 PM CDT [facility] MCHC 29.6(L) 31.0 - 34.1 G/DL 10/07/2023 12:40 PM CDT [facility] RDW 18.2(H) 12.4 - 15.1 % 10/07/2023 12:40 PM CDT [facility] PLT 446(H) 151 - 353 x10'3/uL 10/07/2023 12:40 PM CDT [facility] MPV 8.5(L) 9.6 - 12.0 FL 10/07/2023 12:40 PM CDT [facility] RBC MORPHOLOGY NORMAL 10/07/2023 12:40 PM CDT [facility] PLT MORPH. NORMAL 10/07/2023 12:40 PM CDT [facility] WBC MORPHOLOGY NORMAL 10/07/2023 12:40 PM T [facility] LYMPHOCYTES % 21.9 15.8 - 45.0 % 10/07/2023 12:40 PM CDT [facility] NEUTROPHILS % 66.6 42.1 - 71.9 % 10/07/2023 12:40 PM CDT [facility] MONOCYTES % 7.2 5.7 - 12.5 % 10/07/2023 12:40 PM CDT [facility] EOSINOPHILS 2.3 0.0 - 5.6 % 10/07/2023 12:40 PM CDT [facility] BASOPHILS 0.7 0.0 - 1.3 % 10/07/2023 12:40 PM CDT [facility] ABS. NEUTROPHILS 6.31(H) 1.40 - 6.00 x10'3/uL 10/07/2023 12:40 PM CDT [facility] IMMATURE GRANS % 1.3(H) 0.0 - 0.5 % 10/07/2023 12:40 PM CDT [facility] ABS. LYMPHOCYTES 2.08 0.80 - 4.70 x10'3/uL 10/07/2023 12:40 PM CDT [facility] 10/07/2023 12:1 7 PM CDT Ronald Payan DO LABORATORY Final Result Performing Organization Address City/State/[facility] Co de Phone Number [facility] [address] [place] [address], documented in this encounter Visit Diagnoses Diagnosis Preop testing- Primary Preoperative examination, unspecified documented in this encounter Care Teams Stock Parts Inspector Relationship Specialty Start Date End Date Jose Jordan MD [address] [address] PCP - General FAMILY PRACTICE 04/14/23 documented as of this encounter
--- OUTSIDE RECORDS SUMMARY | 2024-11-28 00:53 | XMS_ITS | Patient Health Record ---
Author Organization [facility] As [employer] [facility] Address [address] [place] [address] Care Team Providers Care Butadiene Converter Helper Name Role Phone Gladis Mendez Unavailable [phone] ThomasTanya marinelli Unavailable [phone] Migration, Provider Unavailable Unavailable Allergies Allergen (clinical drug ingredient) Drug/Non Drug Allergy documented on EMR Reaction Allergy Type Onset Date Status codeine Codeine Unknown Drug Allergy 04/24/2023 Active Reason For Referral No Information Medications Medication SIG (Take, Route, Frequency, Duration) Notes Start Date End Date Status Insulin Syringe 1 mL 31 gauge x 12/03 MISCELLANEOUS 04/24/2023 Active Furosemide 20 MG Oral 04/24/2023 Ac tive HYDROcodone-Acetaminop hen 5-325 MG Oral 04/24/2023 Active Losartan Potassium 100 MG Oral 04/24/2023 Active traZODone HCl 50 MG 1 to 2 tabs at bedtime Oral Once a day for 30 days As needed Active Vitamin B-1 100 MG Oral 04/24/2023 Active Rosuvastatin Calcium 20 MG Oral 04/24/2023 Active Escitalopram Oxalate 20 MG Oral 04/24/2023 Active Ozempic (1 MG/DOSE) 4 MG/3ML Subcutaneous *Pick strength-form from [employer] for eRX* 04/24/2023 Active Vraylar 3 mg 1 tablet Oral daily for 30 days Active Gabapentin 300 MG Oral 04/24/2023 A ctive Lantus 100 UNIT/ML Subcutaneous 04/24/2023 Active Ozempic (0.25 or 0.5 MG/DOSE) 2 MG/3ML Subcutaneous *Pick strength-form from [employer] for eRX* 04/24/2023 Active Meclizine HCl 25 MG Oral 04/24/2023 Active Benadryl Allergy 25 MG Oral 04/24/2023 Active MECOBALAMIN (VITAMIN B12) 5,000 MCG LOZENGE *Reorder from [employer] for eRx and Interaction Alerts* 04/24/2023 Active Diclofenac Sodium 1% Transdermal 04/24/2023 Active Insulin Lispro (1 Unit Dial) 100 UNIT/ML Subcutaneous 04/24/2023 Active amLODIPine Besylate 5 MG Oral 04/24/2023 Active buPROPion HCl ER (XL) 300 MG Oral 04/24/2023 Active metFORMIN HCl 500 MG Oral 04/24/2023 Active Cholecalciferol 1.25 MG (55858 UT) Oral 04/24/2023 Active tiZANidine HCl 2 MG Oral 04/24/2023 Active Omeprazole 20 MG Oral 04/24/2023 Ac tive Immunizations Vaccine Route Administration Date Status Comme nts [employer] Covid-19 Vac cine 2nd dose Unknown 09/20/2020 Administered Pfizer [employer] Covid-19 Vac cine 2nd dose Unknown 10/11/2020 [...] Problem Bipolar affective disorder, currently depressed, mild (200489264) Bipolar disorder, current episode depressed, mild (F31.31) 3 Active confirmed Problem Generalized anxiety disorder (83691186) Generalized anxiety disorder (F41.1) 3 Active confirmed Problem Primary insomnia (1222767) Primary insomnia (F51.01) 3 Active confirmed Problem Tobacco use (153335055) Nicotine use (Z72.0) Active confirmed Problem Essential hypertension (23340767) Benign essential HTN (I10) Active confirmed Vital Signs Heart Rate 86 /min 09/27/2024 Height-cm 172.72 cm 09/27/2024 Blood pressure diastolic 86 mm Hg 09/27/2024 Weight-kg 142.43 kg 04/06/2024 Height 68.00 in 09/27/2024 Blood pressure systolic 156 mm Hg 09/27/2024 Weight 314 lbs 04/06/2024 BMI 47.74 kg/m2 04/06/2024 [facility]counters [facility] [address] [address] 04/06/2024 Tanya Vizcarra Bipolar disorder, current episode depressed, mild F31.31 ; Generalized anxiety disorder F41.1 and Primary insomnia F51.01 [facility] [employer] [address] [address] 09/27/2024 Gladis Mendez Generalized anxiety disorder F41.1 ; Primary insomnia F51.01 ; Bipolar disorder, current episode depressed, mild F31.31 ; Benign essential HTN I10 and Nicotine use Z72.0 [facility] [employer] [address] [address] 12/06/2023 Provider Migration [facility] [employer] [address] [address] 12/07/2023 Provider Migration [facility] [employer] [address] [address] 09/27/2024 Gladis Mendez [place] [address] [address] [facility] [address] [address] 09/27/2024 Gladis Mendez Assessments Encounter Date Diagnosis (ICD Code) Assessment [...] bupropion XL 300mg daily escitalopram 10mg daily 09/27/2024 Generalized anxiety disorder (ICD-10 - F41.1) 09/27/2024 Primary insomnia (ICD-10 - F51.01) 04/06/2024 Primary insomnia (ICD-10 - F51.01) cont trazodone 50mg, take 1-2 tabs qhs prn, infrequent use practice good sleep hygiene recommend consistent CPAP use 09/27/2024 Bipolar disorder, current episode depressed, mild (ICD-10 - F31.31) 09/27/2024 Benign essential HTN (ICD-10 - I10) 09/27/2024 Nicotine use (ICD-10 - Z72.0) 09/27/2024 Other Cary Ritter is a 64-year-old female with a history of bipolar disorder, anxiety, insomnia, and multiple suicide attempts, presenting for follow-up and medication management. Bipolar DisorderAssessme nt: Patient reports stable mood and denies current issues with depression or anxiety. She is compliant with Vraylar 3 mg daily for bipolar disorder and reports the medication regimen is working well. Patient denies symptoms consistent with abril, unstable mood, or hallucinations. History of quetiapine use, which was discontinued due to worsening depression, leading to the initiation of Vraylar. Patient denies feeling sedated or fatigued with Vraylar, in contrast to her experience with quetiapine.Plan: - Continue Vraylar 3 mg PO daily for bipolar disorder- Continue bupropion XR 300 mg PO daily (prescribed by PCP)- Continue escitalopram 10 mg PO daily (prescribed by PCP)- Follow up in 4 months, sooner if concerns arise InsomniaAssessme nt: Patient reports sleeping well with current medication regimen. She is using trazodone as needed for sleep. Patient has a history of sleep apnea and is working on compliance with CPAP therapy.Plan:- Continue trazodone 50 mg PO, 1-2 tablets at bedtime as needed for insomnia- Work on sleep hygiene- Encourage continued compliance with CPAP therapy for sleep apnea Comorbid Medical ConditionsAssess ment: Patient has multiple comorbid medical conditions, including type 2 diabetes, hypertension, and neuropathy. She is currently on Ozempic for weight loss, gabapentin for neuropathy, and opiates for pain management. Blood pressure is noted to be high during this visit.Plan:- Continue current medications for comorbid conditions as prescribed- Advise patient to follow up with PCP regarding elevated blood pressure Plan Of Treatment Next Appt Details Provider Name:Gladis monroe, 01/24/2025 11:00:00 AM, [address], [address], [place], [address], Insurance Providers Payer Name Payer Address Payer Phone Subscriber Number Group Number Insured Name Patient Relationship to Insured Coverage Start Date Coverage End Date [employer] Medicare Replacement/ Advantage - Hmo [address] [address] [place] [address] [id number] CARY RITTER Self - patient is the insured Medical (General) History Medical History History ICD Code Problems: Anemia Bipolar affective disorder, currently de pressed, mild Bipolar affective disorder, currently de pressed, moderate Bipolar I disorder Generalized anxiety disorder Obesity Primary insomnia Severe depressed bipolar I disorder Smoker , Surgical History Surgery Date(Month/Year) Excision of ganglion cyst (56392896) Procedure on gallbladder (956854274) Hernia repair w/mesh (05219) Removal of gallbladder (34438) Tonsillectomy (747967310) knee replacement rt knee 07/08/2023 left knee replacement [id number] Hospitalization History Reason Date(Month/Year) knee surgery 10/14/2023 knee surgery 07/08/2023
--- OUTSIDE RECORDS SUMMARY | 2024-11-28 00:53 | XMS_ITS | Clinical Summary ---
Author Organization [facility] Address [address] [place] [address] Phone Care Team Providers Care Adult Education Instructor Name Role Phone Jose Jordan MD Primary Care Provider [phone] Allergies Active Allergy Reactions Criticality Noted Date Comments Codeine Hallucinations 04/03/2020 Medications amLODIPine (NORVASC) 5 MG tablet 0 Active buPROPion XL (WELLBUTRIN XL) 150 MG 24 hr tablet TAKE 1 TABLET BY MOUTH ONCE DAILY IN THE MORNING 0 Active escitalopram (LEXAPRO) 20 MG tablet Take 20 mg by mouth 1 (one) time each day 0 Active gabapentin (NEURONTIN) 300 MG capsule Take 300 mg by mouth 1 (one) time each day 0 Active indapamide (LOZOL) 1.25 MG tablet Take 1.25 mg by mouth 1 (one) time each day 0 Active LANTUS 100 UNIT/ML injection INJECT 75 UNITS SUBCUTANEOUSLY ONCE DAILY 0 Active losartan (COZAAR) 100 MG tablet 0 Active metFORMIN (GLUCOPHAGE) 500 MG tablet 0 Active rosuvastatin (CRESTOR) 20 MG tablet Take 20 mg by mouth 1 (one) time each day 0 Active tiZANidine (ZANAFLEX) 2 MG tablet Take 2 mg by mouth every 12 (twelve) hours 0 Active traMADol (ULTRAM) 50 MG tablet Take 50-100 mg by mouth every 8 (eight) hours if needed for pain 0 Active Vraylar 1.5 MG capsule 2 Active Trulicity 1.5 MG/0.5ML solution pen-injector INJECT 1.5 MG SUBCUTANEOUSLY ONCE A WEEK 2 Active furosemide (LASIX) 20 MG tablet 2 Active BD Insulin Syringe U/F 31G X 12/03 1 ML misc See administration instructions with insulin 2 Active omeprazole (PriLOSEC) [address] capsule 2 Active QUEtiapine (SEROquel) 100 MG tablet 2 Active Active Problems Problem Noted Date Diagnosed Date Chronic kidney disease stage 3A 05/17/2022 Immunizations Immunization Administration Dates Next Due Influenza TIV (IM) 05/23/2022(Deferred: Patient Refused) Pneumococcal Conjugate 03/21/2019 Family History Medical History Relation Comments Kidney disease Father Relation Status Comments Father Social History Tobacco Use Types Packs/Day Years Used Date Smoking Tobacco: Light Smoker Smokeless Tobacco: Never Alcohol Use Standard Drinks/Week Comments Yes 1 (1 standard drink = 0.6 oz pur e alcohol) Comments Unknown Sex and Gender Information Value Date Recorded Sex Assigned at Not on file Legal Sex Female 12:27 PM MDT Gender Identity Not on file Sexual Orientation Not on file Last Filed Vital Signs Vital Sign Reading Time Taken Comments Blood Pressure 124/72 05/23/2022 11:38 AM CDT Pulse 72 05/23/2022 11:38 AM CDT Temperature 35.6 C (96 F) 05/23/2022 11:38 AM CDT Respiratory Rate - - Oxygen Saturation - - Inhaled Oxygen Concentration - - Weight 149 kg (329 lb) 05/23/2022 11:38 AM CDT Height 172.7 cm (5' 8 ) 05/23/2022 11:38 AM CDT Body Mass Index 50.02 05/23/2022 11:38 AM CDT Plan of Treatment Health Maintenance Due Date Last Done Comments Influenza Vaccine (Season Ended) 2025 Insurance [employer] MEDICARE Care Teams Adult Education Instructor Relationship Specialty Start Date End Date Jose Jordan MD [address] [place] [address] PCP - General Family Medicine 04/03/20
--- OUTSIDE RECORDS SUMMARY | 2024-11-28 00:53 | XMS_ITS | Clinical Summary ---
Author Organization [facility] Address [address] [place] [address] Care Team Providers Care Office Assistant Name Role Phone Jose Jordan MD Primary Care Provider [phone] Allergies Active Allergy Reactions Criticality Noted Date Comments Codeine Hallucinations 04/03/2020 Influenza Vaccines Vomiting Medium 07/10/2023 Medications buPROPion XL (WELLBUTRIN XL) 300 MG 24 hr tabletIndications :Bipolar disorder Take 1 tablet (300 mg total) by mouth daily. Indications: Bipolar disorder Active rosuvastatin (CRESTOR) 20 MG tabletIndications :Blood Cholesterol Abnormal Take 1 tablet (20 mg total) by mouth nightly at bedtime. Indications: Blood Cholesterol Abnormal Active metFORMIN (GLUCOPHAGE) 500 MG tabletIndications :Diabetes Mellitus Take 2 tablets (1,000 mg total) by mouth 2 (two) times daily with meals. Indications: Diabetes Active losartan (COZAAR) 100 MG tabletIndications :Hypertension Take 1 tablet (100 mg total) by mouth daily. Indications: High Blood Pressure Disorder Active tiZANidine (ZANAFLEX) 2 MG tabletIndications :Muscle Spasm Take 1 tablet (2 mg total) by mouth every 8 (eight) hours as needed. Indications: Muscle Spasm Active escitalopram (LEXAPRO) 20 MG tabletIndications :Bipolar disorder Take 0.5 tablets (10 mg total) by mouth daily. Indications: Bipolar disorder Active gabapentin (NEURONTIN) 300 MG capsuleIndication s:Neuropathy Take 1 capsule (300 mg total) by mouth 3 (three) times daily. Indications: Nerve Disease 07/10/20 23 Active amLODIPine (NORVASC) 5 MG tabletIndications :Hypertension Take 1 tablet (5 mg total) by mouth daily. Indications: High Blood Pressure Disorder Active meclizine (ANTIVERT) 25 MG tabletIndications :Vertigo Take 1 tablet (25 mg total) by mouth 3 (three) times daily as needed. Indications: Sensation of Spinning or Whirling Active insulin glargine (LANTUS) 100 UNIT/ML injection (VIAL)Indications :Diabetes Mellitus Inject 75 Units into the skin every morning. Indications: Diabetes Active insulin lispro (HUMALOG) 100 UNIT/ML injection (VIAL)Indications :Diabetes Mellitus Inject 0-12 Units into the skin 3 (three) times daily before meals. SLIDING SCALE BG 150-199= 3 units ES592-166= 6 units BG 250-299= 9 units BG 300-349= 12 units BG 350-399= 15 units BG >400= 20 units 10/18/19 24 Active semaglutide (OZEMPIC) 1 mg/dose injection (PEN)Indications: Diabetes Mellitus Inject 1 mg into the skin once a week. Indications: Diabetes Wednesdays Activ e VRAYLAR 3 MG capsuleIndication s:Bipolar disorder Take 1 capsule (3 mg total) by mouth daily. Indications: Bipolar disorder 04/21/20 23 Active traZODone (DESYREL) 50 MG tabletIndications :Sleep Disorder Take 1 tablet (50 mg total) by mouth nightly as needed for Sleep. Indications: Sleep Disorder 10/08/19 23 Active vitamin D3 (CHOLECALCIFEROL) 75 mcg Tab tabletIndications :Vitamin D Deficiency Take 1 tablet (75 mcg total) by mouth daily. Indications: Vitamin D Deficiency 07/10/20 23 Active ondansetron (ZOFRAN-ODT) 4 MG disintegrating tabletIndications :Nausea Take 1 tablet (4 mg total) by mouth every 8 (eight) hours as needed for Nausea. 20 tablet 10/17/19 24 Active aspirin 325 MG tabletIndications :Deep Vein Thrombosis Prophylaxis Take 1 tablet (325 mg total) by mouth 2 (two) times daily. 60 tablet 10/17/19 24 Active HYDROcodone-aceta minophen (NORCO) 10-325 MG tabletIndications :Acute Pain < 3 Day Supply Take 1 tablet by mouth every 4 (four) hours as needed. Indications: Acute Pain < 3 Day Supply 18 tablet 10/17/19 24 Active ferrous sulfate, 65 mg elemental, 325 (65 FE) MG tabletIndications :Anemia Take 1 tablet (325 mg total) by mouth daily with breakfast. 30 tablet 10/18/19 Active vitamin C (ASCORBIC ACID) 1000 MG tabletIndications :Vitamin C Imbalance Take 1 tablet (1,000 mg total) by mouth daily. 30 tablet 10/17/19 Active omeprazole (PRILOSEC) 20 MG capsuleIndication s:Gastroesophagea l reflux disease (GERD), poorly controlled Take 2 capsules (40 mg total) by mouth daily. Indications: Gastroesophageal reflux disease (GERD), poorly controlled 30 capsule 10/17/19 Active Active Problems Problem Noted Date Diagnosed Date S/P TKR (total knee replacement), left Assessment & Plan (11/25/2023 10:28 AM CDT): Recommendation at this time is to continue with progressive range of motion and strengthening. Work note to let her return to work on 12/08/23. Patient will be seen back in six months. Post-operative hematocrit drop 10/16/2023 Primary osteoarthritis of left knee 09/01/2023 Assessment & Plan (09/01/2023 3:05 PM GREEN HIDE INSPECTOR): We discussed the risks, benefits, and alternatives. The only thing proven to slow the progression of osteoarthritis is weight loss. Every pound lost relieves 4 to 6 pounds of stress across the knee. We discussed unloading braces. Formal physical therapy to help with flexibility, mobility, and strength. We discussed TENS units. Nonsteroidal anti-inflammatories as well as Tylenol and pain medication and their side effects. We discussed steroid versus Visco supplement injection. We discussed eventual total knee arthroplasty. Recommendation at this time, all questions are answered. She wants to get her left knee done as soon as possible. We discussed we needed to wait at least three months from the first surgery. We'll try to get her set up for 10/14/23. Hx of total knee replacement, right 07/24/2023 Assessment & Plan (07/24/2023 11:37 AM GREEN HIDE INSPECTOR): Recommendation at this time is to transition to outpatient physical therapy to continue working on progressive range of motion and strengthening. No refills needed at this time. Patient will be seen back in four weeks with an Xr. Type 2 diabetes mellitus wit h neurologic complication, with long-term current use of insulin ([facility]) 04/14/2023 BMI 40.0-44.9, adult 04/14/2023 Bilateral primary osteoarthritis of knee 023 Assessment & Plan (04/16/2023 5:26 PM CDT): Recommendation at this time: We went over the risk benefits, as well as the alternatives. The patient would like to proceed with total knee arthroplasty on the right so we will get her set up for a right TKR on 05/27/23. Bipolar 1 disorder ([facility]) 04/14/2023 Stage 3a chronic kidney disease 05/17/2022 Social History Tobacco Use Types Packs/Day Years Used Date Smoking Tobacco: Never Smokeless Tobacco: Never Tobacco Cessation:Counseling Given: No Comments:na Alcohol Use Standard Drinks/Week Comments Never 0 (1 standard drink = 0.6 oz pur e alcohol) OASIS D0700: Social Isolation Answer Da te Recorded Frequency of experiencing loneliness or isolatio n Never 10/28/2023 OASIS A1250: Transportation Answer Date Recorded Lack of Transportation (Medical) No 10/28/2023 Lack of Transportation (Non-Medical) No 10/28/2023 Patient Unable or Declines to Respond No 10/28/2023 OASIS B1300: Health Literacy Answer Avery e Recorded Frequency of needing help to read materials from doctor or pharmacy Never 10/28/2023 [facility] Utilities Answer Date Recorded In the past 12 months has [facility] [employer], oil, or water [employer] threatened to shut off services in your home? No 10/16/2023 Humiliation, Afraid, Rape, and Kick questionnair e Answer Date Recorded Within the last year, have y ou been afraid of your partner or ex-partner? No 10/16/2023 Within the last year, have y ou been humiliated or emotionally abused in other ways by your partner or ex-partner? No Within the last year, have y ou been kicked, hit, slapped, or otherwise physically hurt by your partner or ex-partner? No 10/16/2023 Within the last year, have y ou been raped or forced to have any kind of sexual activity by your partner or ex-partner? No 10/16/2023 Overall Financial Resource Strain (CARDIA) Answe r Date Recorded How hard is it for you to pa y for the very basics like food, housing, medical care, and heating? Not very hard 10/16/2023 PHQ-2 Answer Date Recorded Patient Health Questionnaire-2 Score 1 09/01/2023 Hunger Vital Sign Answer Date Recorded Within the past 12 months, y ou worried that your food would run out before you got the money to buy more. Never true 10/16/19 24 Within the past 12 months, t he food you bought just didn't last and you didn't have money to get more. Never true 10/16/2023 PRAPARE - Transportation Answer Date Re corded In the past 12 months, has l ack of transportation kept you from medical appointments or from getting medications? No 09/19 In the past 12 months, has l ack of transportation kept you from meetings, work, or from getting things needed for daily living? No 10/16/2023 Housing Stability Vital Sign Answer Avery e Recorded In the last 12 months, was t here a time when you were not able to pay the mortgage or rent on time? No 10/16/2023 In the last 12 months, how many places have you lived? 1 10/16/2023 In the last 12 months, was t here a time when you did not have a steady place to sleep or slept in a detention (including now)? No 10/16/2023 Comments No Sex and Gender Information Value Date Recorded Sex Assigned at Not on file Legal Sex Female 7:42 PM CDT Gender Identity Not on file Sexual Orientation Not on file Last Filed Vital Signs Vital Sign Reading Time Taken Comments Blood Pressure 150/81 11/24/2023 1:23 PM CDT Pulse 77 11/24/2023 1:06 PM CDT Temperature 36.6 C (97.8 F) 11/24/2023 1:06 PM CDT Respiratory Rate 17 11/24/2023 1:06 PM CDT Oxygen Saturation 98% 11/24/2023 1:06 PM CDT Inhaled Oxygen Concentration - - Weight 133.7 kg (294 lb 12.8 oz) 11/24/2023 1:06 PM CDT Height 172.7 cm (5' 8 ) 11/24/2023 1:0 6 PM CDT Body Mass Index 44.82 11/24/2023 1:06 PM CDT Plan of Treatment Health Maintenance Due Date Last Done Comments Cervical Cancer Screening Pa p Smear (Age 30 to 64) Every 3 Years 1962 Colorectal Cancer Screening Colonoscopy (10 Years) 1962 Kidney Health Evaluation 1962 Lipid Panel 1962 Annual Physical 1965 Diabetes: Retinopathy Eye Exam 1980 Hepatitis C 1980 Cervical Cancer Screening Pa p with HPV Testing (Age 30 to 64) Every 5 Years 1992 Cervical Cancer Screening wi th HPV 1992 Mammogram Screening 2002 Zoster Vaccines (1 of 2) 2012 Pneumococcal Vaccine: 50+ Years (2 of 2 - PCV) 03/21/2020 03/21/2019, 03/09/2018 RSV Immunization or 60+ Years (1 - Risk 60-74 years 1-dose series) 2022 COVID-19 Vaccine (3 - 2023-2 5 season) 2024 10/11/2020, 09/20/2020 Hemoglobin A1C 04/08/2024 10/07/2023, 05/15/2023 PHQ-2 ([facility] [place]) 07/21/2024 09/01/2023 DTaP, Tdap and Td Vaccines ( 2 - Td or Tdap) 04/04/2027 04/04/2017 Meningococcal B Vaccine Aged Out No l onger eligible based on patient's age to complete this topic Meningococcal Vaccine Aged Out No gilberto anai eligible based on patient's age to complete this topic RSV Immunizations Under 20 Months Aged Out No longer eligible b ased on patient's age to complete this topic Medical Devices Implanted Type Area Input Output Clerk Device Identifier Shelf Expiration Date Model / Serial / Lot Cement Bone Tobramycin Simplex - [id number] Implanted:Qty: 1 on 07/08/2023 by Ronald Payan DO at [facility] Cement Implant Right: Knee [employer] - DIV Pusher ALISON [id number] 10/18/2024 6197-9-0 10 / / [id number] Cement Bone Tobramycin Simplex - [id number] Implanted:Qty: 1 on 07/08/2023 by Ronald Payan DO at [facility] Cement Implant Right: Knee [employer] - DIV MAHESH ALISON [id number] 08/20/2024 6197-9-0 10 / / [id number] Baseplate Tibial Triathlon 6 [place] Knee Cocr - [id number] Implanted:Qty: 1 on 07/08/2023 by Ronald Payan DO at [facility] Knee Components Right: Knee [employer] DIV [employer]ESH ALISON [id number] 03/04/2026 5521-B-6 00 / / [id number] Stem Extension 50mm 12mm Triathlon Knee Cocr Cement Total Stabilize End Cap Sterile Latex Free - [id number] Implanted:Qty: 1 on 07/08/2023 by Ronald Payan DO at [facility] Knee Components Right: Knee [employer] - DIV [employer]ESH ALISON [id number] 11/04/2027 5560-S-1 12 / / [id number] Component Femoral Mahesh Cruciate Retaining Sz 5 Right - [id number] Implanted:Qty: 1 on 07/08/2023 by Ronald Payan DO at [facility] Knee Components Right: Knee [employer] DIV [employer] ALISON [id number] 04/18/2028 5510-F-5 02 / / [id number] Component Femoral 5 Knee Left Cruciate Retain Bead Triathlon Pa Sterile Latex Free - [id number] Implanted:Qty: 1 on 10/14/2023 by Ronald Payan DO at [facility] Knee Components Left: Knee [employer] DIV [employer] ALISON [id number] 06/23/2028 5517-F-5 01 / / [id number] Baseplate Tibial Triathlon 5 Knee Tritanium - [id number] Implanted:Qty: 1 on 10/14/2023 by Ronald Payan DO at [facility] Knee Components Left: Knee [employer] DIV [employer] ALISON [id number] 07/24/2028 5536-B-5 00 / / [id number] Pin Mahesh Bone Santiago 110 X 4 - [id number] Implanted:Qty: 1 on 07/08/2023 by Ronald Payan DO at [facility] Pin Right: Knee [employer]HESH ALISON 04/03/2028 [id number] / / [id number] Pump Pain On-Q 400ml - [id number] Implanted:Qty: 1 on 07/08/2023 by Ronald Payan DO at [facility] Pump Right: Knee [employer] 10/05/2025 [id number] / / [id number] Triathlon X3 Asymmetric Patella A35, 10mm Implanted:Qty: 1 on 07/08/2023 by Ronald Payan DO at [facility] Right: Knee [id number] 08/31/2025 [id number] E / / [id number] Triathlon X3 Tibial Bearing Insert Cs 6, Cs, 9mm Implanted:Qty: 1 on 07/08/2023 by Ronald Payan DO at [facility] Right: Knee [id number] 12/16/2027 [id number] E / / [id number] On Q Antimicrobial Expansion Kits With Silversoaker Antimicrobial Catheter Implanted:Qty: 1 on 10/14/2023 by Ronald Payan DO at [facility] Left: Knee [id number] 12/02/2025 WT622-N / / [id number] Triathlon Tritanium Asymmetric Patella Implanted:Qty: 1 on 10/14/2023 by Ronald Payan DO at [facility] Left: Knee [employer]ISON [id number] 06/09/2028 [id number] / / [id number] Triathlon X3 Tibial Bearing Insert Cs Implanted:Qty: 1 on 10/14/2023 by Ronald Payan DO at [facility] Left: Knee [employer] ALISON [id number] 08/26/2028 [id number] E / / [id number] Explanted Type Area Input Output Clerk Device Identifier Shelf Expiration Date Model / Serial / Lot Pin Fixation 110mm 3.2mm Bone Sterile Latex Free - [id number] Explanted:Qty: 1 on 07/08/2023 at [facility] Pin Right: Knee [employer]ISON [id number] / / Pin Mahesh Bone Santiago 140 X 4 - [id number] Explanted:Qty: 1 on 07/08/2023 at [facility] Pin Right: Knee [employer] ALISON [id number] / / Pin Mahesh Bone Santiago 140 X 4 - [id number] Explanted:Qty: 1 on 10/14/2023 at [facility] Pin Left: Knee [employer] ALISON 03/31/2028 [id number] / / [id number] Pin Mahesh Bone Santiago 110 X 4 - [id number] Explanted:Qty: 1 on 10/14/2023 at [facility] Pin Left: Knee [employer]ISON [id number] 03/03/2028 [id number] / / [id number] Pump Pain On-Q 400ml - [id number] Explanted:Qty: 1 on 10/14/2023 at [facility] Pump [employer] [id number] / / Description:Not an implant. Procedures Procedure Name Priority Date/Time Associated Diagnosis Comments HEMOGLOBIN, GLYCOSYLATED Routine 10/07/2023 12:17 PM CDT Bilateral primary osteoarthritis of knee BMI 40.0-44.9, adult Type 2 diabetes mellitus with diabetic polyneuropathy, with long-term current use of insulin Bipolar 1 disorder from Last 3 Months or Most Recently Relevant to Health Maintenance Results * (ABNORMAL) HEMOGLOBIN, GLYCOSYLATED (A1C) (10/07/2023 12:17 PM CDT) HGB A1C 7.1(H) <5.7 % 10/07/2023 1:06 PM CDT [facility] Comment: INCREASED RISK OF DIABETES <5.7% NON-DIABETES 5.7-6.4% INCREASED RISK FOR FUTURE DIABETES > OR = 6.5 CONSISTENT WITH DIABETES STANDARDS OF MEDICAL CARE IN DIABETES-2010 DIABETES CARE, 33(SUPP 1): S1-S61,2010 ESTIMATED AVG GLUCOSE 157 mg/dL 10/07/2023 1:06 PM CDT [facility] 10/07/2023 12:1 7 PM CDT Ronald Payan DO LABORATORY Final Result [facility] [address] [place] [address], from Last 3 Months or Most Recently Relevant to Health Maintenance Insurance [facility] Advance Directives * Full Code (Latest Code Status on File) Date Activated Date Inactivated Comments 10/18/2023 11:46 AM * Full Code Date Activated Date Inactivated Comments 10/14/2023 1:02 PM 10/17/2023 3:07 PM * Full Code Date Activated Date Inactivated Comments 07/10/2023 3:23 PM 10/14/2023 7:38 AM * Full Code Date Activated Date Inactivated Comments 07/08/2023 11:07 AM 07/09/2023 2:27 PM Care Teams Office Assistant Relationship Specialty Start Date End Date Jose Jordan MD [address] [place] [address] PCP - General FAMILY PRACTICE 04/14/23
--- OUTSIDE RECORDS SUMMARY | 2024-11-28 02:16 | XMS_ITS | Clinical Summary ---
Author Organization [facility] Address [address] [place] [address] Phone Care Team Providers Care Pari Mutuel Ticket Cashier Name Role Phone Jose Jordan MD Primary Care Provider [phone] Allergies Active Allergy Reactions Criticality Noted Date [...] 2025 Insurance [employer] MEDICARE Care Teams Pari Mutuel Ticket Cashier Relationship Specialty Start Date End Date Jose Jordan MD [address] [place] [address] PCP - General Family Medicine 04/03/20
--- OUTSIDE RECORDS SUMMARY | 2024-11-28 02:16 | XMS_ITS | Encounter Summary ---
Author Organization [facility] Address [address] [place] [address] Care Team Providers Care Manager In Training Name Role Phone Jose Jordan MD Primary Care Provider [phone] Encounter Details Date Type Department Care Team (Late st Contact Info) Description 10/02/[address] [facility] [address] [place] [address] [place] [address] [place] [address] Social History Tobacco Use Types [...] COMPREHENSIVE METABOLIC PANEL (10/07/2023 12:17 PM CDT) [facility] GLUCOSE 167(H) 70 - 99 MG/DL 10/07/2023 12:54 PM CDT [facility] BUN 28(H) 7 - 18 MG/DL 10/07/2023 12:54 PM CDT [facility] CREATININE S/P/B 1.77(H) 0.55 - 1.02 MG/DL 10/07/2023 12:54 PM CDT [facility] SODIUM S/P/B 135(L) 136 - 145 MMOL/L 10/07/2023 12:54 PM CDT [facility] POTASSIUM S/P/B 3.9 3.5 - 5.1 MMOL/L 10/07/2023 12:54 PM [facility] CHLORIDE S/P/B 96(L) 100 - 108 MMOL/L 10/07/2023 12:54 PM [facility] CO2 24.6 21 - 32 MMOL/L 10/07/2023 12:54 PM [facility] CALCIUM S/P/B 9.1 8.5 - 10.1 MG/DL 10/07/2023 12:54 PM [facility] BILIRUBIN TOTAL S/P/B 0.6 0.2 - 1.2 MG/DL 10/07/2023 12:54 PM [facility] TOTAL PROTEIN S/P/B 7.8 6.4 - 8.2 G/DL 10/07/2023 12:54 PM [facility] ALBUMIN S/P/B 2.9(L) 3.4 - 5.0 G/DL 10/07/2023 12:54 PM [facility] AST 13(L) 15 - 37 U/L 10/07/2023 12:54 PM [facility] ALT 20 14 - 55 U/L 10/07/2023 12:54 PM [facility] ALKALINE PHOSPHATASE S/P/B 82 50 - 136 U/L 10/07/2023 12:54 PM [facility] ANION GAP 14.4 5 - 15 MMOL/L 10/07/2023 12:54 PM [facility] BUN CREATININE RATIO 15.8 6 - 26 10/07/2023 12:54 PM [facility] A/G RATIO 0.6(L) 1.0 - 2.0 RATIO 10/07/2023 12:54 PM [facility] GFR ESTIMATE 32(L) >90 ML/MIN/1.7 3 M2 10/07/2023 12:54 PM CDT [facility] Comment: NOTE: eGFR is not calculated for patients <18 years of age. This is an estimated GFR calculation using the new CKD EPI creatinine equation without race and so does not require a correction factor for race. This estimated GFR should not be used for calculating drug doses. 10/07/2023 12:1 7 PM CDT Ronald Payan DO LABORATORY Final Result [facility] [address] [place] [address], * (ABNORMAL) CBC W/DIFF AUTOMATED (10/07/2023 12:17 PM CDT) WBC 9.48 4.4 - 11.0 x10'3/uL 10/07/2023 12:40 PM CDT [facility] RBC 4.75 4.50 - 5.10 x10'6/uL 10/07/2023 12:40 PM CDT [facility] HGB 10.9(L) 12.3 - 15.3 G/DL 10/07/2023 12:40 PM CDT [facility] HCT 36.8 35.9 - 44.6 % 10/07/2023 12:40 PM CDT [facility] MCV 77.5(L) 80.0 - 96.0 FL 10/07/2023 12:40 PM CDT [facility] MCH 22.9(L) 25.3 - 30.9 PG 10/07/2023 12:40 PM CDT [facility] MCHC 29.6(L) 31.0 - 34.1 G/DL 10/07/2023 12:40 PM CDT [facility] RDW 18.2(H) 12.4 - 15.1 % 10/07/2023 12:40 PM CDT [facility] PLT 446(H) 151 - 353 x10'3/uL 10/07/2023 12:40 PM CDT [facility] MPV 8.5(L) 9.6 - 12.0 FL 10/07/2023 12:40 PM CDT [facility] RBC MORPHOLOGY NORMAL 10/07/2023 12:40 PM CDT [facility] PLT MORPH. NORMAL 10/07/2023 12:40 PM CDT [facility] WBC MORPHOLOGY NORMAL 10/07/2023 12:40 PM T [facility] LYMPHOCYTES % 21.9 15.8 - 45.0 % 10/07/2023 12:40 PM CDT [facility] NEUTROPHILS % 66.6 42.1 - 71.9 % 10/07/2023 12:40 PM CDT [facility] MONOCYTES % 7.2 5.7 - 12.5 % 10/07/2023 12:40 PM CDT [facility] EOSINOPHILS 2.3 0.0 - 5.6 % 10/07/2023 12:40 PM CDT [facility] BASOPHILS 0.7 0.0 - 1.3 % 10/07/2023 12:40 PM CDT [facility] ABS. NEUTROPHILS 6.31(H) 1.40 - 6.00 x10'3/uL 10/07/2023 12:40 PM CDT [facility] IMMATURE GRANS % 1.3(H) 0.0 - 0.5 % 10/07/2023 12:40 PM CDT [facility] ABS. LYMPHOCYTES 2.08 0.80 - 4.70 x10'3/uL 10/07/2023 12:40 PM CDT [facility] 10/07/2023 12:1 7 PM CDT Ronald Payan DO LABORATORY Final Result Performing Organization Address City/State/[facility] Co de Phone Number [facility] [address] [place] [address], documented in this encounter Visit Diagnoses Diagnosis Preop testing- Primary Preoperative examination, unspecified documented in this encounter Care Teams Manager In Training Relationship Specialty Start Date End Date Jose Jordan MD [address] [address] PCP - General FAMILY PRACTICE 04/14/23 documented as of this encounter
--- OUTSIDE RECORDS SUMMARY | 2024-11-28 02:16 | XMS_ITS | Clinical Summary ---
Author Organization [facility] Address [address] [place] [address] Care Team Providers Care Family Physician Name Role Phone Jose Jordan MD Primary Care Provider [phone] Allergies Active Allergy Reactions Criticality Noted Date [...] meals. SLIDING SCALE BG 150-199= 3 units DB522-432= 6 units BG 250-299= 9 units BG [...] 09/01/2023 Assessment & Plan (09/01/2023 3:05 PM WEIGHT GUESSER): We discussed the risks, benefits, and alternatives. [...] 07/24/2023 Assessment & Plan (07/24/2023 11:37 AM WEIGHT GUESSER): Recommendation at this time is to transition to outpatient physical therapy to continue working on progressive range of motion and strengthening. No refills needed at this time. Patient will be seen back in four weeks with an Xr. Type 2 diabetes mellitus wit h neurologic complication, with long-term current use of insulin ([facility]) 04/14/2023 BMI 40.0-44.9, adult 04/14/2023 Bilateral primary osteoarthritis of knee 023 Assessment & Plan (04/16/2023 5:26 PM CDT): Recommendation at this time: We went over the risk benefits, as well as the alternatives. The patient would like to proceed with total knee arthroplasty on the right so we will get her set up for a right TKR on 05/27/23. Bipolar 1 disorder ([facility]) 04/14/2023 Stage 3a chronic kidney disease 05/17/2022 [...] materials from doctor or pharmacy Never 10/28/2023 [facility] Utilities Answer Date Recorded In the past 12 months has [facility] Tiltap, oil, or water [employer] threatened to shut off services in your [...] place to sleep or slept in a senior care (including now)? No 10/16/2023 Comments No Sex [...] Hemoglobin A1C 04/08/2024 10/07/2023, 05/15/2023 PHQ-2 (Physician [place]) 07/21/2024 09/01/2023 DTaP, Tdap and Td Vaccines [...] this topic Medical Devices Implanted Type Area Coke Inspector Device Identifier Shelf Expiration Date Model / Serial / Lot Cement Bone Tobramycin Simplex - [id number] Implanted:Qty: 1 on 07/08/2023 by Ronald Payan DO at [facility] Cement Implant Right: Knee [employer] - DIV SpeedDate ALISON [id number] 10/18/2024 6197-9-0 10 / / [id number] Cement Bone Tobramycin Simplex - [id number] Implanted:Qty: 1 on 07/08/2023 by Ronald Payan DO at [facility] Cement Implant Right: Knee [employer] DIV MAHESH ALISON [id number] 08/20/2024 6197-9-0 10 / / [id number] Baseplate Tibial Triathlon 6 [place] Knee Cocr - [id number] Implanted:Qty: 1 on 07/08/2023 by Ronald Payan DO at [facility] Knee Components Right: Knee [employer] DIV MAHESH ALISON [id number] 03/04/2026 5521-B-6 00 / / [id number] Stem Extension 50mm 12mm Triathlon Knee Cocr Cement Total Stabilize End Cap Sterile Latex Free - [id number] Implanted:Qty: 1 on 07/08/2023 by Ronald Payan DO at [facility] Knee Components Right: Knee [employer] DIV MAHESH ALISON [id number] 11/04/2027 5560-S-1 12 / / [id number] Component Femoral Mahesh Cruciate Retaining Sz 5 Right - [id number] Implanted:Qty: 1 on 07/08/2023 by Ronald Payan DO at [facility] Knee Components Right: Knee [employer] DIV [employer]ESH ALISON [id number] 04/18/2028 5510-F-5 02 / / [id number] Component Femoral 5 Knee Left Cruciate Retain Bead Triathlon Pa Sterile Latex Free - [id number] Implanted:Qty: 1 on 10/14/2023 by Ronald Payan DO at [facility] Knee Components Left: Knee [employer]HESH ALISON [id number] 06/23/2028 5517-F-5 01 / / [id number] Baseplate Tibial Triathlon 5 Knee Tritanium - [id number] Implanted:Qty: 1 on 10/14/2023 by Ronald Payan DO at [facility] Knee Components Left: Knee [employer]ESH ALISON [id number] 07/24/2028 5536-B-5 00 / / [id number] Pin Mahesh Bone Santiago 110 X 4 - [id number] Implanted:Qty: 1 on 07/08/2023 by Ronald Payan DO at [facility] Pin Right: Knee [employer] MAHESH ALISON 04/03/2028 [id number] / / [id number] Pump Pain On-Q 400ml - [id number] Implanted:Qty: 1 on 07/08/2023 by Ronald Payan DO at [facility] Pump Right: Knee [employer] 10/05/2025 [id number] / / [id number] Triathlon X3 Asymmetric Patella A35, 10mm Implanted:Qty: 1 on 07/08/2023 by Ronald Payan DO at [facility] Right: Knee [id number] 08/31/2025 [id number] E / / [id number] Triathlon X3 Tibial Bearing Insert Cs 6, Cs, 9mm Implanted:Qty: 1 on 07/08/2023 by Ronald Payan DO at [facility] Right: Knee [id number] 12/16/2027 [id number] E / / [id number] On Q Antimicrobial Expansion Kits With Silversoaker Antimicrobial Catheter Implanted:Qty: 1 on 10/14/2023 by Ronald Payan DO at [facility] Left: Knee [id number] 12/02/2025 EV123-J / / [id number] Triathlon Tritanium Asymmetric Patella Implanted:Qty: 1 on 10/14/2023 by Ronald Payan DO at [facility] Left: Knee [employer] ALISON [id number] 06/09/2028 [id number] / / [id number] Triathlon X3 Tibial Bearing Insert Cs Implanted:Qty: 1 on 10/14/2023 by Ronald Payan DO at [facility] Left: Knee [employer]HESH ALISON [id number] 08/26/2028 [id number] E / / [id number] Explanted Type Area Coke Inspector Device Identifier Shelf Expiration Date Model / Serial / Lot Pin Fixation 110mm 3.2mm Bone Sterile Latex Free - [id number] Explanted:Qty: 1 on 07/08/2023 at [facility] Pin Right: Knee [employer]HESH ALISON [id number] / / Pin Mahesh Bone Santiago 140 X 4 - [id number] Explanted:Qty: 1 on 07/08/2023 at [facility] Pin Right: Knee [employer] ALISON [id number] / / Pin Mahesh Bone Santiago 140 X 4 - [id number] Explanted:Qty: 1 on 10/14/2023 at [facility] Pin Left: Knee [employer]ESH ALISON 03/31/2028 [id number] / / [id number] Pin Mahesh Bone Santiago 110 X 4 - [id number] Explanted:Qty: 1 on 10/14/2023 at [facility] Pin Left: Knee [employer] ALISON [id number] 03/03/2028 [id number] / / [id number] Pump Pain On-Q 400ml - [id number] Explanted:Qty: 1 on 10/14/2023 at [facility] Pump [id number] [id number] / / Description:Not an [...] 7.1(H) <5.7 % 10/07/2023 1:06 PM CDT [facility] Comment: INCREASED RISK OF DIABETES <5.7% NON-DIABETES 5.7-6.4% INCREASED RISK FOR FUTURE DIABETES > OR = 6.5 CONSISTENT WITH DIABETES STANDARDS OF MEDICAL CARE IN DIABETES-2010 DIABETES CARE, 33(SUPP 1): S1-S61,2010 ESTIMATED AVG GLUCOSE 157 mg/dL 10/07/2023 1:06 PM CDT [facility] 10/07/2023 12:1 7 PM CDT Ronald Payan DO LABORATORY Final Result [facility] [address] [place] [address], from Last 3 Months or Most Recently Relevant to Health Maintenance Insurance [facility] Advance Directives * Full Code (Latest Code Status on File) Date Activated Date Inactivated Comments 10/18/2023 11:46 AM * Full Code Date Activated Date Inactivated Comments 10/14/2023 1:02 PM 10/17/2023 3:07 PM * Full Code Date Activated Date Inactivated Comments 07/10/2023 3:23 PM 10/14/2023 7:38 AM * Full Code Date Activated Date Inactivated Comments 07/08/2023 11:07 AM 07/09/2023 2:27 PM Care Teams Family Physician Relationship Specialty Start Date End Date Jose Jordan MD [address] [place] [address] PCP - General FAMILY PRACTICE 04/14/23
--- NOTE | 2024-11-28 02:29 | ED.GENADULT ---
HPI - General Adult General Chief complaint: Extremity Injury, Lower Stated complaint: right hip and leg pain Time Seen by Provider: 11/28/24 01:34 History of Present Illness HPI narrative: This is a 64-year-old female history of chronic back pain on daily opiates presenting with right hip pain. Two days ago she developed pain in her right hip. It is in the lateral aspect of her hip and into her thigh. It is painful to raise her leg. She does not have any weakness in the lower extremity. She had been taking her hydrocodone with some improvement but has not taken any in the last 36 hours. No trauma. No fevers. Related Data Home Medications ?Medication ?Instructions ?Recorded ?Confirmed ?Last Taken ?Type cariprazine 1.5 mg capsule 1.5 mg PO DAILY 03/29/22 11/11/24 03/09/24 History (Vraylar) ascorbic acid (vitamin C) 1,000 mg 1 g PO DAILY 10/22/23 11/11/24 03/09/24 History capsule cholecalciferol (vitamin D3) 50 50 mcg PO DAILY 10/22/23 11/11/24 03/09/24 History mcg (2,000 unit) capsule ferrous sulfate 325 mg (65 mg 325 mg PO DAILY 10/22/23 11/11/24 03/09/24 History iron) tablet (FeroSul) naloxone 4 mg/actuation nasal 4 mg intranasal Q2M PRN OVERDOSE 10/22/23 11/11/24 03/09/24 History spray (Narcan) meclizine 25 mg tablet 25 mg PO TID PRN Dizziness 12/25/23 11/11/24 03/09/24 History trazodone 50 mg tablet 50 mg PO HS PRN sleep 07/06/24 11/11/24 Unknown History Allergies Allergy/AdvReac Type Severity Reaction Status Date / Time codeine Allergy Unknown Hallucinati Verified 11/28/24 02:34 ng chocolate flavor AdvReac Intermediate Rash Verified 11/28/24 02:34 empagliflozin (From AdvReac Intermediate kidney Verified 11/28/24 02:34 Jardiance) infection PMFSH Past Medical History Medical History Diabetic toe ulcer Type II diabetes mellitus Diabetic foot ulcer associated with type 2 diabetes mellitus Hx of deep venous thrombosis 2020 Chronic kidney disease Obstructive sleep apnea on CPAP Cerebrovascular accident Hypertension Viral meningitis Bipolar disorder Osteoarthritis Restless legs Type 2 diabetes mellitus Tobacco abuse Skin cancer Suicide attempt x4 Depression Anxiety Bilateral carpal tunnel syndrome Arthritis Surgical History Surgical History Status post amputation of right great toe 07/08/[address]st toe am[address] Dr. Fuentes History of bilateral carpal tunnel release History of bilateral knee arthroplasty History of hernia repair umbilical hernia repair History of surgical removal of ganglion cyst History of cholecystectomy History of tonsillectomy Family History Family History Father Family history of diabetes mellitus in first degree relative Diabetes mellitus Hypertension Family history of kidney disease Mother Acute myocardial infarction Sibling No problems noted. Other Family history of cardiovascular disease Social History Social History Social History: Surrogate medical decision maker: Ely Sosa, sibling. Code status: Full code. Smoking packs per day: 1 Smoking cigarettes per day: 20.0 Years smoked: 15 Smoking pack-years: 15.00 Smoking status: Former smoker Second hand tobacco smoke exposure: Yes Alcohol intake: never Substance use: never Substance use type: does not use Do You Feel Safe in your Home?: Yes Lack of Transportation: No Lack of Food: Never True Current Housing: I Have Housing Concerned About Future Housing: No Difficulty Paying Gas/Electric Bills: No Difficulty Paying for Meds: No Currently Unemployed: No Education: Trade/Vocational Certificate Difficulty w/ Childcare or Family Care: YES Living arrangements: with family Additional living arrangements comments: Lives with niece to help after surgery. 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 Spiritual care concerns: No Exam Narrative: APPEARANCE: No apparent distress. Head: atraumatic. EYES: EOMI, NOSE: Atraumatic NECK: Trachea midline RESPIRATORY: No increased rate of breathing CARDIOVASCULAR: RRR, ABDOMINAL: Non-distended MUSCULOSKELETAl: Focal exam of the lower extremities revealed no obvious deformities or shortening. Pain with flexion, extension, internal external rotation of the hip. Pulses are +2. Cap refills less than 2 seconds. All compartments are soft. No overlying skin changes. NEURO: Alert. Moving 4/4 extremities SKIN:: Warm, dry. Normal color PSYCHIATRIC: Normal affect Course Vital Signs Vital signs: Vital Signs Temperature 97.9 F 11/28/24 01:16 Pulse Rate 67 11/28/24 01:16 Respiratory Rate 18 11/28/24 01:16 Blood Pressure 137/66 11/28/24 01:16 Pulse Oximetry 97 11/28/24 01:16 Oxygen Delivery Room Air 11/28/24 01:16 Temperature 97.9 F 11/28/24 01:16 Pulse Rate 67 11/28/24 01:16 Respiratory Rate 18 11/28/24 01:16 Blood Pressure 137/66 11/28/24 01:16 Pulse Oximetry 97 11/28/24 01:16 Oxygen Delivery Room Air 11/28/24 01:16 Medical Decision Making MDM Narrative Medical decision making narrative: -Course: This is a 64-year-old female with history of chronic back pain on daily opiates presenting with right hip pain. X-rays show degenerative changes but no acute fractures on my interpretation. Official read will occur in the morning. Physical exam is unremarkable with no overlying skin changes. No functional deficits. All compartments are soft and she has strong pulses. Suspect her pain is due to arthritis. Patient will be discharged to follow-up with her orthopedic surgeon for further management. Given return precautions for weakness extremity her severe pain. -DDX includes but is not limited to: Arthritis, occult hip fracture, septic joint, sciatica -Co-morbidities complicating care: Obesity, chronic opiate use Vital Signs Vital Signs: Vital Signs Temperature 97.9 F 11/28/24 01:16 Pulse Rate 67 11/28/24 01:16 Respiratory Rate 18 11/28/24 01:16 Blood Pressure 137/66 11/28/24 01:16 Pulse Oximetry 97 11/28/24 01:16 Oxygen Delivery Room Air 11/28/24 01:16 Temperature 97.9 F 11/28/24 01:16 Pulse Rate 67 11/28/24 01:16 Respiratory Rate 18 11/28/24 01:16 Blood Pressure 137/66 11/28/24 01:16 Pulse Oximetry 97 11/28/24 01:16 Oxygen Delivery Room Air 11/28/24 01:16 Discharge Plan Discharge Clinical Impression: Acute hip pain Patient Disposition: Home Condition: Stable Instructions: Antibiotic Form, Arthralgia (ED) Additional Instructions: You were seen emergency department for hip pain. Please continue taking your pain medications. Please follow-up with your orthopedic surgeon for further evaluation. If you develop weakness your leg or severe pain return to the ED for re-evaluation. Patient Language: Chinese Prescriptions: No Action ferrous sulfate [FeroSul] 325 mg (65 mg iron) tablet 325 mg PO DAILY cholecalciferol (vitamin D3) 50 mcg (2,000 unit) capsule 50 mcg PO DAILY naloxone [Narcan] 4 mg/actuation spray,non-aerosol 4 mg intranasal Q2M PRN (Reason: OVERDOSE) Rx Instructions: spray 1 dose into ONE nostril; alternate nostrils w each dose until help arrives ascorbic acid (vitamin C) 1,000 mg capsule 1 g PO DAILY hydrocodone-acetaminophen 10-325 mg tablet 1 tablet PO Q6H PRN (Reason: pain) Qty: 120 0RF gabapentin 300 mg capsule 600 mg PO Q8H Qty: 540 2RF Vraylar 1.5 mg Capsule 1.5 mg PO DAILY ondansetron 4 mg tablet,disintegrating 4 mg PO Q8H PRN (Reason: nausea and vomiting) Qty: 12 0RF trazodone 50 mg tablet 50 mg PO HS PRN (Reason: sleep) Patient Comments: Takes 1-2 takes daily for sleep meclizine 25 mg tablet 25 mg PO TID PRN (Reason: Dizziness) insulin glargine [Lantus U-100 Insulin] 100 unit/mL solution 75 unit SUBCUT DAILY Qty: 70 4RF metformin 500 mg tablet 1,000 mg PO BID Qty: 360 5RF bupropion HCl 300 mg tablet extended release 24 hr 300 mg PO QAM Qty: 90 1RF amlodipine 5 mg tablet 5 mg PO DAILY Qty: 90 3RF rosuvastatin 20 mg tablet 20 mg PO .Qevening Qty: 90 1RF Rx Instructions: Take 1 tablet by mouth once daily tizanidine 2 mg tablet 2 mg PO TID PRN (Reason: muscle spasticity) Qty: 90 2RF omeprazole 40 mg capsule,delayed release(DR/EC) 40 mg PO DAILY Qty: 90 1RF escitalopram oxalate 20 mg tablet 10 mg PO DAILY Qty: 45 4RF losartan 100 mg tablet 100 mg PO DAILY Qty: 90 1RF famotidine 40 mg tablet 40 mg PO QHS Qty: 90 0RF insulin lispro 100 unit/mL insulin pen See Rx Instructions .ROUTE .COMPLEX Qty: 15 1RF Dose Instruction: INJECT PER SLIDING SCALE DOSE BEFORE MEALS AND AT BEDTIME. MAX DAILY DOSE OF 80 UNITS Rx Instructions: INJECT PER SLIDING SCALE DOSE BEFORE MEALS AND AT BEDTIME. MAX DAILY DOSE OF 80 UNITS Follow-up/Referrals: Jose Jordan MD [Primary Care Provider] - 1 Week
[2024-11-28] MEDS: ACETAMINOPHEN 500 MG TABLET 1000 MG PO (02:35)
[2024-11-28] MEDS: KETOROLAC 30 MG/ML VIAL (*BKC) IM (02:36)
[2024-11-28] MEDS: oxyCODONE HCL (*CRX) 5 MG TAB IR 10 MG PO (02:36)
== END 2024-11-28 03:53 | disposition home or self-care (01) ==
PROVIDERS: Emergency Provider Emergency Medicine; PCP Family Medicine
DX: M25.551 Pain in right hip (principal); G89.29 Other chronic pain; M54.9 Dorsalgia, unspecified; E11.22 Type 2 diabetes mellitus with diabetic chronic kidney disease; I12.9 Hypertensive chronic kidney disease with stage 1 through stage 4 chronic kidney disease, or unspecified chronic kidney disease; N18.9 Chronic kidney disease, unspecified; E66.9 Obesity, unspecified; G47.33 Obstructive sleep apnea (adult) (pediatric); G25.81 Restless legs syndrome; M19.90 Unspecified osteoarthritis, unspecified site; F31.9 Bipolar disorder, unspecified; F41.9 Anxiety disorder, unspecified; Z96.653 Presence of artificial knee joint, bilateral; Z86.73 Personal history of transient ischemic attack (TIA), and cerebral infarction without residual deficits; Z85.828 Personal history of other malignant neoplasm of skin; Z86.718 Personal history of other venous thrombosis and embolism; Z87.891 Personal history of nicotine dependence; Z89.411 Acquired absence of right great toe; Z90.49 Acquired absence of other specified parts of digestive tract; Z79.891 Long term (current) use of opiate analgesic; Z79.899 Other long term (current) drug therapy; Z79.4 Long term (current) use of insulin; Z79.84 Long term (current) use of oral hypoglycemic drugs
CPT/HCPCS: 73502; 96372; 99283; A9270; J1885

== ENCOUNTER 2024-12-01 11:23 | Outpatient (CLI) | payer MEDICARE, SELFPAY ==
--- NOTE | ~2024-12-01 | XR_ITS ---
Right Knee Technique: AP, lateral, and sunrise views were obtained. Clinical History: Effusion Findings: No fracture or dislocation is seen. Right knee arthroplasty in place. Soft tissues are unre markable. No joint effusion is seen. Impression: No acute abnormality. No joint effusion. Right knee arthroplasty in place. Reviewed, dictated and finalized at location . Impression: No acute abnormality. No joint effusion. Right knee arthroplasty in place.
--- OUTSIDE RECORDS SUMMARY | 2024-12-01 11:31 | XMS_ITS | Clinical Summary ---
Author Organization [facility] Address [address] [place] [address] Care Team Providers Care Taker Down Name Role Phone Jose Jordan MD Primary Care Provider [phone] Allergies Active Allergy Reactions Criticality Noted Date [...] meals. SLIDING SCALE BG 150-199= 3 units [id number]= 6 units BG 250-299= 9 units BG [...] 09/01/2023 Assessment & Plan (09/01/2023 3:05 PM COMPUTED TOMOGRAPHY TECHNICIAN): We discussed the risks, benefits, and alternatives. [...] 07/24/2023 Assessment & Plan (07/24/2023 11:37 AM COMPUTED TOMOGRAPHY TECHNICIAN): Recommendation at this time is to transition to outpatient physical therapy to continue working on progressive range of motion and strengthening. No refills needed at this time. Patient will be seen back in four weeks with an Xr. Type 2 diabetes mellitus wit h neurologic complication, with long-term current use of insulin ([facility]) 04/14/2023 BMI 40.0-44.9, adult 04/14/2023 Bilateral primary osteoarthritis of knee 023 Assessment & Plan (04/16/2023 5:26 PM CDT): Recommendation at this time: We went over the risk benefits, as well as the alternatives. The patient would like to proceed with total knee arthroplasty on the right so we will get her set up for a right TKR on 05/27/23. Bipolar 1 disorder ([facility]) 04/14/2023 Stage 3a chronic kidney disease 05/17/2022 [...] materials from doctor or pharmacy Never 10/28/2023 [facility] Utilities Answer Date Recorded In the past [address] [facility] [employer], oil, or water [employer] threatened to shut off services in your [...] place to sleep or slept in a fpc (including now)? No 10/16/2023 Comments No Sex [...] Hemoglobin A1C 04/08/2024 10/07/2023, 05/15/2023 PHQ-2 ([facility] [place]) 07/21/2024 09/01/2023 DTaP, Tdap and Td Vaccines [...] this topic Medical Devices Implanted Type Area Flame Channeler Device Identifier Shelf Expiration Date Model / Serial / Lot Cement Bone Tobramycin Simplex - [id number] Implanted:Qty: 1 on 07/08/2023 by Ronald Payan DO at [facility] Cement Implant Right: Knee [employer] - DIV [employer] ALISON [id number] 10/18/2024 6197-9-0 10 / / [id number] Cement Bone Tobramycin Simplex - [id number] Implanted:Qty: 1 on 07/08/2023 by Ronald Payan DO at [facility] Cement Implant Right: Knee [employer] DIV [employer]ESH ALISON [id number] 08/20/2024 6197-9-0 10 / / [id number] Baseplate Tibial Triathlon 6 Cameron Knee Cocr - [id number] Implanted:Qty: 1 on 07/08/2023 by Ronald Payan DO at [facility] Knee Components Right: Knee [employer] ALISON [id number] 03/04/2026 5521-B-6 00 / / [id number] Stem Extension 50mm 12mm Triathlon Knee Cocr Cement Total Stabilize End Cap Sterile Latex Free - [id number] Implanted:Qty: 1 on 07/08/2023 by Ronadl Payan DO at [facility] Knee Components Right: Knee [employer] DIV [employer] ALISON [id number] 11/04/2027 5560-S-1 12 / / [id number] Component Femoral Mahesh Cruciate Retaining Sz 5 Right - [id number] Implanted:Qty: 1 on 07/08/2023 by Ronald Payan DO at [facility] Knee Components Right: Knee [employer] DIV [employer] ALISON [id number] 04/18/2028 5510-F-5 02 / / [id number] Component Femoral 5 Knee Left Cruciate Retain Bead Triathlon Pa Sterile Latex Free - [id number] Implanted:Qty: 1 on 10/14/2023 by Ronald Payan DO at [facility] Knee Components Left: Knee [employer] ALISON [id number] 06/23/2028 5517-F-5 01 / / [id number] Baseplate Tibial Triathlon 5 Knee Tritanium - [id number] Implanted:Qty: 1 on 10/14/2023 by Ronald Payan DO at [facility] Knee Components Left: Knee [employer] DIV [employer] ALISON [id number] 07/24/2028 5536-B-5 00 / / [id number] Pin Mahesh Bone Santiago 110 X 4 - [id number] Implanted:Qty: 1 on 07/08/2023 by Ronald Payan DO at [facility] Pin Right: Knee [employer] ALISON 04/03/2028 [id number] / / [id number] Pump Pain On-Q 400ml - [id number] Implanted:Qty: 1 on 07/08/2023 by Ronald Payan DO at [facility] Pump Right: Knee [employer] 10/05/2025 CH653E / / [id number] Triathlon X3 Asymmetric Patella A35, 10mm Implanted:Qty: 1 on 07/08/2023 by Ronald Payan DO at [facility] Right: Knee [id number] 08/31/2025 8228I774 E / / [id number] Triathlon X3 Tibial Bearing Insert Cs 6, Cs, 9mm Implanted:Qty: 1 on 07/08/2023 by Ronald Payan DO at [facility] Right: Knee [id number] 12/16/2027 4262I046 E / / [id number] On Q Antimicrobial Expansion Kits With Silversoaker Antimicrobial Catheter Implanted:Qty: 1 on 10/14/2023 by Ronald Payan DO at [facility] Left: Knee [id number] 12/02/2025 LB923-S / / [id number] Triathlon Tritanium Asymmetric Patella Implanted:Qty: 1 on 10/14/2023 by Ronald Payan DO at [facility] Left: Knee [employer] ALISON [id number] 06/09/2028 [id number] / / [id number] Triathlon X3 Tibial Bearing Insert Cs Implanted:Qty: 1 on 10/14/2023 by Ronald Payan DO at [facility] Left: Knee [employer] ALISON [id number] 08/26/2028 [id number] E / / [id number] Explanted Type Area Flame Channeler Device Identifier Shelf Expiration Date Model / Serial / Lot Pin Fixation 110mm 3.2mm Bone Sterile Latex Free - [id number] Explanted:Qty: 1 on 07/08/2023 at [facility] Pin Right: Knee [employer] DIV [employer] ALISON [id number] / / Pin Mahesh Bone Santiago 140 X 4 - [id number] Explanted:Qty: 1 on 07/08/2023 at [facility] Pin Right: Knee [employer] ALISON 746684- / / Pin Mahesh Bone Santiago 140 X 4 - [id number] Explanted:Qty: 1 on 10/14/2023 at [facility] Pin Left: Knee [employer] ALISON 03/31/2028 814448- / / [id number] Pin Mahesh Bone Santiago 110 X 4 - [id number] Explanted:Qty: 1 on 10/14/2023 at [facility] Pin Left: Knee [employer] DIV [employer] ALISON [id number] 03/03/2028 977609 / / [id number] Pump Pain On-Q 400ml - [id number] Explanted:Qty: 1 on 10/14/2023 at [facility] Pump [employer] [id number] / / Description:Not an [...] 7.1(H) <5.7 % 10/07/2023 1:06 PM CDT [facility] Comment: INCREASED RISK OF DIABETES <5.7% NON-DIABETES 5.7-6.4% INCREASED RISK FOR FUTURE DIABETES > OR = 6.5 CONSISTENT WITH DIABETES STANDARDS OF MEDICAL CARE IN DIABETES-2010 DIABETES CARE, 33(SUPP 1): S1-S61,2010 ESTIMATED AVG GLUCOSE 157 mg/dL 10/07/2023 1:06 PM CDT [facility] 10/07/2023 12:1 7 PM CDT Ronald Payan DO LABORATORY Final Result [facility] [address] [place] [address], from Last 3 Months or Most Recently Relevant to Health Maintenance Insurance [facility] Advance Directives * Full Code (Latest Code Status on File) Date Activated Date Inactivated Comments 10/18/2023 11:46 AM * Full Code Date Activated Date Inactivated Comments 10/14/2023 1:02 PM 10/17/2023 3:07 PM * Full Code Date Activated Date Inactivated Comments 07/10/2023 3:23 PM 10/14/2023 7:38 AM * Full Code Date Activated Date Inactivated Comments 07/08/2023 11:07 AM 07/09/2023 2:27 PM Care Teams Taker Down Relationship Specialty Start Date End Date Jose Jordan MD [address] [place] [address] PCP - General FAMILY PRACTICE 04/14/23
--- OUTSIDE RECORDS SUMMARY | 2024-12-01 11:31 | XMS_ITS | Encounter Summary ---
Author Organization [facility] Address [address] [place] [address] Care Team Providers Care Marketing Intelligence Analyst Name Role Phone Jose Jordan MD Primary Care Provider [phone] Encounter Details Date Type Department Care Team (Late st Contact Info) Description 10/02/2023 Prep for Procedure [facility] [address] [place] [address] [place] [address] [place] [address] Social History Tobacco Use Types [...] COMPREHENSIVE METABOLIC PANEL (10/07/2023 12:17 PM CDT) [facility] GLUCOSE 167(H) 70 - 99 MG/DL 10/07/2023 12:54 PM CDT [facility] BUN 28(H) 7 - 18 MG/DL 10/07/2023 12:54 PM CDT [facility] CREATININE S/P/B 1.77(H) 0.55 - 1.02 MG/DL 10/07/2023 12:54 PM CDT [facility] SODIUM S/P/B 135(L) 136 - 145 MMOL/L 10/07/2023 12:54 PM CDT [facility] POTASSIUM S/P/B 3.9 3.5 - 5.1 MMOL/L 10/07/2023 12:54 PM [facility] CHLORIDE S/P/B 96(L) 100 - 108 MMOL/L 10/07/2023 12:54 PM [facility] CO2 24.6 21 - 32 MMOL/L 10/07/2023 12:54 PM [facility] CALCIUM S/P/B 9.1 8.5 - 10.1 MG/DL 10/07/2023 12:54 PM [facility] BILIRUBIN TOTAL S/P/B 0.6 0.2 - 1.2 MG/DL 10/07/2023 12:54 PM [facility] TOTAL PROTEIN S/P/B 7.8 6.4 - 8.2 G/DL 10/07/2023 12:54 PM [facility] ALBUMIN S/P/B 2.9(L) 3.4 - 5.0 G/DL 10/07/2023 12:54 PM [facility] AST 13(L) 15 - 37 U/L 10/07/2023 12:54 PM [facility] ALT 20 14 - 55 U/L 10/07/2023 12:54 PM [facility] ALKALINE PHOSPHATASE S/P/B 82 50 - 136 U/L 10/07/2023 12:54 PM [facility] ANION GAP 14.4 5 - 15 MMOL/L 10/07/2023 12:54 PM [facility] BUN CREATININE RATIO 15.8 6 - 26 10/07/2023 12:54 PM [facility] A/G RATIO 0.6(L) 1.0 - 2.0 RATIO 10/07/2023 12:54 PM [facility] GFR ESTIMATE 32(L) >90 ML/MIN/1.7 3 M2 10/07/2023 12:54 PM CDT [facility] Comment: NOTE: eGFR is [...] LABORATORY Final Result [facility] [address] [place] [address], * (ABNORMAL) CBC W/DIFF AUTOMATED (10/07/2023 12:17 PM CDT) WBC 9.48 4.4 - 11.0 x10'3/uL 10/07/2023 12:40 PM CDT [facility] RBC 4.75 4.50 - 5.10 x10'6/uL 10/07/2023 12:40 PM CDT [facility] HGB 10.9(L) 12.3 - 15.3 G/DL 10/07/2023 12:40 PM CDT [facility] HCT 36.8 35.9 - 44.6 % 10/07/2023 12:40 PM CDT [facility] MCV 77.5(L) 80.0 - 96.0 FL 10/07/2023 12:40 PM CDT [facility] MCH 22.9(L) 25.3 - 30.9 PG 10/07/2023 12:40 PM CDT [facility] MCHC 29.6(L) 31.0 - 34.1 G/DL 10/07/2023 12:40 PM CDT [facility] RDW 18.2(H) 12.4 - 15.1 % 10/07/2023 12:40 PM CDT [facility] PLT 446(H) 151 - 353 x10'3/uL 10/07/2023 12:40 PM CDT [facility] MPV 8.5(L) 9.6 - 12.0 FL 10/07/2023 12:40 PM CDT [facility] RBC MORPHOLOGY NORMAL 10/07/2023 12:40 PM CDT [facility] PLT MORPH. NORMAL 10/07/2023 12:40 PM CDT [facility] WBC MORPHOLOGY NORMAL 10/07/2023 12:40 PM T [facility] LYMPHOCYTES % 21.9 15.8 - 45.0 % 10/07/2023 12:40 PM CDT [facility] NEUTROPHILS % 66.6 42.1 - 71.9 % 10/07/2023 12:40 PM CDT [facility] MONOCYTES % 7.2 5.7 - 12.5 % 10/07/2023 12:40 PM CDT [facility] EOSINOPHILS 2.3 0.0 - 5.6 % 10/07/2023 12:40 PM CDT [facility] BASOPHILS 0.7 0.0 - 1.3 % 10/07/2023 12:40 PM CDT [facility] ABS. NEUTROPHILS 6.31(H) 1.40 - 6.00 x10'3/uL 10/07/2023 12:40 PM CDT [facility] IMMATURE GRANS % 1.3(H) 0.0 - 0.5 % 10/07/2023 12:40 PM CDT [facility] ABS. LYMPHOCYTES 2.08 0.80 - 4.70 x10'3/uL 10/07/2023 12:40 PM CDT [facility] 10/07/2023 12:1 7 PM CDT Ronald Payan DO LABORATORY Final Result Performing Organization Address City/State/[facility] Co de Phone Number [facility] [address] [place] [address], documented in this encounter Visit Diagnoses Diagnosis Preop testing- Primary Preoperative examination, unspecified documented in this encounter Care Teams Marketing Intelligence Analyst Relationship Specialty Start Date End Date Jose Jordan MD [address] [address] PCP - General FAMILY PRACTICE 04/14/23 documented as of this encounter
--- OUTSIDE RECORDS SUMMARY | 2024-12-01 11:31 | XMS_ITS | Clinical Summary ---
Author Organization [facility] Address [address] [place] [address] Phone Care Team Providers Care Division Officer Weapons Department Name Role Phone Jose Jordan MD Primary Care Provider [phone] Allergies Active Allergy Reactions Criticality Noted Date [...] 2025 Insurance [employer] MEDICARE Care Teams Division Officer Weapons Department Relationship Specialty Start Date End Date Jose Jordan MD [address] [place] [address] PCP - General Family Medicine 04/03/20
== END 2024-12-01 11:24 | disposition home or self-care (01) ==
PROVIDERS: PCP Family Medicine; Visit Provider Nurse Practitioner Adult Health
DX: M25.451 Effusion, right hip (principal); Z96.651 Presence of right artificial knee joint
CPT/HCPCS: 73562

== ENCOUNTER 2025-04-22 09:56 | Outpatient (CLI) | payer MEDICARE, SELFPAY ==
--- OUTSIDE RECORDS SUMMARY | 2006-12-11 05:35 | XMS_ITS | Continuity of Care Document ---
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 [address] , [address], [place], [address], [place]. tel:[phone] Family History Family Member Type Diagnosis Age At Onset No Information Payers Payer name Insurance type Covered constitution party ID Authoriza tion(s) [facility] Commercial CI [id number] Social History Type Description Quantity Date Captured Comments Sex Female Smoking Status No Information Chief Complaint And Reason For Visit No Information Reason For Referral Reason For Referral No Information History Of Present Illness Encounter Date Complaint History Of Prese nt Illness No Information Functional Status Date Functional Assessmen t No Information Instructions Date Instruction Additional Infor mation No Information Assessments Type Assessment Date No Information Patient Care Teams Name Effective Dates (start - stop) Status Members No Information
--- OUTSIDE RECORDS SUMMARY | 2025-04-08 05:00 | XMS_ITS ---
Author Organization [facility] [employer] [facility] Address [address] [facility] [address] [facility] [address] [place] [address] Care Team Providers Care Associate Professor Of Violin Name Role Phone Gladis Mendez Unavailable [phone] REASON FOR VISIT R/S Car wont start Social History Sex Assigned At : Social History Observation Description Sex Assigned At Female Encounters Encounter Location Date Provider Diagnosis [facility] [employer] [facility] [address] [place] [address] 04/08/2025 Gladis Mendez Plan Of Treatment Next Appt Details Provider Name:Gladis Shetty Kay monroe, 05/10/2025 02:45:00 PM, [address], [facility] [address], [place], [address], Progress Notes * MATHEWIDOB:1960 (64 yo F)Acc No.[id number]:04/08/2025 Patient: Chelo CARY SANCHEZ Provider: Bertha Mendez :1960 A ge:64 Y S ex:Female Date:04/08/2025 Address:[address] [place], [place] [id number] Subjective: * Chief Complaints: * R /S Car wont start Billing Information: * Procedure Codes: * Electronic signature of Forest Mendez on 04/22/2025 at 10:15 AM CDT Sign off status: Pending * Provider: Bertha Mendez Date: 0 04/08/2025 Generated for You frazier/Jared/Waltersmitting on: 1 10:15 AM CDT
--- OUTSIDE RECORDS SUMMARY | 2025-04-12 09:45 | XMS_ITS ---
Author Organization [facility] [employer] [facility] Address [address] [place] [address] Care Team Providers Care Diesel Pile Driver Operator Name Role Phone Gladis Mendez Unavailable [phone] Allergies Allergen (clinical drug ingredient) Drug/Non Drug Allergy documented on EMR Reaction Allergy Type Onset Date Status codeine Codeine Unknown Drug Allergy 04/24/2023 Active REASON FOR VISIT follow-up Medications Medication SIG (Take, Route, Frequency, Duration) Notes Start Date End Date Status Escitalopram Oxalate 20 MG Tablet 1 tablet Oral daily 04/24/2023 Active buPROPion HCl ER (XL) 300 MG Tablet Extended Release 24 Hour 1 tablet every morning Oral daily 04/24/2023 Active Benadryl Allergy 25 MG Capsule Oral 04/24/2023 Not-Taking Vraylar 3 MG Capsule 1 capsule Oral Once a day 04/12/2025 Active Ozempic (0.25 or 0.5 MG/DOSE) 2 MG/3ML Solution Pen-injector Subcutaneous *Pick strength-form from [employer] for eRX* 04/24/2023 Not-Taking Cholecalciferol 1.25 MG (22759 UT) Capsule Oral 04/24/2023 Active Insulin Syringe 1 mL 31 gauge x 516 SYRINGE, EMPTY DISPOSABLE MISCELLANEOUS 04/24/2023 Active Insulin Lispro (1 Unit Dial) 100 UNIT/ML Solution Pen-injector as directed Subcutaneous 4 times a day 04/24/2023 Active Omeprazole 20 MG Capsule Delayed Release 1 capsule 1/2 to 1 hour before morning meal Oral daily 04/24/2023 Active traZODone HCl 50 MG Tablet 1 to 2 tabs at bedtime Oral Once a day; Duration: 30 days As needed 04/24/2023 Active Ozempic (1 MG/DOSE) 4 MG/3ML Solution Pen-injector Subcutaneous *Pick strength-form from [facility] for eRX* 04/24/2023 Active MECOBALAMIN (VITAMIN B12) 5,000 MCG LOZENGE *Reorder from [facility] for eRx and Interaction Alerts* 04/24/2023 Active Losartan Potassium 100 MG Tablet 1 tablet Oral daily 04/24/2023 Active Lantus 100 UNIT/ML Solution 75 units Subcutaneous daily 04/24/2023 Active Rosuvastatin Calcium 20 MG Tablet 1 tablet Oral daily 04/24/2023 Active Furosemide 20 MG Tablet 1 tablet Oral daily 04/24/2023 Active tiZANidine HCl 2 MG Tablet 1 tablet at bedtime as needed Oral daily 04/24/2023 Active metFORMIN HCl 500 MG Tablet 1 tablet with a meal Oral twice a day 04/24/2023 Active Meclizine HCl 25 MG Tablet 1 tablet as needed Oral daily 04/24/2023 Active amLODIPine Besylate 5 MG Tablet 1 tablet Oral daily 04/24/2023 Active Gabapentin 300 MG Capsule 1 capsule Oral three times a day 04/24/2023 Active Vitamin B-1 100 MG Tablet Oral 04/24/2023 Active HYDROcodone-Acetamino phen 5-325 MG Tablet 1 tablet as needed Oral 3 times a day 04/24/2023 Active Social History Tobacco Use: Social History Observation Description Date Details (start date - stop date) Former Smoker NA - 06/24/2024 Sex Assigned At : Social History Observation Description Sex Assigned At Female Social History Household: Social Info Question Answer Notes Household Marital status: Tobacco Use: Social Info Question Answer Notes Tobacco Control (Standard) When did you stop smoking? 06/24/2024 How long has it been since you last smoked? 6-12 months Tobacco use: Former smoker Additional Details Category Social Info Options Details Migrated Social History Migrated Social History Alcohol Intake: None 01/10/2022,Tobacco Years: Current every day smoker 01/10/2022,Smoking Status: 40 04/24/2023 Vital Signs Blood pressure systolic 140 mm Hg 04/12/20 25 Blood pressure diastolic 87 mm Hg 025 Heart Rate 74 /min 04/12/2025 Height 68.00 in 04/12/2025 Weight 342 lbs 04/12/2025 BMI 52 kg/m2 04/12/2025 Height-cm 172.72 cm 04/12/2025 Weight-kg 155.13 kg 04/12/2025 Encounters Encounter Location Date Provider Diagnosis [facility], [facility] [address] [place] [address] 04/12/2025 Gladis Vanessa Bipolar disorder, current episode depressed, mild F31.31 ; Primary insomnia F51.01 and Generalized anxiety disorder F41.1 Assessments Encounter Date Diagnosis (ICD Code) Assessment Notes Treatment Notes Treatment Clinical Notes Section Notes 04/12/2025 Bipolar disorder, current episode depressed, mild (ICD-10 - F31.31) PCP meds: - Escitalopram 20 mg - Bupropion XL 300 mg 04/12/2025 Primary insomnia (ICD-10 - F51.01) 04/12/2025 Generalized anxiety disorder (ICD-10 - F41.1) Plan Of Treatment Medication Medication Name Sig Start Date Stop Date Notes Vraylar 3 MG Capsule 1 capsule Oral Once a day 04/12/2025 traZODone HCl 50 MG Tablet 1 to 2 tabs a t bedtime Oral Once a day; Duration: 30 days 04/24/2023 Next Appt Details Provider Name:Gladis monroe, 05/10/2025 02:45:00 PM, [address], [address], [place], [address], History and Physical Notes * HPI (History of Present Illness) Category Sub-Category Detail Notes Category Not es History of Presenting Problem Depression screening done Depression screening PHQ-9 Little inte rest or pleasure in doing things: Nearly every day Feeling down, depressed, or hopeless: Ne mellisa every day Trouble falling or staying asleep, or sl eeping too much: Nearly every day Feeling tired or having little energy: N early every day Poor appetite or overeating: More than h intermediate the days Feeling bad about yourself o r that you are a failure, or have let yourself or your family down: More than half the days Trouble concentrating on thi ngs, such as reading the newspaper or watching television: More than half the days Moving or speaking so slowly that other people could have noticed; or the opposite, being so fidgety or restless that you have been moving around a lot more than usual: More than half the days Thoughts that you would be b tasia off or of hurting yourself in some way: Several days (Consider Suicide Assessment Risk) Total Score: 21 Interpretation: Severe Depression Intervention Depression Screening Findings: P ositve Follow-Up for Depression: Mental health care management, Psychiatric follow-up Suicide Risk Assessment Performed: 04/12 Functional Status Functional Status Assessment D ate of last completed Functional Status Assessment:: 04/12/2025 Fall Risk Assessment:: No falls in the p ast year Depression Screening DAVID-7 (2018 Edition) Feelin g nervous, anxious, or on edge: Nearly every day Not being able to stop or control worryi ng: More than half the days Worrying too much about different things : More than hafl the days Trouble relaxing: More than half the day s Being so restless that it is hard to sit still: Several days Becoming easily annoyed or irritable: Mo re than half the days Feeling afraid as if something awful everardo ht happen: More than half the days Total DAVID-7 Score: 14 If you checked any problems, how difficult have they made it for you to do your work, take care of things at home, or get along with other people?: Very difficult Interpretation of Total: (10 to 14) Mode rate Progress Notes * DANICA RITTERB:1960 (64 yo F)Acc No.[id number]:04/12/2025 Patient: Chelo CARY SANCHEZ Provider: Bertha Mendez :1960 A ge:64 Y S ex:Female Date:04/12/2025 Address:[address] [place], [place] [id number] Subjective: * Chief Complaints: * F ollow-up * HPI: F unctional Status: Functional Status Assessment D ate of last completed Functional Status Assessment: 0 04/12/2025 F all Risk Assessment: N o falls in the past year D epression Screening: DAVID-7 (2018 Edition) F eeling nervous, anxious, or on edge N early every day N ot being able to stop or control worrying?More than half the days W orrying too much about different things M ore than hafl the days T rouble relaxing M ore than half the days B eing so restless that it is hard to sit still S ever B ecoming easily annoyed or irritable M ore than half the days F eeling afraid as if something awful might happen M ore than half the days T otal ADVID-7 Score 1 4 I f you checked any problems, how difficult have they made it for you to do your work, take care of things at home, or get along with other people? V carrie difficult I nterpretation of Total ( 10 to 14) Moderate D epression screening: PHQ-9 L ittle interest or pleasure in doing things?Nearly every day F eeling down, depressed, or hopeless N early every day T rouble falling or staying asleep, or sleeping too much N early every day F eeling tired or having little energy N early every day P oor appetite or overeating M ore than half the days F eeling bad about yourself or that you are a failure, or have let yourself or your family down M ore than half the days T rouble concentrating on things, such as reading the newspaper or watching television M ore than half the days M oving or speaking so slowly that other people could have noticed; or the opposite, being so fidgety or restless that you have been moving around a lot more than usual M ore than half the days T houghts that you would be better off or of hurting yourself in some way S (Consider Suicide Assessment Risk) T otal Score 2 1 I nterpretation S evere Depression Intervention D epression Screening Findings P ositve F ollow-Up for Depression M ental health care management, Psychiatric follow-up S uicide Risk Assessment Performed 0 04/12/2025 H istory of Presenting Problem: 64 y/o female, no children, currently unemployed, hx of bipolar d/o, anxiety, insomnia. sleep apnea, working on being compliant with her CPAP. patient is a smoker. on lexapro 20 mg and wellbutrin XL 300 mg from PCP This note is transcribed using speech recognition software. It is a reflection of a visit with the patient. It might have some inaccuracy, including medication names and transcribing errors, though efforts have been made to correct them. History of Present Illness Cary Ritter presents for follow-up of ongoing psychiatric care. She reports her mood as very middling and about the same as her previous visit, indicating persistent low mood. The patient describes her current state as feeling down still a little. Cary mentions that returning to work would be helpful for her, suggesting ongoing unemployment as a potential stressor. She reports no recent success in finding employment. The patient's sleep is reported as okay, and her anxiety levels are also described as okay. There has been a positive development in Cary's personal life, as she reports reconciliation with her sister, stating We're talking again. She attributes this improvement to her sister getting out of a funky mood. Regarding her current medication regimen, Cary is taking escitalopram 20mg for depression and anxiety, bupropion XR 300mg for depression, trazodone 50mg occasionally at bedtime, and Vraylar 3mg. When asked about the need to adjust her medications due to increased anxiety or low mood, Cary states she is managing with her current regimen. Medications and Supplements Patient is taking escitalopram 20 mg for depression and anxiety. Bupropion extended-release 300 mg is prescribed for depression. Trazodone 50 mg is taken at bedtime as needed, with instructions to take one or two tablets. Vraylar 3 mg is also part of the medication regimen. Social History - Occupation: Currently unemployed, seeking to return to work - Family: Recently reconciled with sister after a period of estrangement Review of Systems Psychiatric: Positive for feeling down. Negative for suicidal thoughts. Cardiovascular: Negative for palpitations. Gastrointestinal: Negative for nausea. Neurological: Negative for dizziness, headaches. Depression screening done. 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 * Medical History: Problems: Anemia Bipolar affective disorder, currently depressed, mild Bipolar affective disorder, currently depressed, moderate Bipolar I disorder Generalized anxiety disorder Obesity Primary insomnia Severe depressed bipolar I disorder Smoker , Obstructive sleep apnea Medical History Verified * Social History: T obacco Use: T obacco Control (Standard) W hen did you stop smoking? 1 08/25/2023 H ow long has it been since you last smoked??6-12 months T obacco use: F ormer smoker M igrated Social History: M igrated Social History: Alcohol Intake: None 01/10/2022,Tobacco Years: Current every day smoker 01/10/2022,Smoking Status: 40 04/24/2023. H ousehold: H ousehold M arital status: w connie S ocial History Verified. * Medications: T akingGabapentin 300 MG Capsule 1 capsule Oral three times a day HYDROcodone-Acetaminophen 5-325 MG Tablet 1 tablet as needed Oral 3 times a day Vitamin B-1 100 MG Tablet Oral Furosemide 20 MG Tablet 1 tablet Oral daily metFORMIN HCl 500 MG Tablet 1 tablet with a meal Oral twice a day tiZANidine HCl 2 MG Tablet 1 tablet at bedtime as needed Oral daily amLODIPine Besylate 5 MG Tablet 1 tablet Oral daily Meclizine HCl 25 MG Tablet 1 tablet as needed Oral daily MECOBALAMIN (VITAMIN B12) 5,000 MCG LOZENGE , Notes to Pharmacist: *Reorder from [employer] for eRx and Interaction Alerts*Ozempic (1 MG/DOSE) 4 MG/3ML Solution Pen-injector Subcutaneous , Notes to Pharmacist: *Pick strength-form from [employer] for eRX*Lantus 100 UNIT/ML Solution 75 units Subcutaneous daily Losartan Potassium 100 MG Tablet 1 tablet Oral daily Rosuvastatin Calcium 20 MG Tablet 1 tablet Oral daily Insulin Syringe 1 mL 31 gauge x 5/16 SYRINGE, EMPTY DISPOSABLE MISCELLANEOUS Cholecalciferol 1.25 MG (06229 UT) Capsule Oral Omeprazole 20 MG Capsule Delayed Release 1 capsule 1/2 to 1 hour before morning meal Oral daily Insulin Lispro (1 Unit Dial) 100 UNIT/ML Solution Pen-injector as directed Subcutaneous 4 times a day buPROPion HCl ER (XL) 300 MG Tablet Extended Release 24 Hour 1 tablet every morning Oral daily Escitalopram Oxalate 20 MG Tablet 1 tablet Oral daily traZODone HCl 50 MG Tablet 1 to 2 tabs at bedtime Oral Once a day As neededVraylar 3 MG Capsule 1 capsule Oral Once a day Taking Gabapentin 300 MG Capsule 1 capsule Oral three times a day Taking HYDROcodone-Acetaminophen 5-325 MG Tablet 1 tablet as needed Oral 3 times a day Taking Vitamin B-1 100 MG Tablet Oral Taking Furosemide 20 MG Tablet 1 tablet Oral daily Taking metFORMIN HCl 500 MG Tablet 1 tablet with a meal Oral twice a day Taking tiZANidine HCl 2 MG Tablet 1 tablet at bedtime as needed Oral daily Taking amLODIPine Besylate 5 MG Tablet 1 tablet Oral daily Taking Meclizine HCl 25 MG Tablet 1 tablet as needed Oral daily Taking MECOBALAMIN (VITAMIN B12) 5,000 MCG LOZENGE , Notes to Pharmacist: *Reorder from [facility] for eRx and Interaction Alerts*Taking Ozempic (1 MG/DOSE) 4 MG/3ML Solution Pen-injector Subcutaneous , Notes to Pharmacist: *Pick strength-form from [facility] for eRX*Taking Lantus 100 UNIT/ML Solution 75 units Subcutaneous daily Taking Losartan Potassium 100 MG Tablet 1 tablet Oral daily Taking Rosuvastatin Calcium 20 MG Tablet 1 tablet Oral daily Taking Insulin Syringe 1 mL 31 gauge x 5/16 SYRINGE, EMPTY DISPOSABLE MISCELLANEOUS Taking Cholecalciferol 1.25 MG (25143 UT) Capsule Oral Taking Omeprazole 20 MG Capsule Delayed Release 1 capsule 1/2 to 1 hour before morning meal Oral daily Taking Insulin Lispro (1 Unit Dial) 100 UNIT/ML Solution Pen-injector as directed Subcutaneous 4 times a day Taking buPROPion HCl ER (XL) 300 MG Tablet Extended Release 24 Hour 1 tablet every morning Oral daily Taking Escitalopram Oxalate 20 MG Tablet 1 tablet Oral daily Taking traZODone HCl 50 MG Tablet 1 to 2 tabs at bedtime Oral Once a day As neededTaking Vraylar 3 MG Capsule 1 capsule Oral Once a day Not-TakingOzempic (0.25 or 0.5 MG/DOSE) 2 MG/3ML Solution Pen-injector Subcutaneous , Notes to Pharmacist: *Pick strength-form from [facility] for eRX*Benadryl Allergy 25 MG Capsule Oral Medication List reviewed and reconciled with the patientNot-Taking Ozempic (0.25 or 0.5 MG/DOSE) 2 MG/3ML Solution Pen-injector Subcutaneous , Notes to Pharmacist: *Pick strength-form from [facility] for eRX*Not-Taking Benadryl Allergy 25 MG Capsule Oral Medication List reviewed and reconciled with the patient * Allergies: C odeine: Allergy - Onset Date 04/24/2023yesAllergies Verified. Objective: * Vitals: B P:140/87mm Hg, HR:74/min, Wt:342lbs, Wt-k.13 kg, Ht: 68.00 in, Ht-cm: 172.72 cm, BMI:52Index, Body Surface Area: 2.73. Assessment: * Assessment: 1. B ipolar disorder, current episode depressed, mild - F31.31 (Primary) 2 .?Primary insomnia - F51.01 3 . G eneralized anxiety disorder - F41.1 ? Plan: * Treatment: 2. P rimary insomnia Refill traZODone HCl Tablet, 50 MG, 1 to 2 tabs at bedtime, Oral, Once a day As needed, 30 days, 60, Refills 2. * Procedure Codes: 1 036F TOBACCO [id number]-[id number] BEHAV ASSMT W/SCORE & DOCD/STAND INSTRUMENT * Preventive Medicine: Counseling: A dvance Care Planning Date of last Advance Care Planning:?04/12/2025 ____ MIPS Type of advance care directives: D iscussed with patient , does not have AD Screenings: D epression screening Have you had a recent depression screening? Y es Billing Information: * Procedure Codes: 1036F TOBACCO NON-USER. 99086 BEHAV ASSMT W/SCORE & DOCD/STAND INSTRUMENT. * Electronic signature of Forest Mendez on 04/22/2025 at 10:15 AM CDT Sign off status: Pending * Provider: Bertha Mendez Date: 0 04/12/2025 Generated for You frazier/Jared/Marilia on: 1 10:15 AM CDT
--- OUTSIDE RECORDS SUMMARY | 2025-04-22 10:15 | XMS_ITS | Encounter Summary ---
Author Organization [facility] Address [address] [place] [address] Care Team Providers Care Curtain Supervisor Name Role Phone Jose Jordan MD Primary Care Provider Encounter Details Date Type Department Care Team (Late st Contact Info) Description 10/02/2023 Prep for Procedure [facility] [address] [place] [address] [place] [address] [place] [address] Social History Tobacco Use Types [...] No 07/25/2023 OASIS B1300: Health Literacy Answer Vaery e Recorded Frequency of needing help to [...] COMPREHENSIVE METABOLIC PANEL (10/07/2023 12:17 PM CDT) [facility] GLUCOSE 167(H) 70 - 99 MG/DL 10/07/2023 12:54 PM CDT [facility] BUN 28(H) 7 - 18 MG/DL 10/07/2023 12:54 PM CDT [facility] CREATININE S/P/B 1.77(H) 0.55 - 1.02 MG/DL 10/07/2023 12:54 PM CDT [facility] SODIUM S/P/B 135(L) 136 - 145 MMOL/L 10/07/2023 12:54 PM CDT [facility] POTASSIUM S/P/B 3.9 3.5 - 5.1 MMOL/L 10/07/2023 12:54 PM [facility] CHLORIDE S/P/B 96(L) 100 - 108 MMOL/L 10/07/2023 12:54 PM [facility] CO2 24.6 21 - 32 MMOL/L 10/07/2023 12:54 PM [facility] CALCIUM S/P/B 9.1 8.5 - 10.1 MG/DL 10/07/2023 12:54 PM [facility] BILIRUBIN TOTAL S/P/B 0.6 0.2 - 1.2 MG/DL 10/07/2023 12:54 PM [facility] TOTAL PROTEIN S/P/B 7.8 6.4 - 8.2 G/DL 10/07/2023 12:54 PM [facility] ALBUMIN S/P/B 2.9(L) 3.4 - 5.0 G/DL 10/07/2023 12:54 PM [facility] AST 13(L) 15 - 37 U/L 10/07/2023 12:54 PM [facility] ALT 20 14 - 55 U/L 10/07/2023 12:54 PM [facility] ALKALINE PHOSPHATASE S/P/B 82 50 - 136 U/L 10/07/2023 12:54 PM [facility] ANION GAP 14.4 5 - 15 MMOL/L 10/07/2023 12:54 PM [facility] BUN CREATININE RATIO 15.8 6 - 26 10/07/2023 12:54 PM [facility] A/G RATIO 0.6(L) 1.0 - 2.0 RATIO 10/07/2023 12:54 PM [facility] GFR ESTIMATE 32(L) >90 ML/MIN/1.7 3 M2 10/07/2023 12:54 PM CDT [facility] Comment: NOTE: eGFR is not calculated for patients <18 years of age. This is an estimated GFR calculation using the new CKD EPI creatinine equation without race and so does not require a correction factor for race. This estimated GFR should not be used for calculating drug doses. 10/07/2023 12:1 7 PM CDT Ronald Payan DO LABORATORY Final Result [facility] [address] [place] [address], * (ABNORMAL) CBC W/DIFF AUTOMATED (10/07/2023 12:17 PM CDT) WBC 9.48 4.4 - 11.0 x10'3/uL 10/07/2023 12:40 PM CDT [facility] RBC 4.75 4.50 - 5.10 x10'6/uL 10/07/2023 12:40 PM CDT [facility] HGB 10.9(L) 12.3 - 15.3 G/DL 10/07/2023 12:40 PM CDT [facility] HCT 36.8 35.9 - 44.6 % 10/07/2023 12:40 PM CDT [facility] MCV 77.5(L) 80.0 - 96.0 FL 10/07/2023 12:40 PM CDT [facility] MCH 22.9(L) 25.3 - 30.9 PG 10/07/2023 12:40 PM CDT [facility] MCHC 29.6(L) 31.0 - 34.1 G/DL 10/07/2023 12:40 PM CDT [facility] RDW 18.2(H) 12.4 - 15.1 % 10/07/2023 12:40 PM CDT [facility] PLT 446(H) 151 - 353 x10'3/uL 10/07/2023 12:40 PM CDT [facility] MPV 8.5(L) 9.6 - 12.0 FL 10/07/2023 12:40 PM CDT [facility] RBC MORPHOLOGY NORMAL 10/07/2023 12:40 PM CDT [facility] PLT MORPH. NORMAL 10/07/2023 12:40 PM CDT [facility] WBC MORPHOLOGY NORMAL 10/07/2023 12:40 PM T [facility] LYMPHOCYTES % 21.9 15.8 - 45.0 % 10/07/2023 12:40 PM CDT [facility] NEUTROPHILS % 66.6 42.1 - 71.9 % 10/07/2023 12:40 PM CDT [facility] MONOCYTES % 7.2 5.7 - 12.5 % 10/07/2023 12:40 PM CDT [facility] EOSINOPHILS 2.3 0.0 - 5.6 % 10/07/2023 12:40 PM CDT [facility] BASOPHILS 0.7 0.0 - 1.3 % 10/07/2023 12:40 PM CDT [facility] ABS. NEUTROPHILS 6.31(H) 1.40 - 6.00 x10'3/uL 10/07/2023 12:40 PM CDT [facility] IMMATURE GRANS % 1.3(H) 0.0 - 0.5 % 10/07/2023 12:40 PM CDT [facility] ABS. LYMPHOCYTES 2.08 0.80 - 4.70 x10'3/uL 10/07/2023 12:40 PM CDT [facility] 10/07/2023 12:1 7 PM CDT Ronald Payan DO LABORATORY Final Result Performing Organization Address City/State/[facility] Co de Phone Number [facility] [address] [place] [address], documented in this encounter Visit Diagnoses Diagnosis Preop testing- Primary Preoperative examination, unspecified documented in this encounter Care Teams Curtain Supervisor Relationship Specialty Start Date End Date Jose Jordan MD [address] [address] PCP - General FAMILY PRACTICE 04/14/23 documented as of this encounter
--- OUTSIDE RECORDS SUMMARY | 2025-04-22 10:15 | XMS_ITS | Clinical Summary ---
Author Organization [facility] Address [address] [place] [address] Phone Care Team Providers Care Design Chief Name Role Phone Jose Jordan MD Primary Care Provider [phone] Allergies Active Allergy Reactions Criticality Noted Date [...] 11:38 AM CDT Height 172.7 cm (5' 8) 05/23/2022 11:38 AM CDT Body Mass Index 50.02 05/23/2022 11:38 AM CDT Plan of Treatment Health Maintenance Due Date Last Done Comments Influenza Vaccine (#1) 2025 Insurance [employer] MEDICARE Care Teams Design Chief Relationship Specialty Start Date End Date Jose Jordan MD [address] [place] [address] PCP - General Family Medicine 04/03/20
--- OUTSIDE RECORDS SUMMARY | 2025-04-22 10:15 | XMS_ITS | Clinical Summary ---
Author Organization [facility] Address [address] [place] [address] Care Team Providers Care Director Asset Name Role Phone Jose Jordan MD Primary Care Provider [phone] Allergies Active Allergy Reactions Criticality Noted Date [...] meals. SLIDING SCALE BG 150-199= 3 units [id number]= 6 units BG 250-299= 9 units BG [...] ACID) 1000 MG tabletIndications :Vitamin C Imbalance (Inactive) Take 1 tablet (1,000 mg total) by [...] 09/01/2023 Assessment & Plan (09/01/2023 3:05 PM MANAGER RADIO): We discussed the risks, benefits, and alternatives. [...] 07/24/2023 Assessment & Plan (07/24/2023 11:37 AM MANAGER RADIO): Recommendation at this time is to transition to outpatient physical therapy to continue working on progressive range of motion and strengthening. No refills needed at this time. Patient will be seen back in four weeks with an Xr. Type 2 diabetes mellitus wit h neurologic complication, with long-term current use of insulin ([facility]) 04/14/2023 BMI 40.0-44.9, adult 04/14/2023 Bilateral primary osteoarthritis of knee 023 Assessment & Plan (04/16/2023 5:26 PM CDT): Recommendation at this time: We went over the risk benefits, as well as the alternatives. The patient would like to proceed with total knee arthroplasty on the right so we will get her set up for a right TKR on 05/27/23. Bipolar 1 disorder ([facility]) 04/14/2023 Stage 3a chronic kidney disease 05/17/2022 Encounters Date Type Department Care Team Description 03/07/2025 Telephone [facility] Orthopedic [facility] [address] [facility] [address] [place] [address] Ronald Payan DO Referral from Last 3 Months Social History Tobacco Use Types Packs/Day Years [...] materials from doctor or pharmacy Never 10/28/2023 [facility] Utilities Answer Date Recorded In the past 12 months has th e [employer], gas, oil, or water [employer] threatened to shut off services in your [...] place to sleep or slept in a skilled nursing (including now)? No 10/16/2023 Comments No Sex [...] 1:06 PM CDT Height 172.7 cm (5' 8) 11/24/2023 1:06 PM CDT Body Mass Index 44.82 11/24/2023 [...] - Risk 60-74 years 1-dose series) 2022 Hemoglobin A1C 04/08/2024 10/07/2023, 05/15/2023 PHQ-2 (Physician Webster) 07/21/2024 09/01/2023 COVID-19 Vaccine (3 - 2024-2 6 season) 2025 10/11/2020, 09/20/2020 DTaP, Tdap and Td Vaccines ( 2 [...] this topic Medical Devices Implanted Type Area Poultry Picking Machine Tender Device Identifier Shelf Expiration Date Model / Serial / Lot Cement Bone Tobramycin Simplex - [id number] Implanted:Qty: 1 on 07/08/2023 by Ronald Payan DO at [facility] Cement Implant Right: Knee [employer] - DIV MAHESH ALISON [id number] 10/18/2024 6197-9-0 10 / / [id number] Cement Bone Tobramycin Simplex - [id number] Implanted:Qty: 1 on 07/08/2023 by Ronald Payan DO at [facility] Cement Implant Right: Knee [employer] DIV MAHESH ALISON [id number] 08/20/2024 6197-9-0 10 / / [id number] Baseplate Tibial Triathlon 6 Cuddy Knee Cocr - [id number] Implanted:Qty: 1 on 07/08/2023 by Ronald Payan DO at [facility] Knee Components Right: Knee [employer] DIV MAHESH ALISON [id number] 03/04/2026 5521-B-6 00 / / [id number] Stem Extension 50mm 12mm Triathlon Knee Cocr Cement Total Stabilize End Cap Sterile Latex Free - [id number] Implanted:Qty: 1 on 07/08/2023 by Ronald Payan DO at [facility] Knee Components Right: Knee [employer] DIV MAHESH ALISON [id number] 11/04/2027 5560-S-1 12 / / [id number] Component Femoral Oakwood Cruciate Retaining Sz 5 Right - [id number] Implanted:Qty: 1 on 07/08/2023 by Ronald Payan DO at [facility] Knee Components Right: Knee [employer] DIV MAHESH ALISON [id number] 04/18/2028 5510-F-5 02 / / [id number] Component Femoral 5 Knee Left Cruciate Retain Bead Triathlon Pa Sterile Latex Free - [id number] Implanted:Qty: 1 on 10/14/2023 by Ronald Payan DO at [facility] Knee Components Left: Knee [employer] DIV [employer]HESH ALISON [id number] 06/23/2028 5517-F-5 01 / / [id number] Baseplate Tibial Triathlon 5 Knee Tritanium - [id number] Implanted:Qty: 1 on 10/14/2023 by Ronald Payan DO at [facility] Knee Components Left: Knee [employer] DIV MAHESH ALISON [id number] 07/24/2028 5536-B-5 00 / / [id number] Pin Mahesh Bone Santiago 110 X 4 - [id number] Implanted:Qty: 1 on 07/08/2023 by Ronald Payan DO at [facility] Pin Right: Knee [employer]HESH ALISON 04/03/2028 [id number] / / [id number] Pump Pain On-Q 400ml - [id number] Implanted:Qty: 1 on 07/08/2023 by Ronald Payan DO at [facility] Pump Right: Knee [employer] 10/05/2025 [id number] / / [id number] Triathlon X3 Asymmetric Patella A35, 10mm Implanted:Qty: 1 on 07/08/2023 by Ronald Payan DO at [facility] Right: Knee [id number] 08/31/2025 [id number] E / / [id number] Triathlon X3 Tibial Bearing Insert Cs 6, Cs, 9mm Implanted:Qty: 1 on 07/08/2023 by Ronald Payan DO at [facility] Right: Knee [id number] 12/16/2027 [id number] E / / [id number] On Q Antimicrobial Expansion Kits With Silversoaker Antimicrobial Catheter Implanted:Qty: 1 on 10/14/2023 by Ronald Payan DO at [facility] Left: Knee [id number] 12/02/2025 IP819-Y / / [id number] Triathlon Tritanium Asymmetric Patella Implanted:Qty: 1 on 10/14/2023 by Ronald Payan DO at [facility] Left: Knee [employer] ALISON [id number] 06/09/2028 [id number] / / [id number] Triathlon X3 Tibial Bearing Insert Cs Implanted:Qty: 1 on 10/14/2023 by Ronald Payan DO at [facility] Left: Knee [employer] ALISON [id number] 08/26/2028 [id number] E / / [id number] Explanted Type Area Poultry Picking Machine Tender Device Identifier Shelf Expiration Date Model / Serial / Lot Pin Fixation 110mm 3.2mm Bone Sterile Latex Free - [id number] Explanted:Qty: 1 on 07/08/2023 at [facility] Pin Right: Knee [employer] ALISON [id number] / / Pin Mahesh Bone Santiago 140 X 4 - [id number] Explanted:Qty: 1 on 07/08/2023 at [facility] Pin Right: Knee [employer] DIV MAHESH ALISON 078630- / / Pin Oakwood Bone Santiago 140 X 4 - [id number] Explanted:Qty: 1 on 10/14/2023 at [facility] Pin Left: Knee [employer] ALISON 03/31/2028 [id number] / / [id number] Pin Oakwood Bone Santiago 110 X 4 - [id number] Explanted:Qty: 1 on 10/14/2023 at [facility] Pin Left: Knee [employer] ALISON [id number] 03/03/2028 136436 / / [id number] Pump Pain On-Q 400ml - [id number] Explanted:Qty: 1 on 10/14/2023 at [facility] Pump [employer] [id number] / / Description:Not an implant. [...] 7.1(H) <5.7 % 10/07/2023 1:06 PM CDT [facility] Comment: INCREASED RISK OF DIABETES <5.7% NON-DIABETES 5.7-6.4% INCREASED RISK FOR FUTURE DIABETES > OR = 6.5 CONSISTENT WITH DIABETES STANDARDS OF MEDICAL CARE IN DIABETES-2010 DIABETES CARE, 33(SUPP 1): S1-S61,2010 ESTIMATED AVG GLUCOSE 157 mg/dL 10/07/2023 1:06 PM CDT [facility] 10/07/2023 12:1 7 PM CDT Ronald Payan DO LABORATORY Final Result [facility] [address] [address] [facility] [id number], from Last 3 Months or Most Recently Relevant to Health Maintenance Insurance [facility] MEDICARE Advance Directives * Full Code (Latest Code Status on File) Date Activated Date Inactivated Comments 10/18/2023 11:46 AM * Full Code Date Activated Date Inactivated Comments 10/14/2023 1:02 PM 10/17/2023 3:07 PM * Full Code Date Activated Date Inactivated Comments 07/10/2023 3:23 PM 10/14/2023 7:38 AM * Full Code Date Activated Date Inactivated Comments 07/08/2023 11:07 AM 07/09/2023 2:27 PM Care Teams Director Asset Relationship Specialty Start Date End Date Jose Jordan MD [address] [address] PCP - General FAMILY PRACTICE 04/14/23
--- OUTSIDE RECORDS SUMMARY | 2025-04-22 10:15 | XMS_ITS | Patient Health Record ---
Author Organization [facility] Address [address] [place] [address] Care Team Providers Care Veneer Sorter Name Role Phone Gladis Mendez Unavailable [phone] Segundo Belle Unavailable [phone] Allergies Allergen (clinical drug ingredient) Drug/Non Drug Allergy documented on EMR Reaction Allergy Type Onset Date Status codeine Codeine Unknown Drug Allergy 04/24/2023 Active Reason For Referral No Information Medications Medication SIG (Take, Route, Frequency, Duration) Notes Start Date End Date Status Furosemide 20 MG Tablet 1 tablet Oral daily 04/24/2023 Active Cholecalciferol 1.25 MG (95918 UT) Capsule Oral 04/24/2023 Active Insulin Syringe 1 mL 31 gauge x 5/16 SYRINGE, EMPTY DISPOSABLE MISCELLANEOUS 04/24/2023 Active tiZANidine HCl 2 MG Tablet 1 tablet at bedtime as needed Oral daily 04/24/2023 Active Insulin Lispro (1 Unit Dial) 100 UNIT/ML Solution Pen-injector as directed Subcutaneous 4 times a day 04/24/2023 Active metFORMIN HCl 500 MG Tablet 1 tablet with a meal Oral twice a day 04/24/2023 Active Omeprazole 20 MG Capsule Delayed Release 1 capsule 1/2 to 1 hour before morning meal Oral daily 04/24/2023 Active traZODone HCl 50 MG Tablet 1 to 2 tabs at bedtime Oral Once a day; Duration: 30 days As needed 04/24/2023 Active Meclizine HCl 25 MG Tablet 1 tablet as needed Oral daily 04/24/2023 Active Escitalopram Oxalate 20 MG Tablet 1 tablet Oral daily 04/24/2023 Active amLODIPine Besylate 5 MG Tablet 1 tablet Oral daily 04/24/2023 Active buPROPion HCl ER (XL) 300 MG Tablet Extended Release 24 Hour 1 tablet every morning Oral daily 04/24/2023 Active Ozempic (1 MG/DOSE) 4 MG/3ML Solution Pen-injector Subcutaneous *Pick strength-form from [employer] for eRX* 04/24/2023 Active Benadryl Allergy 25 MG Capsule Oral 04/24/2023 Not-Taking Vraylar 3 MG Capsule 1 capsule Oral Once a day 04/12/2025 Active MECOBALAMIN (VITAMIN B12) 5,000 MCG LOZENGE *Reorder from [employer] for eRx and Interaction Alerts* 04/24/2023 Active Ozempic (0.25 or 0.5 MG/DOSE) 2 MG/3ML Solution Pen-injector Subcutaneous *Pick strength-form from [employer] for eRX* 04/24/2023 Not-Taking Gabapentin 300 MG Capsule 1 capsule Oral three times a day 04/24/2023 Active Losartan Potassium 100 MG Tablet 1 tablet Oral daily 04/24/2023 Active Lantus 100 UNIT/ML Solution 75 units Subcutaneous daily 04/24/2023 Active Vitamin B-1 100 MG Tablet Oral 04/24/2023 Active HYDROcodone-Acetamino phen 5-325 MG Tablet 1 tablet as needed Oral 3 times a day 04/24/2023 Active Rosuvastatin Calcium 20 MG Tablet 1 tablet Oral daily 04/24/2023 Active Immunizations Vaccine Route Administration Date [...] every day smoker 01/10/2022,Smoking Status: 40 04/24/2023 Problems Problem Type SNOMED Code ICD Code Onset Dates Problem Status W/U Status Risk Notes Problem Bipolar affective disorder, currently depressed, mild (133369665) Bipolar disorder, current episode depressed, mild (F31.31) 04/24/20 Active confirmed Problem Generalized anxiety disorder (83891759) Generalized anxiety disorder (F41.1) 04/24/20 Active confirmed Problem Primary insomnia (3887780) Primary insomnia (F51.01) 04/24/20 Active confirmed Problem Screening for cardiovascular system disease (040460951) Encounter for screening for cardiovascular disorders (Z13.6) Active confirmed Problem Depression Screening (015199920) Encounter for screening for depression (Z13.31) Active confirmed Problem Tobacco use (759611716) Nicotine use (Z72.0) Active confirmed Problem Essential hypertension (03202650) Benign essential HTN (I10) Active confirmed Vital Signs Heart Rate 74 /min 04/12/2025 Height-cm 172.72 cm 04/12/2025 Blood pressure diastolic 87 mm Hg 04/12/2025 Weight-kg 155.13 kg 04/12/2025 Height 68.00 in 04/12/2025 Blood pressure systolic 140 mm Hg 04/12/2025 Weight 342 lbs 04/12/2025 BMI 52 kg/m2 04/12/2025 Encounters Encounter Location Date Provider Diagnosis [employer] [facility] [address] [address] 04/12/2025 Gladis Mendez Bipolar disorder, current episode depressed, mild F31.31 ; Primary insomnia F51.01 and Generalized anxiety disorder F41.1 [employer] [facility] [address] [address] [address] 09/27/2024 Gladis Mendez Generalized anxiety disorder F41.1 ; Primary insomnia F51.01 ; Bipolar disorder, current episode depressed, mild F31.31 ; Benign essential HTN I10 and Nicotine use Z72.0 [employer] [facility] [address] [address] 12/14/2024 Segundo Clubb Generalized anxiety disorder F41.1 ; Bipolar disorder, current episode depressed, mild F31.31 ; Primary insomnia F51.01 ; Benign essential HTN I10 ; Encounter for screening for depression Z13.31 and Encounter for screening for cardiovascular disorders Z13.[address] [address] 01/11/2025 Gladis Mendez [address] [address] 01/14/2025 Gladis Mendez Bipolar disorder, current episode depressed, mild F31.31 ; Primary insomnia F51.01 ; Generalized anxiety disorder F41.1 and Encounter for screening for depression Z13.[address] [address] 02/09/2025 Gladis Mendez Bipolar disorder, current episode depressed, mild F31.31 ; Primary insomnia F51.01 and Generalized anxiety disorder F41.[address] [address] 03/11/2025 Gladis Mendez Bipolar disorder, current episode depressed, mild F31.31 ; Primary insomnia F51.01 and Generalized anxiety disorder F41.[address] [address] 09/27/2024 Gladis Mendez [address] [address] 09/27/[address] [address] 04/12/2025 Gladis Mendez Assessments Encounter Date Diagnosis (ICD Code) Assessment Notes Treatment Notes Treatment Clinical Notes Section Notes 01/14/2025 Bipolar disorder, current episode depressed, mild (ICD-10 - F31.31) Electronic Prior Authorization was requested for Vraylar 3 MG Capsule. Provider can order medication once approval received. 01/14/2025 Primary insomnia (ICD-10 - F51.01) 09/27/2024 Generalized anxiety disorder (ICD-10 - F41.1) 12/14/2024 Bipolar disorder, current episode depressed, mild (ICD-10 - F31.31) 12/14/2024 Generalized anxiety disorder (ICD-10 - F41.1) 02/09/2025 Bipolar disorder, current episode depressed, mild (ICD-10 - F31.31) 03/11/2025 Bipolar disorder, current episode depressed, mild (ICD-10 - F31.31) PCP meds: - Escitalopram 20 mg - Bupropion XL 300 mg 04/12/2025 Bipolar disorder, current episode depressed, mild (ICD-10 - F31.31) PCP meds: - Escitalopram 20 mg - Bupropion XL 300 mg 02/09/2025 Primary insomnia (ICD-10 - F51.01) 03/11/2025 Primary insomnia (ICD-10 - F51.01) 04/12/2025 Primary insomnia (ICD-10 - F51.01) 12/14/2024 Primary insomnia (ICD-10 - F51.01) 09/27/2024 Primary insomnia (ICD-10 - F51.01) 01/14/2025 Generalized anxiety disorder (ICD-10 - F41.1) 09/27/2024 Bipolar disorder, current episode depressed, mild (ICD-10 - F31.31) 12/14/2024 Benign essential HTN (ICD-10 - I10) 02/09/2025 Generalized anxiety disorder (ICD-10 - F41.1) 04/12/2025 Generalized anxiety disorder (ICD-10 - F41.1) 03/11/2025 Generalized anxiety disorder (ICD-10 - F41.1) 01/14/2025 Encounter for screening for depression (ICD-10 - Z13.31) 09/27/2024 Benign essential HTN (ICD-10 - I10) 12/14/2024 Encounter for screening for depression (ICD-10 - Z13.31) 09/27/2024 Nicotine use (ICD-10 - Z72.0) 12/14/2024 Encounter for screening for cardiovascular disorders (ICD-10 - Z13.6) 09/27/2024 Kareem Ritter is a 64-year-old female with a [...] up with PCP regarding elevated blood pressure 12/14/2024 Kareem Rangel, a patient with a history of bipolar disorder, presents for medication refills and samples of Vraylar due to cost concerns. Bipolar Disorder Assessment: Patient has a history of bipolar disorder. Current PHQ-9 score is 16, indicating moderate depression. PHQ-7 score is 6. Patient denies current manic symptoms, hallucinations, delusions, or paranoia. Sleep and appetite are reported as stable. No current suicidal or self-harm ideation. Plan: - Continue Vraylar 3 mg daily - Provide samples due to cost concerns ($500/month) - Explore co-pay card options - Continue bupropion 300 mg - Continue escitalopram 20 mg daily - Continue trazodone 5-100 mg as needed at bedtime - Follow up as scheduled The note is transcribed using speech recognition software. It is a reflection of a visit with the patient. It might have some inaccuracy, including medication names and transcribing errors, though efforts have been made to correct them. 01/14/2025 Kareem Ritter, a patient with a history of mood and anxiety disorders, presents for medication management and reports overall stable mood with manageable anxiety. Mood Disorder Assessment: Patient reports stable mood on current medication regimen, which includes Vraylar, escitalopram, and bupropion. No significant mood-related concerns were reported during this visit. Patient denies suicidal thoughts. Sleep is reported as adequate, possibly excessive. Appetite is described as alright. Plan: - Continue Vraylar 30 mg - Continue escitalopram 20 mg - Continue bupropion 300 mg - Submit request for insurance coverage of Vraylar - Provide Vraylar samples to patient in the interim Anxiety Assessment: Patient reports experiencing a little bit of anxiety but states it is manageable. Current medication regimen appears to be effective in controlling anxiety symptoms. Plan: - Continue current medication regimen as noted above - Monitor anxiety symptoms at follow-up visits Insomnia Assessment: Patient reports adequate sleep, possibly excessive, with current trazodone use. Plan: - Continue trazodone Psychosocial Stressor Assessment: Patient reports current conflict with sister, describing it as a bad thing. Sister is not working and has become unavailable to assist others, which appears to be causing distress for the patient. Plan: - Continue to monitor impact of family conflict on patient's mental health 02/09/2025 Kareem Ritter, a patient with a history of psychiatric medication use, presents with grief over the recent loss of her dog and work-related stress due to calling off work. Grief Assessment: Patient reports the loss of her dog two weeks ago. This recent loss appears to be causing significant distress, as evidenced by its impact on her work attendance. The grief seems to be acute and is affecting her daily functioning. Plan: - Continue current medication regimen, which has been reported as effective despite recent stressors - Encourage patient to engage in grief counseling or support groups if needed Work-related stress Assessment: Patient reports being placed on 90 days probation at her job with [employer] due to calling off work twice. This situation is likely contributing to her overall stress levels and may be interrelated with her grief response. 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 She reports having an adequate supply of trazodone through recurring fills. Plan: - Continue current medication regimen - Trazodone - Bupropion - Provide samples of Vraylar - Assist patient in exploring Vraylar assistance program through [employer], given Medicare coverage limitations - Educate patient on flexible dosing of trazodone (1-2 tablets as needed, not mandatory daily use) 03/11/2025 Other Cary Ritter, female patient with ongoing depression and anxiety, reports feeling middling with no significant changes in mood or symptoms. Depression with Anxiety Assessment: Patient reports mood as about the same and middling, suggesting persistent depressive symptoms. No suicidal ideation reported. Sleep is reportedly adequate. Anxiety levels are described as okay. Patient expresses desire to return to work, indicating potential functional impairment due to current symptoms. Recent improvement in family relationships noted, with patient reporting renewed communication with her sister. Plan: - Continue current medication regimen: - Escitalopram 20 mg - Bupropion XL 300 mg - Trazodone 50 mg PRN at bedtime (1-2 tablets as needed) - Cariprazine 3 mg - Complete Vraylar (cariprazine) patient assistance program paperwork - Provide samples of Vraylar - Monitor for changes in mood and anxiety symptoms - Follow up as scheduled Medical Decision Making Cary Ritter is a patient with a history of depression and anxiety presenting with persistent low mood. The patient reports her mood as about the same and still a little down, indicating ongoing depressive symptoms. Current medications include escitalopram 20mg for depression and anxiety, bupropion XR 300mg for depression, trazodone 50mg as needed for sleep, and Vraylar 3mg, likely for mood stabilization. The clinician considered whether medication adjustments were necessary given the patient's ongoing symptoms but decided against changes at this time. This decision was based on the patient's report of managing her symptoms and the understanding that current life stressors, particularly unemployment, are significant contributing factors to her mood state. The clinician acknowledged that medication changes might not significantly alter the patient's situation given these external factors. The potential benefits of medication adjustment were weighed against the need to allow time for the patient's work situation to resolve. Plan Of Treatment Next Appt Details Provider Name:Gladis Villanueva jermainjim, 05/10/2025 02:45:00 PM, [address] [address] [facility] [address], [address], Insurance Providers Payer Name Payer Address Payer Phone Subscriber Number Group Number Insured Name Patient Relationship to Insured Coverage Start Date Coverage End Date [facility] Medicare Replacement/ [employer] - [employer] [address] [address] [place] [address] [id number] CARY RITTER Self - patient is the insured Medical (General) History Medical History History ICD Code Problems: Anemia Bipolar affective disorder, currently de pressed, mild Bipolar affective disorder, currently de pressed, moderate Bipolar I disorder Generalized anxiety disorder Obesity Primary insomnia Severe depressed bipolar I disorder Smoker , obstructive sleep apnea Surgical History Surgery Date(Month/Year) Excision of ganglion cyst (90780992) Procedure on gallbladder (742216993) Hernia repair w/mesh (82366) Removal of gallbladder (92003) Tonsillectomy (990741443) knee replacement rt knee 07/08/2023 left knee replacement [id number] Hospitalization History Reason Date(Month/Year) knee surgery 10/14/2023 knee surgery 07/08/2023
[2025-04-22 11:02] LABS: Anion Gap 10 mmol/L (4-12); Blood Urea Nitrogen 20 mg/dL (7-17); Calcium 9.1 mg/dL (8.4-10.2); Carbon Dioxide 23 mmol/L (22-30); Chloride 102 mmol/L (98-107); Cholesterol 97 mg/dL (0-200); Estimated Glomerular Filt Rate 52; Glucose 209 mg/dL (65-110); HDL Direct 27 mg/dL; Potassium 3.9 mmol/L (3.4-5.0); Sodium 135 mmol/L (137-145); Triglycerides 254 mg/dL (<150)
[2025-04-22 11:59] LABS: Vitamin B12 890.0 pg/mL (239-931)
[2025-04-22 13:32] LABS: MALB Creatinine Ratio 72.5 mg/g (0-30)
== END 2025-04-22 09:57 | disposition home or self-care (01) ==
PROVIDERS: PCP Family Medicine
DX: E11.65 Type 2 diabetes mellitus with hyperglycemia (principal); Z79.4 Long term (current) use of insulin
CPT/HCPCS: 36415; 80048; 80061; 82043; 82607

== ENCOUNTER 2025-07-11 17:57 | Emergency (ER) | payer MEDICARE, SELFPAY ==
--- OUTSIDE RECORDS SUMMARY | 2025-04-08 04:00 | XMS_ITS ---
Author Organization [facility] [employer] [facility] Address [address] [place] [address] [address] [facility] [address] [place] [address] Care Team Providers Care Captain Waiter/Waitress Name Role Phone Aleida Yang Unavailable [phone] Vanessa Gladis Unavailable [phone] REASON FOR VISIT R/S Car wont start Social History Sex Assigned At : Social History Observation Description Sex Assigned At Female Encounters Encounter Location Date Provider Diagnosis [facility] [employer] [address] [facility] [address] [place] [address] 04/08/2025 Gladis Mendez Plan Of Treatment No Information Progress Notes * DANICA RITTERB:1960 (64 yo F)Acc No.[id number]:04/08/2025 Patient: Chelo SWENSONABRAMI Provider: Bertha Mendez :1960 A ge:64 Y S ex:Female Date:04/08/2025 Address:[address] [place], [place] [id number] Subjective: * Chief Complaints: * R /S Car wont start Billing Information: * Procedure Codes: * Electronic signature of Forest Mendez on 07/11/2025 at 07:44 PM CHARGE MASTER ANALYST Sign off status: Pending * Provider: Bertha Mendez Date: 0 04/08/2025 Generated for You frazier/Jared/eTransmitting on: 1 09/11/2024 07:44 PM CHARGE MASTER ANALYST
--- NOTE | ~2025-07-11 | XR_ITS ---
XR chest 1V portable 07/11/2025 18:14 Indication: Shortness of breath Procedure: AP portable chest Comparison: 02/27/2022 Findings: Cardiomegaly. Mild interstitial edema. No pleural effusion or pneumothorax. No acute osseous abnormality. Impression: 1: Cardiomegaly with mild interstitial edema. Reviewed, dictated and finalized at location O. [employer] Impression: 1: Cardiomegaly with mild interstitial edema.
--- OUTSIDE RECORDS SUMMARY | 2025-07-11 07:00 | XMS_ITS ---
Author Organization [facility] [employer] [facility] Address [facility] [address] [facility] [address] [place] [address] Care Team Providers Care Care Worker Name Role Phone Aleida Yang Unavailable [phone] REASON FOR VISIT 2 month f/u Social History Sex Assigned At : Social History Observation Description Sex Assigned At Female Encounters Encounter Location Date Provider Diagnosis [facility] [address] [address] 07/11/2025 Aleida Yang Plan Of Treatment No Information Progress Notes * DANICA RITTERB:1960 (64 yo F)Acc No.[id number]:07/11/2025 Patient: Chelo GUAMANCARY HERNÁNDEZ Provider: Roque Yang :1960 A ge:64 Y S ex:Female Date:07/11/2025 Address:[address] [place], [place] [id number] Subjective: * Chief Complaints: * 1 . 2 month f/u. Plan: * Procedure Codes: N S NO SHOW Billing Information: * Procedure Codes: NS NO SHOW. * ING EQUIPMENT OPERATOR Sign off status: Completed true * Provider: Roque Yang Date: 09/11/2024 Generated for You ng/Famonag/eTransmitting on: 09/11/2024 07:44 PM BONDING EQUIPMENT OPERATOR
[2025-07-11 18:02] VITALS: BP 142/84; PULSE 86; RESP 18; TEMP 36.7; O2SAT 99
--- NOTE | 2025-07-11 18:07 | ECG_ITS ---
Test Date: 2025-07-11 18:23:45 Measurements Intervals [place] Rate: 71 P: 57 CA: 168 QRS: 67 QRSD: 114 T: 66 QT: 422 QTc: 459 Interpretive Statements SINUS RHYTHM LOW QRS VOLTAGE IN LIMB LEADS BASELINE ARTIFACT- V5 BORDERLINE ECG No previous ECG available for comparison Electronically Signed On 07-11-2025 20:14:48 CREDIT SPECIALIST by Mohan Mendez D.O.
[2025-07-11 18:08] VITALS: O2SAT 99
--- NOTE | 2025-07-11 18:08 | ED.SOB ---
HPI - SOB/Dyspnea General Chief Complaint: Shortness of Breath/Dyspnea Stated Complaint: SOB on CPAP per EMS Source: patient and EMS Mode of arrival: EMS Limitations: no limitations History of Present Illness HPI Narrative: This is a 64-year-old female with history of diabetes, CRISTOBAL, CKD who presents to the ED for shortness of breath. Patient states that for the past 3 days, she has been having worsening shortness of breath. She states that today got so bad that she tried using her CPAP during the day and that prompted her EMS. Per EMS, she was 95% on her CPAP on arrival and at this did improve to 100% within their CPAP. She has had a cough productive of clear sputum. No known sick contacts. Denies chest pain at this time. Related Data Home Medications ?Medication ?Instructions ?Recorded ?Confirmed ?Last Taken ?Type cariprazine 1.5 mg capsule 1.5 mg PO DAILY 03/29/22 06/06/25 03/09/24 History (Vraylar) cholecalciferol (vitamin D3) 50 50 mcg PO DAILY 10/22/23 06/06/25 03/09/24 History mcg (2,000 unit) capsule ferrous sulfate 325 mg (65 mg 325 mg PO DAILY 10/22/23 06/06/25 03/09/24 History iron) tablet (FeroSul) naloxone 4 mg/actuation nasal 4 mg intranasal Q2M PRN OVERDOSE 10/22/23 06/06/25 03/09/24 History spray (Narcan) meclizine 25 mg tablet 25 mg PO TID PRN Dizziness 12/25/23 06/06/25 03/09/24 History trazodone 50 mg tablet 50 mg PO HS PRN sleep 07/06/24 06/06/25 Unknown History cyanocobalamin (vitamin B-12) 1,000 mcg PO DAILY 12/01/24 06/06/25 Unknown History 1,000 mcg capsule Allergies Allergy/AdvReac Type Severity Reaction Status Date / Time codeine Allergy Unknown Hallucinati Verified 07/11/25 18:16 ng chocolate flavor AdvReac Intermediate Rash Verified 07/11/25 18:16 empagliflozin (From AdvReac Intermediate kidney Verified 07/11/25 18:16 Jardiance) infection Review of Systems Review of Systems: All systems reviewed & are unremarkable except as noted in HPI and below PMFSH Past Medical History Medical History Hip pain, right Swelling of knee joint, right Diabetic toe ulcer Type II diabetes mellitus Diabetic foot ulcer associated with type 2 diabetes mellitus Hx of deep venous thrombosis 2020 Chronic kidney disease Obstructive sleep apnea on CPAP Cerebrovascular accident Hypertension Viral meningitis Bipolar disorder Osteoarthritis Restless legs Type 2 diabetes mellitus Tobacco abuse Skin cancer Suicide attempt x4 Depression Anxiety Bilateral carpal tunnel syndrome Arthritis Surgical History Surgical History Status post amputation of right great toe 07/08/[address]st toe amputation Dr. Fuentes History of bilateral carpal tunnel release History of bilateral knee arthroplasty History of hernia repair umbilical hernia repair History of surgical removal of ganglion cyst History of cholecystectomy History of tonsillectomy Family History Family History Father Family history of diabetes mellitus in first degree relative Diabetes mellitus Hypertension Family history of kidney disease Mother Acute myocardial infarction Sibling No problems noted. Other Family history of cardiovascular disease Social History Social History Social History: Surrogate medical decision maker: Ely Sosa, sibling. Code status: Full code. Smoking packs per day: 1 Smoking cigarettes per day: 20.0 Years smoked: 15 Smoking pack-years: 15.00 Smoking status: Former smoker Second hand tobacco smoke exposure: Yes Alcohol intake: never Substance use: never Substance use type: does not use Lack of Transportation: No Lack of Food: Never True Current Housing: I Have Housing Concerned About Future Housing: No Difficulty Paying Gas/Electric Bills: No Difficulty Paying for Meds: No Currently Unemployed: No Education: Trade/Vocational Certificate Difficulty w/ Childcare or Family Care: YES Living arrangements: with family Additional living arrangements comments: Lives with niece to help after surgery. 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 Spiritual care concerns: No Exam Narrative: APPEARANCE: No acute distress, nontoxic, resting in bed EYES: EOMI HEENT: Normocephalic, atraumatic, OMM RESPIRATORY: No respiratory distress Clear to auscultation bilaterally with no rhonchi wheezing or rales. CARDIOVASCULAR: Regular rate and rhythm without murmurs rubs or gallops. ABDOMINAL: Obese. Soft, nontender, nondistended, no rebound or guarding MUSCULOSKELETAl: Moves all extremities. No clubbing, cyanosis or edema. NEURO: Awake and alert. Following commands, speech normal, no focal deficits SKIN:: Warm, dry. No rashes lesions or abrasions PSYCHIATRIC: Normal affect/mood, Course Vital Signs Vital signs: Vital Signs Temperature 98.0 F 07/11/25 18:02 Pulse Rate 86 07/11/25 18:02 Respiratory Rate 18 07/11/25 18:02 Blood Pressure 142/84 H 07/11/25 18:02 Pulse Oximetry 99 07/11/25 18:02 Oxygen Delivery Room Air 07/11/25 18:02 Temperature 98.0 F 07/11/25 18:02 Pulse Rate 77 07/11/25 19:43 Respiratory Rate 16 07/11/25 19:43 Blood Pressure 156/78 H 07/11/25 19:43 Pulse Oximetry 100 07/11/25 19:43 Oxygen Delivery Room Air 07/11/25 18:08 MDM MDM Narrative Medical decision making narrative: 64-year-old female Presenting for shortness of breath. On initial evaluation patient was in no acute distress afebrile, hemodynamic stable. Differentials include but are not limited to: ACS, CHF Exacerbation, COPD exacerbation, PE, PNA, PTX, bronchitis, viral syndrome Notable exam findings: Lungs clear to auscultation in breathing, morbidly obese I personally reviewed the patient's lab result. Notable lab findings: CBC without significant abnormalities. Pseudo hyponatremia with sodium at 1:27 a.m., hyperglycemic 08/27/2007, normal anion gap, BNP 384. COVID/flu/RSV negative. Chest x-ray showed cardiomegaly with interstitial edema I personally reviewed the patient's EKGs: Normal sinus rhythm, normal axis, normal intervals, no acute ST or T-wave changes Patient was given 10 units insulin for her significant hyperglycemia. Her shortness of breath had significantly improved after prednisone. Patient would benefit from admission for management of her hyperglycemia. However, patient was requesting to go home at this time. I did discuss that her symptoms could worsen and she could developed DKA and even , patient expressed her understanding of the situation and she will be leaving A at this time. Differential Diagnosis Differential Diagnosis: ACS, CHF Exacerbation, COPD exacerbation, PE, PNA, PTX, bronchitis, viral syndrome Lab Data 07/11/25 18:36 07/11/25 18:36 Labs: Lab Results 07/11/25 07/11/25 Range/Units 18:19 18:36 WBC 5.3 (4.5-10.0) K/mm3 RBC 4.23 (4.2-5.4) M/mm3 Hgb 12.0 (12.0-15.0) g/dL Hct 36.6 L (37.0-47.0) % MCV 86.5 (80-100) fl MCH 28.4 (26-34) pg MCHC 32.8 (32-36) g/dl RDW 14.5 (11.5-14.5) % Plt Count 226 (150-375) k/mm3 MPV 9.8 (7.4-10.4) fl Immature Gran % (Auto) 1.7 H (0-0.5) % Neut % (Auto) 66.8 (45.5-73.1) % Lymph % (Auto) 15.9 L (18.3-44.2) % Davie % (Auto) 9.2 H (2.6-8.5) % Eos % (Auto) 5.6 H (0-4.4) % Baso % (Auto) 0.8 (0.2-1.2) % Lymph # (Auto) 0.85 L (0.9-3.2) K/mm3 Davie # (Auto) 0.5 (0.1-0.6) K/mm3 Eos # (Auto) 0.3 (0-0.3) K/mm3 Baso # (Auto) 0.0 (0.0-0.1) K/mm3 Abs Immat Gran (auto) 0.09 H (0.00-0.031) K/mm3 Absolute Neuts (auto) 3.6 (1.3-6.7) K/mm3 Absolute Nucleated RBC 0.000 (0.0-0.012) K/mm3 Nucleated RBC % 0.0 (0.0-0.2) % Sodium 127 L (137-145) mmol/L Potassium 5.1 H (3.4-5.0) mmol/L Chloride 93 L (98-107) mmol/L Carbon Dioxide 24 (22-30) mmol/L Anion Gap 10 (4-12) mmol/L BUN 19 H (7-17) mg/dL Creatinine 1.01 H (0.7-1.0) mg/dL Estim Creat Clear Calc 77 ml/min Estimated GFR 56 L (59 - ) Glucose 708 H* (65-110) mg/dL Calcium 9.1 (8.4-10.2) mg/dL Total Bilirubin 0.7 (0.2-1.3) mg/dL AST 24 (14-36) U/L ALT 22 (6-35) U/L Alkaline Phosphatase 99 (38-126) U/L NT-Pro-B Natriuret Pep 384 H (19.9-100) pg/mL Total Protein 6.8 (6.3-8.2) g/dL Albumin 3.7 (3.5-5.1) g/dL Influenza A (RT-PCR) Negative (Negative) Influenza B (RT-PCR) Negative (Negative) RSV (RT-PCR) Negative (Negative) SARS-CoV-2 RNA (RT-PCR) Negative (Negative) Imaging Data Radiologist's impression: ITS Impressions Chest X-Ray 07/11/25 18:18 Impression: 1: Cardiomegaly with mild interstitial edema. Discharge Plan Discharge Clinical Impression: Acute dyspnea, Acute hyperkalemia, Pseudohyponatremia Uncontrolled diabetes mellitus Qualifiers: Diabetes mellitus type: type 2 Glycemic state: with hyperglycemia Qualified Code(s): E11.65 - Type 2 diabetes mellitus with hyperglycemia Patient Disposition: Left Against Medical Advice Condition: Guarded Prognosis Additional Instructions: Please continue take her insulin at home as prescribed. Follow-up with your PCP in the next week for re-evaluation. Patient Language: Kenyan Prescriptions: No Action cyanocobalamin (vitamin B-12) 1,000 mcg capsule 1,000 mcg PO DAILY rosuvastatin 20 mg tablet 20 mg PO .Qevening Qty: 100 1RF Rx Instructions: Take 1 tablet by mouth once daily omeprazole 40 mg capsule,delayed release(DR/EC) 40 mg PO DAILY Qty: 100 3RF metformin 500 mg tablet 1,000 mg PO BID Qty: 400 3RF amlodipine 5 mg tablet 5 mg PO DAILY Qty: 100 3RF gabapentin 300 mg capsule 600 mg PO Q8H Qty: 600 2RF ketoconazole 2 % cream 1 applic topical BID Qty: 15 0RF ferrous sulfate [FeroSul] 325 mg (65 mg iron) tablet 325 mg PO DAILY cholecalciferol (vitamin D3) 50 mcg (2,000 unit) capsule 50 mcg PO DAILY naloxone [Narcan] 4 mg/actuation spray,non-aerosol 4 mg intranasal Q2M PRN (Reason: OVERDOSE) Rx Instructions: spray 1 dose into ONE nostril; alternate nostrils w each dose until help arrives Ozempic 2 mg/dose (8 mg/3 mL) pen injector 2 mg subcut WEEKLY Qty: 9 1RF Vraylar 1.5 mg Capsule 1.5 mg PO DAILY ondansetron 4 mg tablet,disintegrating 4 mg PO Q8H PRN (Reason: nausea and vomiting) Qty: 12 0RF trazodone 50 mg tablet 50 mg PO HS PRN (Reason: sleep) Patient Comments: Takes 1-2 takes daily for sleep meclizine 25 mg tablet 25 mg PO TID PRN (Reason: Dizziness) insulin glargine [Lantus U-100 Insulin] 100 unit/mL solution 90 unit SUBCUT DAILY Qty: 70 4RF losartan 100 mg tablet 100 mg PO DAILY Qty: 90 1RF hydrocodone-acetaminophen 10-325 mg tablet 1 tablet PO Q6H PRN (Reason: pain) Qty: 120 0RF tizanidine 2 mg tablet 2 mg PO TID PRN (Reason: muscle spasticity) Qty: 90 2RF cyclobenzaprine 5 mg tablet 5 mg PO TID PRN (Reason: muscle spasm) Qty: 30 1RF Rx Instructions: Alternates with the tizandine furosemide 20 mg tablet 20 mg PO QAM Qty: 100 2RF bupropion HCl 300 mg tablet extended release 24 hr 300 mg PO QAM Qty: 100 1RF famotidine 40 mg tablet 40 mg PO QHS Qty: 100 3RF insulin lispro 100 unit/mL insulin pen See Rx Instructions .ROUTE .COMPLEX Qty: 15 1RF Dose Instruction: INJECT PER SLIDING SCALE DOSE BEFORE MEALS AND AT BEDTIME. MAX DAILY DOSE OF 80 UNITS Rx Instructions: INJECT PER SLIDING SCALE DOSE BEFORE MEALS AND AT BEDTIME. MAX DAILY DOSE OF 80 UNITS Follow-up/Referrals: Jose Jordan MD [Primary Care Provider, Family Practice]
[2025-07-11 18:41] LABS: Hematocrit 36.6 % (37.0-47.0); Hemoglobin 12.0 g/dL (12.0-15.0); Immature Granulocyte Percent A 1.7 % (0-0.5); Lymphocytes Absolute Auto 0.85 K/mm3 (0.9-3.2); Mean Corpuscular HGB Conc 32.8 g/dl (32-36); Mean Corpuscular Hemoglobin 28.4 pg (26-34); Mean Corpuscular Volume 86.5 fl (80-100); Nucleated Red Blood Cells Absolute Auto 0.000 K/mm3 (0.0-0.012); Nucleated Red Blood Cells Perc 0.0 % (0.0-0.2); Platelet Count Result 226 k/mm3 (150-375); Red Blood Count 4.23 M/mm3 (4.2-5.4); White Blood Count 5.3 K/mm3 (4.5-10.0)
[2025-07-11 18:59] LABS: Influenza A QL RT-PCR Negative (Negative); Influenza B QL RT-PCR Negative (Negative); RSV RNA, RT-PCR Negative (Negative); SARS-CoV-2 RNA PCR Negative (Negative)
[2025-07-11 19:10] LABS: Alanine Aminotransferase 22 U/L (6-35); Albumin Level 3.7 g/dL (3.5-5.1); Alkaline Phosphatase 99 U/L (38-126); Anion Gap 10 mmol/L (4-12); Aspartate Amino Transferase 24 U/L (14-36); Bilirubin,Total 0.7 mg/dL (0.2-1.3); Blood Urea Nitrogen 19 mg/dL (7-17); Calcium 9.1 mg/dL (8.4-10.2); Carbon Dioxide 24 mmol/L (22-30); Chloride 93 mmol/L (98-107); Estimated CRCL calculation 77 ml/min; Estimated Glomerular Filt Rate 56; Glucose 708 mg/dL (65-110); NT Pro B Type Natriuretic Pept 384 pg/mL (19.9-100); Potassium 5.1 mmol/L (3.4-5.0); Sodium 127 mmol/L (137-145); Total Protein 6.8 g/dL (6.3-8.2)
[2025-07-11] MEDS: INSULIN HUMAN REGULAR (*BKC) 100 UNITS/ML 10 UNITS IV PUSH (19:36)
[2025-07-11 19:43] VITALS: BP 156/78; PULSE 77; RESP 16; O2SAT 100
--- OUTSIDE RECORDS SUMMARY | 2025-07-11 19:44 | XMS_ITS | Clinical Summary ---
Author Organization [facility] Address [address] [place] [address] Care Team Providers Care Urology Physician Assistant Name Role Phone Jose Jordan MD Primary Care Provider [phone] Allergies Active Allergy Reactions Criticality Noted Date [...] meals. SLIDING SCALE BG 150-199= 3 units [id number]= 6 units BG 250-299= 9 units BG [...] 09/01/2023 Assessment & Plan (09/01/2023 3:05 PM WASTEWATER MANAGER): We discussed the risks, benefits, and alternatives. [...] 07/24/2023 Assessment & Plan (07/24/2023 11:37 AM WASTEWATER MANAGER): Recommendation at this time is to transition to outpatient physical therapy to continue working on progressive range of motion and strengthening. No refills needed at this time. Patient will be seen back in four weeks with an Xr. Type 2 diabetes mellitus wit h neurologic complication, with long-term current use of insulin 04/14/2023 BMI 40.0-44.9, adult 04/14/2023 Bilateral primary osteoarthritis of knee 023 Assessment & Plan (04/16/2023 5:26 PM CDT): Recommendation at this time: We went over the risk benefits, as well as the alternatives. The patient would like to proceed with total knee arthroplasty on the right so we will get her set up for a right TKR on 05/27/23. Bipolar 1 disorder 04/14/2023 Stage 3a chronic kidney disease 05/17/2022 [...] materials from doctor or pharmacy Never 10/28/2023 [facility] Utilities Answer Date Recorded In the past 12 months has e [employer], gas, oil, or water [employer] threatened to shut off services in your [...] place to sleep or slept in a longterm (including now)? No 10/16/2023 Comments No Sex [...] Hemoglobin A1C 04/08/2024 10/07/2023, 05/15/2023 PHQ-2 (Physician [place]) 07/21/2024 09/01/2023 COVID-19 Vaccine (3 - 2024-2 6 season) 2025 10/11/2020, 09/20/2020 Influenza Adult (#1) 2025 DTaP, Tdap and Td Vaccines ( 2 - Td or Tdap) 04/04/2027 04/04/2017 Hepatitis A Vaccines Aged Out No long er eligible based on patient's age to complete this topic Meningococcal B Vaccine Aged Out No l onger eligible based on patient's age to complete this topic Meningococcal Vaccine Aged Out No gilberto anai eligible based on patient's age to complete this topic RSV Immunizations Under 20 Months Aged Out No longer eligible b ased on patient's age to complete this topic Medical Devices Implanted Type Area Weir Fisherman Device Identifier Shelf Expiration Date Model / Serial / Lot Cement Bone Tobramycin Simplex - [id number] Implanted:Qty: 1 on 07/08/2023 by Ronald Payan DO at [facility] Cement Implant Right: Knee [employer] DIV [employer] ALISON [id number] 10/18/2024 6197-9-0 10 / / [id number] Cement Bone Tobramycin Simplex - [id number] Implanted:Qty: 1 on 07/08/2023 by Ronald Payan DO at [facility] Cement Implant Right: Knee [employer] DIV MAHESH ALISON [id number] 08/20/2024 6197-9-0 10 / / [id number] Baseplate Tibial Triathlon 6 Spearman Knee Cocr - [id number] Implanted:Qty: 1 on 07/08/2023 by Ronald Payan DO at [facility] Knee Components Right: Knee [employer]ESH ALISON [id number] 03/04/2026 5521-B-6 00 / / [id number] Stem Extension 50mm 12mm Triathlon Knee Cocr Cement Total Stabilize End Cap Sterile Latex Free - [id number] Implanted:Qty: 1 on 07/08/2023 by Ronald Payan DO at [facility] Knee Components Right: Knee [employer]ESH ALISON [id number] 11/04/2027 5560-S-1 12 / / [id number] Component Femoral Telford Cruciate Retaining Sz 5 Right - [id number] Implanted:Qty: 1 on 07/08/2023 by Ronald Payan DO at [facility] Knee Components Right: Knee [employer]ESH ALISON [id number] 04/18/2028 5510-F-5 02 / / [id number] Component Femoral 5 Knee Left Cruciate Retain Bead Triathlon Pa Sterile Latex Free - [id number] Implanted:Qty: 1 on 10/14/2023 by Ronald Payan DO at [facility] Knee Components Left: Knee [employer]ESH ALISON [id number] 06/23/2028 5517-F-5 01 / / [id number] Baseplate Tibial Triathlon 5 Knee Tritanium - [id number] Implanted:Qty: 1 on 10/14/2023 by Ronald Payan DO at [facility] Knee Components Left: Knee [employer]HESH ALISON [id number] 07/24/2028 5536-B-5 00 / / [id number] Pin Telford Bone Santiago 110 X 4 - [id number] Implanted:Qty: 1 on 07/08/2023 by Ronald Payan DO at [facility] Pin Right: Knee [employer]HESH ALISON 04/03/2028 [id number] / / [id number] Pump Pain On-Q 400ml - [id number] Implanted:Qty: 1 on 07/08/2023 by Ronald Payan DO at [facility] Pump Right: Knee [employer] 10/05/2025 RT308D / / [id number] Triathlon X3 Asymmetric Patella A35, 10mm Implanted:Qty: 1 on 07/08/2023 by Ronald Payan DO at [facility] Right: Knee [id number] 08/31/2025 [id number] E / / [id number] Triathlon X3 Tibial Bearing Insert Cs 6, Cs, 9mm Implanted:Qty: 1 on 07/08/2023 by Ronald Payan DO at [facility] Right: Knee [id number] 12/16/2027 [id number] E / / [id number] On Q Antimicrobial Expansion Kits With Silversoaker Antimicrobial Catheter Implanted:Qty: 1 on 10/14/2023 by Ronald Payan DO at [facility] Left: Knee [id number] 12/02/2025 JE155-T / / [id number] Triathlon Tritanium Asymmetric Patella Implanted:Qty: 1 on 10/14/2023 by Ronald Payan DO at [facility] Left: Knee [employer] ALISON [id number] 06/09/2028 [id number] / / [id number] Triathlon X3 Tibial Bearing Insert Cs Implanted:Qty: 1 on 10/14/2023 by Ronald Payan DO at [facility] Left: Knee [employer] DIV [employer]HESH ALISON [id number] 08/26/2028 [id number] E / / [id number] Explanted Type Area Weir Fisherman Device Identifier Shelf Expiration Date Model / Serial / Lot Pin Fixation 110mm 3.2mm Bone Sterile Latex Free - [id number] Explanted:Qty: 1 on 07/08/2023 at [facility] Pin Right: Knee [employer] DIV MAHESH ALISON [id number] / / Pin Mahesh Bone Santiago 140 X 4 - [id number] Explanted:Qty: 1 on 07/08/2023 at [facility] Pin Right: Knee [employer]HESH ALISON [id number] / / Pin Mahesh Bone Santiago 140 X 4 - [id number] Explanted:Qty: 1 on 10/14/2023 at [facility] Pin Left: Knee [employer]ESH ALISON 03/31/2028 [id number]- / / [id number] Pin Mahesh Bone Santiago 110 X 4 - [id number] Explanted:Qty: 1 on 10/14/2023 at [facility] Pin Left: Knee [employer]ESH ALISON [id number] 03/03/2028 897237 / / [id number] Pump Pain On-Q 400ml - [id number] Explanted:Qty: 1 on 10/14/2023 at [facility] Pump [employer] [id number] / / Description:Not an implant. [...] HEMOGLOBIN, GLYCOSYLATED (A1C) (10/07/2023 12:17 PM CDT) [facility] Signature HGB A1C 7.1(H) <5.7 % 10/07/2023 1:06 [...] Final Result [facility] [address] [place] [address], from Last 3 Months or Most Recently Relevant to Health Maintenance Insurance [facility] MEDICARE Advance Directives * Full Code (Latest Code Status on File) Date Activated Date Inactivated Comments 10/18/2023 11:46 AM * Full Code Date Activated Date Inactivated Comments 10/14/2023 1:02 PM 10/17/2023 3:07 PM * Full Code Date Activated Date Inactivated Comments 07/10/2023 3:23 PM 10/14/2023 7:38 AM * Full Code Date Activated Date Inactivated Comments 07/08/2023 11:07 AM 07/09/2023 2:27 PM Care Teams Urology Physician Assistant Relationship Specialty Start Date End Date Jose Jordan MD [address] [address] PCP - General FAMILY PRACTICE 04/14/23
--- OUTSIDE RECORDS SUMMARY | 2025-07-11 19:44 | XMS_ITS | Encounter Summary ---
Author Organization [facility] Address [address] [place] [id number] Care Team Providers Care Watch Dial Printer Name Role Phone Jose Jordan MD Primary Care Provider [phone] Encounter Details Date Type Department Care Team (Late st Contact Info) Description 10/02/2023 Prep for Procedure [facility] [address] [place] [address] [place] [address] [place] [address] Social History Tobacco Use Types [...] COMPREHENSIVE METABOLIC PANEL (10/07/2023 12:17 PM CDT) [facility] GLUCOSE 167(H) 70 - 99 MG/DL 10/07/2023 12:54 PM CDT [facility] BUN 28(H) 7 - 18 MG/DL 10/07/2023 12:54 PM CDT [facility] CREATININE S/P/B 1.77(H) 0.55 - 1.02 MG/DL 10/07/2023 12:54 PM CDT [facility] SODIUM S/P/B 135(L) 136 - 145 MMOL/L 10/07/2023 12:54 PM CDT [facility] POTASSIUM S/P/B 3.9 3.5 - 5.1 MMOL/L 10/07/2023 12:54 PM [facility] CHLORIDE S/P/B 96(L) 100 - 108 MMOL/L 10/07/2023 12:54 PM [facility] CO2 24.6 21 - 32 MMOL/L 10/07/2023 12:54 PM [facility] CALCIUM S/P/B 9.1 8.5 - 10.1 MG/DL 10/07/2023 12:54 PM [facility] BILIRUBIN TOTAL S/P/B 0.6 0.2 - 1.2 MG/DL 10/07/2023 12:54 PM [facility] TOTAL PROTEIN S/P/B 7.8 6.4 - 8.2 G/DL 10/07/2023 12:54 PM [facility] ALBUMIN S/P/B 2.9(L) 3.4 - 5.0 G/DL 10/07/2023 12:54 PM [facility] AST 13(L) 15 - 37 U/L 10/07/2023 12:54 PM [facility] ALT 20 14 - 55 U/L 10/07/2023 12:54 PM [facility] ALKALINE PHOSPHATASE S/P/B 82 50 - 136 U/L 10/07/2023 12:54 PM [facility] ANION GAP 14.4 5 - 15 MMOL/L 10/07/2023 12:54 PM [facility] BUN CREATININE RATIO 15.8 6 - 26 10/07/2023 12:54 PM [facility] A/G RATIO 0.6(L) 1.0 - 2.0 RATIO 10/07/2023 12:54 PM [facility] GFR ESTIMATE 32(L) >90 ML/MIN/1.7 3 M2 10/07/2023 12:54 PM CDT [facility] Comment: NOTE: eGFR is not calculated for patients <18 years of age. This is an estimated GFR calculation using the new CKD EPI creatinine equation without race and so does not require a correction factor for race. This estimated GFR should not be used for calculating drug doses. 10/07/2023 12:1 7 PM CDT Ronald Payan DO LABORATORY Final Result [facility] [address] [place] [address], * (ABNORMAL) CBC W/DIFF AUTOMATED (10/07/2023 12:17 PM CDT) WBC 9.48 4.4 - 11.0 x10'3/uL 10/07/2023 12:40 PM CDT [facility] RBC 4.75 4.50 - 5.10 x10'6/uL 10/07/2023 12:40 PM CDT [facility] HGB 10.9(L) 12.3 - 15.3 G/DL 10/07/2023 12:40 PM CDT [facility] HCT 36.8 35.9 - 44.6 % 10/07/2023 12:40 PM CDT [facility] MCV 77.5(L) 80.0 - 96.0 FL 10/07/2023 12:40 PM CDT [facility] MCH 22.9(L) 25.3 - 30.9 PG 10/07/2023 12:40 PM CDT [facility] MCHC 29.6(L) 31.0 - 34.1 G/DL 10/07/2023 12:40 PM CDT [facility] RDW 18.2(H) 12.4 - 15.1 % 10/07/2023 12:40 PM CDT [facility] PLT 446(H) 151 - 353 x10'3/uL 10/07/2023 12:40 PM CDT [facility] MPV 8.5(L) 9.6 - 12.0 FL 10/07/2023 12:40 PM CDT [facility] RBC MORPHOLOGY NORMAL 10/07/2023 12:40 PM CDT [facility] PLT MORPH. NORMAL 10/07/2023 12:40 PM CDT [facility] WBC MORPHOLOGY NORMAL 10/07/2023 12:40 PM T [facility] LYMPHOCYTES % 21.9 15.8 - 45.0 % 10/07/2023 12:40 PM CDT [facility] NEUTROPHILS % 66.6 42.1 - 71.9 % 10/07/2023 12:40 PM CDT [facility] MONOCYTES % 7.2 5.7 - 12.5 % 10/07/2023 12:40 PM CDT [facility] EOSINOPHILS 2.3 0.0 - 5.6 % 10/07/2023 12:40 PM CDT [facility] BASOPHILS 0.7 0.0 - 1.3 % 10/07/2023 12:40 PM CDT [facility] ABS. NEUTROPHILS 6.31(H) 1.40 - 6.00 x10'3/uL 10/07/2023 12:40 PM CDT [facility] IMMATURE GRANS % 1.3(H) 0.0 - 0.5 % 10/07/2023 12:40 PM CDT [facility] ABS. LYMPHOCYTES 2.08 0.80 - 4.70 x10'3/uL 10/07/2023 12:40 PM CDT [facility] 10/07/2023 12:1 7 PM CDT Ronald Payan DO LABORATORY Final Result Performing Organization Address City/State/[facility] Co de Phone Number [facility] [address] [place] [address], documented in this encounter Visit Diagnoses Diagnosis Preop testing- Primary Preoperative examination, unspecified documented in this encounter Care Teams Watch Dial Printer Relationship Specialty Start Date End Date Jose Jordan MD [address] [address] PCP - General FAMILY PRACTICE 04/14/23 documented as of this encounter
--- OUTSIDE RECORDS SUMMARY | 2025-07-11 19:44 | XMS_ITS | Clinical Summary ---
Author Organization [facility] Address [address] [place] [address] Phone Care Team Providers Care Criminalist Technician Name Role Phone Jose Jordan MD Primary Care Provider [phone] Allergies Active Allergy Reactions Criticality Noted Date [...] 2025 Insurance [employer] MEDICARE Care Teams Criminalist Technician Relationship Specialty Start Date End Date Jose Jordan MD [address] [place] [address] PCP - General Family Medicine 04/03/20
== END 2025-07-11 19:47 | disposition left against medical advice (07) ==
PROVIDERS: Emergency Provider Student in an Organized Health Care Education/Training Program; PCP Family Medicine
DX: R06.00 Dyspnea, unspecified (principal); E87.5 Hyperkalemia; E11.65 Type 2 diabetes mellitus with hyperglycemia; E11.22 Type 2 diabetes mellitus with diabetic chronic kidney disease; I12.9 Hypertensive chronic kidney disease with stage 1 through stage 4 chronic kidney disease, or unspecified chronic kidney disease; N18.9 Chronic kidney disease, unspecified; Z87.891 Personal history of nicotine dependence; Z20.822 Contact with and (suspected) exposure to COVID-19
CPT/HCPCS: 36415; 71045; 80053; 83880; 85025; 87637; 93005; 96374; 99284; J1815; J7512